=== PATIENT | male | born 1950 ===

== ENCOUNTER 2020-05-24 08:52 | Outpatient (REF) | payer MEDICARE, OTHER, SELFPAY ==
--- NOTE | 2020-05-24 | PFT_ITS ---
FLOWS: FEV1 51% of predicted at 1.44 L. FVC 96% of predicted at 3.55 L. FEV1 to FVC ratio of 0.41. No bronchodilator response. LUNG VOLUMES: Total lung capacity 95% of predicted at 5.92 L. Residual volume 89% of predicted at 2.02 L. Slow vital capacity 98% of predicted at 3.90 L. Expiratory reserve volume at 2.30 L. Diffusion capacity is normal. IMPRESSION: [id number] obstructive ventilatory defect with no bronchodilator response. MD BULMARO Rahman/MODL / [id number] MTDD
== END 2020-05-24 08:53 | disposition home or self-care (01) ==
LOC: HO.RESP 08:52
PROVIDERS: PCP Family Medicine; Visit Provider Surgery
DX: Z01.818 Encounter for other preprocedural examination (principal); R91.1 Solitary pulmonary nodule
CPT/HCPCS: 94060; 94727; 94729

== ENCOUNTER → 2020-06-07 10:24 | Outpatient (BNVA) | payer MEDICARE, OTHER, SELFPAY | PROVIDERS: PCP Family Medicine; Visit Provider Surgery | DX: Z76.89 Persons encountering health services in other specified circumstances (principal) ==

== ENCOUNTER 2020-07-10 11:21 | Outpatient (REF) | payer MEDICARE, MEDICAID, SELFPAY ==
--- NOTE | 2020-07-10 11:24 | CT_ITS ---
EXAMINATION: CT CHEST SCREENING CLINICAL INFORMATION: Lung cancer screening. Follow-up COMPARISON: CT chest 04/30/2020 TECHNIQUE: Multidetector volumetric CT imaging of the chest is performed without contrast using low dose technique. Additional 2D coronal and sagittal reformatted images and axial 3D maximum intensity projection (MIP) images are generated on the CT workstation. This CT examination was performed using dose optimization techniques as appropriate, variously including the following: *Automated exposure control *Adjustment of mA and/or kV according to patient size (this includes techniques or standardized protocols for targeted exams where dose is matched to indication/reason for exam; i.e. extremities or head) *Use of iterative reconstruction technique DLP: 63 mGy-cm FINDINGS: LUNGS: The lungs are emphysematous without any acute process. There is a 5 mm calcified nodule right upper lobe image 78/6, 5 mm linear density right middle lobe, image 120/6, 5 mm pleural-based nodule right upper lobe, axial image 222/6, 2 mm nodule right lower lobe medial segment, axial image 83/9. There is a 9 mm pleural-based nodule left lower lobe, axial image 122/6, stable. There is 4 mm nodule left lower lobe centrally at the base on axial image 325/6. All these nodules are stable. No new nodules seen. MEDIASTINUM: The central trachea and the bronchi widely patent. The heart size and the great vessels are normal caliber. There is atherosclerotic calcification of the abdominal aorta and coronary arteries. No aneurysmal dilatation seen. No pericardial effusion. No abnormal mediastinal adenopathy. PLEURA: There is no pleural effusion. No pleural mass or thickening. AXILLA: There are small shotty lymph nodes seen in bilateral axillae. UPPER ABDOMEN: Visualized liver, spleen, pancreas and bilateral adrenal glands are unremarkable. OSSEOUS STRUCTURES: No lytic or sclerotic process seen. There is mild ventral spondylosis mid and lower dorsal spine. CT/CT lung screen follow up IMPRESSION: Stable bilateral pulmonary nodules, largest pulmonary nodule is 9 mm in the left lower lobe. Previously measured 10 mm ASSESSMENT: Lung-Rads category: 2, benign RECOMMENDATION: Low dose annual CT chest.
== END 2020-07-10 11:22 | disposition home or self-care (01) ==
LOC: HO.CT 11:21
PROVIDERS: PCP Family Medicine; Visit Provider Surgery
DX: Z12.2 Encounter for screening for malignant neoplasm of respiratory organs (principal); R91.1 Solitary pulmonary nodule; Z87.891 Personal history of nicotine dependence
CPT/HCPCS: 71250

== ENCOUNTER → 2020-07-19 09:51 | Outpatient (BNVA) | payer MEDICARE, MEDICAID, OTHER, SELFPAY | PROVIDERS: PCP Family Medicine; Referring Provider Family Medicine; Visit Provider Surgery | DX: R91.1 Solitary pulmonary nodule (principal); Z87.891 Personal history of nicotine dependence | CPT/HCPCS: 99215 ==

== ENCOUNTER → 2020-09-06 10:52 | Outpatient (BNVA) | payer MEDICARE, OTHER, SELFPAY | PROVIDERS: PCP Family Medicine; Visit Provider Surgery | DX: Z13.89 Encounter for screening for other disorder (principal) | CPT/HCPCS: 99212 ==

== ENCOUNTER → 2020-09-09 12:58 | Outpatient (BNV) | payer MEDICARE, MEDICAID, SELFPAY | PROVIDERS: PCP Family Medicine; Referring Provider Surgery; Visit Provider Internal Medicine | DX: C34.32 Malignant neoplasm of lower lobe, left bronchus or lung (principal); C79.51 Secondary malignant neoplasm of bone; E03.9 Hypothyroidism, unspecified; E87.1 Hypo-osmolality and hyponatremia | CPT/HCPCS: 99202; 99204; 99213; 99214; G2211 ==

== ENCOUNTER 2020-09-11 | Outpatient (REF) | payer MEDICARE, MEDICAID, OTHER, SELFPAY | END 2020-09-11 00:01 | disposition home or self-care (01) | LOC: HO.VC | PROVIDERS: Visit Provider Internal Medicine | DX: Z23 Encounter for immunization (principal) | CPT/HCPCS: 0011A ==

== ENCOUNTER 2020-09-13 09:45 | Outpatient (REF) | payer MEDICARE, MEDICAID, SELFPAY ==
--- NOTE | ~2020-09-13 | MR_ITS ---
EXAMINATION: MR BRAIN WITHOUT AND WITH CONTRAST CLINICAL INFORMATION: History of lung cancer COMPARISON: None TECHNIQUE: Multiplanar, multisequence MRI of the brain was obtained before and after the intravenous administration of 7.5 mL Gadavist. FINDINGS: No focal reduced diffusion is seen to suggest acute or subacute cerebral ischemia. No intracranial mass, intracerebral edema, intra-axial blood products, midline shift, or extra-axial collection is visualized. No pathologic enhancement is appreciated on postcontrast sequences. There are a few scattered foci of T2 prolongation subcortical white matter statistically reflective of chronic white matter small vessel ischemic disease. There are a few scattered dilated perivascular spaces throughout the supratentorial white matter. The ventricles and sulcal spaces appear normal. Normal arterial and venous vascular flow voids are present. Mild pansinus mucosal thickening. Orbits and globes unremarkable. MR/MR head/brain wo/w con IMPRESSION: No evidence of intracranial metastatic disease. Minimal chronic white matter small vessel ischemic disease.
== END 2020-09-13 09:46 | disposition home or self-care (01) ==
LOC: HO.MRI 09:45
PROVIDERS: Visit Provider Internal Medicine
DX: C34.32 Malignant neoplasm of lower lobe, left bronchus or lung (principal)
CPT/HCPCS: 70553; A9585

== ENCOUNTER 2020-09-13 10:45 | Day surgery (SDC) | payer MEDICARE, MEDICAID, OTHER, SELFPAY ==
--- NOTE | ~2020-09-13 | IR_ITS ---
PROCEDURE: IR INSERTION OF TUNNEL CATHETER IR ULTRASOUND-GUIDED VENOUS ACCESS CLINICAL INFORMATION: Lung cancer. COMPARISON: None TECHNIQUE: Procedure, risks and benefits including bleeding, infection and pneumothorax were discussed with the patient, and informed consent was obtained. All elements of maximal sterile barrier technique followed including use of cap, mask, sterile gown, sterile gloves, a sterile full body drape, and hand hygiene. Also followed skin preparation with 2% chlorhexidine for cutaneous antisepsis, and sterile ultrasound preparation with sterile gel and probe cover when applicable. The right neck and chest were prepped and draped in the usual sterile fashion. The skin and soft tissues of the right lower neck were anesthetized with 1% lidocaine with epinephrine. A small incision was made. Using ultrasound guidance and a 4-[place] micropuncture system, right internal jugular vein access was obtained. Over an .018 wire, a 4-[place] dilator was positioned in the SVC. The skin and soft tissues of the right upper anterior chest were anesthetized with 1% lidocaine with epinephrine. A small incision was made. A subcutaneous pocket was created. A subcutaneous tunnel from the chest to the neck incision was anesthetized with 1% lidocaine with epinephrine. Using a tunneler, a 6.6-[place] single-lumen catheter was tunneled from the chest to the neck incision. The catheter was attached to the port. The port and catheter were flushed. The port was positioned in the subcutaneous pocket and secured using two 2-0 nonabsorbable sutures. An .035 guidewire was advanced through the 4-[place] dilator into the IVC. 4-[place] dilator was exchanged for a 7-[place] peel-away sheath. Using bent wire technique, the catheter length was estimated and the catheter was cut. The catheter length is 22 cm. The catheter was fed centrally through the peel-away sheath. The neck incision was closed using a 4-0 absorbable subcuticular suture. The chest incision was closed using three 3-0 absorbable interrupted sutures followed by a running absorbable 4-0 subcuticular suture. The port was accessed. The port had good blood return, flushed easily and was instilled with 5 mL heparin 100 unit per mL solution. Real-time ultrasound guidance was used to document vein patency and for needle entry. A formal ultrasound picture was recorded. Fluoroscopy time 0.4 minutes. The patient received Versed 1 mg and fentanyl 50 mcg intravenously during the procedure. Total sedation time 33 minutes. Patient dose 76 cGy-cm2. FINDINGS: There is a right internal jugular port with tip projecting over the cavoatrial junction. IR/IR cvc insert tunnel w prt/cosmetic chemist IMPRESSION: Right internal jugular 6.6-[place] single-lumen Dignity Port-A-Cath placement.
--- NOTE | ~2020-09-13 | IR_ITS ---
PROCEDURE: IR INSERTION OF TUNNEL CATHETER IR ULTRASOUND-GUIDED VENOUS ACCESS CLINICAL INFORMATION: Lung cancer. COMPARISON: None TECHNIQUE: Procedure, risks and benefits including bleeding, infection and pneumothorax were discussed with the patient, and informed consent was obtained. All elements of maximal sterile barrier technique followed including use of cap, mask, sterile gown, sterile gloves, a sterile full body drape, and hand hygiene. Also followed skin preparation with 2% chlorhexidine for cutaneous antisepsis, and sterile ultrasound preparation with sterile gel and probe cover when applicable. The right neck and chest were prepped and draped in the usual sterile fashion. The skin and soft tissues of the right lower neck were anesthetized with 1% lidocaine with epinephrine. A small incision was made. Using ultrasound guidance and a 4-[place]izen [place] micropuncture system, right internal jugular vein access was obtained. Over an .018 wire, a 4-[place] dilator was positioned in the SVC. The skin and soft tissues of the right upper anterior chest were anesthetized with 1% lidocaine with epinephrine. A small incision was made. A subcutaneous pocket was created. A subcutaneous tunnel from the chest to the neck incision was anesthetized with 1% lidocaine with epinephrine. Using a tunneler, a 6.6-[place] single-lumen catheter was tunneled from the chest to the neck incision. The catheter was attached to the port. The port and catheter were flushed. The port was positioned in the subcutaneous pocket and secured using two 2-0 nonabsorbable sutures. An .035 guidewire was advanced through the 4-[place]izen [place] dilator into the IVC. 4-[place] dilator was exchanged for a 7-[place] peel-away sheath. Using bent wire technique, the catheter length was estimated and the catheter was cut. The catheter length is 22 cm. The catheter was fed centrally through the peel-away sheath. The neck incision was closed using a 4-0 absorbable subcuticular suture. The chest incision was closed using three 3-0 absorbable interrupted sutures followed by a running absorbable 4-0 subcuticular suture. The port was accessed. The port had good blood return, flushed easily and was instilled with 5 mL heparin 100 unit per mL solution. Real-time ultrasound guidance was used to document vein patency and for needle entry. A formal ultrasound picture was recorded. Fluoroscopy time 0.4 minutes. The patient received Versed 1 mg and fentanyl 50 mcg intravenously during the procedure. Total sedation time 33 minutes. Patient dose 76 cGy-cm2. FINDINGS: There is a right internal jugular port with tip projecting over the cavoatrial junction. IR/IR us guide venous access IMPRESSION: Right internal jugular 6.6-[place] single-lumen Dignity Port-A-Cath placement.
[2020-09-13 11:05] VITALS: BMI 26.9
[2020-09-13 11:06] LABS: Glucose, Whole Blood 100 mg/dL (60-115)
[2020-09-13] MEDS: Lidocaine HCl 1 % MPF 5 ML VIAL 10 ML SUBCUT (12:35)
--- NOTE | 2020-09-13 12:49 | HO.RADPN ---
RADIOLOGY Narrative Narrative: Right internal jugular 6.6 Fr single lumen Dignity port placed. Tip at cavoatrial junction.
[2020-09-13 12:52] VITALS: BP 117/62; PULSE 70; RESP 17; TEMP 36.7; O2SAT 98
[2020-09-13 13:07] VITALS: BP 108/57; PULSE 60; RESP 18; O2SAT 96
[2020-09-13 13:22] VITALS: BP 113/62; PULSE 62; RESP 18; O2SAT 96
[2020-09-13 13:37] VITALS: BP 121/66; PULSE 62; RESP 18; O2SAT 95
[2020-09-13 13:52] VITALS: BP 121/60; PULSE 63; RESP 20; TEMP 37.2; O2SAT 95
== END 2020-09-13 16:20 | disposition home or self-care (01) ==
PROVIDERS: PCP Family Medicine; Visit Provider Radiology Diagnostic Radiology
DX: C34.32 Malignant neoplasm of lower lobe, left bronchus or lung (principal); Z92.3 Personal history of irradiation; Z87.891 Personal history of nicotine dependence
CPT/HCPCS: 36561; 76937; 82947; 99152; 99153; C1788; J0690; J1642; J2250; J3010

== ENCOUNTER 2020-09-17 11:01 | Outpatient (REF) | payer MEDICARE, OTHER, SELFPAY ==
--- NOTE | ~2020-09-17 | PE_ITS ---
EXAMINATION: Fluorine-18 FDG PET/CT Scan CLINICAL INDICATION: Subsequent treatment management. Left lung cancer status post surgery 08/20/2020. Patient provides history of throat radiation therapy 2.5 years ago. PROCEDURE: 47 minutes following the intravenous administration of 14.4 mCi of fluorine 18 FDG, images from the base of the skull to the mid thighs were obtained using a combined PET/CT scanner with CT scan based attenuation correction. No oral contrast was administered. No intravenous contrast was administered. Transverse, coronal, sagittal, and volume reconstruction projections were obtained. The patient's blood glucose as determined by a finger stick, was 82 mg/dl immediately prior to injection. Total CT exam dose-length product 453.45 mGy-cm * These CT images were obtained using dose optimization techniques as appropriate, variously including the following: Automated exposure control * Adjustment of mA and/or kV according to patient size (this includes techniques or standardized protocols for targeted exams where dose is matched to indication/reason for exam; i.e. extremities or head) * Use of iterative reconstruction technique COMPARISON: No previous PET/CT scan is available for comparison. CT scan of the chest dated 07/10/2020 is available for comparison. FINDINGS: (Slice numbers described in this report are numbered superiorly to inferiorly with slice #1 in the head) NECK AND VISUALIZED HEAD: No foci of abnormal FDG activity are noted. The distribution of FDG activity is physiological. There is no cervical lymphadenopathy. THORAX: Postsurgical changes from a left lower lobectomy are noted, new findings since the most recent CT scan available for comparison dated 07/10/2020. A moderately sized left pleural effusion is present. There is no right-sided pleural fluid, pericardial fluid, or pneumothorax. There is no mediastinal, supraclavicular, or axillary lymphadenopathy. A right-sided chest port with internal jugular catheter terminating in the superior vena cava is noted. There are no foci of abnormal FDG activity present within the lungs are mediastinum. There is mildly increased FDG activity in the lateral aspect of the left 6 rib and adjacent lateral 6 interspace with no definite corresponding CT abnormalities, likely postoperative inflammatory changes. A densely calcified 0.5 cm lateral right upper lobe pulmonary nodule is visualized, too small to be characterized on the FDG PET images. Inferior to this also laterally located in the right lower lobe there is a 0.4 cm nodule, slice 75/267, also too small to characterize on the FDG PET images. No other pulmonary nodules are visualized. ABDOMEN AND PELVIS: No foci of abnormal FDG activity are present in the abdomen or pelvis. The liver, gallbladder, spleen, kidneys, adrenal glands, and pancreas appear unremarkable. There is mild FDG activity throughout the gastrointestinal tract without a suspicious focal component. There is diverticulosis without evidence of diverticulitis. The hollow viscera are otherwise unremarkable. The prostate gland is enlarged measuring 5.1 cm in largest transverse dimension. The pelvic organs are otherwise unremarkable. There is no retroperitoneal, mesenteric, pelvic or inguinal lymphadenopathy. MUSCULOSKELETAL: No foci of abnormal FDG activity are present in the osseous structures. There are degenerative changes in the spine which are most severe in the mid and lower thoracic spine. There are no suspicious sclerotic or lytic lesions visualized. VASCULAR: Diffuse vascular calcifications including coronary. PET/PET CT fusion skull to thigh IMPRESSION: 1. Postsurgical changes from a left lower lobectomy are noted. There is a moderately sized left pleural effusion and mild FDG activity in the left lateral chest wall is noted which is likely due to mild postoperative inflammatory changes. 2. No additional abnormalities suspicious for metastatic or other malignant lesions are noted. 3. Diffuse vascular calcifications including coronary.
== END 2020-09-17 11:02 | disposition home or self-care (01) ==
LOC: HO.PET 11:01
PROVIDERS: Visit Provider Internal Medicine
DX: Z13.89 Encounter for screening for other disorder (principal)

== ENCOUNTER 2020-10-09 | Outpatient (REF) | payer MEDICARE, MEDICAID, OTHER, SELFPAY | END 2020-10-09 00:01 | disposition home or self-care (01) | LOC: HO.VC | PROVIDERS: Visit Provider Internal Medicine | DX: Z23 Encounter for immunization (principal) | CPT/HCPCS: 0012A ==

== ENCOUNTER 2021-02-07 09:13 | Outpatient (REF) | payer MEDICARE, MEDICAID, OTHER, SELFPAY ==
--- NOTE | ~2021-02-07 | CT_ITS ---
EXAMINATION: CT CHEST WITHOUT CONTRAST CLINICAL INFORMATION: Left lower lobe lung cancer COMPARISON: Previous chest CT most recent July 2020 and PET/CT September 2020 TECHNIQUE: Multidetector volumetric CT imaging of the chest was done. Axial MIP volume rendering provided. Sagittal and coronal reformatted images were obtained. This CT examination was performed using dose optimization techniques as appropriate, variously including the following: *Automated exposure control *Adjustment of mA and/or kV according to patient size (this includes techniques or standardized protocols for targeted exams where dose is matched to indication/reason for exam; i.e. extremities or head) *Use of iterative reconstruction technique DLP: 141 mGy-cm FINDINGS: LUNGS: There are postsurgical changes from left lower lobe lobectomy. There is evidence of mild emphysema. There are stable small pulmonary nodules. Largest pulmonary nodules are a 5 mm calcified right upper lobe nodule and 5 mm noncalcified peripheral or subpleural right middle lobe nodule. No new pulmonary nodule is seen. MEDIASTINUM: There are small calcified and noncalcified mediastinal lymph nodes that are stable. No enlarged lymph nodes are seen. There is mild coronary artery and aortic valve calcification. There is no pericardial effusion. The thoracic aorta is normal in caliber. There is a right jugular port with tip projecting over the SVC. PLEURA: There is a trace left pleural effusion. This is decreased from PET/CT scan September 2020. There is no right pleural effusion. The AXILLA: No lymphadenopathy. UPPER ABDOMEN: Unremarkable. OSSEOUS STRUCTURES: There are healing left lateral seventh and eighth rib fractures. These are new PET/CT scan 2020 and therefore considered unlikely to be surgical. Bony structures are otherwise unremarkable. CT/CT chest wo con IMPRESSION: Postsurgical changes following left lower lobe lobectomy. Trace left pleural effusion decreased from PET/CT scan. Mild emphysema. Stable right calcified and noncalcified small pulmonary nodules. Coronary artery and aortic valve calcification. New left lateral healing seventh and eighth rib fractures. These are new from PET/CT scan September 2020 and therefore considered unlikely to be postsurgical.
== END 2021-02-07 09:14 | disposition home or self-care (01) ==
LOC: HO.CT 09:13
PROVIDERS: Visit Provider Surgery
DX: C34.32 Malignant neoplasm of lower lobe, left bronchus or lung (principal)
CPT/HCPCS: 71250

== ENCOUNTER → 2021-02-28 09:47 | Outpatient (BNVA) | payer MEDICARE, OTHER, SELFPAY | PROVIDERS: PCP Family Medicine; Visit Provider Surgery | DX: C34.32 Malignant neoplasm of lower lobe, left bronchus or lung (principal); F17.210 Nicotine dependence, cigarettes, uncomplicated; Z79.899 Other long term (current) drug therapy; Z90.2 Acquired absence of lung [part of] | CPT/HCPCS: 99212 ==

== ENCOUNTER 2021-05-12 11:01 | Outpatient (REF) | payer MEDICARE, OTHER, SELFPAY ==
[2021-05-12 11:58] LABS: Anion Gap 10 (12-20); Blood Urea Nitrogen 14 mg/dL (9-16); Calcium 9.3 mg/dL (8.4-10.2); Carbon Dioxide 31 mmol/L (22-29); Chloride 100 mmol/L (96-108); Estimated Glomerular Filt Rate > 60; Potassium 4.2 mmol/L (3.3-5.1); Sodium 137 mmol/L (135-145)
== END 2021-05-12 11:02 | disposition home or self-care (01) ==
LOC: HO.LAB 11:01
PROVIDERS: PCP Family Medicine; Visit Provider Internal Medicine Hypertension Specialist
DX: N18.2 Chronic kidney disease, stage 2 (mild) (principal)
CPT/HCPCS: 36415; 80051; 82310; 82565; 84520

== ENCOUNTER → 2021-06-23 09:31 | Outpatient (REF) | payer MEDICARE, OTHER, SELFPAY ==
--- NOTE | ~2021-06-23 | NM_ITS ---
EXAMINATION: NM BONE SCAN OF THE WHOLE BODY CLINICAL INFORMATION: New left rib fracture. History of lung cancer. COMPARISON: CT PET 09/17/2020. TECHNIQUE: Multiple gamma scintillation camera images of the whole body were performed 3 hours following the intravenous administration of 26 mCi Tc-99m MDP. FINDINGS: In the head, activity is seen. In the thoracic cage and upper extremities, there is mild activity seen throughout the vessels spine especially. Multiple areas of focal activity along the right costovertebral junctions, likely arthritis. There are 2 focal areas adjacent to each other of abnormal activity in the left mid seventh and eighth lateral ribs, likely related to trauma. In the spine, mild metabolic activity seen along left T7 costovertebral junctions of the thoracic spine. In the pelvis, unremarkable. In the lower extremities, Unremarkable. No other definite bony abnormalities are noted. The urinary bladder and faint visualization of both kidneys are noted. NM/NM bone scan whole body IMPRESSION: Two focal areas of metabolic activity left mid 7 and eighth ribs likely related to trauma Mild activity left T7 costovertebral junction.
== END ==
LOC: HO.NUCMED 09:31
PROVIDERS: Visit Provider Internal Medicine
DX: C34.92 Malignant neoplasm of unspecified part of left bronchus or lung (principal); S22.32XD Fracture of one rib, left side, subsequent encounter for fracture with routine healing
CPT/HCPCS: 78306; A9503

== ENCOUNTER 2021-08-06 09:14 | Outpatient (REF) | payer MEDICARE, OTHER, SELFPAY ==
--- NOTE | ~2021-08-06 | CT_ITS ---
EXAMINATION: CT CHEST WITHOUT CONTRAST CLINICAL INFORMATION: Malignant neoplasm of left lower lobe. Status post left lower lobectomy. COMPARISON: Chest CT scan dated 02/07/2021, PET/CT scan dated 09/17/2020. TECHNIQUE: Multidetector volumetric CT imaging of the chest was done. Axial MIP volume rendering provided. Sagittal and coronal reformatted images were obtained. This CT examination was performed using dose optimization techniques as appropriate, variously including the following: *Automated exposure control *Adjustment of mA and/or kV according to patient size (this includes techniques or standardized protocols for targeted exams where dose is matched to indication/reason for exam; i.e. extremities or head) *Use of iterative reconstruction technique DLP: 169 mGy-cm FINDINGS: LUNGS/PLEURA/AIRWAYS: Postsurgical changes are seen in the left lower lobe with associated volume loss and mild elevation of the left hemidiaphragm. Mild centrilobular and paraseptal emphysema is again seen. A coarsely calcified nodules again seen anterolaterally in the right apex without interval change measuring 0.5 cm (image 114, series 4). Nodular scarring superolaterally in the right middle lobe measures 0.3 cm (image 164, series 4). A subpleural nodule/nodular scarring anterolaterally in the right middle lobe measuring 0.7 cm is unchanged (image 280, series 4). Scattered mild linear atelectasis/scarring bilaterally has not significantly changed. There are no pleural effusions. The airways are patent. MEDIASTINUM: The visualized thyroid gland is unremarkable. Mild to moderate atherosclerosis of the thoracic aorta. The ascending aorta measures up to 4.2 cm in AP dimension (image 25, series 3). Mild to moderate coronary artery calcifications are seen. No pericardial effusion. Interval enlargement of mediastinal and left hilar lymph nodes. [employer] Branch lymph nodes are as follows: Aorticopulmonary, left anterior: 0.9 cm in short axis (previously 0.3 cm), image 22, series 3. Aorticopulmonary, left paratracheal: 1.6 cm in short axis (previously 0.4 cm), image 24, series 3. Left hilar, anterior: 0.7 cm in short axis (previously 0.6 cm), image 29, series 3. UPPER ABDOMEN: Unremarkable. MUSCULOSKELETAL: Mild multilevel degenerative changes without suspicious abnormality or change. SOFT TISSUES: Unremarkable. CT/CT chest wo con IMPRESSION: 1. Left lower lobectomy postsurgical changes without evidence for recurrent pulmonary disease however, there has been interval enlargement of predominantly left mediastinal lymph nodes as detailed above. While these could be reactive, recurrent disease cannot be excluded. A PET CT scan and biopsy should be considered. 2. Other incidental findings without significant change.
== END 2021-08-06 09:15 | disposition home or self-care (01) ==
LOC: HO.CT 09:14
PROVIDERS: PCP Family Medicine; Visit Provider Surgery
DX: C34.32 Malignant neoplasm of lower lobe, left bronchus or lung (principal)
CPT/HCPCS: 71250

== ENCOUNTER → 2021-08-29 09:42 | Outpatient (BNVA) | payer MEDICARE, OTHER, SELFPAY | PROVIDERS: PCP Family Medicine; Visit Provider Surgery | DX: C34.32 Malignant neoplasm of lower lobe, left bronchus or lung (principal); R59.0 Localized enlarged lymph nodes; Z79.899 Other long term (current) drug therapy; Z90.2 Acquired absence of lung [part of]; Z92.21 Personal history of antineoplastic chemotherapy | CPT/HCPCS: 99212 ==

== ENCOUNTER 2021-09-11 11:34 | Outpatient (REF) | payer MEDICARE, OTHER, SELFPAY ==
--- NOTE | ~2021-09-11 | PE_ITS ---
EXAMINATION: Fluorine-18 FDG PET/CT Scan CLINICAL INDICATION: Subsequent treatment management. Left lower lobe lung cancer status post left lower lobectomy. PROCEDURE: 67 minutes following the intravenous administration of 14.4 mCi of fluorine 18 FDG, images from the base of the skull to the mid thighs were obtained using a combined PET/CT scanner with CT scan based attenuation correction. No oral contrast was administered. No intravenous contrast was administered. Transverse, coronal, sagittal, and volume reconstruction projections were obtained. The patient's blood glucose as determined by a finger stick, was 101 mg/dl immediately prior to injection. Total CT exam dose-length product 447.84 mGy-cm * These CT images were obtained using dose optimization techniques as appropriate, variously including the following: Automated exposure control * Adjustment of mA and/or kV according to patient size (this includes techniques or standardized protocols for targeted exams where dose is matched to indication/reason for exam; i.e. extremities or head) * Use of iterative reconstruction technique COMPARISON: The previous PET CT scan dated 09/17/2020 is available for comparison. More recent CT scan of the chest dated 08/06/2021 is also available for comparison. FINDINGS: (Slice numbers described in this report are numbered superiorly to inferiorly with slice #1 in the head) NECK AND VISUALIZED HEAD: No foci of abnormal FDG activity are noted. The distribution of FDG activity is physiological. There is no cervical lymphadenopathy. THORAX: Multiple intense FDG avid soft tissue foci are present in the mediastinum, of varying sizes. The largest and most intense is a left lower paratracheal focus of extension into the left hilar region showing SUVmax 13.0, slice 81/267. This measures approximately 3.3 x 2.0 cm in largest transverse dimensions and was not present on the previous 09/17/[address] scan. There is an additional prominent AP window FDG avid lymph node that shows SUVmax 11.2, slice 81/267 and measures 2.5 x 1.2 cm in largest transverse dimensions. Several additional FDG avid foci are present in the mid left paratracheal and left prevascular regions and in a lower right paratracheal focus just superior to the sd. A less intense FDG avid subcarinal lymph node shows SUVmax 3.0, slice 91/267. No additional foci of abnormal FDG activity are present in the chest. Postsurgical changes from a left lower lobectomy are present. There is trace left pleural fluid present, much smaller than on the 09/17/[address] scan and with no associated abnormal FDG activity. A few scattered subcentimeter pulmonary nodules are present, unchanged from prior studies, new accounts representative are an anterolateral pleural-based 0.7 cm right middle lobe nodule, slice 93/267 and a densely calcified right apical granuloma, slice 76/267. There there is no right-sided pleural fluid, pericardial fluid, or pneumothorax. There is no additional axillary or supraclavicular lymphadenopathy. A right-sided chest port with internal jugular catheter terminating in the superior vena cava is noted. ABDOMEN AND PELVIS: No foci of abnormal FDG activity are present in the abdomen or pelvis. There is mild FDG activity throughout the gastrointestinal tract without a suspicious focal component, likely physiological. There is diverticulosis without evidence of diverticulitis. The hollow viscera are otherwise unremarkable. The liver, gallbladder, spleen, kidneys, adrenal glands, and pancreas appear unremarkable. The prostate is top normal in size measuring 5.0 cm in largest transverse dimensions. There is no abnormal FDG activity in the prostate. The pelvic organs are otherwise unremarkable. There is no retroperitoneal, mesenteric, pelvic or inguinal lymphadenopathy. MUSCULOSKELETAL: There is a small discrete focus of mildly increased FDG activity in the T12 vertebral body with no corresponding abnormality on these nondiagnostic CT images or the recent 08/06/[address] scan. No other foci of abnormal FDG activity are present in the osseous structures. There are degenerative changes in the spine but no suspicious sclerotic or lytic lesions are visualized. VASCULAR: Diffuse vascular calcifications including coronary are present. PET/PET CT fusion skull to thigh IMPRESSION: 1. Multiple intensely FDG avid mediastinal lymph nodes are present, with extension into the left perihilar region, as described above. These are most consistent with recurrent metastatic malignancy. 2. A solitary FDG avid osseous focus in the T12 vertebral body is also likely a metastasis. 3. No additional abnormalities suspicious for other metastatic or malignant lesions are noted. 4. Diffuse vascular calcifications including coronary.
== END 2021-09-11 11:35 | disposition home or self-care (01) ==
LOC: HO.PET 11:34
PROVIDERS: PCP Family Medicine; Visit Provider Surgery
DX: Z13.89 Encounter for screening for other disorder (principal)

== ENCOUNTER 2021-09-19 10:45 | Day surgery (SDC) | payer MEDICARE, OTHER, SELFPAY ==
[2021-09-12 10:49] VITALS: BMI 27.3
--- NOTE | 2021-09-18 12:01 | P.CONAN_ITS ---
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, had recent normal endoscopy with [facility] Active Problems Active Problems: All Active Problems (Updated 09/12/21 @ 10:49 by Amanda Cain, RN) Pulmonary nodule (Acute) Non-small cell cancer of left lung (Acute ~2019) Anemia (Acute) Mediastinal lymphadenopathy (Acute) Personal history of nicotine dependence (Acute) Port-A-Cath in place (Acute ~09/2020) Cancer of lower lobe of left lung (Chronic ~2019) Past Medical History Medical History (Updated 09/12/21 @ 10:49 by Amanda Cain, RN) Cancer of lower lobe of left lung (~2019) History of malignant neoplasm of glottis (~2018) HTN (hypertension) Hyperlipemia On beta [place] at home Personal history of nicotine dependence Port-A-Cath in place (~09/2020) Family History Family History Mother Diabetes Brother Diabetes High blood pressure Daughter Breast cancer Daughter Hx of thyroid disease Surgical History Surgical History Admission for fitting of Port-A-Cath (~09/2020) History of colonoscopy (~12/2014) History of laryngoscopy (~10/2018) History of left knee surgery History of lobectomy of lung (~08/2020) Social History Social History Alcohol intake: current Alcohol intake frequency: holidays/special occasions only Alcohol type: beer Patient Tobacco Use Status: Former Tobacco user Cigarette Packs Per Day: 1 Years Smoked: 34 Have you been hit, kicked, punched, or otherwise hurt by someone within the past year? If so, by whom?: No Are you DNR?: No Advance Directives: No Advance Directives Information Provided: Yes Nutrition Risks: No Nutritional Risk Meds Allergies Allergy/AdvReac Type Severity Reaction Status Date / Time No Known Allergies Allergy Verified 09/12/21 10:49 Home Medications Medication Instructions Recorded Confirmed Last Taken Type amlodipine 10 mg tablet 10 mg PO DAILY 06/07/20 09/12/21 09/19/21 History atorvastatin 10 mg tablet 10 mg PO DAILY 06/07/20 09/12/21 Unknown History fluticasone propionate 50 50 mcg INTRANASAL DAILY 06/07/20 09/12/21 Unknown History mcg/actuation nasal spray,suspension hydralazine 10 mg tablet 10 mg PO DAILY 06/07/20 09/12/21 09/19/21 History hydrochlorothiazide 25 mg tablet 25 mg PO DAILY 06/07/20 09/12/21 09/19/21 History losartan 100 mg tablet 100 mg PO DAILY 06/07/20 09/12/21 09/19/21 History metoprolol succinate 50 mg 50 mg PO DAILY 06/07/20 09/12/21 09/19/21 History tablet,extended release 24 hr ergocalciferol (vitamin D2) 1,250 1,250 mcg PO QMONTH 05/12/21 09/12/21 Unknown History mcg (50,000 unit) capsule (Vitamin D2) Exam Exam Date and Time: September 18, 2021 1201 Height,Weight and Vital Signs: Height 5 ft 6 in Weight 76.997 kg Pertinent Lab Results Pertinent Lab Results: Laboratory Tests 04/28/21 05/12/21 09:34 11:18 WBC 5.7 Hgb 13.1 L D Hct 42.5 D Plt Count 208 Sodium 137 Potassium 4.2 Chloride 100 Carbon Dioxide 31 H BUN 14 Creatinine 0.89 Assessment and Plan Assessment Anesthesia Assessment: Chart Reviewed Documented by User: Stefany Chang MD 09/19/21 15:37 PMFSH Active Problems Active Problems: All Active Problems (Updated 09/12/21 @ 10:49 by Amanda Cain RN) Pulmonary nodule (Acute) Non-small cell cancer of left lung (Acute ~2020) Anemia (Acute) Mediastinal lymphadenopathy (Acute) Personal history of nicotine dependence (Acute) Port-A-Cath in place (Acute ~09/2020) Cancer of lower lobe of left lung (Chronic ~2019) Raspy voice Past Medical History Medical History (Updated 09/12/21 @ 10:49 by Amanda Cain RN) Cancer of lower lobe of left lung (~2019) History of malignant neoplasm of glottis (~2018) HTN (hypertension) Hyperlipemia On beta [place] at home Personal history of nicotine dependence Port-A-Cath in place (~09/2020) Family History Family History Mother Diabetes Brother Diabetes High blood pressure Daughter Breast cancer Daughter Hx of thyroid disease Family history of problems with anesthesia: No Surgical History Surgical History Admission for fitting of Port-A-Cath (~09/2020) History of colonoscopy (~12/2014) History of laryngoscopy (~10/2018) History of left knee surgery History of lobectomy of lung (~08/2020) History of Problems with Anesthesia: No Social History Social History Alcohol intake: current Alcohol intake frequency: holidays/special occasions only Alcohol type: beer Patient Tobacco Use Status: Former Tobacco user Cigarette Packs Per Day: 1 Years Smoked: 34 Have you been hit, kicked, punched, or otherwise hurt by someone within the past year? If so, by whom?: No Are you DNR?: No Advance Directives: No Advance Directives Information Provided: Yes Nutrition Risks: No Nutritional Risk Meds Allergies Allergy/AdvReac Type Severity Reaction Status Date / Time No Known Allergies Allergy Verified 09/12/21 10:49 Home Medications Medication Instructions Recorded Confirmed Last Taken Type amlodipine 10 mg tablet 10 mg PO DAILY 06/07/20 09/12/21 09/19/21 History atorvastatin 10 mg tablet 10 mg PO DAILY 06/07/20 09/12/21 Unknown History fluticasone propionate 50 50 mcg INTRANASAL DAILY 06/07/20 09/12/21 Unknown History mcg/actuation nasal spray,suspension hydralazine 10 mg tablet 10 mg PO DAILY 06/07/20 09/12/21 09/19/21 History hydrochlorothiazide 25 mg tablet 25 mg PO DAILY 06/07/20 09/12/21 09/19/21 History losartan 100 mg tablet 100 mg PO DAILY 06/07/20 09/12/21 09/19/21 History metoprolol succinate 50 mg 50 mg PO DAILY 06/07/20 09/12/21 09/19/21 History tablet,extended release 24 hr ergocalciferol (vitamin D2) 1,250 1,250 mcg PO QMONTH 05/12/21 09/12/21 Unknown History mcg (50,000 unit) capsule (Vitamin D2) Exam Height,Weight and Vital Signs: Height 5 ft 6 in Weight 76.997 kg Vital Signs Temp Pulse Resp BP Pulse Ox 09/19/21 11:40 98.5 F 67 16 136/50 L 98 Airway Mallampati Class: III TM Dist: >3cm Neck ROM: Full Heart: RRR Lungs: CTAB Assessment and Plan Final Anesthetic Review Family History of Problems with Anesthesia: No History of Problems with Anesthesia: No NPO: Yes ASA Class: III Final Preanesthetic Review: No Changes in Pt Med Stat, Meds/Allgs Chart Reviewed, Consent Obtained/Reviewed and Anes Risks/Benef Reviewed Patient Risk: Intermediate Procedure Risk: Intermediate Assessment/Block/Sedation in SS: Assess/Block/Sedation-SS Anesthetic Plan Anesthetic Plan: GA Disposition: Standard PACU
[2021-09-19] VITALS (7 sets, daily range): BP systolic 124–136; BP diastolic 50–61; PULSE 67–76; RESP 16–20; TEMP 36.4–37.1; O2SAT 96–100
[2021-09-19] MEDS: Lactated Ringers 1,000 ML 100 ML IVCONT (11:58)
--- NOTE | 2021-09-19 12:24 | MHC.SHP ---
Pre-Procedural Eval Section A Date of Service: 09/19/21 The patient is an INPATIENT: No The History & Physical has been completed within 30 days and I have reviewed it.: Yes Section B Chief Complaint: lung neoplasm Allergies: Allergies Allergy/AdvReac Type Severity Reaction Status Date / Time No Known Allergies Allergy Verified 09/12/21 10:49 Plan I have reviewed the history and physical and performed a pertinent physical examination on my patient. No changes have occurred unless specified. Plan is for endobronchial ultrasound possible mediastinoscopy.
--- NOTE | 2021-09-19 15:26 | W.PM.OPN ---
Operative Note Operative Note Date of Service: 09/19/21 Narrative: Preoperative diagnosis: Mediastinal lymphadenopathy history of left lower lobectomy for lung cancer Postoperative diagnosis: Same Operation: Endobronchial ultrasound with biopsy of multiple lymph node stations Surgeon: Marco Brunner MD Anesthesia: General Specimens: Mediastinal lymph nodes EBL: Operation in detail: The patient was brought to the operating room, placed supine on the operative table, anesthesia monitor devices were placed, and the patient was intubated with an 8 and half endotracheal tube. A time-out was performed confirming the correct patient, site, and procedure. The Olympus endobronchial ultrasound scope was then inserted through the endotracheal tube and the airways were visualized down to the subsegmental level bilaterally. Findings are no endobronchial lesions and no secretions. The bronchial stump the left lower lobe was intact without any new masses. The ultrasound was then applied to all 3 stations visualizing the lymph nodes with the findingsenlarged left paratracheal and right paratracheal lymph nodes with small to moderate size subcarinal.. First, we visualized with ultrasound the subcarinal lymph nodes in using a 19 gauge Olympus biopsy needle 3 passes were taking and sent for on-site evaluation. This process was then repeated with right paratracheal and left paratracheal lymph nodes. Findings are Adequate sampling at least 1 of the passes in all 3 stations with preliminary positive malignancy in right and left paratracheal lymph nodes. Hemostasis was then assured in the bronchoscope was removed. The patient tolerated the procedure well, was extubated in the operating room, and brought to the PACU in stable condition.
== END 2021-09-19 16:46 | disposition home or self-care (01) ==
PROVIDERS: PCP Family Medicine; Visit Provider Surgery
PROC: (CPT 31653; principal; 2021-09-19 13:00)
DX: C77.1 Secondary and unspecified malignant neoplasm of intrathoracic lymph nodes (principal); C34.32 Malignant neoplasm of lower lobe, left bronchus or lung; Z85.21 Personal history of malignant neoplasm of larynx; Z95.828 Presence of other vascular implants and grafts; Z87.891 Personal history of nicotine dependence; I10 Essential (primary) hypertension; E78.5 Hyperlipidemia, unspecified; Z79.51 Long term (current) use of inhaled steroids; Z79.899 Other long term (current) drug therapy
CPT/HCPCS: 31653; 88172; 88173; 88177; 88305; 88341; 88342; J0171; J0330; J0690; J1100; J2370; J2405; J3010

== ENCOUNTER → 2021-10-10 09:16 | Outpatient (BNVA) | payer MEDICARE, OTHER, SELFPAY | PROVIDERS: PCP Family Medicine; Visit Provider Surgery | DX: C34.92 Malignant neoplasm of unspecified part of left bronchus or lung (principal); R59.0 Localized enlarged lymph nodes; Z90.2 Acquired absence of lung [part of]; Z87.891 Personal history of nicotine dependence; Z79.899 Other long term (current) drug therapy | CPT/HCPCS: 99212 ==

== ENCOUNTER 2021-10-31 13:28 | Outpatient (REF) | payer MEDICARE, OTHER, SELFPAY ==
--- NOTE | ~2021-10-31 | MR_ITS ---
EXAMINATION: MR BRAIN WITHOUT AND WITH CONTRAST CLINICAL INFORMATION: Restaging study. History of lung cancer. COMPARISON: MRI dated 09/13/2020. TECHNIQUE: Multiplanar, multisequence imaging of the brain was performed before and after the intravenous administration of 7.5 mL of Gadavist. FINDINGS: No diffusion abnormalities are identified to suggest an acute infarct. The ventricles are normal in size. No mass effect or midline shift is seen moderate generalized parenchymal volume loss again evident. No new brain parenchymal signal abnormality is noted. No extra-axial fluid collections are seen. The brainstem is normal. 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 There is no abnormal parenchymal or leptomeningeal enhancement. There is a subtle 1 x 0.9 x 0.9 cm soft tissue lesion within the posteroinferior right cavernous sinus along the anterior margin of the right internal carotid artery at its junction of the distal laceral segment and cavernous segment. The lesion is homogeneous and mildly hyperintense on T2-weighted imaging with fairly homogeneous enhancement. The orbits and pituitary axis structures appear normal. The gradient refocused acquisition is normal. The craniovertebral junction and midline structures are normal. Mild nonspecific marrow heterogeneity in the skull base and upper cervical vertebrae is stable. The major intracranial flow voids at the level of the [place] are preserved. The dural venous sinus flow voids are maintained. The mastoid air cells are well aerated. There is mild mucosal thickening in the paranasal sinuses. MR/MR head/brain wo/w con IMPRESSION: No evidence of intracranial metastatic disease. Nonspecific homogeneously enhancing 1 x 0.9 cm soft tissue lesion in the posteroinferior right cavernous sinus region, which is indeterminate and in retrospect faintly seen on prior imaging with a similar overall appearance. Primary differential diagnostic considerations would include a small meningioma or nerve sheath tumor. No FDG avidity described in this location. A shorter interval targeted study may be useful in follow-up for more detailed evaluation. Otherwise, no acute intracranial process.
== END 2021-10-31 13:29 | disposition home or self-care (01) ==
LOC: HO.MRI 13:28
PROVIDERS: Visit Provider Internal Medicine
DX: C34.92 Malignant neoplasm of unspecified part of left bronchus or lung (principal)
CPT/HCPCS: 70553; A9585

== ENCOUNTER 2021-11-10 07:39 | Outpatient (REF) | payer MEDICARE, OTHER, SELFPAY ==
[2021-11-10 08:13] LABS: COVID-19 Test Negative (Negative)
== END 2021-11-10 07:40 | disposition home or self-care (01) ==
LOC: HO.LAB 07:39
PROVIDERS: PCP Family Medicine; Visit Provider Internal Medicine
DX: Z20.822 Contact with and (suspected) exposure to COVID-19 (principal)
CPT/HCPCS: 87635; C9803

== ENCOUNTER 2022-03-03 09:19 | Outpatient (REF) | payer MEDICARE, OTHER, SELFPAY | END 2022-03-03 09:20 | disposition home or self-care (01) | LOC: HO.PET 09:19 | PROVIDERS: Visit Provider Internal Medicine | DX: Z13.89 Encounter for screening for other disorder (principal) ==

== ENCOUNTER 2022-03-10 11:39 | Outpatient (REF) | payer MEDICARE, OTHER, SELFPAY ==
--- NOTE | ~2022-03-10 | PE_ITS ---
EXAMINATION: Fluorine-18 FDG PET/CT Scan CLINICAL INDICATION: Subsequent treatment management. Left lower lobe lung cancer, restaging. PROCEDURE: 65 minutes following the intravenous administration of 18.3 mCi of fluorine 18 FDG, images from the base of the skull to the mid thighs were obtained using a combined PET/CT scanner with CT scan based attenuation correction. No oral contrast was administered. No intravenous contrast was administered. Transverse, coronal, sagittal, and volume reconstruction projections were obtained. The patient's blood glucose as determined by a finger stick, was 94 mg/dl immediately prior to injection. Total CT exam dose-length product 661.84 mGy-cm * These CT images were obtained using dose optimization techniques as appropriate, variously including the following: Automated exposure control * Adjustment of mA and/or kV according to patient size (this includes techniques or standardized protocols for targeted exams where dose is matched to indication/reason for exam; i.e. extremities or head) * Use of iterative reconstruction technique COMPARISON: Prior PET/CT scans dated 09/17/2020 and 09/11/2021 are available for comparison. FINDINGS: (Slice numbers described in this report are numbered superiorly to inferiorly with slice #1 in the head) NECK AND VISUALIZED HEAD: No foci of abnormal FDG activity are noted. The distribution of FDG activity is physiological. There is no cervical lymphadenopathy. THORAX: Postsurgical changes from a left lower lobectomy are noted. No foci of abnormal FDG activity are present in the chest. There has been complete resolution of multiple intense FDG avid mediastinal foci present on the prior 09/11/[address] scan. There is now no mediastinal, supraclavicular, or axillary lymphadenopathy. Small subcentimeter nodules visualized on prior studies are again visualized and appear unchanged. Outsole Paraffiner are a 0.7 cm pleural-based anterolateral right middle lobe nodule, slice 93/267 and a densely calcified granuloma in the right lung apex, slice 69/267. All of these are too small to be characterized on the FDG PET images. There is no pleural or pericardial fluid or pneumothorax. A right-sided chest port with internal jugular catheter terminating in the superior vena is noted. ABDOMEN AND PELVIS: No foci of abnormal FDG activity are present in the abdomen or pelvis. There is mild FDG activity throughout the gastrointestinal tract without a suspicious focal component, likely physiological. There is diverticulosis without evidence of diverticulitis. The hollow viscera are otherwise unremarkable. The liver, gallbladder, spleen, kidneys, adrenal glands, and pancreas appear unremarkable. The prostate is top normal in size measuring 5.0 cm in largest transverse dimensions. There is no abnormal FDG activity in the prostate. The pelvic organs are otherwise unremarkable. There is no retroperitoneal, mesenteric, pelvic or inguinal lymphadenopathy. MUSCULOSKELETAL: There are no foci of abnormal FDG activity in the osseous structures. A small FDG avid focus in the T12 vertebral body visualized on the prior 09/11/2021 study is no longer present. There is a new subcentimeter subtle mixed sclerotic and lytic lesion now present at this site on the CT images. There are diffuse degenerative changes in the spine, most prominently in the mid and lower thoracic spine. There are no additional suspicious sclerotic or lytic lesions visualized. VASCULAR: Diffuse vascular calcifications including coronary are noted. PET/PET CT fusion skull to thigh IMPRESSION: 1. There is complete resolution of previously present FDG avid mediastinal lymphadenopathy and a solitary FDG avid osseous lesion in the T12 vertebral body. 2. There are now no abnormalities suspicious for metastatic or other malignant lesions. 3. Vascular calcifications including coronary.
== END 2022-03-10 11:40 | disposition home or self-care (01) ==
LOC: HO.PET 11:39
PROVIDERS: Visit Provider Internal Medicine
DX: Z13.89 Encounter for screening for other disorder (principal)

== ENCOUNTER 2022-06-24 08:52 | Outpatient (REF) | payer MEDICARE, OTHER, SELFPAY ==
--- NOTE | ~2022-06-24 | CT_ITS ---
EXAMINATION: CT CHEST WITH CONTRAST CLINICAL INFORMATION: On chemotherapy. Assess response to therapy. COMPARISON: PET/CT 03/10/2022. TECHNIQUE: Multidetector volumetric CT imaging of the chest was obtained after the administration of 65 mL of Omnipaque 350 intravenous contrast without immediate adverse reactions. Axial MIP volume rendering provided. Sagittal and coronal reformatted images were obtained. This CT examination was performed using dose optimization techniques as appropriate, variously including the following: *Automated exposure control *Adjustment of mA and/or kV according to patient size (this includes techniques or standardized protocols for targeted exams where dose is matched to indication/reason for exam; i.e. 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 LUNGS: There are postsurgical changes left lower lobe with loss of left lung volume and mild ipsilateral mediastinal shift. There is a 7 mm pleural-based nodule right middle lobe axial image 105/9, 5 mm calcified nodule right upper lobe axial image 48/9, no new nodules are visualized. Mild atelectatic changes or postsurgical changes are seen in the left lung base. MEDIASTINUM: The central trachea and the bronchi are widely patent. The thyroid lobes are small and somewhat symmetrical. There are small shotty lymph nodes in the mediastinum with the most prominent subcarinal lymph node measuring 7 mm. Heart size is normal. There are coronary artery calcifications present. No pericardial effusion seen. PLEURA: There is no pleural effusion. No pleural mass or thickening. AXILLA: No abnormal-size axillary lymph nodes seen. The chest wall appears unremarkable. UPPER ABDOMEN: Visualized liver, spleen and pancreas appear unremarkable. Bilateral adrenal glands are unremarkable. OSSEOUS STRUCTURES: No aggressive lytic or sclerotic process seen. There is moderate ventral spondylosis mid and lower dorsal spine. CT/CT chest w IV con IMPRESSION: Postsurgical changes left lower lobe with loss of left lung volume and ipsilateral mediastinal shift. There are 2 nodules, calcified and noncalcified nodules, which are stable. There are no new nodules seen. There are small shotty lymph nodes in the mediastinum which are stable. Coronary artery calcifications present. Fleischner guidelines were followed.
[2022-06-24] MEDS: iohexoL 350 MG/ML 100 ML INFUS..BTL IV (09:57)
== END 2022-06-24 08:53 | disposition home or self-care (01) ==
LOC: HO.CT 08:52
PROVIDERS: PCP Family Medicine; Visit Provider Internal Medicine
DX: C34.92 Malignant neoplasm of unspecified part of left bronchus or lung (principal)
CPT/HCPCS: 71260; Q9967

== ENCOUNTER 2022-10-13 11:48 | Outpatient (REF) | payer MEDICARE, OTHER, SELFPAY ==
--- NOTE | ~2022-10-13 | PE_ITS ---
EXAMINATION: Fluorine-18 FDG PET/CT Scan CLINICAL INDICATION: Subsequent treatment management. Cancer of lower lobe of the left lung, evaluate response to therapy. PROCEDURE: 64 minutes following the intravenous administration of 16.3 mCi of fluorine 18 FDG, images from the base of the skull to the mid thighs were obtained using a combined PET/CT scanner with CT scan based attenuation correction. No oral contrast was administered. No intravenous contrast was administered. Transverse, coronal, sagittal, and volume reconstruction projections were obtained. The patient's blood glucose as determined by a finger stick, was 100 mg/dl immediately prior to injection. Total CT exam dose-length product 403.55 mGy-cm * These CT images were obtained using dose optimization techniques as appropriate, variously including the following: Automated exposure control * Adjustment of mA and/or kV according to patient size (this includes techniques or standardized protocols for targeted exams where dose is matched to indication/reason for exam; i.e. extremities or head) * Use of iterative reconstruction technique COMPARISON: Several prior PET/CT scans are available for comparison, the most recent dated 03/10/2022 and the least recent dated 09/17/2020. CT scan of the chest dated 06/24/2022 is also available for comparison. FINDINGS: (Slice numbers described in this report are numbered superiorly to inferiorly with slice #1 in the head) NECK AND VISUALIZED HEAD: No foci of abnormal FDG activity are noted. The distribution of FDG activity is physiological. There is no cervical lymphadenopathy. There is some right maxillary mucosal thickening with no associated abnormal FDG activity, and this was not present on 03/10/2022.. THORAX: There is volume loss and postsurgical changes from left lower lobectomy. There are no foci of abnormal FDG activity in the chest. There is a 0.4 cm subpleural calcified granuloma anterolaterally in the right upper lobe, slice 63/267 and a 0.7 cm pleural-based nodule anterolaterally in the right middle are visualized. Lobe, slice 89/267, Both unchanged from the 06/24/2022 CT scan and both too small to be characterized on the FDG PET images. These are also both unchanged from the prior 03/10/[address] scan. No additional pulmonary nodules are visualized. There is no pleural or pericardial fluid, or pneumothorax. There is no mediastinal, supraclavicular, or axillary lymphadenopathy. A right-sided chest port with internal jugular catheter terminating in the superior vena cava is noted. ABDOMEN AND PELVIS: There are no foci of abnormal FDG activity in the abdomen or pelvis. There is mild FDG activity throughout the gastrointestinal tract without a suspicious focal component. There is diverticulosis without evidence of diverticulitis. The hollow viscera are otherwise unremarkable. The liver, gallbladder, spleen, kidneys, adrenal glands and pancreas are unremarkable. There is no retroperitoneal, mesenteric, pelvic or inguinal lymphadenopathy. Pelvic organs are unremarkable. The prostate is top normal in size, measuring 4.8 cm in largest transverse dimension. There is no abnormal FDG activity in the prostate gland. MUSCULOSKELETAL: No foci of abnormal FDG activity are present in the osseous structures. There are degenerative changes in the spine but no suspicious sclerotic or lytic lesions are visualized. VASCULAR: Diffuse vascular calcifications including coronary are noted. PET/PET CT fusion skull to thigh IMPRESSION: 1. There continues to be complete resolution of FDG avid mediastinal lymphadenopathy visualized on the 09/11/[address] scan. There are now no FDG avid abnormalities suspicious for metastatic or other malignant lesions. 2. Subcentimeter pulmonary nodules are unchanged from 09/10/2021 and remain too small to be characterized on the FDG PET images. 3. Diffuse vascular calcifications including coronary.
== END 2022-10-13 11:49 | disposition home or self-care (01) ==
LOC: HO.PET 11:48
PROVIDERS: PCP Family Medicine; Visit Provider Internal Medicine
DX: Z13.89 Encounter for screening for other disorder (principal)

== ENCOUNTER 2023-05-18 12:10 | Outpatient (REF) | payer MEDICARE, OTHER, SELFPAY ==
--- NOTE | ~2023-05-18 | PE_ITS ---
EXAMINATION: Fluorine-18 FDG PET/CT Scan CLINICAL INDICATION: Subsequent treatment management. Cancer of lower lobe of the lung. To evaluate therapeutic response. PROCEDURE: 60 minutes following the intravenous administration of 17.8 mCi of fluorine 18 FDG, images from the base of the skull to the mid thighs were obtained using a combined PET/CT scanner with CT scan based attenuation correction. No intravenous contrast was administered. Transverse, coronal, sagittal, and volume reconstruction projections were obtained. The patient's blood glucose as determined by a finger stick, was 99 mg/dl immediately prior to injection. The radiotracer was injected intravenously through the left antecubital superficial vein, without any complications. Total CT exam dose-length product 637.40 mGy-cm * These CT images were obtained using dose optimization techniques as appropriate, variously including the following: Automated exposure control * Adjustment of mA and/or kV according to patient size (this includes techniques or standardized protocols for targeted exams where dose is matched to indication/reason for exam; i.e. extremities or head) * Use of iterative reconstruction technique COMPARISON: Most recent prior PET CT study done on 10/13/2022. FINDINGS: SUV max REFERENCE: Blood: 2.2; 2.9 on 10/13/2022. Liver: 3.5; 3.5 on 10/13/2022. NECK AND VISUALIZED HEAD: No suspicious focal tracer avid disease. Physiologic radiotracer uptake around the oropharynx and larynx appear unchanged. There is a right-sided Port-A-Cath present with its tip seen at the cavoatrial junction, unchanged. THORAX: Postsurgical changes of left lower lobar lung lobectomy without evidence of any local disease recurrence at the surgical bed. There is a subcentimeter pleural no tracer avid lung nodule present at right upper lobe of the lung anterolaterally (175/267), unchanged. Few subcentimeter subtle lung nodule is too small for accurate characterization and appear unchanged as well. Interval development of a tracer avid left-sided aortopulmonary lymph nodes present, measures approximately 1 cm at its maximum short axis dimension with SUV max of 6.3 (186/267), highly suspicious for local disease recurrence within the mediastinum. There are no other additional tracer avid mediastinal, hilar, axillary or internal mammary lymphadenopathy. Mild persistent pleural parenchymal thickening is noted within the left mid to lower posterior hemithorax, most consistent with stable postsurgical changes. No evidence of any pericardial effusion or new pleural disease since the prior study. ABDOMEN AND PELVIS: No tracer avid focal liver, splenic or adrenal disease. Both kidneys appear unremarkable. The bowel loops are decompressed. There are no tracer avid retroperitoneal, mesenteric, pelvic and/or groin lymphadenopathy present. Nonspecific subtle haziness within the proximal part of the mesentery to the left of the midline at the level of the origin of the superior mesenteric artery, appears similar to prior study, without any radiotracer avidity, of indeterminate etiology (123/267). Note is made of heterogeneous abnormal enlarged prostate, protruding into the base of the bladder, appears similar to prior study. MUSCULOSKELETAL: No suspicious tracer avid disease to suspect metastasis, unchanged. VASCULAR: Calcific atherosclerotic disease of the aorta including calcific carotid and coronary arterial disease. No evidence of aneurysm. THE SITE(S) OF MOST INTENSE FDG AVIDITY AND SUV MAX: Solitary aortopulmonary window lymph node with SUV max of 6.3 PET/PET CT fusion skull to thigh IMPRESSION: 1. Compared to most recent prior PET CT study done on 10/13/2022, interval development of tracer avid solitary 1.0 cm maximum dimension aortopulmonary lymph node is noted with SUV max of 6.3, highly suspicious for local disease recurrence. 2. No other significant interval change.
== END 2023-05-18 12:11 | disposition home or self-care (01) ==
LOC: HO.PET 12:10
PROVIDERS: PCP Family Medicine; Visit Provider Internal Medicine
DX: Z13.89 Encounter for screening for other disorder (principal)

== ENCOUNTER 2023-07-23 08:22 | Outpatient (REF) | payer MEDICARE, OTHER, SELFPAY ==
--- NOTE | ~2023-07-23 | CT_ITS ---
EXAMINATION: CT CHEST WITH CONTRAST CLINICAL INFORMATION: Abnormality on PET/CT. COMPARISON: PET/CT 05/18/2023: Interval development of a tracer avid left-sided aortopulmonary lymph node present, measures approximately 1 cm at its maximum short axis dimension with SUV max of 6.3 (186/267), highly suspicious for local disease recurrence within the mediastinum. CT chest 06/24/2022. TECHNIQUE: Multidetector volumetric CT imaging of the chest was obtained after the administration of 65 mL of Omnipaque 350 intravenous contrast without immediate adverse reactions. Axial MIP volume rendering provided. Sagittal and coronal reformatted images were obtained. This CT examination was performed using dose optimization techniques as appropriate, variously including the following: *Automated exposure control *Adjustment of mA and/or kV according to patient size (this includes techniques or standardized protocols for targeted exams where dose is matched to indication/reason for exam; i.e. extremities or head) *Use of iterative reconstruction technique DLP: 134 mGy-cm FINDINGS: LUNGS: Large calcified granuloma is again seen in the right upper lobe (5:40). There is a 5 mm ill-defined opacity seen in the right upper lobe abutting the major fissure (5:57) without significant change compared to 06/24/2022 (7:66). A pleural-based right upper lobe anterolateral pulmonary nodule is unchanged (5:98, compare prior 7:105). MEDIASTINUM: There is an enlarged lymph node present in the AP window medially measuring 2.7 x 1.4 x 1.6 cm (5:74 and 8:55), previously measuring 2.0 x 1.2 cm in maximal transverse dimension (PET/CT 102:243). At the time of 06/24/[address], this measured about 1.2 x 0.6 cm (7:78). Other smaller precarinal and subcarinal lymph nodes appear unchanged when compared to 06/24/2022. Heart size is normal. Aortic calcification without aneurysm. Moderate coronary calcium is present PLEURA: There is no pleural effusion. No pleural mass or thickening. AXILLA: No lymphadenopathy. UPPER ABDOMEN: Unremarkable OSSEOUS STRUCTURES: Mild degenerative changes are seen in the spine. There is some mild compression involving superior endplates of T6 and T3 unchanged from prior. CT/CT chest w IV con IMPRESSION: 1. An enlarged AP window lymph node has continued to increase in size when compared to the prior PET/CT. 2. Other small mediastinal lymph nodes and pulmonary nodules are stable. 3. Other incidental findings as described above. Fleischner guidelines were followed.
[2023-07-23] MEDS: iohexoL 350 MG/ML 100 ML INFUS..BTL IV (08:53)
== END 2023-07-23 08:23 | disposition home or self-care (01) ==
LOC: HO.CT 08:22
PROVIDERS: PCP Family Medicine; Visit Provider Internal Medicine
DX: C34.32 Malignant neoplasm of lower lobe, left bronchus or lung (principal)
CPT/HCPCS: 71260; Q9967

== ENCOUNTER 2023-08-16 08:37 | Outpatient (REF) | payer MEDICARE, OTHER, SELFPAY | END 2023-08-16 08:38 | disposition home or self-care (01) | LOC: HO.HHCL 08:37 | PROVIDERS: Visit Provider Family Medicine | DX: I12.9 Hypertensive chronic kidney disease with stage 1 through stage 4 chronic kidney disease, or unspecified chronic kidney disease (principal); N18.30 Chronic kidney disease, stage 3 unspecified; R79.9 Abnormal finding of blood chemistry, unspecified | CPT/HCPCS: 36415; 80048; 80061; 80076; 82306; 83036; 84439; 84443; 85025 ==

== ENCOUNTER 2023-08-20 12:38 | Outpatient (REF) | payer MEDICARE, OTHER, SELFPAY ==
--- NOTE | ~2023-08-20 | XR_ITS ---
EXAMINATION: XR CHEST CLINICAL INFORMATION: Worsening chest congestion COMPARISON: 07/23/[address] TECHNIQUE: 2 views of the chest were obtained. FINDINGS: Tunneled right chest port with internal tip in the superior vena cava. Surgical clips in the medial left upper quadrant again seen. Heart and mediastinum within normal limits. Aortic calcifications again seen. Left base platelike atelectasis. No vascular congestion, consolidations or effusions. Nodular density left lateral right base may be related to nipple shadow. Thoracic straightening and degenerative type changes. XR/XR chest 2V IMPRESSION: No acute cardiopulmonary disease. Consider repeat PA view with nipple markers for right base nodular density.
== END 2023-08-20 12:39 | disposition home or self-care (01) ==
LOC: HO.HHCX 12:38
PROVIDERS: Visit Provider Family Medicine
DX: R09.89 Other specified symptoms and signs involving the circulatory and respiratory systems (principal)
CPT/HCPCS: 71046

== ENCOUNTER 2023-09-02 14:52 | Outpatient (AMB) | payer MEDICARE, MEDICAID, SELFPAY ==
[2023-09-02 14:54] VITALS: BP 138/62; PULSE 74; O2SAT 96; BMI 25.0
--- NOTE | 2023-09-02 14:54 | HO.NEPHOV ---
HPI HPI Comments History of Present Illness Details Middle aged man refered for Hyponatremia Left lower lobe lung cancer, adenosquamous carcinoma. Pathological stage pT2a, pN1, Stage II, 2018. Recurrent, metastatic disease diagnosed in September 2021. Molecular studies revealed negativity for BRAF, K-edyta Exon 2, Exon 3, Exon 4 mutations, negative for ROS1, alk rearrangements and EGFR mutation. PDL1 was positive with TPS 50%. 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 He underwent definitive radiation therapy for T2 N0 lesion, he did not have surgery. He finished radiation therapy in January 2019. H/o Drinking beer 6 cans a day Also on HCTZ 50 mg a day h/o Hypothyroidism - on Synthroid c/o Cough/ Sputum No hemoptysis NaHCO3 was prescribed on 09/01/23- But he has not started taking it yet Recent serum bicarb was elevted at 32 PFSH Medical History (Updated 09/02/23 @ 15:23 by Rico Chung MD) On beta [place] at home Personal history of nicotine dependence Port-A-Cath in place (~09/2020) History of malignant neoplasm of glottis (~2018) Hyperlipemia HTN (hypertension) Cancer of lower lobe of left lung (~2019) Surgical History History of laryngoscopy (~10/2018) Admission for fitting of Port-A-Cath (~09/2020) History of lobectomy of lung (~08/2020) History of colonoscopy (~12/2014) History of left knee surgery Family History Mother Diabetes Brother Diabetes High blood pressure Daughter Breast cancer Daughter Hx of thyroid disease Social History Alcohol intake: current Alcohol intake frequency: holidays/special occasions only Alcohol type: beer Patient Tobacco Use Status: Former Tobacco user Cigarette Packs Per Day: 1 Years Smoked: 34 Vital Signs 09/02/23 14:54 Height 5 ft 6 in Weight 155 lb BMI 25.0 BP 138/62 Blood Pressure Location Rt brachial Position Sitting Pulse 74 Pulse Source Pulse Oximeter Pulse Oximetry (%) 96 Oxygen Delivery Method Room Air Physical Exam Vital Signs: Last Vital Signs Pulse 74 09/02/23 14:54 BP 138/62 09/02/23 14:54 Pulse Ox 96 09/02/23 14:54 Oxygen Delivery Method Room Air 09/02/23 14:54 BMI result Body Mass Index 25.0 Const General: comfortable Nutritional Appearance: well nourished Orientation/consciousness: patient oriented x3 HEENT Head: No normal to inspection Mouth: moist mucous membranes Neck Neck: Yes supple and Yes no JVD Resp Auscultation: clear to auscultation bilaterally, no rales and rub present Cardio Jugular venous distension: no JVD Palpation: no palpable S3 and no palpable S4 Heart sounds: no rubs GI Palpation (GI): Soft to palpation and nontender Percussion: No Fluid wave present General: Yes no CVA tenderness Back/Spine/Pelvis Back: no CVA tenderness Skin General skin exam: no rashes or lesions noted Neuro General: patient oriented x3 Extrem General: Yes no pedal edema and No clubbing Assessment & Plan Assessment & Plan (1) Hyponatremia: Code(s): E87.1 - Hypo-osmolality and hyponatremia (2) Non-small cell cancer of left lung: Onset Date: ~2019 Comment: (LLL Adenosquamous Carcinoma. pT2a, pN1 - s/p LLL lobectomy, undergoing adjuvant chemotherapy) Code(s): C34.92 - Malignant neoplasm of unspecified part of left bronchus or lung (3) HTN (hypertension): Code(s): I10 - Essential (primary) hypertension Plan Middle aged man with Chronic Asymptomatic Hyponatremia He has hypotonic hyponatremia This is multifactorial: Consuming Excess beer can lead to hyponatremia ( Beer Potomania) USe of HCTZ can decrease free water clearance and cause hyponatremia Hypothyroidism can also lead to hyponatremia Lastly, Underlying Lung CA could be causing SIADH Suggest STOP BEER STOP HCTZ Optimize thyroid function Discontinue Sodium Bicarbonate tabs since he already has elevated serum bicarb Restrict PO water intake Recheck Serum sodium in few weeks. If Na < 130 , would ADD UREA powder 15 gm PO BID to increase osmotic load Orders: Orders Basic Metabolic Panel 4 Weeks E87.1 - Hypo-osmolality and hyponatremia Medications: Discontinued sodium bicarbonate Discontinued Reason: Doctor's Order 650 mg PO BID 60 tabs 0RF Coding Level of Care Code Est Pt Level 4 (06994) Diagnoses Hyponatremia E87.1 Non-small cell cancer of left lung C34.92 HTN (hypertension) I10 Results Reviewed Nephrology Results: Hgb 13.7 g/dl (14.0-18.0) L 09/01/23 WBC 5.7 X10*3/uL (4.8-10.8) 09/01/23 Plt Count 188 X10*3/uL (160-400) 09/01/23 Sodium 127 mmol/L (135-145) L 09/01/23 Potassium 4.6 mmol/L (3.3-5.1) 09/01/23 Chloride 88 mmol/L (96-108) L 09/01/23 Carbon Dioxide 32 mmol/L (22-29) H 09/01/23 BUN 16 mg/dL (9-16) 09/01/23 Creatinine 0.83 mg/dL (0.5-1.4) 09/01/23 Calcium 9.4 mg/dL (8.4-10.2) 09/01/23
== END 2023-09-02 15:15 | disposition home or self-care (01) ==
PROVIDERS: PCP Internal Medicine; Visit Provider Internal Medicine Hypertension Specialist
DX: E87.1 Hypo-osmolality and hyponatremia (principal); C34.92 Malignant neoplasm of unspecified part of left bronchus or lung; I10 Essential (primary) hypertension
CPT/HCPCS: 99214

== ENCOUNTER → 2023-09-02 14:52 | Outpatient (BNVA) | payer MEDICARE, OTHER, SELFPAY | PROVIDERS: PCP Internal Medicine; Visit Provider Internal Medicine Hypertension Specialist | DX: E87.1 Hypo-osmolality and hyponatremia (principal); C34.92 Malignant neoplasm of unspecified part of left bronchus or lung; I10 Essential (primary) hypertension | CPT/HCPCS: 99212 ==

== ENCOUNTER 2023-09-09 10:48 | Outpatient (REF) | payer MEDICARE, MEDICAID, SELFPAY ==
--- NOTE | ~2023-09-09 | MR_ITS ---
EXAMINATION: MR BRAIN WITHOUT AND WITH CONTRAST CLINICAL INFORMATION: Question brain metastases. COMPARISON: Brain MRI 10/31/2021. TECHNIQUE: Multiplanar, multisequence imaging of the brain was performed before and after the intravenous administration of 7 mL of Gadavist. FINDINGS: There is no acute infarction, mass, hemorrhage, or extra-axial collection. There is stable 1 cm focus of asymmetric enhancement in the right cavernous sinus. The ventricles, sulci, and basilar cisterns are normal in size and configuration. Mild nonspecific T2/FLAIR hyperintensity is seen in the white matter. There is a chronic lacunar infarct within the right and left inferior cerebellum. The flow voids of the major intracranial arteries appear intact. The bones and extracranial soft tissues are within normal limits. There is moderate polypoid paranasal sinus mucosal thickening without fluid levels. MR/MR head/brain wo/w con IMPRESSION: No evidence of intracranial metastasis or interval change compared with prior studies. Unchanged 1 cm enhancing lesion within the right cavernous sinus of uncertain etiology, possibly nerve sheath tumor or meningioma.
[2023-09-09] MEDS: gadobutroL 7.5 ML VIAL IVPUSH (11:36)
== END 2023-09-09 10:49 | disposition home or self-care (01) ==
LOC: HO.MRI 10:48
PROVIDERS: Visit Provider Internal Medicine
DX: C34.92 Malignant neoplasm of unspecified part of left bronchus or lung (principal)
CPT/HCPCS: 70553; A9585

== ENCOUNTER 2023-09-16 10:27 | Outpatient (REF) | payer MEDICARE, MEDICAID, SELFPAY ==
--- NOTE | ~2023-09-16 | CT_ITS ---
EXAMINATION: CT ABDOMEN AND PELVIS WITH CONTRAST CLINICAL INFORMATION: Question disease progression. history of lung cancer. COMPARISON: Previous chest CT June 2022 and PET/CT May 2023 TECHNIQUE: Multidetector volumetric images were obtained from the superior aspect of the liver through the pubic symphysis following administration 85 mL of Omnipaque 350 intravenous contrast. Sagittal and coronal reformatted images were obtained on the technologist's workstation. Oral contrast: Yes This CT examination was performed using dose optimization techniques as appropriate, variously including the following: *Automated exposure control *Adjustment of mA and/or kV according to patient size (this includes techniques or standardized protocols for targeted exams where dose is matched to indication/reason for exam; i.e. extremities or head) *Use of iterative reconstruction technique DLP: 297 mGy-cm FINDINGS: LUNG BASES: Small left pleural effusion or thickening similar to prior exams. Lung bases otherwise clear. LIVER, GALLBLADDER, AND BILIARY TREE: The liver is normal in size, shape, and attenuation. No focal hepatic lesion or biliary ductal dilatation is present. The gallbladder is unremarkable with no evidence of radiopaque gallstones, gallbladder wall thickening, or obvious pericholecystic inflammatory changes. PANCREAS: Unremarkable. SPLEEN: Unremarkable. ADRENAL GLANDS: Unremarkable. KIDNEYS AND URETERS: The kidneys are normal in size, shape, and attenuation. No hydronephrosis, hydroureter, or calculi seen. No perinephric stranding. BLADDER: Unremarkable. GASTROINTESTINAL TRACT: Question mild wall thickening/colitis of the distal colon versus changes due to underdistention. The small and large bowel are otherwise unremarkable. The appendix is unremarkable. Surgical clips adjacent to the anterior distal stomach. Stomach otherwise unremarkable. ABDOMINAL WALL: No significant hernia is appreciated. LYMPH NODES: There is fat stranding and small, small bowel mesentery lymph nodes. Is unchanged from prior exams. No enlarged lymph nodes. No ascites. VASCULAR: Atherosclerotic disease. Question small 6 mm right renal artery aneurysm PELVIC VISCERA: Unremarkable. OSSEOUS STRUCTURES: Degenerative changes of the spine and hip joints, left greater than right.. CT/CT abdomen pelvis w IV con IMPRESSION: Stable mild fat stranding and small bowel mesentery lymphadenopathy. This is a nonspecific finding but may represent changes from old mesenteritis. Question mild colitis of the distal colon versus underdistention. 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 This could be better evaluated with CTA. Fleischner guidelines were followed.
[2023-09-16] MEDS: iohexoL 350 MG/ML 100 ML INFUS..BTL 85 ML IV (10:58)
== END 2023-09-16 10:28 | disposition home or self-care (01) ==
LOC: HO.CT 10:27
PROVIDERS: Visit Provider Internal Medicine
DX: C34.92 Malignant neoplasm of unspecified part of left bronchus or lung (principal)
CPT/HCPCS: 74177; Q9967

== ENCOUNTER 2023-10-12 08:19 | Outpatient (REF) | payer MEDICARE, MEDICAID, SELFPAY ==
[2023-10-12 10:02] LABS: Anion Gap 10 (12-20); Blood Urea Nitrogen 15 mg/dL (9-16); Calcium 9.6 mg/dL (8.4-10.2); Carbon Dioxide 35 mmol/L (22-29); Chloride 97 mmol/L (96-108); Estimated Glomerular Filt Rate > 60; Glucose Random 98 mg/dL (60-115); Potassium 5.4 mmol/L (3.3-5.1); Sodium 137 mmol/L (135-145)
== END 2023-10-12 08:20 | disposition home or self-care (01) ==
LOC: HO.LAB 08:19
PROVIDERS: PCP Family Medicine; Visit Provider Internal Medicine Hypertension Specialist
DX: E87.1 Hypo-osmolality and hyponatremia (principal)
CPT/HCPCS: 36415; 80048

== ENCOUNTER 2023-10-18 10:19 | Outpatient (AMB) | payer MEDICARE, MEDICAID, SELFPAY ==
[2023-10-18 10:35] VITALS: BP 140/56; PULSE 70; O2SAT 96; BMI 24.2
--- NOTE | 2023-10-18 10:35 | HO.NEPHOV ---
HPI HPI Comments History of Present Illness Details Middle aged man refered for Hyponatremia Left lower lobe lung cancer, adenosquamous carcinoma. Pathological stage pT2a, pN1, Stage II, 2018. Recurrent, metastatic disease diagnosed in September 2021. Molecular studies revealed negativity for BRAF, K-edyta Exon 2, Exon 3, Exon 4 mutations, negative for ROS1, alk rearrangements and EGFR mutation. PDL1 was positive with TPS 50%. 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 He underwent definitive radiation therapy for T2 N0 lesion, he did not have surgery. He finished radiation therapy in January 2019. H/o Drinking beer 6 cans a day Also on HCTZ 50 mg a day h/o Hypothyroidism - on Synthroid c/o Cough/ Sputum No hemoptysis NaHCO3 was prescribed on 09/01/23- But he has not started taking it yet Recent serum bicarb was elevted at 32 10/18/23 Doing better Says he stopped beer and HCTZ. No new complaints today [facility] Medical History (Updated 09/20/23 @ 08:59 by Blanche Stratton MD) On beta [place] at home Personal history of nicotine dependence Port-A-Cath in place (~09/2020) History of malignant neoplasm of glottis (~2018) Hyperlipemia HTN (hypertension) Cancer of lower lobe of left lung (~2019) Surgical History History of laryngoscopy (~10/2018) Admission for fitting of Port-A-Cath (~09/2020) History of lobectomy of lung (~08/2020) History of colonoscopy (~12/2014) History of left knee surgery Family History Mother Diabetes Brother Diabetes High blood pressure Daughter Breast cancer Daughter Hx of thyroid disease Social History Alcohol intake: current Alcohol intake frequency: holidays/special occasions only Alcohol type: beer Patient Tobacco Use Status: Former Tobacco user Cigarette Packs Per Day: 1 Years Smoked: 34 Vital Signs 10/18/23 10:35 Height 5 ft 6 in Weight 150 lb BMI 24.2 BP 140/56 H Blood Pressure Location Lt brachial Position Sitting Pulse 70 Pulse Source Pulse Oximeter Pulse Oximetry (%) 96 Oxygen Delivery Method Room Air Physical Exam Vital Signs: Last Vital Signs Pulse 70 10/18/23 10:35 BP 140/56 H 10/18/23 10:35 Pulse Ox 96 10/18/23 10:35 Oxygen Delivery Method Room Air 10/18/23 10:35 BMI result Body Mass Index 24.2 Const General: comfortable; No acute distress Orientation/consciousness: patient oriented x3 Eyes General: appearance normal, both eyes and all related structures Visual Peter: normal visual peter by confrontation Neck Neck: Yes supple and Yes no JVD Resp Effort & Inspection: normal respiratory effort and respiratory effort not decreased Auscultation: rhonchi Cardio Palpation: no palpable S3 and no palpable S4 Heart sounds: no rubs GI Inspection: Yes normal to inspection Palpation (GI): Soft to palpation Percussion: Yes normal to percussion Auscultation: normal bowel sounds General: Yes no CVA tenderness Back/Spine/Pelvis Back: no CVA tenderness Skin General skin exam: no petechiae and no purpura Neuro General: patient oriented x3 and no focal motor deficits Extrem General: No clubbing and No edema Assessment & Plan Assessment & Plan (1) Hyponatremia: Code(s): E87.1 - Hypo-osmolality and hyponatremia (2) Non-small cell cancer of left lung: Onset Date: ~2019 Comment: (LLL Adenosquamous Carcinoma. pT2a, pN1 - s/p LLL lobectomy, undergoing adjuvant chemotherapy) Code(s): C34.92 - Malignant neoplasm of unspecified part of left bronchus or lung (3) HTN (hypertension): Code(s): I10 - Essential (primary) hypertension Plan Middle aged man with Chronic Asymptomatic Hyponatremia He has hypotonic hyponatremia This is multifactorial: Consuming Excess beer lead to hyponatremia ( Beer Potomania) USe of HCTZ decreased free water clearance and caused hyponatremia Hypothyroidism can also lead to hyponatremia Lastly, Underlying Lung CA could be causing SIADH Suggest After discontinuing beer and hydrochlorothiazide sodium has normalized. Continue to Optimize thyroid function Restrict PO water intake No need for urea powder at this time. Renal function is at baseline. Blood pressure is acceptable Mild hyperkalemia Discussed low-potassium diet Monitor potassium periodically Orders: Orders Basic Metabolic Panel 4 Months E87.1 - Hypo-osmolality and hyponatremia, I10 - Essential (primary) hypertension Coding Level of Care Code Est Pt Level 4 (39008) Diagnoses Hyponatremia E87.1 Non-small cell cancer of left lung C34.92 HTN (hypertension) I10 Results Reviewed Nephrology Results: Hgb 13.1 g/dl (14.0-18.0) L 10/05/23 WBC 5.5 X10*3/uL (4.8-10.8) 10/05/23 Plt Count 169 X10*3/uL (160-400) 10/05/23 Sodium 137 mmol/L (135-145) 10/12/23 Potassium 5.4 mmol/L (3.3-5.1) H 10/12/23 Chloride 97 mmol/L (96-108) 10/12/23 Carbon Dioxide 35 mmol/L (22-29) H 10/12/23 BUN 15 mg/dL (9-16) 10/12/23 Creatinine 0.93 mg/dL (0.5-1.4) 10/12/23 Calcium 9.6 mg/dL (8.4-10.2) 10/12/23
== END 2023-10-18 10:54 | disposition home or self-care (01) ==
PROVIDERS: PCP Internal Medicine; Visit Provider Internal Medicine Hypertension Specialist
DX: E87.1 Hypo-osmolality and hyponatremia (principal); C34.92 Malignant neoplasm of unspecified part of left bronchus or lung; I10 Essential (primary) hypertension
CPT/HCPCS: 99214

== ENCOUNTER → 2023-10-18 10:19 | Outpatient (BNVA) | payer MEDICARE, MEDICAID, SELFPAY | PROVIDERS: PCP Internal Medicine; Visit Provider Internal Medicine Hypertension Specialist | DX: E87.1 Hypo-osmolality and hyponatremia (principal); C34.92 Malignant neoplasm of unspecified part of left bronchus or lung; I10 Essential (primary) hypertension | CPT/HCPCS: 99212 ==

== ENCOUNTER 2023-11-09 13:38 | Outpatient (REF) | payer MEDICARE, MEDICAID, SELFPAY | END 2023-11-09 13:39 | disposition home or self-care (01) | LOC: HO.CT 13:38 | PROVIDERS: Visit Provider Internal Medicine | DX: Z13.89 Encounter for screening for other disorder (principal) ==

== ENCOUNTER 2023-11-10 10:08 | Outpatient (REF) | payer MEDICARE, MEDICAID, SELFPAY ==
--- NOTE | ~2023-11-10 | CT_ITS ---
EXAMINATION: CT CHEST WITH CONTRAST CLINICAL INFORMATION: Malignant neoplasm with question of response to therapy. COMPARISON: CT chest 07/23/2023: An enlarged AP window lymph node has continued to increase in size when compared to the prior PET/CT. PET/CT 05/18/2023: tracer avid solitary 1.0 cm maximum dimension aortopulmonary lymph node is noted TECHNIQUE: Multidetector volumetric CT imaging of the chest was obtained after the administration of 50 mL of Omnipaque 350 intravenous contrast without immediate adverse reactions. Axial MIP volume rendering provided. Sagittal and coronal reformatted images were obtained. This CT examination was performed using dose optimization techniques as appropriate, variously including the following: *Automated exposure control *Adjustment of mA and/or kV according to patient size (this includes techniques or standardized protocols for targeted exams where dose is matched to indication/reason for exam; i.e. extremities or head) *Use of iterative reconstruction technique DLP: 129.31 mGy-cm FINDINGS: LUNGS: Calcified granuloma at the right apex is unchanged (5:34 compare prior 5:40). 5 mm opacity in the right upper lobe abutting the major fissure is unchanged (5:49 compare prior 5:57). Pleural-based right upper lobe opacity has increased in size from 6 to 8 mm (5:89 compare prior 5:98). No worrisome lung nodules are seen. MEDIASTINUM: AP window lymph node appears minimally increased in size currently measuring 3.0 x 1.6 cm in maximal transverse dimension, previously measuring 2.7 x 1.4 cm (5:70 compare prior 5:74). A precarinal lymph node has decreased in size minimally from 6.7 mm in short axis dimension to 6.4 mm in short axis dimension (5:68 compare prior 5:74). No new mediastinal lymph nodes are seen. PLEURA: A small left-sided pleural effusion has increased in size slightly when compared to the prior study. No right pleural effusion is seen. AXILLA/CHEST WALL: No lymphadenopathy. Right chest wall jugular port has its tip at the SVC/RA junction. UPPER ABDOMEN: The gallbladder is contracted and not well evaluated. The adrenal glands appear normal. No adenopathy is seen. OSSEOUS STRUCTURES: Mild compression of the superior endplates of T6 and T3 are unchanged. No lesion worrisome for osseous metastatic disease seen. CT/CT chest w IV con IMPRESSION: 1. AP window lymph node has increased in size minimally. 2. A precarinal lymph node has decreased in size minimally. 3. A small left-sided pleural effusion has increased in size slightly. 4. Other incidental findings as described above. Fleischner guidelines were followed.
[2023-11-10] MEDS: iohexoL 350 MG/ML 100 ML INFUS..BTL IV (11:09)
== END 2023-11-10 10:09 | disposition home or self-care (01) ==
LOC: HO.CT 10:08
PROVIDERS: Visit Provider Internal Medicine
DX: C34.92 Malignant neoplasm of unspecified part of left bronchus or lung (principal)
CPT/HCPCS: 71260; Q9967

== ENCOUNTER 2023-11-12 07:53 | Outpatient (REF) | payer MEDICARE, MEDICAID, SELFPAY ==
[2023-11-12 09:25] LABS: Free T4 (Free Thyroxine) 0.97 ng/dL (0.71-1.85); Thyroid Stimulating Hormone 3.88 uIU/mL (0.32-4.0)
== END 2023-11-12 07:54 | disposition home or self-care (01) ==
LOC: HO.LAB 07:53
PROVIDERS: PCP Family Medicine; Visit Provider Internal Medicine Hypertension Specialist
DX: E03.8 Other specified hypothyroidism (principal)
CPT/HCPCS: 36415; 84439; 84443

== ENCOUNTER 2023-12-06 10:08 | Inpatient (IN) | payer MEDICARE, MEDICAID, SELFPAY ==
--- NOTE | ~2023-12-06 | CT_ITS ---
EXAMINATION: CT CHEST WITHOUT CONTRAST CLINICAL INFORMATION: Pneumonia. COMPARISON: Prior CT examinations, most recently 12/06/2023. TECHNIQUE: Multidetector volumetric CT imaging of the chest was done. Axial MIP volume rendering provided. Sagittal and coronal reformatted images were obtained. This CT examination was performed using dose optimization techniques as appropriate, variously including the following: *Automated exposure control *Adjustment of mA and/or kV according to patient size (this includes techniques or standardized protocols for targeted exams where dose is matched to indication/reason for exam; i.e. extremities or head) *Use of iterative reconstruction technique DLP: 158 mGy-cm FINDINGS: PHYSICAL SCIENCE PROFESSOR: There is right base linear scar/subsegmental atelectasis. There is blunting of the right lateral costophrenic angle. LUNGS: A benign, calcified granuloma is seen at the anterior right apex (5:119). Within the right middle lobe anteriorly (5:293), a 6 mm benign, pleural-based lymph node is seen. Centrally within the right middle lobe (5:2 8), a 2 mm noncalcified nodule is seen. These nodules are stable from 08/06/2021, and they are considered benign and require no imaging follow-up. There is bibasilar pleural and parenchymal scarring. There is persistent focal consolidation at the medial and posterior right base, with air bronchograms. There is no generalized small thickening. There is a saber-sheath configuration of the trachea. There is inspissated mucous adherent to the leftward trachea. MEDIASTINUM: The thyroid is unremarkable. There is no thoracic aortic aneurysm. There are moderate atherosclerotic calcifications of the great vessel origins and thoracic aorta. No mediastinal or hilar lymphadenopathy is seen. CORONARY ARTERY CALCIFICATION: Moderate. PLEURA: There is a small left pleural effusion. No right pleural effusion is seen. No pleural mass or thickening. AXILLA: No lymphadenopathy. UPPER ABDOMEN: Unremarkable. OSSEOUS STRUCTURES: There is multi-level marked thoracic spondylosis. No acute or aggressive osseous finding is noted. CT/CT chest wo IV con IMPRESSION: 1. There are stable right base infiltrates, as detailed. No associated focal airway obstruction is noted. 2. There is a small left pleural effusion. 3. There are benign, stable right lung calcified and noncalcified nodules, for which no imaging follow-up is recommended. 4. No thoracic lymphadenopathy is seen. 5. There is multi-level marked thoracic spondylosis. No acute or aggressive osseous finding is noted. Fleischner guidelines were followed.
--- NOTE | ~2023-12-06 | CT_ITS ---
EXAMINATION: CT ANGIOGRAM OF THE CHEST WITH AND WITHOUT CONTRAST (CT PULMONARY ANGIOGRAM FOR PE) CLINICAL INFORMATION: Reason for Exam sob COMPARISON: CT scan of the chest November 10, 2023 TECHNIQUE: Prior to contrast administration, noncontrast localization images were obtained. Subsequently, multidetector volumetric imaging was performed from the thoracic inlet to below the diaphragms following the administration of 80 mL Omnipaque 350 intravenous contrast. No contrast reaction reported Sagittal, coronal, and MIP oblique sagittal reformatted images were obtained on the CT workstation, uploaded to PACS, and reviewed. This CT examination was performed using dose optimization techniques as appropriate, variously including the following: *Automated exposure control *Adjustment of mA and/or kV according to patient size (this includes techniques or standardized protocols for targeted exams where dose is matched to indication/reason for exam; i.e. extremities or head) *Use of iterative reconstruction technique Total exam dose-length product 266 mGy-cm FINDINGS: QUALITY OF STUDY/CONTRAST BOLUS: Satisfactory. PULMONARY ARTERIES: No pulmonary emboli. THORACIC AORTA: No aneurysm. Vascular wall calcifications of aorta. LUNG: Focal consolidation at the medial right lower lobe. There is a small volume of dependent atelectasis at both lung bases. PLEURA: Small dependent left pleural effusion. MEDIASTINUM: Normal heart size. No pericardial effusion. Subcentimeter lymph nodes at the subcarinal and pretracheal retrovascular space. No bulky lymphadenopathy. . No evidence of septal bowing or right heart strain. CORONARY ARTERY CALCIFICATION: Moderate volume of coronary artery calcifications. CHEST WALL/AXILLA: No axillary or internal mammary lymphadenopathy. OSSEOUS STRUCTURES: No acute or suspicious osseous abnormality. Multilevel degenerative spondylosis spine. UPPER ABDOMEN: Unremarkable. No reflux of contrast into the hepatic veins to suggest elevated right heart pressures. CT/CT angio chest PE protocol IMPRESSION: 1. No evidence of pulmonary embolism. 2. Focal consolidation medial right lower lobe. 3. Dependent atelectasis at both lung bases. Small dependent left pleural effusion. VTE: negative.
--- NOTE | ~2023-12-06 | XR_ITS ---
EXAMINATION: XR CHEST CLINICAL INFORMATION: Worsening shortness of breath history of lung cancer COMPARISON: Radiograph from 08/20/2023, CT chest from 11/10/2023 TECHNIQUE: 2 views of the chest were obtained. FINDINGS: Right single lumen chest port terminating in the mid to distal SVC. Stable curvilinear atelectasis versus scarring of the left lung base. Chronic interstitial lung markings. Trace bilateral pleural effusions with subjacent atelectasis. No pneumothorax. Trachea is midline. Cardiac mediastinal silhouette is stable. Osseous structures are intact. Surgical clips left upper abdomen. XR/XR chest 2V IMPRESSION: 1. Stable curvilinear atelectasis versus scarring of the left lung base. 2. Chronic interstitial lung markings. 3. Trace bilateral pleural effusions with subjacent atelectasis.
[2023-12-06 10:11] VITALS: BP 140/47; PULSE 74; RESP 24; TEMP 36; O2SAT 96; BMI 25.0
[2023-12-06 10:46] LABS: MANUAL DIFF FLAG NO
[2023-12-06 10:58] LABS: Basophils Absolute Auto 0.1 X10*3/uL (0.0-0.2); Basophils Percent Auto 0.8 % (0-2); Eosinophils Absolute Auto 0.2 X10*3/uL (0.0-0.4); Eosinophils Percent Auto 3.5 % (0-4); Hematocrit 38.8 % (42.0-52.0); Imm Gran Abs Auto 0.02 X10*3/uL (0.00-0.03); Imm Gran Pct Auto 0.3 % (0.0-0.4); Lymphocytes Absolute Auto 0.6 X10*3/uL (1.2-4.9); Lymphocytes Percent Auto 9.4 % (20-40); Mean Corpuscular HGB Conc 30.9 g/dl (31.0-36.0); Mean Corpuscular Hemoglobin 23.9 pg (27.0-33.0); Mean Corpuscular Volume 77.1 fL (80.0-98.0); Mean Platelet Volume 9.3 fL (9.4-12.4); Monocytes Absolute Auto 0.9 X10*3/uL (0.1-1.2); Monocytes Percent Auto 14.4 % (2-11); Neutrophils Absolute Auto 4.3 x10*3/uL (2.0-8.3); Neutrophils Percent Auto 71.6 % (45-73); Platelet Count 171 X10*3/uL (160-400); Red Blood Count 5.03 X10*6/uL (4.60-5.80); Red Cell Distribution Width 14.8 % (11.0-16.0); White Blood Count 6.1 X10*3/uL (4.8-10.8)
[2023-12-06 11:10] LABS: Alanine Aminotransferase 20 U/L (0-40); Albumin Level 3.5 g/dL (3.5-5.0); Alkaline Phosphatase 60 U/L (39-117); Anion Gap 13 (12-20); Aspartate Amino Transferase 22 U/L (5-37); Bilirubin Total 0.4 mg/dL (0.0-1.0); Blood Urea Nitrogen 16 mg/dL (9-16); Calcium 9.3 mg/dL (8.4-10.2); Carbon Dioxide 28 mmol/L (22-29); Chloride 89 mmol/L (96-108); Estimated Glomerular Filt Rate > 60; Glucose Random 127 mg/dL (60-115); Potassium 4.8 mmol/L (3.3-5.1); Sodium 125 mmol/L (135-145); Total Protein 8.4 g/dL (6.5-8.0)
[2023-12-06 11:25] LABS: Influenza A PCR NEGATIVE (Negative); Influenza B PCR NEGATIVE (Negative); Resp Syncy Virus RNA Qual PCR NEGATIVE (Negative); SARS COV2 PCR INHOUSE NEGATIVE (Negative)
[2023-12-06 14:45] VITALS: BP 137/59; PULSE 66; RESP 22; TEMP 36.1; O2SAT 94
--- NOTE | 2023-12-06 14:49 | ED_ITS ---
HPI - SOB/Dyspnea General Chief Complaint: Dyspnea Stated Complaint: Low o2 Time Seen by Provider: 12/06/23 16:56 Source: patient, family and telephone service representative Mode of arrival: ambulatory History of Present Illness HPI Narrative: 73-year-old male who presents with increased shortness of breath for the past few days but states he has had increasing wheezing, phlegm which is much worse at night for the past 3-4 months, he has continued to follow-up with his oncologist. He reports his history is significant for laryngeal CA for which he underwent radiation therapy but he has also had lung CA and is currently being followed by Dr. Stratton every 6 weeks. Patient denies any fevers or chills but states that when the phlegm occurs he is unable to breathe and becomes acutely short of breath. He was noted to have an oxygenation of 90% in the urgent care clinic. Patient reports that his voice and the sound of his breathing is normal for him at baseline. Related Data Home Medications ?Medication ?Instructions ?Recorded ?Confirmed amlodipine 10 mg tablet 10 mg PO DAILY 06/07/20 10/26/23 atorvastatin 10 mg tablet 10 mg PO DAILY 06/07/20 10/26/23 fluticasone propionate 50 50 mcg intranasal DAILY PRN 06/07/20 10/26/23 mcg/actuation nasal Congestion spray,suspension hydralazine 10 mg tablet 10 mg PO DAILY 06/07/20 10/26/23 losartan 100 mg tablet 100 mg PO DAILY 06/07/20 10/26/23 metoprolol succinate 50 mg 50 mg PO DAILY 06/07/20 10/26/23 tablet,extended release 24 hr levothyroxine 50 mcg tablet 50 mcg PO DAILY 09/02/23 10/26/23 cholecalciferol (vitamin D3) 50 50 mcg PO QAM 12/06/23 mcg (2,000 unit) capsule (Vitamin D3) Allergies Allergy/AdvReac Type Severity Reaction Status Date / Time No Known Allergies Allergy Verified 12/06/23 10:21 Review of Systems 2 Review of Systems: Pertinent positives and negatives as stated in HPI [facility] Past Medical History Source: nursing notes reviewed Medical History On beta [place] at home Personal history of nicotine dependence Port-A-Cath in place (~09/2020) History of malignant neoplasm of glottis (~2018) Hyperlipemia HTN (hypertension) Cancer of lower lobe of left lung (~2019) Surgical History History of laryngoscopy (~10/2018) Admission for fitting of Port-A-Cath (~09/2020) History of lobectomy of lung (~08/2020) History of colonoscopy (~12/2014) History of left knee surgery Family History Family History Mother Diabetes Brother Diabetes High blood pressure Daughter Breast cancer Daughter Hx of thyroid disease Social History Social History Alcohol intake: current Alcohol intake frequency: holidays/special occasions only Alcohol type: beer Patient Tobacco Use Status: Former Tobacco user Cigarette Packs Per Day: 1 Years Smoked: 34 Advance Directives: No Advance Directives Information Provided: Yes Do you have a plan to hurt others: No Plan Physical Exam 2 Vital Signs: Vital Signs: Last Vital Signs Temp 97 F 12/06/23 14:45 Pulse 66 12/06/23 14:45 Resp 22 H 12/06/23 14:45 BP 137/59 L 12/06/23 14:45 Pulse Ox 94 12/06/23 14:45 O2 Del Method Room Air 12/06/23 14:45 BMI result Body Mass Index 25.0 VITAL SIGNS: Reviewed. GENERAL: Well developed, well nourished, in no acute distress. HEAD: Normocephalic/atraumatic EYES: PERRLA, EOMI EARS: Ext canals without abnormality NOSE: Nares patent bilateral OROPHARYNX: no oral lesions noted, posterior pharynx clear NECK: Supple, no adenopathy LUNGS: Normal breath sounds. No adventitious sounds or accessory muscle use. SpO2<94> CARDIOVASCULAR: Regular rate and rhythm without noted murmurs ABDOMEN: Soft, non-tender, non-distended with bowel sounds. MUSCULOSKELETAL: No tenderness, deformities, or effusions noted on gross inspection. EXTREMITIES: No cyanosis, clubbing or edema. SKIN: Inspection of the skin reveals no rashes NEUROLOGIC: Alert and oriented x 4. Strength and sensation to light touch were grossly intact x 4. Course Course Course Narrative: This is an RME: Additional HPI, ROS, PE not included below will be deferred to primary provider. 73 yo m hx of lung cancer sp lobectomy presents w/ sob x 3 months worsening sob and wheezing. Reports his O2 keep droping and it gets worse at night. former smoker 15 years ago. Followed by Onc Dr. Stratton. Medications Administered Discontinued Medications Generic Name Dose Route Start Last Admin Trade Name Freq PRN Reason Stop Dose Admin Albuterol/Ipratropium 3 ml 12/06/23 15:19 12/06/23 15:25 Albuterol/Iprat 2.5/0.5mg 3 Ml Ampul.Neb INHALE 12/06/23 15:20 3 ml ONCE ONE Administration Sodium Chloride 500 mls @ 999 mls/hr 12/06/23 18:00 12/06/23 18:24 Ns IV 12/06/23 18:30 999 mls/hr .Q31M ERMA Administration Iohexol 65 ml 12/06/23 17:19 12/06/23 17:20 Iohexol 350 Mg/Ml 75 Ml Infus..Btl IV 12/06/23 17:20 65 ml ONCE ONE Administration Medical Decision Making Medical Decision Making MDM Narrative: 73-year-old male with history and clinical presentation, DDX: Mucous plugging, tracheomalacia, PE, pneumonia I reviewed all investigations and hematologic indices are negative for leukocytosis or left shift, patient has a stable microcytic anemia and no thrombocytopenia. Coagulation studies are noted to be within normal limits and D-dimer mildly elevated -573. Chemistry indices demonstrate low sodium-125 as well as chloride but otherwise no evidence of OLGA or liver enzyme derangements. Viral testing is negative for influenza/RSV/COVID-19. Chest x-ray demonstrates trace bilateral pleural effusions but otherwise no acute findings such as infiltrate or venous congestion. CT angio to rule out PE is negative for VTE but there is noted focal consolidation in the medial right lower lobe consistent with mucus plugging inpatient has no constitutional symptoms to reflects pneumonia. My interpretation is that patient has a combination of mucus plugging and tracheomalacia that are contributing to his overall breathing status and dyspnea. 1900: I discussed case with inpatient hospitalist who accepts admission. Differential Diagnosis Differential Diagnoses: The differential diagnosis associated with the presentation includes Please see the discussion above Admission/Observation Consideration of admission/observation: Escalation of care including admission/observation considered Please see the discussion above Consult Healthcare Provider Management of the patient was discussed with: Hospitalist Please see the discussion above Lab Data MDM Lab Attestation statement: I reviewed the patient's lab results. Please see the discussion above 12/06/23 10:42 12/06/23 10:42 Labs: Lab Results 12/06/23 12/06/23 Range/Units 10:42 15:08 WBC 6.1 (4.8-10.8) X10*3/uL RBC 5.03 (4.60-5.80) X10*6/uL Hgb 12.0 L (14.0-18.0) g/dl Hct 38.8 L (42.0-52.0) % MCV 77.1 L (80.0-98.0) fL MCH 23.9 L (27.0-33.0) pg MCHC 30.9 L (31.0-36.0) g/dl RDW 14.8 (11.0-16.0) % Plt Count 171 (160-400) X10*3/uL MPV 9.3 L (9.4-12.4) fL Immature Gran % (Auto) 0.3 (0.0-0.4) % Neut % (Auto) 71.6 (45-73) % Lymph % (Auto) 9.4 L (20-40) % [place] % (Auto) 14.4 H (2-11) % Eos % (Auto) 3.5 (0-4) % Baso % (Auto) 0.8 (0-2) % Lymph # (Auto) 0.6 L (1.2-4.9) X10*3/uL [place] # (Auto) 0.9 (0.1-1.2) X10*3/uL Eos # (Auto) 0.2 (0.0-0.4) X10*3/uL Baso # (Auto) 0.1 (0.0-0.2) X10*3/uL Abs Immat Gran (auto) 0.02 (0.00-0.03) X10*3/uL Absolute Neuts (auto) 4.3 (2.0-8.3) x10*3/uL Absolute Nucleated RBC 0.000 (0.0-0.012) X10*3/uL Nucleated RBC % (auto) 0.0 (0.0-0.2) /100WBC PT 13.0 (11.1-13.3) SEC INR 1.1 (0.9-1.1) D-Dimer High Sensitivty 573 NG/ML Sodium 125 L (135-145) mmol/L Potassium 4.8 (3.3-5.1) mmol/L Chloride 89 L (96-108) mmol/L Carbon Dioxide 28 (22-29) mmol/L Anion Gap 13 (12-20) BUN 16 (9-16) mg/dL Creatinine 0.86 (0.5-1.4) mg/dL Estim Creat Clear Calc 68.0 Estimated GFR > 60 Random Glucose 127 H (60-115) mg/dL Calcium 9.3 (8.4-10.2) mg/dL Total Bilirubin 0.4 (0.0-1.0) mg/dL AST 22 (5-37) U/L ALT 20 (0-40) U/L Alkaline Phosphatase 60 (39-117) U/L Total Protein 8.4 H (6.5-8.0) g/dL Albumin 3.5 (3.5-5.0) g/dL Influenza Type A (PCR) NEGATIVE (Negative) Influenza Type B (PCR) NEGATIVE (Negative) RSV RNA Qual (PCR) NEGATIVE (Negative) SARS-CoV-2 RNA (RT-PCR) NEGATIVE (Negative) Radiology Impression Discussion of test interpretation with radiology: I have reviewed the radiologist's reading. Radiologist Impression: Please see the discussion above External Record Review External record reviewed: Outpatient record, Prior outpatient labs and Prior outpatient radiology Chronic Conditions Patient?s care impacted by: Hypertension Critical Care Time Critical Care Time Critical Care Time: Yes Total Critical Care Time: 60 Attestation: I personally attest to this time spent taking care of the patient. Discharge Plan Discharge Clinical Impression: Hyponatremia, Mucus plugging of bronchi, Tracheomalacia Patient Disposition: Admitted As Inpatient Prescriptions: No Action hydrochlorothiazide 25 mg tablet 25 mg PO DAILY cholecalciferol (vitamin D3) [Vitamin D3] 50 mcg (2,000 unit) capsule 50 mcg PO QAM amlodipine 10 mg tablet 10 mg PO DAILY metoprolol succinate 50 mg tablet extended release 24 hr 50 mg PO DAILY atorvastatin 10 mg tablet 10 mg PO DAILY losartan 100 mg tablet 100 mg PO DAILY hydralazine 10 mg tablet 10 mg PO DAILY fluticasone propionate 50 mcg/actuation spray,suspension 50 mcg intranasal DAILY PRN (Reason: Congestion) levothyroxine 50 mcg tablet 50 mcg PO DAILY Print Language: Telugu
[2023-12-06] MEDS: Albuterol/Iprat 2.5/0.5MG 3 ML AMPUL.NEB INHALE (15:25)
[2023-12-06 15:28] LABS: INTERNATIONAL NORM RATIO 1.1 (0.9-1.1)
[2023-12-06] MEDS: iohexoL 350 MG/ML 75 ML INFUS..BTL 65 ML IV (17:20)
[2023-12-06 17:35] LABS: D Dimer High Sensitivity 573 NG/ML
[2023-12-06] MEDS: 0.9 % Sodium Chloride 500 ML 999 ML IV (18:24)
--- NOTE | 2023-12-06 19:50 | PHA.MEDREC ---
Pharmacy Consult ? Medication Reconciliation Pharmacy has completed the medication reconciliation. Patient has medbox, brought list of medications in medbox. HCTZ was crossed out, and patient confirmed not taking. Patient confirmed levothyroxine, even though medication is not in the box. Hannah Turcios, PharMD
--- NOTE | 2023-12-06 20:00 | PM.IMHP ---
History of Present Illness Date of Service: 12/06/23 Attending physician on admission: Melonie Cameron Chief Complaint: sob, cough 73-year-old male with history of hypertension, hyperlipidemia, and tracheomalacia, [id number] carcinoma of the lung s/p left lower lobectomy currently on Keytruda and denosumab for bony metastasis following with Dr. Stratton in oncology presents to the edtoday accompanied by his , [place], for evaluation of worsening dyspnea and productive cough over the last 2 days. He states he has been experienced dyspnea and productive cough for last 2 months. He also reports symptoms are worse at night. He does not wear oxygen at home. He has a daily drinker consuming 3-4 beers between the hours of 4 and 6 every evening but denies any history of alcohol withdrawal symptoms. He states he has stopped drinking in the past due to hyponatremia but upon levels normalizing, resumed drinking alcohol. He denies any fevers, chills, lightheadedness, congestion, sore throat, chest pain. No edema. Since arrival, has been mildly tachypneic to 24. On exam, noted to be hypoxic to 86-88% on room air placed on 2 L supplemental O2 maintaining oximetry 96%. but vitals otherwise stable. There is no leukocytosis. He has a chronic microcytic anemia with H/H 12.0/38.8%. Renal function baseline, sodium 125, chloride 89, electrolyte levels otherwise normal. Negative for influenza, COVID-19, RSV. D-dimer elevated at 573. Follow-up chest CTA negative for PE but shows focal consolidation of the medial right lower lobe and dependent atelectasis at both lung bases with small dependent left pleural effusion. In the ED, has been given DuoNeb, 1 L IV NS. He will be admitted for further management of acute right lower lobe pneumonia in immunocompromised patient with acute hypoxemic respiratory failure with acute hyponatremia. Review of Systems Review of Systems: General: No fevers, malaise, unintentional weight loss HEENT: No blurred vision, diplopia. No sore throat, nasal congestion, rhinorrhea, sinus pain, ear pain Cardiovascular: No chest pain, palpitations, or leg edema Respiratory: +sob, +cough. No shortness of breath, wheezing, cough GI: No abdominal pain, nausea, vomiting, diarrhea, constipation, melena, hematochezia : No dysuria, hematuria, increased urinary frequency, decreased urinary output MSK: No myalgia, back pain Neuro: No headaches, weakness, paresthesias Skin: No rashes or lesions [facility] Medical History On beta [place] at home Personal history of nicotine dependence Port-A-Cath in place (~09/2020) History of malignant neoplasm of glottis (~2018) Hyperlipemia HTN (hypertension) Cancer of lower lobe of left lung (~2019) Family History Mother Diabetes Brother Diabetes High blood pressure Daughter Breast cancer Daughter Hx of thyroid disease Surgical History History of laryngoscopy (~10/2018) Admission for fitting of Port-A-Cath (~09/2020) History of lobectomy of lung (~08/2020) History of colonoscopy (~12/2014) History of left knee surgery Social History Alcohol intake: current Alcohol intake frequency: holidays/special occasions only Alcohol type: beer Patient Tobacco Use Status: Former Tobacco user Cigarette Packs Per Day: 1 Years Smoked: 34 Advance Directives: No Advance Directives Information Provided: Yes Do you have a plan to hurt others: No Plan Meds Allergies Allergy/AdvReac Type Severity Reaction Status Date / Time No Known Allergies Allergy Verified 12/06/23 10:21 Active Medications: Current Medications Acetaminophen (Acetaminophen 325 Mg Tablet) 650 mg PO Q6H PRN PRN Reason: Pain, Mild (Pain Scale 1-3) Enoxaparin Sodium (Enoxaparin Sodium 40 Mg/0.4 Ml Syringe) 40 mg SUBCUT Q24H ERMA Guaifenesin (Guaifenesin 200 Mg/10 Ml 10 Ml Liquid) 10 ml PO Q6H PRN PRN Reason: Cough Sodium Chloride (Ns) 1,000 mls @ 100 mls/hr IVCONT .Q10H ERMA Ceftriaxone Sodium 1 gm/ (Sodium Chloride) 50 mls @ 100 mls/hr IV Q24H ERMA Doxycycline Hyclate 100 mg/ (Sodium Chloride) 250 mls @ 166.67 mls/hr IV Q12H [facility] Ondansetron HCl (Ondansetron Hcl 4 Mg/2 Ml Vial) 4 mg IVPUSH Q8H PRN PRN Reason: Nausea and Vomiting Senna (Sennosides 8.6 Mg Tablet) 17.2 mg PO BEDTIME PRN PRN Reason: Constipation Sodium Chloride (0.9 % Sodium Chloride Flush 3 Ml Syringe) 3 ml IVFLUSH QSHIFT [facility] Home Medications ?Medication ?Instructions ?Recorded ?Confirmed ?Last Taken ?Type amlodipine 10 mg tablet 10 mg PO DAILY 06/07/20 12/06/23 12/06/23 History atorvastatin 10 mg tablet 10 mg PO DAILY 06/07/20 12/06/23 12/06/23 History fluticasone propionate 50 50 mcg intranasal DAILY PRN 06/07/20 12/06/23 Unknown History mcg/actuation nasal Congestion spray,suspension hydralazine 10 mg tablet 10 mg PO BID 06/07/20 12/06/23 12/06/23 History losartan 100 mg tablet 100 mg PO DAILY 06/07/20 12/06/23 12/06/23 History metoprolol succinate 50 mg 50 mg PO DAILY 06/07/20 12/06/23 12/06/23 History tablet,extended release 24 hr levothyroxine 50 mcg tablet 50 mcg PO DAILY@0600 09/02/23 12/06/23 12/06/23 History cholecalciferol (vitamin D3) 50 50 mcg PO QAM 12/06/23 12/06/23 12/06/23 History mcg (2,000 unit) capsule (Vitamin D3) Physical Exam Vital Signs and Narrative: Vital Signs: Last Vital Signs Temp 97 F 12/06/23 14:45 Pulse 66 12/06/23 14:45 Resp 22 H 12/06/23 14:45 BP 137/59 L 12/06/23 14:45 Pulse Ox 94 12/06/23 14:45 O2 Del Method Room Air 12/06/23 14:45 BMI result Body Mass Index 25.0 Constitutional - Awake and Alert, No apparent distress Eyes - PERRLA, EOMI Cardiovascular - S1S2, RRR, No edema Respiratory - Normal lung expansion, Normal respiratory effort, No respiratory distress, diminished lower lobes bilaterally Gastrointestinal - NT / ND; +BS; No rebound or guarding Extremities - no calf tenderness bilaterally, no swelling Skin - Warm/Dry Neurological - Alert & oriented x3 Psychological - Appropriate affect Results Labs 12/06/23 10:42 12/06/23 10:42 Labs: Laboratory Results - last 24 hr 12/06/23 12/06/23 10:42 15:08 MCV 77.1 L MCH 23.9 L MCHC 30.9 L RDW 14.8 Plt Count 171 MPV 9.3 L Immature Gran % (Auto) 0.3 Neut % (Auto) 71.6 Lymph % (Auto) 9.4 L Cass % (Auto) 14.4 H Eos % (Auto) 3.5 Baso % (Auto) 0.8 Lymph # (Auto) 0.6 L Cass # (Auto) 0.9 Eos # (Auto) 0.2 Baso # (Auto) 0.1 Abs Immat Gran (auto) 0.02 Absolute Neuts (auto) 4.3 Absolute Nucleated RBC 0.000 Nucleated RBC % (auto) 0.0 PT 13.0 INR 1.1 D-Dimer High Sensitivty 573 Anion Gap 13 Estim Creat Clear Calc 68.0 Estimated GFR > 60 Random Glucose 127 H Calcium 9.3 Total Bilirubin 0.4 AST 22 ALT 20 Alkaline Phosphatase 60 Total Protein 8.4 H Albumin 3.5 Influenza Type A (PCR) NEGATIVE Influenza Type B (PCR) NEGATIVE RSV RNA Qual (PCR) NEGATIVE SARS-CoV-2 RNA (RT-PCR) NEGATIVE Imaging Radiologist's Impressions: Impressions Chest X-Ray 12/06/23 11:04 IMPRESSION: 1. Stable curvilinear atelectasis versus scarring of the left lung base. 2. Chronic interstitial lung markings. 3. Trace bilateral pleural effusions with subjacent atelectasis. Chest CTA 12/06/23 17:29 IMPRESSION: 1. No evidence of pulmonary embolism. 2. Focal consolidation medial right lower lobe. 3. Dependent atelectasis at both lung bases. Small dependent left pleural effusion. VTE: negative. Assessment and Plan (1) RLL pneumonia: Status: Acute (2) Acute hypoxemic respiratory failure: Status: Acute (3) Hyponatremia: Status: Acute Plan 73-year-old male with history of hypertension, hyperlipidemia, and tracheomalacia, [id number] carcinoma of the lung s/p left lower lobectomy currently on Keytruda and denosumab for bony metastasis following with Dr. Stratton in oncology admitted for further management of right lower lobe pneumonia in immunocompromised patient with acute hypoxemic respiratory failure and hyponatremia. # acute right lower lobe pneumonia with acute hypoxemic respiratory failure in immunocompromised patient -86-88% on room air during my exam. No leukocytosis or sepsis -IV vancomycin and Zosyn (initiated 12/05) -check strep pneumo antigen, Legionella antigen, sputum culture -guaifenesin p.r.n. -continue 2 L supplemental O2 to maintain oximetry greater than 92% -oncology consult -follow CBC, cultures # acute hyponatremia -likely hypotonic hyponatremia in setting of beer potomania -serum osmolality, urine osmolality, urine sodium pending -continue IV NS -fluid restrictions -consider nephrology consult if sodium not improving -follow renal function, electrolytes # alcohol use disorder -drinks 3-4 beers daily between 16:00 and 18:00. No history of withdrawal -no evidence of acute withdrawal at this time. Monitor on CIWA q.4h -treat with phenobarbital if scoring on CIWA -p.o. thiamine and folic acid # [id number] lung cancer with bony metastasis -s/p left lower lobe lobectomy 2020. On Keytruda and denosumab -oncology consult # chronic microcytic anemia -H/H above transfusion threshold -check iron profile, ferritin # hypertension -blood pressure reasonably controlled -continue amlodipine, hydralazine, losartan, metoprolol # hypothyroidism -continue levothyroxine # hyperlipidemia -continue statin DVT prophylaxis-Lovenox Full code Patient requires inpatient stay at least 2 midnights for management of acute right lower lobe pneumonia with acute hypoxemic respiratory failure immunocompromised patient requiring broad-spectrum antibiotics, supplemental O2 and expert consultation. He will also require IV fluid resuscitation and close monitoring of renal function electrolyte levels due to hyponatremia. Quality Stroke Does the patient have a stroke diagnosis?: No VTE Prior VTE?: No VTE Risk Level:: Medical - moderate - high VTE Device Contraindication: Treatment Not Indicated VTE Drug Contraindication: N/A - Med Ordered
[2023-12-06] MEDS: cefTRIAXone sodium 1 GM in 0.9 % Sodium Chloride 50 ML IV (20:21)
[2023-12-06] MEDS: Enoxaparin Sodium 40 MG/0.4 ML SYRINGE SUBCUT (20:21)
[2023-12-06] MEDS: 0.9 % Sodium Chloride 1,000 ML 100 ML IVCONT (20:22)
[2023-12-06 20:30] VITALS: BP 112/72; PULSE 75; RESP 12; TEMP 36.7; O2SAT 93
[2023-12-06 20:34] LABS: Iron 26 mcg/dL (45-160); Percent Iron Saturation 12 % (15-50); Total Iron Binding Capacity 226 mcg/dL (228-428); Unsaturated Iron Binding 200 ug/dL
[2023-12-06 20:42] LABS: Osmolality, Serum 269 mosm/kg (281-305)
[2023-12-06 20:54] LABS: Ferritin 124 ng/mL (20-250)
[2023-12-06] MEDS: vancomycin HCL 1,000 MG, vancomycin HCL 750 MG in 0.9 % Sodium Chloride 500 ML 267.5 MG IV (21:34)
--- NOTE | 2023-12-06 22:09 | PC.NURSE ---
Patient primarily Arabic speaking, resting quietly on stretcher at this time, UA and other urine studies collected by automotive service technician Jonna, patient given sputum cup for collection, awaiting bed assignment, NS running.
[2023-12-06 22:21] LABS: Appearance Urine Clear; Color Urine Yellow; Glucose Urine UA Negative (Negative); Leukocyte Esterase Urine Large (3+) (Negative); Nitrite Urine Negative (Negative); PH 7.5 (5.0-9.0); Specific Gravity - Urine >= 1.030 (1.005-1.025); UMIC TRIGGER UACC YES; Urine Blood Negative (Negative); Urine Ketones Negative (Negative); Urine Protein Trace mg/dL (Neg-Trace)
--- NOTE | 2023-12-06 22:25 | PHA.PROG ---
Admission Date/Time: December 06, 2023 19:54 Indication: Resp Infection Weight in k.2 kg Adjusted body weight in K.36 kg [place] body weight in K.8 kg Obesity Dosing Indication % IBW: 110% Serum Creatinine - Last 168 Hours 12/06/23 10:42 Creatinine 0.86 Estimated CrCl and GFR - Last 168 Hours 12/06/23 10:42 Estim Creat Clear Calc 68.0 Estimated GFR > 60 Vancomycin Loading Dose: 1750 mg Current Vancomycin Dosing Regimen: 750 mg Q12H Date and Time for next Vancomycin Level to be drawn: 12/07 @ 0800 Pharmacist Comments on Vancomycin Plan: patient is received an adeaquate load dose in the ER 12/05 @ 2134 maintenance dose vanco 750 mg Q12H is scheduled to start 12/06 @ 1000. Predicted AUC is 483 with atrough of 15.8 level will be drawn prior to 4th dose pharmacy will monitor renal function daily Hannah Turcios, Carlos Vancomycin dosing will take advantage of [employer] as a clinical decision support tool that uses Bayesian modeling to calculate individual patient's pharmacokinetic parameters and forecast the patient's drug concentration time course with the target goal AUC 24 range of 400 - 600 mg/L/hr.
[2023-12-06] MEDS: hydrALAZINE HCl 10 MG TABLET PO (22:30)
[2023-12-06 22:31] LABS: Osmolality Urine 454 mosm/kg (373-1093)
[2023-12-06 22:33] VITALS: BP 149/56; PULSE 66; RESP 16; O2SAT 96
[2023-12-06 22:42] LABS: Bacteria Urine None Seen (None Seen); Hyaline Casts Urine 0-2 /LPF (0-2); RBC Urine 0-2 /HPF (0-2); Squamous Epithelial Cell Urine 0-2 /HPF (0-2); UACC Culture Trigger YES
[2023-12-06 23:37] VITALS: BP 169/70; PULSE 74; RESP 17; TEMP 36.5; O2SAT 94
[2023-12-07] VITALS (10 sets, daily range): BP systolic 137–159; BP diastolic 63–72; PULSE 62–83; RESP 12–20; TEMP 36.6–36.9; O2SAT 88–97; BMI 25.4
[2023-12-07] MEDS: Piperacillin Sodium/Tazobactam 4.5 GM in 0.9 % Sodium Chloride 100 ML IV ×4 (00:41→17:12)
[2023-12-07] MEDS: Levothyroxine Sodium 50 MCG TABLET PO (06:01)
[2023-12-07 07:01] LABS: MANUAL DIFF FLAG NO
[2023-12-07 07:11] LABS: Basophils Percent Auto 0.5 % (0-2); Eosinophils Absolute Auto 0.2 X10*3/uL (0.0-0.4); Eosinophils Percent Auto 4.2 % (0-4); Hematocrit 30.9 % (42.0-52.0); Hemoglobin 9.9 g/dl (14.0-18.0); Imm Gran Abs Auto 0.01 X10*3/uL (0.00-0.03); Imm Gran Pct Auto 0.2 % (0.0-0.4); Lymphocytes Absolute Auto 0.4 X10*3/uL (1.2-4.9); Lymphocytes Percent Auto 8.2 % (20-40); Mean Corpuscular Hemoglobin 25.1 pg (27.0-33.0); Mean Corpuscular Volume 78.2 fL (80.0-98.0); Mean Platelet Volume 9.9 fL (9.4-12.4); Monocytes Absolute Auto 0.5 X10*3/uL (0.1-1.2); Monocytes Percent Auto 11.2 % (2-11); Neutrophils Absolute Auto 3.2 x10*3/uL (2.0-8.3); Neutrophils Percent Auto 75.7 % (45-73); Platelet Count 144 X10*3/uL (160-400); Red Blood Count 3.95 X10*6/uL (4.60-5.80); Red Cell Distribution Width 14.9 % (11.0-16.0); White Blood Count 4.3 X10*3/uL (4.8-10.8)
[2023-12-07 08:19] LABS: Anion Gap 10 (12-20); Blood Urea Nitrogen 11 mg/dL (9-16); Calcium 6.9 mg/dL (8.4-10.2); Carbon Dioxide 24 mmol/L (22-29); Chloride 105 mmol/L (96-108); Creatinine Clr Calc Pharmacy 102.6; Estimated Glomerular Filt Rate > 60; Glucose Random 81 mg/dL (60-115); Potassium 3.8 mmol/L (3.3-5.1); Sodium 135 mmol/L (135-145)
[2023-12-07 08:28] LABS: Thyroid Stimulating Hormone 2.65 uIU/mL (0.32-4.0)
[2023-12-07] MEDS: Losartan Potassium 50 MG TABLET 100 MG PO (08:28)
[2023-12-07] MEDS: Atorvastatin Calcium 10 MG TABLET PO (08:28)
[2023-12-07] MEDS: amLODIPine Besylate 10 MG TABLET PO (08:28)
[2023-12-07] MEDS: hydrALAZINE HCl 10 MG TABLET PO ×2 (08:28→21:06)
[2023-12-07] MEDS: Metoprolol Succinate ER 50 MG TAB.ER.24H PO (08:28)
[2023-12-07] MEDS: Thiamine HCL 100 MG TABLET PO (08:28)
[2023-12-07] MEDS: Folic Acid 1 MG TABLET PO (08:28)
--- NOTE | 2023-12-07 09:19 | MHC.CM.PN ---
IMM DELIVERED. PATIENT IS GAMBIAN SPEAKING. ROOFING LAYER COMPLETED W/ /HCP EMANI, PATIENT WAS FATIGUED. PATIENT LIVES AT HOME W/ . FUNCTIONALLY INDEPENDENT. PCP TONNY KEYS DO FOLLOWED BY DR HEALY HCP ON FILE AND VERIFIED DP: GOAL IS HOME SELF CARE, FAMILY TO TRANSPORT. CM WILL CONTINUE TO FOLLOW FOR DC NEEDS.
--- NOTE | 2023-12-07 09:32 | P.CNHO_ITS ---
Subjective - Subjective Chief complaint: Shortness of breath Patient: known to practice within the last 3 years Consult date: 12/07/23 Primary Care Provider: Halley Powers, DO HPI - Consult Narrative Reason for consult: Lung cancer on treatment Narrative: Nasir Bo is a 73 year old male with metastatic lung cancer originating in the left lower lobe who has been admitted for pneumonia. He has been receiving immunotherapy and doing fairly well. He presented to emergency department with complaints of worsening dyspnea and cough for 2 days prior to admission. He however reports that he has been having cough for at least 2 months, his symptoms have been worse at night. He denied fever, chills sore throat, chest pain or lightheadedness. On evaluation in the ED he was noted to be hypoxic with a pulse ox of 86-88% on room air. He had CTA which was negative for PE but showed focal consolidation of medial right lower lobe and a small left pleural effusion. He tested negative for COVID-19, influenza and RSV. He was found to have recurrent hyponatremia with a sodium of 125. He says he has quit drinking alcohol now for a few months. He last received Keytruda on 11/17/2023. Review of Systems - Constitutional Reports as per HPI, Reports fatigue, Denies weight loss PMFSH Medical History: Medical History (Last Reviewed 12/06/23 @ 20:10 by PATRICK Field) Cancer of lower lobe of left lung Onset Date: ~2019 History of malignant neoplasm of glottis Onset Date: ~2018 HTN (hypertension) Hyperlipemia On beta [place] at home Personal history of nicotine dependence Port-A-Cath in place Onset Date: ~09/2020 Family History: Family History (Last Reviewed 12/06/23 @ 20:10 by PATRICK Field) Mother Diabetes Brother Diabetes High blood pressure Daughter Breast cancer Daughter Hx of thyroid disease Surgical History: Surgical History (Last Reviewed 12/06/23 @ 20:10 by PATRICK Field) Admission for fitting of Port-A-Cath Onset Date: ~09/2020 History of colonoscopy Onset Date: ~12/2014 History of laryngoscopy Onset Date: ~10/2018 History of left knee surgery History of lobectomy of lung Onset Date: ~08/2020 Social History: Social History (Last Reviewed 12/06/23 @ 20:10 by PATRICK Field) Living Situation History: Household Members: Friend(s) Housing: Apartment Do you presently have visiting nurse or other home services: No Tobacco History: Patient Tobacco Use Status: Former Tobacco user Cigarette Packs Per Day: 1 Years Smoked: 34 Occupation Assessmet: service: No Home Medications and Allergies Current Medications: Current Medications Acetaminophen (Acetaminophen 325 Mg Tablet) 650 mg PO Q6H PRN PRN Reason: Pain, Mild (Pain Scale 1-3) Albuterol/Ipratropium (Albuterol/Iprat 2.5/0.5mg 3 Ml Ampul.Neb) 3 ml INHALE RQ4H WHILE AWAKE [facility] Amlodipine Besylate (Amlodipine Besylate 10 Mg Tablet) 10 mg PO DAILY [facility]; Protocol Last Admin: 12/07/23 08:28 Dose: 10 mg Atorvastatin Calcium (Atorvastatin Calcium 10 Mg Tablet) 10 mg PO DAILY [facility] Last Admin: 12/07/23 08:28 Dose: 10 mg Enoxaparin Sodium (Enoxaparin Sodium 40 Mg/0.4 Ml Syringe) 40 mg SUBCUT Q24H ERMA Last Admin: 12/06/23 20:21 Dose: 40 mg Fluticasone Propionate (Fluticasone Propionate Nasal 16 Gm [place]) 1 spray NOSTRIL-B DAILY PRN PRN Reason: Congestion Folic Acid (Folic Acid 1 Mg Tablet) 1 mg PO DAILY [facility] Last Admin: 12/07/23 08:28 Dose: 1 mg Guaifenesin (Guaifenesin 200 Mg/10 Ml 10 Ml Liquid) 10 ml PO Q6H PRN PRN Reason: Cough Hydralazine HCl (Hydralazine Hcl 10 Mg Tablet) 10 mg PO BID [facility]; Protocol Last Admin: 12/07/23 08:28 Dose: 10 mg Vancomycin HCl 750 mg/ Sodium (Chloride) 265 mls @ 265 mls/hr IV Q12H [facility] Piperacillin Sod/Tazobactam (Sod 4.5 gm/ Sodium Chloride) 100 mls @ 200 mls/hr IV Q6H [facility] Last Infusion: 12/07/23 06:46 Dose: Infused Levothyroxine Sodium (Levothyroxine Sodium 50 Mcg Tablet) 50 mcg PO DAILY@0600 ERMA Last Admin: 12/07/23 06:01 Dose: 50 mcg Losartan Potassium (Losartan Potassium 50 Mg Tablet) 100 mg PO DAILY [facility]; Protocol Last Admin: 12/07/23 08:28 Dose: 100 mg Metoprolol Succinate (Metoprolol Succinate Er 50 Mg Tab.Er.24h) 50 mg PO DAILY [facility]; Protocol Last Admin: 12/07/23 08:28 Dose: 50 mg Ondansetron HCl (Ondansetron Hcl 4 Mg/2 Ml Vial) 4 mg IVPUSH Q8H PRN PRN Reason: Nausea and Vomiting Pharmacy Consult (Consult Rx Vancomycin Dosing) 1 each MISCELLANE DAILY PRN PRN Reason: Consult order Senna (Sennosides 8.6 Mg Tablet) 17.2 mg PO BEDTIME PRN PRN Reason: Constipation Sodium Chloride (0.9 % Sodium Chloride Flush 3 Ml Syringe) 3 ml IVFLUSH QSHIFT [facility] Last Admin: 12/07/23 07:42 Dose: Not Given Thiamine HCl (Thiamine Hcl 100 Mg Tablet) 100 mg PO DAILY [facility] Last Admin: 12/07/23 08:28 Dose: 100 mg Home Medications ?Medication ?Instructions ?Recorded ?Confirmed ?Type amlodipine 10 mg tablet 10 mg PO DAILY 06/07/20 12/06/23 History atorvastatin 10 mg tablet 10 mg PO DAILY 06/07/20 12/06/23 History fluticasone propionate 50 50 mcg intranasal DAILY PRN 06/07/20 12/06/23 History mcg/actuation nasal Congestion spray,suspension hydralazine 10 mg tablet 10 mg PO BID 06/07/20 12/06/23 History losartan 100 mg tablet 100 mg PO DAILY 06/07/20 12/06/23 History metoprolol succinate 50 mg 50 mg PO DAILY 06/07/20 12/06/23 History tablet,extended release 24 hr levothyroxine 50 mcg tablet 50 mcg PO DAILY@0600 09/02/23 12/06/23 History cholecalciferol (vitamin D3) 50 50 mcg PO QAM 12/06/23 12/06/23 History mcg (2,000 unit) capsule (Vitamin D3) Allergies Allergy/AdvReac Type Severity Reaction Status Date / Time No Known Allergies Allergy Verified 12/06/23 10:21 Physical Exam Vital signs: Vital Signs Temp 98 F 12/07/23 08:00 Pulse 65 12/07/23 08:00 Resp 12 12/07/23 08:00 BP 159/72 H 12/07/23 08:00 Pulse Ox 92 12/07/23 08:00 O2 Del Method Room Air 12/07/23 08:00 O2 Flow Rate 2 12/07/23 03:36 Intake & Output 12/06/23 12/07/23 12/07/23 18:59 06:59 18:59 Intake Total 2371.667 / 2371.667 153.333 / 153.333 Output Total 850 / 850 Balance 1521.667 / 1521.667 153.333 / 153.333 Urine Output (Average ml/kg/hr) 0.99 0.99 Intake: Intake, Oral Amount 240 / 240 Intake, IV Amount 2131.667 / 2131.667 153.333 / 153.333 0.9 % Sodium Chloride 500 ml @ 500 / 500 999 mls/hr IV .Q31M [facility] Rx#: [id number] Piperacillin Sodium/Tazobactam 200 / 200 4.5 gm In 0.9 % Sodium Chloride 100 ml @ 200 mls/hr IV Q6H [facility] Rx#:[id number] cefTRIAXone sodium 1 gm In 0.9 50 / 50 % Sodium Chloride 50 ml @ 100 mls/hr IV Q24H [facility] Rx#: [id number] vancomycin HCL 1,000 mg 535 / 535 vancomycin HCL 750 mg In 0.9 % Sodium Chloride 500 ml @ 267.5 mls/hr IV ONCE ONE Rx#: [id number] 0.9 % Sodium Chloride 1,000 ml 846.667 / 846.667 153.333 / 153.333 @ 100 mls/hr IVCONT .Q10H [facility] Rx#:[id number] Output: Output, Urine Amount 850 / 850 Other: Urine Urinal Urine Color Yellow Weight 70.2 kg 71.5 kg [place] Weight in Grams 17672 Weight 71.5 kg - Constitutional Present: no acute distress, average body habitus - Routine HEENT Exam Head: Present: normal inspection Eye: Present: EOMI - Routine Neck Exam Present: supple - Routine Respiratory Exam Present: decreased breath sounds. Absent: accessory muscle use, stridor, wheezes - Routine Cardiovascular Exam Cardiovascular: Present: S1, S2 - Routine Abdominal Exam Present: soft Hem/Onc Consult Result - Labs CBC & Chem 7: 12/07/23 06:08 12/07/23 06:08 Labs: Short CBC 12/06/23 12/07/23 Range/Units 10:42 06:08 WBC 6.1 4.3 L (4.8-10.8) X10*3/uL Hgb 12.0 L 9.9 L (14.0-18.0) g/dl Hct 38.8 L 30.9 L D (42.0-52.0) % Plt Count 171 144 L (160-400) X10*3/uL BMP 12/06/23 12/07/23 10:42 06:08 Sodium 125 L 135 Potassium 4.8 3.8 D Chloride 89 L 105 Carbon Dioxide 28 24 BUN 16 11 Creatinine 0.86 0.57 Calcium 9.3 6.9 L D Liver Function 12/06/23 Range/Units 10:42 Total Bilirubin 0.4 (0.0-1.0) mg/dL AST 22 (5-37) U/L ALT 20 (0-40) U/L Alkaline Phosphatase 60 (39-117) U/L Albumin 3.5 (3.5-5.0) g/dL Urine 12/06/23 Range/Units 22:07 Urine Color Yellow Urine Appearance Clear Urine pH 7.5 (5.0-9.0) Ur Specific [place] >= 1.030 H (1.005-1.025) Urine Protein Trace (Neg-Trace) mg/dL Urine Glucose (UA) Negative (Negative) mg/dL Assessment and Plan Patient Active problem list reviewed?: Yes (1) Non-small cell cancer of left lung Problem details: (LLL Adenosquamous Carcinoma. pT2a, pN1 - s/p LLL lobectomy, undergoing adjuvant chemotherapy) Status: Chronic Assessment and plan: 1. This is a 73-year-old male with left lower lobe adenosquamous carcinoma, Pathological stage pT2a, pN1, Stage IIb in 2020. Recurrent, stage IV lung cancer diagnosed in September 2021. He is currently admitted for hypoxemic respiratory failure and being treated for presumed pneumonia, right lower lobe consolidation seen on CT angiogram. Patient started palliative immunotherapy with Keytruda from 10/2021. He had a surveillance CT chest on 11/10/2023 which showed slight increase in AP window lymph node currently measuring 3 x 1.6 cm. A precarinal lymph node had decreased in size and no other suspicious findings. CTA performed 12/06/2023 showed no evidence of PE, focal consolidation in medial right lower lobe. He has had symptoms of cough and shortness of breath he says for about 2 months. He is now hypoxemic. I am not clear if this is from pneumonia, exacerbation of COPD or he has developed pneumonitis which can be seen with immunotherapy. He is currently on IV antibiotics but not receiving any steroids. I would recommend pulmonary evaluation. He may need steroids if he has pneumonitis and discontinuation of immunotherapy. Thank you, will follow. - Time Spent With Patient Time Spent with Patient (in minutes): 20
[2023-12-07] MEDS: vancomycin HCL 750 MG in 0.9 % Sodium Chloride 250 ML 265 MG IV ×2 (10:42→21:11)
[2023-12-07] MEDS: Albuterol/Iprat 2.5/0.5MG 3 ML AMPUL.NEB INHALE ×3 (11:48→20:16)
--- NOTE | 2023-12-07 14:57 | PM.CNNEP ---
History of Present Illness Reason for Consult Consult date: 12/08/23 Chief Complaint Chief complaint: RLL pneumonia, hypoxia, hyponatremia History of Present Illness Narrative: 73-year-old male with history of hypertension, hyperlipidemia, and tracheomalacia, [id number] carcinoma of the lung s/p left lower lobectomy currently on Keytruda and denosumab for bony metastasis following with Dr. Stratton in oncology presents to the edtoday accompanied by his , [place], for evaluation of worsening dyspnea and productive cough over the last 2 days. Consult requested for hyponatremia of 126. Today sodium is up to 135. Review of Systems Review of Systems Yes all other systems are reviewed and are negative PMFSH Past Medical History Medical History On beta [place] at home Personal history of nicotine dependence Port-A-Cath in place (~09/2020) History of malignant neoplasm of glottis (~2018) Hyperlipemia HTN (hypertension) Cancer of lower lobe of left lung (~2019) Family History Family History Mother Diabetes Brother Diabetes High blood pressure Daughter Breast cancer Daughter Hx of thyroid disease Surgical History Surgical History History of laryngoscopy (~10/2018) Admission for fitting of Port-A-Cath (~09/2020) History of lobectomy of lung (~08/2020) History of colonoscopy (~12/2014) History of left knee surgery Social History Social History Household Members: Friend(s) Housing: Apartment Do you presently have visiting nurse or other home services: No Alcohol intake: current Alcohol intake frequency: holidays/special occasions only Alcohol type: beer Patient Tobacco Use Status: Former Tobacco user Cigarette Packs Per Day: 1 Years Smoked: 34 service: No Meds Allergies Allergy/AdvReac Type Severity Reaction Status Date / Time No Known Allergies Allergy Verified 12/06/23 10:21 Active Medications: Current Medications Acetaminophen (Acetaminophen 325 Mg Tablet) 650 mg PO Q6H PRN PRN Reason: Pain, Mild (Pain Scale 1-3) Albuterol/Ipratropium (Albuterol/Iprat 2.5/0.5mg 3 Ml Ampul.Neb) 3 ml INHALE RQ4H WHILE AWAKE [facility] Last Admin: 12/07/23 11:48 Dose: 3 ml Amlodipine Besylate (Amlodipine Besylate 10 Mg Tablet) 10 mg PO DAILY [facility]; Protocol Last Admin: 12/07/23 08:28 Dose: 10 mg Atorvastatin Calcium (Atorvastatin Calcium 10 Mg Tablet) 10 mg PO DAILY [facility] Last Admin: 12/07/23 08:28 Dose: 10 mg Enoxaparin Sodium (Enoxaparin Sodium 40 Mg/0.4 Ml Syringe) 40 mg SUBCUT Q24H [facility] Last Admin: 12/06/23 20:21 Dose: 40 mg Fluticasone Propionate (Fluticasone Propionate Nasal 16 Gm [place]) 1 spray NOSTRIL-B DAILY PRN PRN Reason: Congestion Folic Acid (Folic Acid 1 Mg Tablet) 1 mg PO DAILY [facility] Last Admin: 12/07/23 08:28 Dose: 1 mg Guaifenesin (Guaifenesin 200 Mg/10 Ml 10 Ml Liquid) 10 ml PO Q6H PRN PRN Reason: Cough Hydralazine HCl (Hydralazine Hcl 10 Mg Tablet) 10 mg PO BID [facility]; Protocol Last Admin: 12/07/23 08:28 Dose: 10 mg Vancomycin HCl 750 mg/ Sodium (Chloride) 265 mls @ 265 mls/hr IV Q12H [facility] Last Infusion: 12/07/23 11:42 Dose: Infused Piperacillin Sod/Tazobactam (Sod 4.5 gm/ Sodium Chloride) 100 mls @ 200 mls/hr IV Q6H [facility] Last Infusion: 12/07/23 12:17 Dose: Infused Levothyroxine Sodium (Levothyroxine Sodium 50 Mcg Tablet) 50 mcg PO DAILY@0600 [facility] Last Admin: 12/07/23 06:01 Dose: 50 mcg Losartan Potassium (Losartan Potassium 50 Mg Tablet) 100 mg PO DAILY [facility]; Protocol Last Admin: 12/07/23 08:28 Dose: 100 mg Metoprolol Succinate (Metoprolol Succinate Er 50 Mg Tab.Er.24h) 50 mg PO DAILY [facility]; Protocol Last Admin: 12/07/23 08:28 Dose: 50 mg Ondansetron HCl (Ondansetron Hcl 4 Mg/2 Ml Vial) 4 mg IVPUSH Q8H PRN PRN Reason: Nausea and Vomiting Pharmacy Consult (Consult Rx Vancomycin Dosing) 1 each MISCELLANE DAILY PRN PRN Reason: Consult order Senna (Sennosides 8.6 Mg Tablet) 17.2 mg PO BEDTIME PRN PRN Reason: Constipation Sodium Chloride (0.9 % Sodium Chloride Flush 3 Ml Syringe) 3 ml IVFLUSH QSHIFT [facility] Last Admin: 12/07/23 07:42 Dose: Not Given Thiamine HCl (Thiamine Hcl 100 Mg Tablet) 100 mg PO DAILY [facility] Last Admin: 12/07/23 08:28 Dose: 100 mg Home Medications ?Medication ?Instructions ?Recorded ?Confirmed ?Last Taken ?Type amlodipine 10 mg tablet 10 mg PO DAILY 06/07/20 12/06/23 12/06/23 History atorvastatin 10 mg tablet 10 mg PO DAILY 06/07/20 12/06/23 12/06/23 History fluticasone propionate 50 50 mcg intranasal DAILY PRN 06/07/20 12/06/23 Unknown History mcg/actuation nasal Congestion spray,suspension hydralazine 10 mg tablet 10 mg PO BID 06/07/20 12/06/23 12/06/23 History losartan 100 mg tablet 100 mg PO DAILY 06/07/20 12/06/23 12/06/23 History metoprolol succinate 50 mg 50 mg PO DAILY 06/07/20 12/06/23 12/06/23 History tablet,extended release 24 hr levothyroxine 50 mcg tablet 50 mcg PO DAILY@0600 09/02/23 12/06/23 12/06/23 History cholecalciferol (vitamin D3) 50 50 mcg PO QAM 12/06/23 12/06/23 12/06/23 History mcg (2,000 unit) capsule (Vitamin D3) Physical Exam Vital Signs: Last Vital Signs Temp 98 F 12/07/23 08:00 Pulse 66 12/07/23 11:48 Resp 12 12/07/23 11:48 BP 145/68 H 12/07/23 10:17 Pulse Ox 92 12/07/23 14:12 O2 Del Method Nasal Cannula 12/07/23 14:12 O2 Flow Rate 1.5 12/07/23 14:12 BMI result Body Mass Index 25.4 Const General: ill appearing Neck Neck: Yes supple Resp Auscultation: clear to auscultation bilaterally Cardio Palpation: no palpable S3 Heart sounds: no rubs GI Palpation (GI): Soft to palpation Auscultation: normal bowel sounds Neuro Motor exam (neuro): no asterixis Results Lab Results 12/07/23 06:08 12/08/23 06:14 Lab results: Chemistry 12/06/23 12/07/23 10:42 06:08 Sodium 125 L 135 Potassium 4.8 3.8 D Carbon Dioxide 28 24 BUN 16 11 Creatinine 0.86 0.57 Calcium 9.3 6.9 L D Hematology 12/06/23 12/07/23 10:42 06:08 WBC 6.1 4.3 L Hgb 12.0 L 9.9 L Plt Count 171 144 L Urinalysis 12/06/23 22:07 Urine Color Yellow Urine Appearance Clear Urine pH 7.5 Ur Specific [place] >= 1.030 H Urine Protein Trace Urine Glucose (UA) Negative Urine Ketones Negative Urine Blood Negative Urine Nitrite Negative Ur Leukocyte Esterase Large (3+) H Urine RBC 0-2 Urine WBC 6-10 Ur Squamous Epith Cells 0-2 Hyaline Casts 0-2 Urine Studies 12/06/23 22:07 Urine Osmolality 454 Assessment and Plan (1) Hyponatremia: Status: Acute Plan Hyponatremia in the setting of adenocarcinoma of the lung. Serum sodium is improved. Rapid correction needs to be avoided. Procedures Date of Service Date of Service: 12/08/23
[2023-12-07 17:00] LABS: Sodium 129 mmol/L (135-145)
[2023-12-07] MEDS: 0.9 % Sodium Chloride Flush 3 ML SYRINGE IVFLUSH ×2 (17:16→21:10)
[2023-12-07] MEDS: guaiFENesin 200 MG/10 ML 10 ML LIQUID PO (17:18)
--- NOTE | 2023-12-07 17:24 | P.PNIM_ITS ---
Subjective Subjective Date of Service: 12/07/23 Interval History: Hypoxia, COPD exacerbation, pneumonia Review of Systems Patient shortness of breath is minimal improving No fever or chills Physical Exam 2 Vital Signs: Vital Signs: Last Vital Signs Temp 98.5 F 12/07/23 15:31 Pulse 76 12/07/23 15:31 Resp 20 12/07/23 15:31 BP 137/70 12/07/23 15:31 Pulse Ox 97 12/07/23 15:31 O2 Del Method Nasal Cannula 12/07/23 15:31 O2 Flow Rate 97 12/07/23 15:31 BMI result Body Mass Index 25.4 Appearance: Alert.? Oriented X3. cvs: rrr, [id number] . res:air entry diminshed ,few rhinchii abd: no rebound or guarding ,nt, bs present. ext pulses present , no cyanosis . neuro: axo3 , nonfocal. Objective Data Active Medications Acetaminophen (Acetaminophen 325 Mg Tablet) 650 mg PO Q6H PRN PRN Reason: Pain, Mild (Pain Scale 1-3) Albuterol/Ipratropium (Albuterol/Iprat 2.5/0.5mg 3 Ml Ampul.Neb) 3 ml INHALE RQ4H WHILE AWAKE [facility] Last Admin: 12/07/23 15:09 Dose: 3 ml Documented By: NANNETTE Amlodipine Besylate (Amlodipine Besylate 10 Mg Tablet) 10 mg PO DAILY [facility]; Protocol Last Admin: 12/07/23 08:28 Dose: 10 mg Documented By: HENRY Atorvastatin Calcium (Atorvastatin Calcium 10 Mg Tablet) 10 mg PO DAILY [facility] Last Admin: 12/07/23 08:28 Dose: 10 mg Documented By: HENRY Enoxaparin Sodium (Enoxaparin Sodium 40 Mg/0.4 Ml Syringe) 40 mg SUBCUT Q24H [facility] Last Admin: 12/06/23 20:21 Dose: 40 mg Documented By: SANDRINE Fluticasone Propionate (Fluticasone Propionate Nasal 16 Gm [place]) 1 spray NOSTRIL-B DAILY PRN PRN Reason: Congestion Folic Acid (Folic Acid 1 Mg Tablet) 1 mg PO DAILY [facility] Last Admin: 12/07/23 08:28 Dose: 1 mg Documented By: HENRY Guaifenesin (Guaifenesin 200 Mg/10 Ml 10 Ml Liquid) 10 ml PO Q6H PRN PRN Reason: Cough Last Admin: 12/07/23 17:18 Dose: 10 ml Documented By: TIFFANY Hydralazine HCl (Hydralazine Hcl 10 Mg Tablet) 10 mg PO BID [facility]; Protocol Last Admin: 12/07/23 08:28 Dose: 10 mg Documented By: HENRY Vancomycin HCl 750 mg/ Sodium (Chloride) 265 mls @ 265 mls/hr IV Q12H [facility] Last Infusion: 12/07/23 11:42 Dose: Infused Documented By: HENRY Piperacillin Sod/Tazobactam (Sod 4.5 gm/ Sodium Chloride) 100 mls @ 200 mls/hr IV Q6H [facility] Last Admin: 12/07/23 17:12 Dose: 200 mls/hr Documented By: TIFFANY Levothyroxine Sodium (Levothyroxine Sodium 50 Mcg Tablet) 50 mcg PO DAILY@0600 [facility] Last Admin: 12/07/23 06:01 Dose: 50 mcg Documented By: LUIS Losartan Potassium (Losartan Potassium 50 Mg Tablet) 100 mg PO DAILY [facility]; Protocol Last Admin: 12/07/23 08:28 Dose: 100 mg Documented By: HENRY Metoprolol Succinate (Metoprolol Succinate Er 50 Mg Tab.Er.24h) 50 mg PO DAILY [facility]; Protocol Last Admin: 12/07/23 08:28 Dose: 50 mg Documented By: HENRY Ondansetron HCl (Ondansetron Hcl 4 Mg/2 Ml Vial) 4 mg IVPUSH Q8H PRN PRN Reason: Nausea and Vomiting Pharmacy Consult (Consult Rx Vancomycin Dosing) 1 each MISCELLANE DAILY PRN PRN Reason: Consult order Senna (Sennosides 8.6 Mg Tablet) 17.2 mg PO BEDTIME PRN PRN Reason: Constipation Sodium Chloride (0.9 % Sodium Chloride Flush 3 Ml Syringe) 3 ml IVFLUSH QSHIFT [facility] Last Admin: 12/07/23 17:16 Dose: 3 ml Documented By: TIFFANY Thiamine HCl (Thiamine Hcl 100 Mg Tablet) 100 mg PO DAILY [facility] Last Admin: 12/07/23 08:28 Dose: 100 mg Documented By: HENRY Labs 12/07/23 06:08 12/07/23 16:22 Labs: Laboratory Results - last 24 hr 12/06/23 12/06/23 12/06/23 10:42 15:08 20:20 MCV MCH MCHC RDW Plt Count MPV Immature Gran % (Auto) Neut % (Auto) Lymph % (Auto) Leon % (Auto) Eos % (Auto) Baso % (Auto) Lymph # (Auto) Leon # (Auto) Eos # (Auto) Baso # (Auto) Abs Immat Gran (auto) Absolute Neuts (auto) Absolute Nucleated RBC Nucleated RBC % (auto) D-Dimer High Sensitivty 573 Anion Gap Estim Creat Clear Calc Estimated GFR Random Glucose Osmolality 269 L Calcium Iron 26 L TIBC 226 L % Saturation 12 L Unsat Iron Binding 200 Ferritin 124 TSH Urine Color Urine Appearance Urine pH Ur Specific [place] Urine Protein Urine Glucose (UA) Urine Ketones Urine Blood Urine Nitrite Ur Leukocyte Esterase Urine RBC Urine WBC Ur Squamous Epith Cells Urine Bacteria Hyaline Casts Urine Osmolality Ur Random Sodium 12/06/23 12/07/23 22:07 06:08 MCV 78.2 L MCH 25.1 L MCHC 32.0 RDW 14.9 Plt Count 144 L MPV 9.9 Immature Gran % (Auto) 0.2 Neut % (Auto) 75.7 H Lymph % (Auto) 8.2 L Leon % (Auto) 11.2 H Eos % (Auto) 4.2 H Baso % (Auto) 0.5 Lymph # (Auto) 0.4 L Leon # (Auto) 0.5 Eos # (Auto) 0.2 Baso # (Auto) 0.0 Abs Immat Gran (auto) 0.01 Absolute Neuts (auto) 3.2 Absolute Nucleated RBC 0.000 Nucleated RBC % (auto) 0.0 D-Dimer High Sensitivty Anion Gap 10 L Estim Creat Clear Calc 102.6 Estimated GFR > 60 Random Glucose 81 Osmolality Calcium 6.9 L D Iron TIBC % Saturation Unsat Iron Binding Ferritin TSH 2.65 Urine Color Yellow Urine Appearance Clear Urine pH 7.5 Ur Specific [place] >= 1.030 H Urine Protein Trace Urine Glucose (UA) Negative Urine Ketones Negative Urine Blood Negative Urine Nitrite Negative Ur Leukocyte Esterase Large (3+) H Urine RBC 0-2 Urine WBC 6-10 Ur Squamous Epith Cells 0-2 Urine Bacteria None Seen Hyaline Casts 0-2 Urine Osmolality 454 Ur Random Sodium 71.0 Microbiology Microbiology Results: Microbiology 12/07/23 02:09 Gram Stain - Final Sputum - Expectorated Sputum Culture - Final 12/06/23 Unknown Urine Culture - Preliminary Urine clean catch - Urine serna top No growth to date. Assessment and Plan (1) Acute hypoxemic respiratory failure: Status: Acute (2) RLL pneumonia: Status: Acute Plan 73-year-old male with history of hypertension, hyperlipidemia, and tracheomalacia, [id number] carcinoma of the lung s/p left lower lobectomy currently on Keytruda and denosumab for bony metastasis following with Dr. Stratton in oncology admitted for further management of right lower lobe pneumonia in immunocompromised patient with acute hypoxemic respiratory failure and hyponatremia. acute right lower lobe pneumonia with acute hypoxemic respiratory failure in immunocompromised patient -86-88% on room air during my exam. No leukocytosis or sepsis sputum studies continue IV vancomycin and Zosyn (initiated 12/05),oxygen , cough syrup oncology eval noted-continue above ,add pulm eval. acute hyponatremia-likely hypotonic hyponatremia in setting of beer potomania serum osmolality low , urine osmolality high , urine sodium pending sdoum flactuating 125-135-129 fluid restrictions nephrology eval noted-Hyponatremia in the setting of adenocarcinoma of the lung. moniter bmp closely alcohol use disorder -drinks 3-4 beers daily . No history of withdrawal treat with phenobarbital if scoring on CIWA continue p.o. thiamine and folic acid [id number] lung cancer with bony metastasis -s/p left lower lobe lobectomy 2020. On Keytruda and denosumab -oncology consult chronic microcytic anemia -H/H above transfusion threshold -check iron profile, ferritin hypertension -blood pressure reasonably controlled -continue amlodipine, hydralazine, losartan, metoprolol hypothyroidism-continue levothyroxine hyperlipidemia-continue statin DVT prophylaxis-Lovenox Full code Patient requires inpatient stay for management of acute right lower lobe pneumonia with acute hypoxemic respiratory failure immunocompromised patient requiring broad-spectrum antibiotics, supplemental O2 and expert consultation. Quality Stroke Does the patient have a stroke diagnosis?: No VTE Prior VTE?: No VTE Risk Level:: Medical - moderate - high VTE Device Contraindication: Treatment Not Indicated VTE Drug Contraindication: N/A - Med Ordered
[2023-12-07 19:55] LABS: Anion Gap 9 (12-20); Blood Urea Nitrogen 14 mg/dL (9-16); Calcium 8.3 mg/dL (8.4-10.2); Carbon Dioxide 31 mmol/L (22-29); Chloride 94 mmol/L (96-108); Creatinine Clr Calc Pharmacy 61.5; Estimated Glomerular Filt Rate > 60; Glucose Random 124 mg/dL (60-115); Potassium 4.3 mmol/L (3.3-5.1); Sodium 130 mmol/L (135-145)
[2023-12-07] MEDS: Enoxaparin Sodium 40 MG/0.4 ML SYRINGE SUBCUT (21:06)
[2023-12-08] VITALS (11 sets, daily range): BP systolic 134–154; BP diastolic 64–70; PULSE 69–92; RESP 18–22; TEMP 35.5–36.9; O2SAT 93–96
[2023-12-08] MEDS: Piperacillin Sodium/Tazobactam 4.5 GM in 0.9 % Sodium Chloride 100 ML IV ×5 (00:37→23:40)
[2023-12-08] MEDS: guaiFENesin 200 MG/10 ML 10 ML LIQUID PO (03:58)
[2023-12-08] MEDS: Levothyroxine Sodium 50 MCG TABLET PO (05:55)
[2023-12-08 07:13] LABS: Anion Gap 22 (12-20); Blood Urea Nitrogen 11 mg/dL (9-16); Calcium 6.8 mg/dL (8.4-10.2); Carbon Dioxide 26 mmol/L (22-29); Chloride 99 mmol/L (96-108); Creatinine Clr Calc Pharmacy 72.2; Estimated Glomerular Filt Rate > 60; Glucose Random 74 mg/dL (60-115); Potassium 3.7 mmol/L (3.3-5.1); Sodium 143 mmol/L (135-145)
[2023-12-08 07:16] LABS: Creatinine Clr Calc Pharmacy 82.3; Estimated Glomerular Filt Rate > 60
[2023-12-08] MEDS: Atorvastatin Calcium 10 MG TABLET PO (07:56)
[2023-12-08] MEDS: Metoprolol Succinate ER 50 MG TAB.ER.24H PO (07:56)
[2023-12-08] MEDS: Folic Acid 1 MG TABLET PO (07:57)
[2023-12-08] MEDS: Thiamine HCL 100 MG TABLET PO (07:57)
[2023-12-08] MEDS: amLODIPine Besylate 10 MG TABLET PO (07:57)
[2023-12-08] MEDS: Losartan Potassium 50 MG TABLET 100 MG PO (07:57)
[2023-12-08] MEDS: hydrALAZINE HCl 10 MG TABLET PO ×2 (07:57→20:25)
[2023-12-08] MEDS: 0.9 % Sodium Chloride Flush 3 ML SYRINGE IVFLUSH ×3 (07:59→22:16)
--- NOTE | 2023-12-08 08:17 | PM.HEMONCPN ---
Medical Summary - Medical Summary Date of Service: 12/08/23 Chief complaint: Shortness of breath Primary Care Provider: Halley Powers DO Interval History Interval history: Nasir Bo is a 73 year old male with metastatic lung cancer originating in the left lower lobe who has been admitted for pneumonia. He has been receiving immunotherapy and doing fairly well. He presented to emergency department with complaints of worsening dyspnea and cough for 2 days prior to admission. He however reports that he has been having cough for at least 2 months, his symptoms have been worse at night. He denied fever, chills sore throat, chest pain or lightheadedness. On evaluation in the ED he was noted to be hypoxic with a pulse ox of 86-88% on room air. He had CTA which was negative for PE but showed focal consolidation of medial right lower lobe and a small left pleural effusion. He tested negative for COVID-19, influenza and RSV. He was found to have recurrent hyponatremia with a sodium of 125. He says he has quit drinking alcohol now for a few months. He last received Keytruda on 11/17/2023. He feels better today. Both shortness of breath and cough have improved. Review of Systems - Constitutional Reports as per [facility] Medical History: Medical History (Last Reviewed 12/08/23 @ 10:20 by Marilu Hernadez, ELSIE) Cancer of lower lobe of left lung Onset Date: ~2019 History of malignant neoplasm of glottis Onset Date: ~2018 HTN (hypertension) Hyperlipemia On beta [place] at home Personal history of nicotine dependence Port-A-Cath in place Onset Date: ~09/2020 Family History: Family History (Last Reviewed 12/06/23 @ 20:10 by PATRICK Field) Mother Diabetes Brother Diabetes High blood pressure Daughter Breast cancer Daughter Hx of thyroid disease Surgical History: Surgical History (Last Reviewed 12/08/23 @ 10:20 by Marilu Hernadez PT) Admission for fitting of Port-A-Cath Onset Date: ~09/2020 History of colonoscopy Onset Date: ~12/2014 History of laryngoscopy Onset Date: ~10/2018 History of left knee surgery History of lobectomy of lung Onset Date: ~08/2020 Social History: Social History (Last Reviewed 12/06/23 @ 20:10 by PATRICK Field) Living Situation History: Household Members: Friend(s) Housing: Apartment Do you presently have visiting nurse or other home services: No Tobacco History: Patient Tobacco Use Status: Former Tobacco user Cigarette Packs Per Day: 1 Years Smoked: 34 Occupation Assessmet: service: No Home Medications and Allergies Current Medications: Current Medications Acetaminophen (Acetaminophen 325 Mg Tablet) 650 mg PO Q6H PRN PRN Reason: Pain, Mild (Pain Scale 1-3) Albuterol/Ipratropium (Albuterol/Iprat 2.5/0.5mg 3 Ml Ampul.Neb) 3 ml INHALE RQ4H WHILE AWAKE [facility] Last Admin: 12/07/23 20:16 Dose: 3 ml Amlodipine Besylate (Amlodipine Besylate 10 Mg Tablet) 10 mg PO DAILY [facility]; Protocol Last Admin: 12/08/23 07:57 Dose: 10 mg Atorvastatin Calcium (Atorvastatin Calcium 10 Mg Tablet) 10 mg PO DAILY [facility] Last Admin: 12/08/23 07:56 Dose: 10 mg Enoxaparin Sodium (Enoxaparin Sodium 40 Mg/0.4 Ml Syringe) 40 mg SUBCUT Q24H [facility] Last Admin: 12/07/23 21:06 Dose: 40 mg Fluticasone Propionate (Fluticasone Propionate Nasal 16 Gm [place]) 1 spray NOSTRIL-B DAILY PRN PRN Reason: Congestion Folic Acid (Folic Acid 1 Mg Tablet) 1 mg PO DAILY [facility] Last Admin: 12/08/23 07:57 Dose: 1 mg Guaifenesin (Guaifenesin 200 Mg/10 Ml 10 Ml Liquid) 10 ml PO Q6H PRN PRN Reason: Cough Last Admin: 12/08/23 03:58 Dose: 10 ml Hydralazine HCl (Hydralazine Hcl 10 Mg Tablet) 10 mg PO BID [facility]; Protocol Last Admin: 12/08/23 07:57 Dose: 10 mg Vancomycin HCl 750 mg/ Sodium (Chloride) 265 mls @ 265 mls/hr IV Q12H [facility] Last Infusion: 12/07/23 22:47 Dose: Infused Piperacillin Sod/Tazobactam (Sod 4.5 gm/ Sodium Chloride) 100 mls @ 200 mls/hr IV Q6H [facility] Last Infusion: 12/08/23 06:39 Dose: Infused Levothyroxine Sodium (Levothyroxine Sodium 50 Mcg Tablet) 50 mcg PO DAILY@0600 [facility] Last Admin: 12/08/23 05:55 Dose: 50 mcg Losartan Potassium (Losartan Potassium 50 Mg Tablet) 100 mg PO DAILY [facility]; Protocol Last Admin: 12/08/23 07:57 Dose: 100 mg Metoprolol Succinate (Metoprolol Succinate Er 50 Mg Tab.Er.24h) 50 mg PO DAILY [facility]; Protocol Last Admin: 12/08/23 07:56 Dose: 50 mg Ondansetron HCl (Ondansetron Hcl 4 Mg/2 Ml Vial) 4 mg IVPUSH Q8H PRN PRN Reason: Nausea and Vomiting Pharmacy Consult (Consult Rx Vancomycin Dosing) 1 each MISCELLANE DAILY PRN PRN Reason: Consult order Senna (Sennosides 8.6 Mg Tablet) 17.2 mg PO BEDTIME PRN PRN Reason: Constipation Sodium Chloride (0.9 % Sodium Chloride Flush 3 Ml Syringe) 3 ml IVFLUSH QSHIFT [facility] Last Admin: 12/08/23 07:59 Dose: 3 ml Thiamine HCl (Thiamine Hcl 100 Mg Tablet) 100 mg PO DAILY [facility] Last Admin: 12/08/23 07:57 Dose: 100 mg Home Medications ?Medication ?Instructions ?Recorded ?Confirmed ?Type amlodipine 10 mg tablet 10 mg PO DAILY 06/07/20 12/06/23 History atorvastatin 10 mg tablet 10 mg PO DAILY 06/07/20 12/06/23 History fluticasone propionate 50 50 mcg intranasal DAILY PRN 06/07/20 12/06/23 History mcg/actuation nasal Congestion spray,suspension hydralazine 10 mg tablet 10 mg PO BID 06/07/20 12/06/23 History losartan 100 mg tablet 100 mg PO DAILY 06/07/20 12/06/23 History metoprolol succinate 50 mg 50 mg PO DAILY 06/07/20 12/06/23 History tablet,extended release 24 hr levothyroxine 50 mcg tablet 50 mcg PO DAILY@0600 09/02/23 12/06/23 History cholecalciferol (vitamin D3) 50 50 mcg PO QAM 12/06/23 12/06/23 History mcg (2,000 unit) capsule (Vitamin D3) Allergies Allergy/AdvReac Type Severity Reaction Status Date / Time No Known Allergies Allergy Verified 12/06/23 10:21 Exam Vital signs: Vital Signs Temp 96 F L 12/08/23 07:11 Pulse 78 12/08/23 07:56 Resp 21 H 12/08/23 07:11 BP 150/67 H 12/08/23 07:57 Pulse Ox 94 12/08/23 07:11 O2 Del Method Nasal Cannula 12/08/23 07:11 O2 Flow Rate 1.5 12/08/23 03:17 Intake & Output 12/07/23 12/08/23 12/08/23 18:59 06:59 18:59 Intake Total 918.333 / 6880.468 1799 / 1982.333 Balance 918.333 / 2614.826 6384 / 1982.333 Intake: Intake, Oral Amount 300 / 900 600 / 900 Intake, IV Amount 618.333 / 1083.333 465 / 1083.333 Piperacillin Sodium/Tazobactam 200 / 400 200 / 400 4.5 gm In 0.9 % Sodium Chloride 100 ml @ 200 mls/hr IV Q6H [facility] Rx#:[id number] vancomycin HCL 750 mg In 0.9 % 265 / 530 265 / 530 Sodium Chloride 250 ml @ 265 mls/hr IV Q12H [facility] Rx#: [id number] 0.9 % Sodium Chloride 1,000 ml 153.333 / 153.333 @ 100 mls/hr IVCONT .Q10H [facility] Rx#:[id number] Other: Breakfast % Eaten 75% Lunch % Eaten 50% Number of Unmeasured Voids 2 2 Urine Bathroom Bathroom Last Bowel Movement 12/07/23 12/07/23 Weight 71.5 kg BMI result Body Mass Index 25.4 - Constitutional Present: no acute distress, average body habitus - Routine HEENT Exam Head: Present: normal inspection - Routine Respiratory Exam Present: decreased breath sounds. Absent: accessory muscle use, stridor, wheezes - Routine Cardiovascular Exam Cardiovascular: Present: S1, S2 - Routine Abdominal Exam Present: soft Data - Labs CBC & Chem 7: 12/07/23 06:08 12/08/23 06:14 Labs: Laboratory Last Values WBC 4.3 X10*3/uL (4.8-10.8) L 12/07/23 06:08 RBC 3.95 X10*6/uL (4.60-5.80) L D 12/07/23 06:08 Hgb 9.9 g/dl (14.0-18.0) L 12/07/23 06:08 Hct 30.9 % (42.0-52.0) L D 12/07/23 06:08 MCV 78.2 fL (80.0-98.0) L 12/07/23 06:08 MCH 25.1 pg (27.0-33.0) L 12/07/23 06:08 MCHC 32.0 g/dl (31.0-36.0) 12/07/23 06:08 RDW 14.9 % (11.0-16.0) 12/07/23 06:08 Plt Count 144 X10*3/uL (160-400) L 12/07/23 06:08 MPV 9.9 fL (9.4-12.4) 12/07/23 06:08 Immature Gran % (Auto) 0.2 % (0.0-0.4) 12/07/23 06:08 Neut % (Auto) 75.7 % (45-73) H 12/07/23 06:08 Lymph % (Auto) 8.2 % (20-40) L 12/07/23 06:08 [place] % (Auto) 11.2 % (2-11) H 12/07/23 06:08 Eos % (Auto) 4.2 % (0-4) H 12/07/23 06:08 Baso % (Auto) 0.5 % (0-2) 12/07/23 06:08 Lymph # (Auto) 0.4 X10*3/uL (1.2-4.9) L 12/07/23 06:08 [place] # (Auto) 0.5 X10*3/uL (0.1-1.2) 12/07/23 06:08 Eos # (Auto) 0.2 X10*3/uL (0.0-0.4) 12/07/23 06:08 Baso # (Auto) 0.0 X10*3/uL (0.0-0.2) 12/07/23 06:08 Abs Immat Gran (auto) 0.01 X10*3/uL (0.00-0.03) 12/07/23 06:08 Absolute Neuts (auto) 3.2 x10*3/uL (2.0-8.3) 12/07/23 06:08 Absolute Nucleated RBC 0.000 X10*3/uL (0.0-0.012) 12/07/23 06:08 Nucleated RBC % (auto) 0.0 /100WBC (0.0-0.2) 12/07/23 06:08 Hold Purple Top SEE NOTE 12/08/23 06:14 PT 13.0 SEC (11.1-13.3) 12/06/23 15:08 INR 1.1 (0.9-1.1) 12/06/23 15:08 D-Dimer High Sensitivty 573 NG/ML 12/06/23 15:08 Sodium 143 mmol/L (135-145) 12/08/23 06:14 Potassium 3.7 mmol/L (3.3-5.1) 12/08/23 06:14 Chloride 99 mmol/L (96-108) 12/08/23 06:14 Carbon Dioxide 26 mmol/L (22-29) 12/08/23 06:14 Anion Gap 22 (12-20) H 12/08/23 06:14 BUN 11 mg/dL (9-16) 12/08/23 06:14 Creatinine 0.71 mg/dL (0.5-1.4) 12/08/23 06:14 Creatinine 0.81 mg/dL (0.5-1.4) 12/08/23 06:14 Estim Creat Clear Calc 72.2 12/08/23 06:14 Estim Creat Clear Calc 82.3 12/08/23 06:14 Estimated GFR > 60 12/08/23 06:14 Estimated GFR > 60 12/08/23 06:14 Random Glucose 74 mg/dL (60-115) 12/08/23 06:14 Osmolality 269 mosm/kg (281-305) L 12/06/23 20:20 Calcium 6.8 mg/dL (8.4-10.2) L D 12/08/23 06:14 Iron 26 mcg/dL (45-160) L 12/06/23 10:42 TIBC 226 mcg/dL (228-428) L 12/06/23 10:42 % Saturation 12 % (15-50) L 12/06/23 10:42 Unsat Iron Binding 200 ug/dL 12/06/23 10:42 Ferritin 124 ng/mL (20-250) 12/06/23 10:42 Total Bilirubin 0.4 mg/dL (0.0-1.0) 12/06/23 10:42 AST 22 U/L (5-37) 12/06/23 10:42 ALT 20 U/L (0-40) 12/06/23 10:42 Alkaline Phosphatase 60 U/L (39-117) 12/06/23 10:42 Total Protein 8.4 g/dL (6.5-8.0) H 12/06/23 10:42 Albumin 3.5 g/dL (3.5-5.0) 12/06/23 10:42 TSH 2.65 uIU/mL (0.32-4.0) 12/07/23 06:08 Urine Color Yellow 12/06/23 22:07 Urine Appearance Clear 12/06/23 22:07 Urine pH 7.5 (5.0-9.0) 12/06/23 22:07 Ur Specific [place] >= 1.030 (1.005-1.025) H 12/06/23 22:07 Urine Protein Trace mg/dL (Neg-Trace) 12/06/23 22:07 Urine Glucose (UA) Negative mg/dL (Negative) 12/06/23 22:07 Urine Ketones Negative mg/dL (Negative) 12/06/23 22:07 Urine Blood Negative (Negative) 12/06/23 22:07 Urine Nitrite Negative (Negative) 12/06/23 22:07 Ur Leukocyte Esterase Large (3+) (Negative) H 12/06/23 22:07 Urine RBC 0-2 /HPF (0-2) 12/06/23 22:07 Urine WBC 6-10 /HPF (0-5) 12/06/23 22:07 Ur Squamous Epith Cells 0-2 /HPF (0-2) 12/06/23 22:07 Urine Bacteria None Seen (None Seen) 12/06/23 22:07 Hyaline Casts 0-2 /LPF (0-2) 12/06/23 22:07 Urine Osmolality 454 mosm/kg (373-1093) 12/06/23 22:07 Ur Random Sodium 71.0 mmol/L 12/06/23 22:07 Influenza Type A (PCR) NEGATIVE (Negative) 12/06/23 10:42 Influenza Type B (PCR) NEGATIVE (Negative) 12/06/23 10:42 RSV RNA Qual (PCR) NEGATIVE (Negative) 12/06/23 10:42 SARS-CoV-2 RNA (RT-PCR) NEGATIVE (Negative) 12/06/23 10:42 - Imaging Radiologist's impression: ITS Impressions Chest X-Ray 12/06/23 11:04 IMPRESSION: 1. Stable curvilinear atelectasis versus scarring of the left lung base. 2. Chronic interstitial lung markings. 3. Trace bilateral pleural effusions with subjacent atelectasis. Chest CTA 12/06/23 17:29 IMPRESSION: 1. No evidence of pulmonary embolism. 2. Focal consolidation medial right lower lobe. 3. Dependent atelectasis at both lung bases. Small dependent left pleural effusion. VTE: negative. Assessment and Plan Patient Active problem list reviewed?: Yes (1) Non-small cell cancer of left lung Problem details: (LLL Adenosquamous Carcinoma. pT2a, pN1 - s/p LLL lobectomy, undergoing adjuvant chemotherapy) Status: Chronic Assessment and plan: 1. This is a 73-year-old male with left lower lobe adenosquamous carcinoma, Pathological stage pT2a, pN1, Stage IIb in 2020. Recurrent, stage IV lung cancer diagnosed in September 2021. He is currently admitted for hypoxemic respiratory failure and being treated for presumed pneumonia, right lower lobe consolidation seen on CT angiogram. Patient started palliative immunotherapy with Keytruda from 10/2021. He had a surveillance CT chest on 11/10/2023 which showed slight increase in AP window lymph node currently measuring 3 x 1.6 cm. A precarinal lymph node had decreased in size and no other suspicious findings. CTA performed 12/06/2023 showed no evidence of PE, focal consolidation in medial right lower lobe. He has had symptoms of cough and shortness of breath he says for about 2 months. He is now hypoxemic. I am not clear if this is from pneumonia, exacerbation of COPD or he has developed pneumonitis which can be seen with immunotherapy. He is currently on IV antibiotics, he was started on steroids yesterday. He reports improvement in symptoms. Awaiting pulmonary evaluation. - Time Spent With Patient Time Spent with Patient (in minutes): 10
[2023-12-08] MEDS: Albuterol/Iprat 2.5/0.5MG 3 ML AMPUL.NEB INHALE ×4 (08:32→20:02)
[2023-12-08 09:05] LABS: Vancomycin Trough 11.5 mcg/mL (10.0-20.0)
--- NOTE | 2023-12-08 09:52 | HE.PHANOTE ---
RE: VANCO DOSING Trough came back as 11.5. Dose is increased to 1000 mg q12h with predicted LBD=537 and trough=16.2, next random is on 12/09/23 @1999.
[2023-12-08] MEDS: vancomycin HCL 1,000 MG in 0.9 % Sodium Chloride 250 ML 270 MG IV ×2 (10:30→22:17)
[2023-12-08] MEDS: methylPREDNISolone Sod Succ 40 MG/ML VIAL 20 MG IVPUSH ×2 (11:35→22:16)
[2023-12-08] MEDS: Magnesium Sulfate/D5W 1 GM/100 ML PIGGYBACK IV (11:35)
--- NOTE | 2023-12-08 13:00 | MHC.CM.PN ---
Per MD rounds patient is not medically cleared for dc, awaiting pulm consult. CM will continue to follow.
--- NOTE | 2023-12-08 14:40 | PM.CNPUL ---
History of Present Illness History of Present Illness Consult date: 12/08/23 Chief complaint: RLL pneumonia, hypoxia, hyponatremia Narrative: 73-year-old gentleman, former 60 pack-year smoker with underlying history of stage lung cancer currently on Keytruda, with prior left lower lobectomy in 2020, now admitted with dyspnea and suspicion for right lower lobe pneumonia versus Keytruda induced pneumonitis. Patient empirically covered with antibiotics and systemic glucocorticoids, also requiring supplemental oxygen at 1-2 L to maintain normal oximetry. He does not have significant leukocytosis or bandemia. His CT chest shows right basilar/peripheral opacities. Review of Systems Constitutional: Constitutional: Denies daytime sleepiness, Denies excessive sweating, Denies fatigue, Denies fever(s), Denies lethargy, Denies malaise, Denies night sweats, Denies snoring and Denies weight loss Eyes: Eyes: Denies blurry vision and Denies itchy eyes ENT: Denies nasal congestion, Denies post nasal drip, Denies sinus pain, Denies sinus pressure and Denies other ( Thrush) Cardiovascular: Cardiovascular: Denies chest pain, Denies pedal edema, Reports dyspnea, Denies orthopnea and Denies paroxysmal nocturnal dyspnea Respiratory: Respiratory: Denies cough, Denies hemoptysis, Denies excessive phlegm production, Reports dyspnea, Denies snoring and Denies wheezing Gastrointestinal: Gastrointestinal: Denies abdominal pain and Denies heartburn Musculoskeletal: Musculoskeletal: Denies myalgias, Denies arthralgias and Denies joint swelling Integumentary/Breasts: Skin/Breast: Denies rash Neurologic: Denies memory loss and Denies seizure-like activity Psychiatric: Psychiatric: Denies abnormal sleep pattern, Denies anxiety and Denies memory loss Endocrine: Endocrine: Denies excessive sweating, Denies fatigue and Denies heat intolerance Hematologic/Lymphatic: Hematologic/Lymphatic: Denies easy bruising Allergic/Immunologic: Allergic/Immunologic: Denies itchy eyes, Denies seasonal rhinorrhea and Denies wheezing PMFSH Past Medical History Medical History On beta [place] at home Personal history of nicotine dependence Port-A-Cath in place (~09/2020) History of malignant neoplasm of glottis (~2018) Hyperlipemia HTN (hypertension) Cancer of lower lobe of left lung (~2019) Family History Family History Mother Diabetes Brother Diabetes High blood pressure Daughter Breast cancer Daughter Hx of thyroid disease Surgical History Surgical History History of laryngoscopy (~10/2018) Admission for fitting of Port-A-Cath (~09/2020) History of lobectomy of lung (~08/2020) History of colonoscopy (~12/2014) History of left knee surgery Social History Social History Household Members: Friend(s) Housing: Apartment Do you presently have visiting nurse or other home services: No Alcohol intake: current Alcohol intake frequency: holidays/special occasions only Alcohol type: beer Patient Tobacco Use Status: Former Tobacco user Cigarette Packs Per Day: 1 Years Smoked: 34 service: No Meds Allergies Allergy/AdvReac Type Severity Reaction Status Date / Time No Known Allergies Allergy Verified 12/06/23 10:21 Active Medications: Current Medications Acetaminophen (Acetaminophen 325 Mg Tablet) 650 mg PO Q6H PRN PRN Reason: Pain, Mild (Pain Scale 1-3) Albuterol/Ipratropium (Albuterol/Iprat 2.5/0.5mg 3 Ml Ampul.Neb) 3 ml INHALE RQ4H WHILE AWAKE [facility] Last Admin: 12/08/23 11:39 Dose: Not Given Amlodipine Besylate (Amlodipine Besylate 10 Mg Tablet) 10 mg PO DAILY [facility]; Protocol Last Admin: 12/08/23 07:57 Dose: 10 mg Atorvastatin Calcium (Atorvastatin Calcium 10 Mg Tablet) 10 mg PO DAILY [facility] Last Admin: 12/08/23 07:56 Dose: 10 mg Enoxaparin Sodium (Enoxaparin Sodium 40 Mg/0.4 Ml Syringe) 40 mg SUBCUT Q24H [facility] Last Admin: 12/07/23 21:06 Dose: 40 mg Fluticasone Propionate (Fluticasone Propionate Nasal 16 Gm [place]) 1 spray NOSTRIL-B DAILY PRN PRN Reason: Congestion Folic Acid (Folic Acid 1 Mg Tablet) 1 mg PO DAILY [facility] Last Admin: 12/08/23 07:57 Dose: 1 mg Guaifenesin (Guaifenesin 200 Mg/10 Ml 10 Ml Liquid) 10 ml PO Q6H PRN PRN Reason: Cough Last Admin: 12/08/23 03:58 Dose: 10 ml Hydralazine HCl (Hydralazine Hcl 10 Mg Tablet) 10 mg PO BID [facility]; Protocol Last Admin: 12/08/23 07:57 Dose: 10 mg Piperacillin Sod/Tazobactam (Sod 4.5 gm/ Sodium Chloride) 100 mls @ 200 mls/hr IV Q6H [facility] Last Infusion: 12/08/23 13:58 Dose: Infused Vancomycin HCl 1,000 mg/ (Sodium Chloride) 270 mls @ 270 mls/hr IV Q12H [facility] Last Infusion: 12/08/23 11:40 Dose: Infused Levothyroxine Sodium (Levothyroxine Sodium 50 Mcg Tablet) 50 mcg PO DAILY@0600 [facility] Last Admin: 12/08/23 05:55 Dose: 50 mcg Losartan Potassium (Losartan Potassium 50 Mg Tablet) 100 mg PO DAILY [facility]; Protocol Last Admin: 12/08/23 07:57 Dose: 100 mg Methylprednisolone Sodium Succinate (Methylprednisolone Sod Succ 40 Mg/Ml Vial) 20 mg IVPUSH Q12H [facility] Last Admin: 12/08/23 11:35 Dose: 20 mg Metoprolol Succinate (Metoprolol Succinate Er 50 Mg Tab.Er.24h) 50 mg PO DAILY [facility]; Protocol Last Admin: 12/08/23 07:56 Dose: 50 mg Ondansetron HCl (Ondansetron Hcl 4 Mg/2 Ml Vial) 4 mg IVPUSH Q8H PRN PRN Reason: Nausea and Vomiting Pharmacy Consult (Consult Rx Vancomycin Dosing) 1 each MISCELLANE DAILY PRN PRN Reason: Consult order Senna (Sennosides 8.6 Mg Tablet) 17.2 mg PO BEDTIME PRN PRN Reason: Constipation Sodium Chloride (0.9 % Sodium Chloride Flush 3 Ml Syringe) 3 ml IVFLUSH QSHIFT [facility] Last Admin: 12/08/23 07:59 Dose: 3 ml Thiamine HCl (Thiamine Hcl 100 Mg Tablet) 100 mg PO DAILY [facility] Last Admin: 12/08/23 07:57 Dose: 100 mg Home Medications ?Medication ?Instructions ?Recorded ?Confirmed ?Last Taken ?Type amlodipine 10 mg tablet 10 mg PO DAILY 06/07/20 12/06/23 12/06/23 History atorvastatin 10 mg tablet 10 mg PO DAILY 06/07/20 12/06/23 12/06/23 History fluticasone propionate 50 50 mcg intranasal DAILY PRN 06/07/20 12/06/23 Unknown History mcg/actuation nasal Congestion spray,suspension hydralazine 10 mg tablet 10 mg PO BID 06/07/20 12/06/23 12/06/23 History losartan 100 mg tablet 100 mg PO DAILY 06/07/20 12/06/23 12/06/23 History metoprolol succinate 50 mg 50 mg PO DAILY 06/07/20 12/06/23 12/06/23 History tablet,extended release 24 hr levothyroxine 50 mcg tablet 50 mcg PO DAILY@0600 09/02/23 12/06/23 12/06/23 History cholecalciferol (vitamin D3) 50 50 mcg PO QAM 12/06/23 12/06/23 12/06/23 History mcg (2,000 unit) capsule (Vitamin D3) Physical Exam Vital Signs: Vital Signs: Last Vital Signs Temp 96 F L 12/08/23 07:11 Pulse 86 12/08/23 10:49 Resp 22 H 12/08/23 10:49 BP 150/67 H 12/08/23 07:57 Pulse Ox 94 12/08/23 07:11 O2 Del Method Nasal Cannula 12/08/23 07:11 O2 Flow Rate 1.5 12/08/23 03:17 BMI result Body Mass Index 25.4 Const: General: no acute distress and alert Nutritional Appearance: not obese Orientation/consciousness: Other orientation findings ( oriented) HEENT: Head: Yes atraumatic Eyes: General: appearance normal, both eyes and all related structures Sclerae: sclerae normal EOM: EOMs intact bilaterally Neck: Neck: Yes supple Lymphatic: no lymphadenopathy noted Resp: Effort & Inspection: normal respiratory effort and no use of accessory muscles Auscultation: clear to auscultation bilaterally Cardio: Rate: regular rate Rhythm: regular rhythm Heart sounds: no gallops, no murmurs and no rubs Skin: General skin exam: other ( warm) Extrem: General: No clubbing, No cyanosis and No edema Results Laboratory Findings 12/07/23 06:08 12/08/23 06:14 ABG, PT/INR, D-dimer: PT/INR, D-dimer PT 13.0 SEC (11.1-13.3) 12/06/23 15:08 INR 1.1 (0.9-1.1) 12/06/23 15:08 Abnormal lab findings: Abnormal Labs 12/06/23 12/06/23 12/06/23 10:42 20:20 22:07 WBC RBC Hgb 12.0 L Hct 38.8 L MCV 77.1 L MCH 23.9 L MCHC 30.9 L Plt Count MPV 9.3 L Neut % (Auto) Lymph % (Auto) 9.4 L [place] % (Auto) 14.4 H Eos % (Auto) Lymph # (Auto) 0.6 L Sodium 125 L Chloride 89 L Carbon Dioxide Anion Gap Random Glucose 127 H Osmolality 269 L Calcium Iron 26 L TIBC 226 L % Saturation 12 L Total Protein 8.4 H Ur Specific [place] >= 1.030 H Ur Leukocyte Esterase Large (3+) H 12/07/23 12/07/23 12/07/23 06:08 16:22 19:33 WBC 4.3 L RBC 3.95 L D Hgb 9.9 L Hct 30.9 L D MCV 78.2 L MCH 25.1 L MCHC Plt Count 144 L MPV Neut % (Auto) 75.7 H Lymph % (Auto) 8.2 L [place] % (Auto) 11.2 H Eos % (Auto) 4.2 H Lymph # (Auto) 0.4 L Sodium 129 L 130 L Chloride 94 L Carbon Dioxide 31 H Anion Gap 10 L 9 L Random Glucose 124 H Osmolality Calcium 6.9 L D 8.3 L D Iron TIBC % Saturation Total Protein Ur Specific [place] Ur Leukocyte Esterase 12/08/23 06:14 WBC RBC Hgb Hct MCV MCH MCHC Plt Count MPV Neut % (Auto) Lymph % (Auto) [place] % (Auto) Eos % (Auto) Lymph # (Auto) Sodium Chloride Carbon Dioxide Anion Gap 22 H Random Glucose Osmolality Calcium 6.8 L D Iron TIBC % Saturation Total Protein Ur Specific [place] Ur Leukocyte Esterase Microbiology: Microbiology 12/08/23 11:43 Sputum - Expectorated Gram Stain - Final 12/06/23 Unknown Urine clean catch - Urine serna top Urine Culture - Final 12/07/23 02:09 Sputum - Expectorated Gram Stain - Final 12/07/23 02:09 Sputum - Expectorated Sputum Culture - Final Assessment and Plan (1) Acute hypoxemic respiratory failure: Status: Acute (2) Lung cancer: Status: Acute Plan Impression: 73-year-old gentleman with underlying stage IV lung cancer on Keytruda admitted with acute hypoxic respiratory failure and empirically treated for pneumonia versus Keytruda pneumonitis. Slowly improving. CT chest reviewed and is equivocal for either infectious or inflammatory etiology. Recommendations: Agree with current medication regimen of empiric antibiotics systemic glucocorticoids. Consider repeating CT chest in 72-96 hours, as fast resolution of infiltrate would be more consistent with pneumonitis versus pneumonia. Procedures Date of Service Date of Service: 12/08/23
--- NOTE | 2023-12-08 14:40 | HO.PM.IMPN ---
Subjective Subjective Date of Service: 12/08/23 Interval History: pneumonia ,sob Review of Systems sob with minimum excersion talking slowly no fever Physical Exam Vital Signs: Vital Signs: Last Vital Signs Temp 96 F L 12/08/23 07:11 Pulse 86 12/08/23 10:49 Resp 22 H 12/08/23 10:49 BP 150/67 H 12/08/23 07:57 Pulse Ox 94 12/08/23 07:11 O2 Del Method Nasal Cannula 12/08/23 07:11 O2 Flow Rate 1.5 12/08/23 03:17 BMI result Body Mass Index 25.4 Appearance: Alert.? Oriented X3. cvs: rrr, [id number] . res:air entry diminshed ,few rhonchii abd: no rebound or guarding ,nt, bs present. ext pulses present , no cyanosis . neuro: axo3 , nonfocal. Objective Data Active Medications Acetaminophen (Acetaminophen 325 Mg Tablet) 650 mg PO Q6H PRN PRN Reason: Pain, Mild (Pain Scale 1-3) Albuterol/Ipratropium (Albuterol/Iprat 2.5/0.5mg 3 Ml Ampul.Neb) 3 ml INHALE RQ4H WHILE AWAKE [facility] Last Admin: 12/08/23 11:39 Dose: Not Given Documented By: RANDY Non-Admin Reason: Duplicate Order Amlodipine Besylate (Amlodipine Besylate 10 Mg Tablet) 10 mg PO DAILY [facility]; Protocol Last Admin: 12/08/23 07:57 Dose: 10 mg Documented By: ELIZABETH Atorvastatin Calcium (Atorvastatin Calcium 10 Mg Tablet) 10 mg PO DAILY [facility] Last Admin: 12/08/23 07:56 Dose: 10 mg Documented By: ELIZABETH Enoxaparin Sodium (Enoxaparin Sodium 40 Mg/0.4 Ml Syringe) 40 mg SUBCUT Q24H [facility] Last Admin: 12/07/23 21:06 Dose: 40 mg Documented By: LUIS Fluticasone Propionate (Fluticasone Propionate Nasal 16 Gm [place]) 1 spray NOSTRIL-B DAILY PRN PRN Reason: Congestion Folic Acid (Folic Acid 1 Mg Tablet) 1 mg PO DAILY [facility] Last Admin: 12/08/23 07:57 Dose: 1 mg Documented By: ELIZABETH Guaifenesin (Guaifenesin 200 Mg/10 Ml 10 Ml Liquid) 10 ml PO Q6H PRN PRN Reason: Cough Last Admin: 12/08/23 03:58 Dose: 10 ml Documented By: LUIS Hydralazine HCl (Hydralazine Hcl 10 Mg Tablet) 10 mg PO BID [facility]; Protocol Last Admin: 12/08/23 07:57 Dose: 10 mg Documented By: ELIZABETH Piperacillin Sod/Tazobactam (Sod 4.5 gm/ Sodium Chloride) 100 mls @ 200 mls/hr IV Q6H [facility] Last Infusion: 12/08/23 13:58 Dose: Infused Documented By: ELIZABETH Vancomycin HCl 1,000 mg/ (Sodium Chloride) 270 mls @ 270 mls/hr IV Q12H [facility] Last Infusion: 12/08/23 11:40 Dose: Infused Documented By: ELIZABETH Levothyroxine Sodium (Levothyroxine Sodium 50 Mcg Tablet) 50 mcg PO DAILY@0600 [facility] Last Admin: 12/08/23 05:55 Dose: 50 mcg Documented By: LUIS Losartan Potassium (Losartan Potassium 50 Mg Tablet) 100 mg PO DAILY [facility]; Protocol Last Admin: 12/08/23 07:57 Dose: 100 mg Documented By: ELIZABETH Methylprednisolone Sodium Succinate (Methylprednisolone Sod Succ 40 Mg/Ml Vial) 20 mg IVPUSH Q12H [facility] Last Admin: 12/08/23 11:35 Dose: 20 mg Documented By: ELIZABETH Metoprolol Succinate (Metoprolol Succinate Er 50 Mg Tab.Er.24h) 50 mg PO DAILY [facility]; Protocol Last Admin: 12/08/23 07:56 Dose: 50 mg Documented By: ELIZABETH Ondansetron HCl (Ondansetron Hcl 4 Mg/2 Ml Vial) 4 mg IVPUSH Q8H PRN PRN Reason: Nausea and Vomiting Pharmacy Consult (Consult Rx Vancomycin Dosing) 1 each MISCELLANE DAILY PRN PRN Reason: Consult order Senna (Sennosides 8.6 Mg Tablet) 17.2 mg PO BEDTIME PRN PRN Reason: Constipation Sodium Chloride (0.9 % Sodium Chloride Flush 3 Ml Syringe) 3 ml IVFLUSH QSHIFT [facility] Last Admin: 12/08/23 07:59 Dose: 3 ml Documented By: ELIZABETH Thiamine HCl (Thiamine Hcl 100 Mg Tablet) 100 mg PO DAILY [facility] Last Admin: 12/08/23 07:57 Dose: 100 mg Documented By: ELIZABETH Labs 12/07/23 06:08 12/08/23 06:14 Labs: Laboratory Results - last 24 hr 12/07/23 12/08/23 12/08/23 19:33 06:14 06:14 Hold Purple Top SEE NOTE Anion Gap 9 L 22 H Estim Creat Clear Calc 61.5 82.3 72.2 Estimated GFR > 60 > 60 Random Glucose 124 H Calcium 8.3 L D Vancomycin Trough 12/08/23 12/08/23 06:14 08:34 Hold Purple Top Anion Gap Estim Creat Clear Calc Estimated GFR > 60 Random Glucose 74 Calcium 6.8 L D Vancomycin Trough 11.5 Microbiology Microbiology Results: Microbiology 12/08/23 11:43 Gram Stain - Final Sputum - Expectorated 12/06/23 Unknown Urine Culture - Final Urine clean catch - Urine serna top 12/07/23 02:09 Gram Stain - Final Sputum - Expectorated Sputum Culture - Final Assessment and Plan (1) Acute hypoxemic respiratory failure: Status: Acute (2) RLL pneumonia: Status: Acute Plan 73-year-old male with history of hypertension, hyperlipidemia, and tracheomalacia, [id number] carcinoma of the lung s/p left lower lobectomy currently on Keytruda and denosumab for bony metastasis following with Dr. Stratton in oncology admitted for further management of right lower lobe pneumonia in immunocompromised patient with acute hypoxemic respiratory failure and hyponatremia. acute right lower lobe pneumonia with acute hypoxemic respiratory failure in immunocompromised patient -86-88% on room air during my exam. No leukocytosis or sepsis sputum studies continue IV vancomycin and Zosyn (initiated 12/05),oxygen , cough syrup oncology eval noted-continue above ,add pulm eval. acute hyponatremia-likely hypotonic hyponatremia in setting of beer potomania serum osmolality low , urine osmolality high , urine sodium pending sdoum flactuating 125-135-129 -130-143 fluid restrictions labrilised since sodium trendup to normal nephrology eval noted-Hyponatremia in the setting of adenocarcinoma of the lung. moniter bmp c alcohol use disorder -drinks 3-4 beers daily . No history of withdrawal treat with phenobarbital if scoring on CIWA continue p.o. thiamine and folic acid [id number] lung cancer with bony metastasis -s/p left lower lobe lobectomy 2020. On Keytruda and denosumab -oncology consult chronic microcytic anemia -H/H above transfusion threshold -check iron profile, ferritin hypertension -blood pressure reasonably controlled -continue amlodipine, hydralazine, losartan, metoprolol hypothyroidism-continue levothyroxine hyperlipidemia-continue statin DVT prophylaxis-Lovenox Full code Patient requires inpatient stay for management of acute right lower lobe pneumonia with acute hypoxemic respiratory failure immunocompromised patient requiring broad-spectrum antibiotics, supplemental O2 and expert consultation. Quality Stroke Does the patient have a stroke diagnosis?: No VTE Prior VTE?: No VTE Risk Level:: Medical - moderate - high VTE Device Contraindication: Treatment Not Indicated VTE Drug Contraindication: N/A - Med Ordered
[2023-12-08 16:15] LABS: Anion Gap 11 (12-20); Blood Urea Nitrogen 15 mg/dL (9-16); Calcium 8.5 mg/dL (8.4-10.2); Carbon Dioxide 29 mmol/L (22-29); Chloride 94 mmol/L (96-108); Estimated Glomerular Filt Rate > 60; Glucose Random 155 mg/dL (60-115); Potassium 4.5 mmol/L (3.3-5.1); Sodium 129 mmol/L (135-145)
[2023-12-08] MEDS: Calcium Gluconate/NaCl,Iso-Osm 1 GM/50 ML PLAST..BAG IV (16:26)
[2023-12-08] MEDS: Enoxaparin Sodium 40 MG/0.4 ML SYRINGE SUBCUT (20:26)
[2023-12-09] VITALS (11 sets, daily range): BP systolic 144–165; BP diastolic 62–71; PULSE 66–107; RESP 16–20; TEMP 36.2–36.9; O2SAT 96–99
[2023-12-09] MEDS: Piperacillin Sodium/Tazobactam 4.5 GM in 0.9 % Sodium Chloride 100 ML IV ×2 (05:55→11:37)
[2023-12-09] MEDS: Levothyroxine Sodium 50 MCG TABLET PO (05:55)
[2023-12-09 07:11] LABS: Creatinine Clr Calc Pharmacy 69.6; Estimated Glomerular Filt Rate > 60
[2023-12-09] MEDS: Folic Acid 1 MG TABLET PO (07:59)
[2023-12-09] MEDS: Losartan Potassium 50 MG TABLET 100 MG PO (07:59)
[2023-12-09] MEDS: hydrALAZINE HCl 10 MG TABLET PO ×2 (07:59→21:57)
[2023-12-09] MEDS: Metoprolol Succinate ER 50 MG TAB.ER.24H PO (07:59)
[2023-12-09] MEDS: Atorvastatin Calcium 10 MG TABLET PO (07:59)
[2023-12-09] MEDS: Thiamine HCL 100 MG TABLET PO (07:59)
[2023-12-09] MEDS: amLODIPine Besylate 10 MG TABLET PO (07:59)
[2023-12-09] MEDS: 0.9 % Sodium Chloride Flush 3 ML SYRINGE IVFLUSH ×2 (08:00→22:03)
[2023-12-09] MEDS: Albuterol/Iprat 2.5/0.5MG 3 ML AMPUL.NEB INHALE ×4 (08:13→21:02)
[2023-12-09] MEDS: methylPREDNISolone Sod Succ 40 MG/ML VIAL 20 MG IVPUSH ×2 (09:45→22:00)
[2023-12-09] MEDS: vancomycin HCL 1,000 MG in 0.9 % Sodium Chloride 250 ML 270 MG IV (09:53)
--- NOTE | 2023-12-09 11:37 | P.PNNP_ITS ---
Subjective Subjective Date of Service: 12/15/23 Interval history: Events noted Weight fluctuations in serum sodium Physical Exam 2 Vital Signs: Vital Signs: Last Vital Signs Temp 97.7 F 12/09/23 07:37 Pulse 107 H 12/09/23 11:22 Resp 20 12/09/23 11:22 BP 144/62 H 12/09/23 07:37 Pulse Ox 96 12/09/23 07:37 O2 Del Method Nasal Cannula 12/09/23 07:37 O2 Flow Rate 1 12/09/23 07:37 BMI result Body Mass Index 25.4 Neck: Neck: Yes supple Resp: Auscultation: clear to auscultation bilaterally Cardio: Palpation: no palpable S3 Heart sounds: no rubs GI: Palpation (GI): Soft to palpation Auscultation: normal bowel sounds Neuro: Motor exam (neuro): no asterixis Objective Data Labs 12/09/23 15:26 12/10/23 08:10 Labs: Laboratory Results - last 24 hr 12/08/23 12/09/23 15:37 06:22 Hold Purple Top SEE NOTE Sodium 129 L Potassium 4.5 D Chloride 94 L Carbon Dioxide 29 Anion Gap 11 L BUN 15 Creatinine 0.99 0.84 Estim Creat Clear Calc 59.0 69.6 Estimated GFR > 60 > 60 Random Glucose 155 H Calcium 8.5 D Microbiology Microbiology Results: Microbiology 12/08/23 11:43 Sputum - Expectorated Gram Stain - Final 12/08/23 11:43 Sputum - Expectorated Sputum Culture - Preliminary Culture in progress. 12/06/23 Unknown Urine clean catch - Urine serna top Urine Culture - Final 12/07/23 02:09 Sputum - Expectorated Gram Stain - Final 12/07/23 02:09 Sputum - Expectorated Sputum Culture - Final Procedures Date of Service Date of Service: 12/15/23 Assessment & Plan Assessment and plan (1) Hyponatremia: Status: Acute Plan Hyponatremia in the setting of adenocarcinoma of the lung. Serum sodium is improved initially and has dropped again. No levels today. I would keep him on oral free water restriction. He needs to cut back on his beer intake upon discharge. Repeat serum sodium today Rapid correction needs to be avoided. Time Spent With Patient Time: Total time managing care of this patient today ____ minutes. Progress Note: Quality Stroke Does the patient have a stroke diagnosis?: No
--- NOTE | 2023-12-09 13:21 | P.PNPL_ITS ---
Subjective Subjective Date of Service: 12/09/23 Interval history: Respiratory status and oxygen requirements are improving. Objective Data Labs 12/07/23 06:08 12/09/23 06:22 Labs: Laboratory Results - last 24 hr 12/08/23 12/09/23 15:37 06:22 Hold Purple Top SEE NOTE Sodium 129 L Potassium 4.5 D Chloride 94 L Carbon Dioxide 29 Anion Gap 11 L BUN 15 Creatinine 0.99 0.84 Estim Creat Clear Calc 59.0 69.6 Estimated GFR > 60 > 60 Random Glucose 155 H Calcium 8.5 D Microbiology Microbiology Results: Microbiology 12/08/23 11:43 Sputum - Expectorated Gram Stain - Final 12/08/23 11:43 Sputum - Expectorated Sputum Culture - Preliminary Culture in progress. 12/06/23 Unknown Urine clean catch - Urine serna top Urine Culture - Final 12/07/23 02:09 Sputum - Expectorated Gram Stain - Final 12/07/23 02:09 Sputum - Expectorated Sputum Culture - Final Physical Exam 2 Vital Signs: Vital Signs: Last Vital Signs Temp 97.7 F 12/09/23 07:37 Pulse 107 H 12/09/23 11:22 Resp 20 12/09/23 11:22 BP 144/62 H 12/09/23 07:37 Pulse Ox 96 12/09/23 07:37 O2 Del Method Nasal Cannula 12/09/23 07:37 O2 Flow Rate 1 12/09/23 07:37 BMI result Body Mass Index 25.4 Const: General: no acute distress, alert and awake Eyes: Sclerae: sclerae normal EOM: EOMs intact bilaterally Neck: Neck: Yes no lymphadenopathy, Yes trachea midline and Yes supple Resp: Effort & Inspection: normal respiratory effort and no respiratory distress Auscultation: clear to auscultation bilaterally Cardio: Rate: tachycardic Rhythm: regular rhythm Heart sounds: no gallops, no murmurs and no rubs GI: Palpation (GI): Soft to palpation and Other GI palpation findings present ( Nontender) Auscultation: normal bowel sounds Extrem: General: Yes no pedal edema, No clubbing and No cyanosis Procedures Date of Service Date of Service: 12/09/23 Assessment and Plan Assessment and plan (1) Acute hypoxemic respiratory failure: Status: Acute (2) Lung cancer: Status: Acute Plan Impression: 73-year-old gentleman with underlying stage IV lung cancer on Keytruda admitted with acute hypoxic respiratory failure and empirically treated for pneumonia versus Keytruda pneumonitis. Continues to improve. CT chest reviewed and is equivocal for either infectious or inflammatory etiology. Recommendations: Suggest supplemental oxygen evaluation with exertion. Agree with continuation of current regimen of empiric antibiotics, though consider switching to Levaquin, and systemic glucocorticoids. Suggests a plain CT chest in a.m. to evaluate for changes in the right basilar infiltrates. Time Spent With Patient Time: Total time managing care of this patient today ____ minutes. Progress Note: Quality Stroke Does the patient have a stroke diagnosis?: No
--- NOTE | 2023-12-09 14:20 | HO.PM.IMPN ---
Subjective Subjective Date of Service: 12/09/23 Interval History: pneumonia ,cough Review of Systems sob still with minimal excersion with little improvement has cough, no fever Physical Exam Vital Signs: Vital Signs: Last Vital Signs Temp 97.7 F 12/09/23 07:37 Pulse 82 12/09/23 13:54 Resp 20 12/09/23 11:22 BP 144/62 H 12/09/23 07:37 Pulse Ox 96 12/09/23 07:37 O2 Del Method Nasal Cannula 12/09/23 07:37 O2 Flow Rate 1 12/09/23 07:37 BMI result Body Mass Index 25.4 Appearance: Alert.? Oriented X3. cvs: rrr, [id number] . res:air entry diminshed ,few rhonchii abd: no rebound or guarding ,nt, bs present. ext pulses present , no cyanosis . neuro: axo3 , nonfocal. Objective Data Active Medications Acetaminophen (Acetaminophen 325 Mg Tablet) 650 mg PO Q6H PRN PRN Reason: Pain, Mild (Pain Scale 1-3) Albuterol/Ipratropium (Albuterol/Iprat 2.5/0.5mg 3 Ml Ampul.Neb) 3 ml INHALE RQ4H WHILE AWAKE [facility] Last Admin: 12/09/23 11:19 Dose: 3 ml Documented By: KELLI Amlodipine Besylate (Amlodipine Besylate 10 Mg Tablet) 10 mg PO DAILY [facility]; Protocol Last Admin: 12/09/23 07:59 Dose: 10 mg Documented By: MARY Atorvastatin Calcium (Atorvastatin Calcium 10 Mg Tablet) 10 mg PO DAILY [facility] Last Admin: 12/09/23 07:59 Dose: 10 mg Documented By: MARY Calcium Carbonate (Calcium Carbonate 500 Mg Tablet) 500 mg PO BID [facility] Last Admin: 12/09/23 07:59 Dose: 500 mg Documented By: MARY Enoxaparin Sodium (Enoxaparin Sodium 40 Mg/0.4 Ml Syringe) 40 mg SUBCUT Q24H [facility] Last Admin: 12/08/23 20:26 Dose: 40 mg Documented By: MATHEW Fluticasone Propionate (Fluticasone Propionate Nasal 16 Gm Gobles) 1 spray NOSTRIL-B DAILY PRN PRN Reason: Congestion Folic Acid (Folic Acid 1 Mg Tablet) 1 mg PO DAILY [facility] Last Admin: 12/09/23 07:59 Dose: 1 mg Documented By: MARY Guaifenesin (Guaifenesin 200 Mg/10 Ml 10 Ml Liquid) 10 ml PO Q6H PRN PRN Reason: Cough Last Admin: 12/08/23 03:58 Dose: 10 ml Documented By: LUIS Hydralazine HCl (Hydralazine Hcl 10 Mg Tablet) 10 mg PO BID [facility]; Protocol Last Admin: 12/09/23 07:59 Dose: 10 mg Documented By: MARY Piperacillin Sod/Tazobactam (Sod 4.5 gm/ Sodium Chloride) 100 mls @ 200 mls/hr IV Q6H [facility] Last Infusion: 12/09/23 12:37 Dose: Infused Documented By: MARY Vancomycin HCl 1,000 mg/ (Sodium Chloride) 270 mls @ 270 mls/hr IV Q12H [facility] Last Infusion: 12/09/23 11:37 Dose: Infused Documented By: MARY Levothyroxine Sodium (Levothyroxine Sodium 50 Mcg Tablet) 50 mcg PO DAILY@0600 [facility] Last Admin: 12/09/23 05:55 Dose: 50 mcg Documented By: BETHQC Losartan Potassium (Losartan Potassium 50 Mg Tablet) 100 mg PO DAILY [facility]; Protocol Last Admin: 12/09/23 07:59 Dose: 100 mg Documented By: MARY Methylprednisolone Sodium Succinate (Methylprednisolone Sod Succ 40 Mg/Ml Vial) 20 mg IVPUSH Q12H [facility] Last Admin: 12/09/23 09:45 Dose: 20 mg Documented By: MARY Metoprolol Succinate (Metoprolol Succinate Er 50 Mg Tab.Er.24h) 50 mg PO DAILY [facility]; Protocol Last Admin: 12/09/23 07:59 Dose: 50 mg Documented By: MARY Ondansetron HCl (Ondansetron Hcl 4 Mg/2 Ml Vial) 4 mg IVPUSH Q8H PRN PRN Reason: Nausea and Vomiting Pharmacy Consult (Consult Rx Vancomycin Dosing) 1 each MISCELLANE DAILY PRN PRN Reason: Consult order Senna (Sennosides 8.6 Mg Tablet) 17.2 mg PO BEDTIME PRN PRN Reason: Constipation Sodium Chloride (0.9 % Sodium Chloride Flush 3 Ml Syringe) 3 ml IVFLUSH QSHIFT [facility] Last Admin: 12/09/23 08:00 Dose: 3 ml Documented By: MARY Thiamine HCl (Thiamine Hcl 100 Mg Tablet) 100 mg PO DAILY [facility] Last Admin: 12/09/23 07:59 Dose: 100 mg Documented By: MARY Labs 12/07/23 06:08 12/09/23 06:22 Labs: Laboratory Results - last 24 hr 12/08/23 12/09/23 15:37 06:22 Hold Purple Top SEE NOTE Anion Gap 11 L Estim Creat Clear Calc 59.0 69.6 Estimated GFR > 60 > 60 Random Glucose 155 H Calcium 8.5 D Microbiology Microbiology Results: Microbiology 12/08/23 11:43 Gram Stain - Final Sputum - Expectorated Sputum Culture - Preliminary Culture in progress. 12/06/23 Unknown Urine Culture - Final Urine clean catch - Urine serna top Assessment and Plan (1) Acute hypoxemic respiratory failure: Status: Acute (2) RLL pneumonia: Status: Acute Assessment and Plan: 73-year-old male with history of hypertension, hyperlipidemia, and tracheomalacia, [id number] carcinoma of the lung s/p left lower lobectomy currently on Keytruda and denosumab for bony metastasis following with Dr. Stratton in oncology admitted for further management of right lower lobe pneumonia in immunocompromised patient with acute hypoxemic respiratory failure and hyponatremia. acute right lower lobe pneumonia with acute hypoxemic respiratory failure in immunocompromised patient No leukocytosis or sepsis sputum -Gram-positive cocci(prelimnary) oncology eval noted-continue above ,pulm eval noted- antibiotics switched to levaquin(intaited 12/09/23),stop IV vancomycin and Zosyn (initiated 12/05) ,continue steriods,taper oxygen, cough syrup,loratidine . acute hyponatremia-likely hypotonic hyponatremia in setting of beer potomania serum osmolality low , urine osmolality high , urine sodium pending sdoum flactuatin from 129-140 range ,tiday sodium levels pending,continue fluid restrictions 1.8l/day. nephrology eval noted-Hyponatremia in the setting of adenocarcinoma of the lung. moniter bmp alcohol use disorder -drinks 3-4 beers daily . No history of withdrawal treat with phenobarbital if scoring on CIWA continue p.o. thiamine and folic acid [id number] lung cancer with bony metastasis -s/p left lower lobe lobectomy 2020. On Keytruda and denosumab -oncology consult chronic microcytic anemia -H/H above transfusion threshold repeat h/h -check iron profile, ferritin hypertension -blood pressure reasonably controlled -continue amlodipine, hydralazine, losartan, metoprolol hypothyroidism-continue levothyroxine hyperlipidemia-continue statin DVT prophylaxis-Lovenox Full code Patient requires inpatient stay for management of acute right lower lobe pneumonia with acute hypoxemic respiratory failure immunocompromised patient requiring broad-spectrum antibiotics, supplemental O2 and expert consultation. Quality Stroke Does the patient have a stroke diagnosis?: No VTE Prior VTE?: No VTE Risk Level:: Medical - moderate - high VTE Device Contraindication: Treatment Not Indicated VTE Drug Contraindication: N/A - Med Ordered
[2023-12-09 14:32] LABS: Sodium 129 mmol/L (135-145)
[2023-12-09] MEDS: levoFLOXacin/D5W 750 MG/150 ML PIGGYBACK 100 MG IV (14:48)
[2023-12-09 15:49] LABS: Hematocrit 34.7 % (42.0-52.0); Hemoglobin 10.9 g/dl (14.0-18.0)
[2023-12-09 16:21] LABS: Sodium 129 mmol/L (135-145)
[2023-12-09 21:55] LABS: Anion Gap 11 (12-20); Blood Urea Nitrogen 17 mg/dL (9-16); Calcium 9.1 mg/dL (8.4-10.2); Carbon Dioxide 28 mmol/L (22-29); Chloride 97 mmol/L (96-108); Creatinine Clr Calc Pharmacy 64.9; Estimated Glomerular Filt Rate > 60; Glucose Random 99 mg/dL (60-115); Potassium 4.3 mmol/L (3.3-5.1); Sodium 132 mmol/L (135-145)
[2023-12-09] MEDS: Enoxaparin Sodium 40 MG/0.4 ML SYRINGE SUBCUT (22:01)
[2023-12-10 03:17] VITALS: BP 152/75; PULSE 69; RESP 16; TEMP 36.1; O2SAT 96
[2023-12-10] MEDS: Omeprazole 20 MG CAPSULE.DR PO (05:46)
[2023-12-10] MEDS: Levothyroxine Sodium 50 MCG TABLET PO (05:46)
[2023-12-10 07:00] VITALS: BP 152/70; PULSE 69; RESP 20; TEMP 35.5; O2SAT 96
[2023-12-10] MEDS: 0.9 % Sodium Chloride Flush 3 ML SYRINGE IVFLUSH ×2 (07:07→14:00)
[2023-12-10] MEDS: Thiamine HCL 100 MG TABLET PO (07:17)
[2023-12-10] MEDS: amLODIPine Besylate 10 MG TABLET PO (07:17)
[2023-12-10] MEDS: Losartan Potassium 50 MG TABLET 100 MG PO (07:17)
[2023-12-10] MEDS: hydrALAZINE HCl 10 MG TABLET PO (07:17)
[2023-12-10] MEDS: Folic Acid 1 MG TABLET PO (07:17)
[2023-12-10] MEDS: Atorvastatin Calcium 10 MG TABLET PO (07:17)
[2023-12-10] MEDS: Metoprolol Succinate ER 50 MG TAB.ER.24H PO (07:17)
[2023-12-10 08:41] LABS: Sodium 132 mmol/L (135-145)
[2023-12-10] MEDS: methylPREDNISolone Sod Succ 40 MG/ML VIAL 20 MG IVPUSH (09:40)
[2023-12-10] MEDS: Albuterol/Iprat 2.5/0.5MG 3 ML AMPUL.NEB INHALE (11:23)
[2023-12-10 11:24] VITALS: PULSE 72; RESP 18; O2SAT 96
[2023-12-10] MEDS: levoFLOXacin/D5W 750 MG/150 ML PIGGYBACK 100 MG IV (14:00)
--- NOTE | 2023-12-10 14:09 | MHC.CM.PN ---
Addendum entered by Reanna Pérez 12/10/23 14:39: IMM DELIVERED Original Note: DP:PT HAS BEEN MEDICALLY CLEARED FOR DC HOME, NO SERVICES. [facility] WILL TRANSPORT
--- NOTE | 2023-12-10 14:23 | P.PNPL_ITS ---
Subjective Subjective Date of Service: 12/10/23 Interval history: Respiratory status improved to baseline. Objective Data Labs 12/09/23 15:26 12/10/23 08:10 Labs: Laboratory Results - last 24 hr 12/09/23 12/09/23 12/09/23 06:22 15:26 15:50 Hgb 10.9 L Hct 34.7 L Hold Purple Top Sodium 129 L 129 L Potassium Chloride Carbon Dioxide Anion Gap BUN Creatinine Estim Creat Clear Calc Estimated GFR Random Glucose Calcium 12/09/23 12/10/23 21:29 08:10 Hgb Hct Hold Purple Top SEE NOTE Sodium 132 L 132 L Potassium 4.3 Chloride 97 Carbon Dioxide 28 Anion Gap 11 L BUN 17 H Creatinine 0.90 Estim Creat Clear Calc 64.9 Estimated GFR > 60 Random Glucose 99 Calcium 9.1 D Microbiology Microbiology Results: Microbiology 12/08/23 11:43 Sputum - Expectorated Gram Stain - Final 12/08/23 11:43 Sputum - Expectorated Sputum Culture - Final 12/06/23 Unknown Urine clean catch - Urine serna top Urine Culture - Final 12/07/23 02:09 Sputum - Expectorated Gram Stain - Final 12/07/23 02:09 Sputum - Expectorated Sputum Culture - Final Physical Exam 2 Vital Signs: Vital Signs: Last Vital Signs Temp 96 F L 12/10/23 07:00 Pulse 72 12/10/23 11:24 Resp 18 12/10/23 11:24 BP 152/70 H 12/10/23 07:00 Pulse Ox 96 12/10/23 07:00 O2 Del Method Room Air 12/10/23 07:00 O2 Flow Rate 1 12/09/23 07:37 BMI result Body Mass Index 25.4 Const: General: no acute distress, alert and awake Eyes: Sclerae: sclerae normal EOM: EOMs intact bilaterally Neck: Neck: Yes no lymphadenopathy, Yes trachea midline and Yes supple Resp: Effort & Inspection: normal respiratory effort and no respiratory distress Auscultation: clear to auscultation bilaterally Cardio: Rate: regular rate Rhythm: regular rhythm Heart sounds: no gallops, no murmurs and no rubs GI: Palpation (GI): Soft to palpation and Other GI palpation findings present ( Nontender) Auscultation: normal bowel sounds Extrem: General: Yes no pedal edema, No clubbing and No cyanosis Procedures Date of Service Date of Service: 12/10/23 Assessment and Plan Assessment and plan (1) Lung cancer: Status: Acute (2) Acute hypoxemic respiratory failure: Status: Acute (3) RLL pneumonia: Status: Acute (4) Pneumonitis: Status: Acute Plan Impression: 73-year-old gentleman with underlying stage IV lung cancer on Keytruda admitted with acute hypoxic respiratory failure and empirically treated for pneumonia versus Keytruda pneumonitis. Improved to baseline. Follow-up CT chest reviewed and shows significant improvement and almost complete resolution of right basilar infiltrates that is more consistent with pneumonitis than an infectious etiology. Recommendations: Consider completion of 7 day regimen for underlying possible infectious in etiology with Levaquin. As radiologic findings and 1st resolution almost suggestive of pneumonitis then infectious etiology the question remains of risk versus benefit of continuation of Keytruda that should be assessed by patient's treating oncologist. Will continue with outpatient pulmonary follow- up. Time Spent With Patient Time: Total time managing care of this patient today ____ minutes. Progress Note: Quality Stroke Does the patient have a stroke diagnosis?: No
--- NOTE | 2023-12-10 14:25 | P.DS_ITS ---
DS: Providers Provider Date of Service: 12/10/23 Date of admission: 12/06/23 19:54 Date of discharge: 12/10/23 Primary care physician: Halley Powers DO Consults: 12/06/23 20:02 Consult to Hematology / Oncology Routine Consulting Provider: Blanche Stratton Reason for consultation: lung cancer, pneumonia 12/07/23 07:29 Consult to Nephrology Routine Consulting Provider: [facility] Reason for consultation: hyponatremia 12/07/23 17:22 Consult to Pulmonology Routine Consulting Provider: [facility] Reason for consultation: acute hypoxemic respiratory failure sec to copd excerebation/pneumonitis Has provider been notified: No Attending physician on discharge: Shaq Roblero Discharging clinician: Shaq Roblero DS: Diagnosis Discharge Diagnosis (1) Acute hypoxemic respiratory failure: Status: Acute (2) RLL pneumonia: Status: Acute DS: Summary Hospital Course Hospital Course: 73-year-old male with history of hypertension, hyperlipidemia, and tracheomalacia, [id number] carcinoma of the lung s/p left lower lobectomy currently on Keytruda and denosumab for bony metastasis following with Dr. Stratton in oncology presents to the edtoday accompanied by his , [place], for evaluation of worsening dyspnea and productive cough over the last 2 days. He states he has been experienced dyspnea and productive cough for last 2 months. He also reports symptoms are worse at night. He does not wear oxygen at home. He has a daily drinker consuming 3-4 beers between the hours of 4 and 6 every evening but denies any history of alcohol withdrawal symptoms. He states he has stopped drinking in the past due to hyponatremia but upon levels normalizing, resumed drinking alcohol. He denies any fevers, chills, lightheadedness, congestion, sore throat, chest pain. No edema. Since arrival, has been mildly tachypneic to 24. On exam, noted to be hypoxic to 86-88% on room air placed on 2 L supplemental O2 maintaining oximetry 96%. but vitals otherwise stable. There is no leukocytosis. He has a chronic microcytic anemia with H/H 12.0/3 8.8%. Renal function baseline, sodium 125, chloride 89, electrolyte levels otherwise normal. Negative for influenza, COVID-19, RSV. D-dimer elevated at 573. Follow-up chest CTA negative for PE but shows focal consolidation of the medial right lower lobe and dependent atelectasis at both lung bases with small dependent left pleural effusion. In the ED, has been given DuoNeb, 1 L IV NS. He will be admitted for further management of acute right lower lobe pneumonia in immunocompromised patient with acute hypoxemic respiratory failure with acute hyponatremia. Hospital course: Patient with lung cancer on Keytruda admitted with acute hypoxic respiratory failure and empirically treated for pneumonia versus pneumonitis. Continues to improve. CT chest reviewed and is equivocal for either infectious or inflammatory etiology: started on iv levaquin ,sputum cultures sent : patient seems to be improvement ,not hypoxic now. sputum cultures grew -mixed malka (contaminant). seen by pulmonary-seems like repeat ct scan(reviewed by pulm) -seems improving ,official report pending: patient's symptoms likely due to penumonia : Patient complete antibiotic levofloxacin 750 mg daily for 5 more days, prednisone taper as prescribed, also added DuoNebs. hyponatremia : serum osmolality low , urine osmolality high . oscar in setting of lung cancer hx,pneumonia imporved with fluid restrictions -receomended to fluid intake around 1.8 to 2 liter/day and repeat bmp in 1 week, follow up with nephrology outpatient. Patient is to follow-up with PCP and Pulmonary to decide further management and imaging if needed.Patient also need to follow up with oncology dr stratton outpatient. plan: follow up bmp imporved with fluid restrictions -receomended to fluid intake around 1.8 to 2 liter/day and repeat bmp in 1 week, follow up with nephrology outpatient. complete antibiotic levofloxacin 750 mg daily for 5 more days, prednisone taper as prescribed, also added DuoNebs. Pulmonary to decide further management and imaging if needed. Above management discussed with the patient in detail length she understand and in agreement with the above plan, time spent 40 minutes and 50% time spent on counseling. Time Attestation Total time managing care of this patient today: 40 mintues. Discharge Coordination Time (in mins): 40 min Quality: Safe Use of Opioids Does Pt have an Active Cancer Diagnosis on the Problem List?: No Quality: Stroke Does the patient have a stroke diagnosis?: No Physical Exam Vital Signs: Vital Signs: Last Vital Signs Temp 96 F L 12/10/23 07:00 Pulse 72 12/10/23 11:24 Resp 18 12/10/23 11:24 BP 152/70 H 12/10/23 07:00 Pulse Ox 96 12/10/23 07:00 O2 Del Method Room Air 12/10/23 07:00 O2 Flow Rate 1 12/09/23 07:37 BMI result Body Mass Index 25.4 Appearance: Alert.? Oriented X3. cvs: rrr, [id number] . res:air entry fair ,no rales or wheezing abd: no rebound or guarding ,nt, bs present. ext pulses present , no cyanosis . neuro: axo3 , nonfocal. DS: Data Data Completed and Pending Labs on day of discharge: Laboratory Results - last 24 hr 12/09/23 12/09/23 12/09/23 06:22 15:26 15:50 Hgb 10.9 L Hct 34.7 L Hold Purple Top Sodium 129 L 129 L Potassium Chloride Carbon Dioxide Anion Gap BUN Creatinine Estim Creat Clear Calc Estimated GFR Random Glucose Calcium 12/09/23 12/10/23 21:29 08:10 Hgb Hct Hold Purple Top SEE NOTE Sodium 132 L 132 L Potassium 4.3 Chloride 97 Carbon Dioxide 28 Anion Gap 11 L BUN 17 H Creatinine 0.90 Estim Creat Clear Calc 64.9 Estimated GFR > 60 Random Glucose 99 Calcium 9.1 D Imaging Chest x-ray: Radiologist's impression: ITS Impressions Chest X-Ray 12/06/23 11:04 IMPRESSION: 1. Stable curvilinear atelectasis versus scarring of the left lung base. 2. Chronic interstitial lung markings. 3. Trace bilateral pleural effusions with subjacent atelectasis. Chest CTA 12/06/23 17:29 IMPRESSION: 1. No evidence of pulmonary embolism. 2. Focal consolidation medial right lower lobe. 3. Dependent atelectasis at both lung bases. Small dependent left pleural effusion. VTE: negative. Discharge Plan Discharge Anticipated Discharge Date/Time: 12/10/23 14:03 Patient Disposition: Home, Self-Care Discharge Diagnosis: hyponatremia ,pneumonia Referrals: Pedro Frankel MD [Physician] - 1 Week Blanche Stratton MD [Physician] - 1 Week Halley Powers DO [Primary Care Provider] - 1 Week Hernan Corbin MD [Physician] - 1 Week Discharge Medications: New levofloxacin 750 mg tablet 750 mg PO DAILY Qty: 5 0RF ipratropium-albuterol 0.5 mg-3 mg(2.5 mg base)/3 mL Solution For Nebulization 3 ml inhalation RQ4H WHILE AWAKE Qty: 90 0RF prednisone 10 mg tablet See Taper PO DIRECTED Qty: 30 0RF Taper: Prednisone 40 mg daily for 3 Days and 0 Hour 30 mg daily for 3 Days and 0 Hour 20 mg daily for 3 Days and 0 Hour 10 mg daily for 3 Days and 0 Hour Rx Instructions: see taper instructions Continued cholecalciferol (vitamin D3) [Vitamin D3] 50 mcg (2,000 unit) capsule 50 mcg PO QAM amlodipine 10 mg tablet 10 mg PO DAILY metoprolol succinate 50 mg tablet extended release 24 hr 50 mg PO DAILY atorvastatin 10 mg tablet 10 mg PO DAILY losartan 100 mg tablet 100 mg PO DAILY hydralazine 10 mg tablet 10 mg PO BID fluticasone propionate 50 mcg/actuation spray,suspension 50 mcg intranasal DAILY PRN (Reason: Congestion) levothyroxine 50 mcg tablet 50 mcg PO DAILY@0600 Discharge Orders: Discharge Order (Routine); Ordered 12/10/23 Ordered By: Shaq Roblero Diet: Advance to usual diet Activity on Discharge: As tolerated Stand Alone Forms: Patient Portal Discharge page Print Language: Scottish Care Plan Goals: Patient with lung cancer on Keytruda admitted with acute hypoxic respiratory failure and empirically treated for pneumonia versus pneumonitis. Continues to improve. CT chest reviewed and is equivocal for either infectious or inflammatory etiology: started on iv levaquin ,sputum cultures sent : patient seems to be improvement ,not hypoxic now. sputum cultures grew -mixed malka (contaminant). seen by pulmonary-seems like repeat ct scan(reviewed by pulm) -seems improving : patient's symptoms likely due to penumonia : Patient complete antibiotic levofloxacin 750 mg daily for 5 more days, prednisone taper as prescribed, also added DuoNebs. hyponatremia : serum osmolality low , urine osmolality high . oscar in setting of lung cancer hx,pneumonia imporved with fluid restrictions -receomended to fluid intake around 1.8 to 2 liter/day and repeat bmp in 1 week, follow up with nephrology outpatient. Patient is to follow-up with PCP and Pulmonary to decide further management and imaging if needed.Patient also need to follow up with oncology dr stratton outpatient. Health Concerns: as above. Plan of Treatment: follow up bmp imporved with fluid restrictions -receomended to fluid intake around 1.8 to 2 liter/day and repeat bmp in 1 week, follow up with nephrology outpatient. complete antibiotic levofloxacin 750 mg daily for 5 more days, prednisone taper as prescribed, also added DuoNebs. Pulmonary to decide further management and imaging if needed. Assessment: as above.
[2023-12-10 15:11] VITALS: BP 142/67; PULSE 78; RESP 20; TEMP 37.1; O2SAT 96
--- NOTE | 2023-12-10 15:20 | PC.NURSE ---
Pt receiving full IV dose of ABT. Start PO tomorrow.
[2023-12-10 19:29] LABS: Strep Pneumo Ag urine Not Detected (Not Detected)
[2023-12-13 09:38] LABS: Legionella Ag Urine Not Detected (Not Detected)
== END 2023-12-10 15:50 | disposition home or self-care (01) | DRG 205 ==
LOC: HO.ED 19:58 → HO.EDOVER 20:04 → HO.S3 22:54
PROVIDERS: Internal Medicine Hypertension Specialist; Physician Assistant; Admitting Provider Physician Assistant; Emergency Provider Student in an Organized Health Care Education/Training Program; PCP Family Medicine; Visit Provider Internal Medicine
DX: J70.4 Drug-induced interstitial lung disorders, unspecified (principal); J96.01 Acute respiratory failure with hypoxia; C34.32 Malignant neoplasm of lower lobe, left bronchus or lung; J44.0 Chronic obstructive pulmonary disease with (acute) lower respiratory infection; J44.1 Chronic obstructive pulmonary disease with (acute) exacerbation; E87.1 Hypo-osmolality and hyponatremia; C79.51 Secondary malignant neoplasm of bone; D84.821 Immunodeficiency due to drugs; J18.9 Pneumonia, unspecified organism; E03.9 Hypothyroidism, unspecified; T45.1X5A Adverse effect of antineoplastic and immunosuppressive drugs, initial encounter; F10.90 Alcohol use, unspecified, uncomplicated; J39.8 Other specified diseases of upper respiratory tract; E78.5 Hyperlipidemia, unspecified; D50.9 Iron deficiency anemia, unspecified; Z90.2 Acquired absence of lung [part of]; Z85.21 Personal history of malignant neoplasm of larynx; Z20.822 Contact with and (suspected) exposure to COVID-19; Z87.891 Personal history of nicotine dependence; Z79.69 Long term (current) use of other immunomodulators and immunosuppressants; Z79.890 Hormone replacement therapy; Z79.899 Other long term (current) drug therapy
CPT/HCPCS: 0241U; 36415; 71046; 71250; 71275; 80048; 80053; 80202; 81001; 82565; 82728; 83540; 83930; 83935; 84295; 84300; 84443; 85014; 85018; 85025; 85379; 85610; 87070; 87086; 87205; 87449; 87899; 97162; 99285; J0613; J0696; J1650; J1956; J2543; J2919; J3370; J3475; Q9967

== ENCOUNTER → 2023-12-06 19:54 | Outpatient (BNV) | payer MEDICARE, MEDICAID, SELFPAY | PROVIDERS: Admitting Provider Physician Assistant; Emergency Provider Student in an Organized Health Care Education/Training Program; PCP Family Medicine; Visit Provider Physician Assistant | DX: J96.01 Acute respiratory failure with hypoxia (principal); J18.9 Pneumonia, unspecified organism | CPT/HCPCS: 99223; 99232; 99239 ==

== ENCOUNTER → 2023-12-06 19:54 | Outpatient (BNV) | payer MEDICARE, MEDICAID, SELFPAY | PROVIDERS: Admitting Provider Physician Assistant; Emergency Provider Student in an Organized Health Care Education/Training Program; PCP Family Medicine; Visit Provider Internal Medicine Pulmonary Disease | DX: C34.90 Malignant neoplasm of unspecified part of unspecified bronchus or lung (principal); J96.01 Acute respiratory failure with hypoxia; J18.9 Pneumonia, unspecified organism; J98.4 Other disorders of lung | CPT/HCPCS: 99222; 99232 ==

== ENCOUNTER → 2023-12-06 19:54 | Outpatient (BNV) | payer MEDICARE, MEDICAID, SELFPAY | PROVIDERS: Admitting Provider Physician Assistant; Emergency Provider Student in an Organized Health Care Education/Training Program; PCP Family Medicine; Visit Provider Internal Medicine | DX: C34.32 Malignant neoplasm of lower lobe, left bronchus or lung (principal) | CPT/HCPCS: 99222; 99231 ==

== ENCOUNTER → 2023-12-06 19:54 | Outpatient (BNV) | payer MEDICARE, MEDICAID, SELFPAY | PROVIDERS: Admitting Provider Physician Assistant; Emergency Provider Student in an Organized Health Care Education/Training Program; PCP Family Medicine; Visit Provider Internal Medicine Hypertension Specialist | DX: E87.1 Hypo-osmolality and hyponatremia (principal) | CPT/HCPCS: 99223; 99232 ==

== ENCOUNTER 2023-12-14 09:24 | Outpatient (AMB) | payer MEDICARE, MEDICAID, SELFPAY ==
--- NOTE | 2023-12-14 09:21 | HO.NEPHOV_ITS ---
Vital Signs 12/14/23 09:22 Weight 148 lb BP 112/52 L Blood Pressure Location Lt brachial Position Sitting Pulse 80 Pulse Source Pulse Oximeter Pulse Oximetry (%) 95 Oxygen Delivery Method Room Air Intake Visit Reasons[place] [facility] [place] Confirmed Chairman & Ceo Required: Yes Chairman & Ceo Name: [id number] Accompanied by: Self / Same As Patient Allergies No Known Allergies Allergy (Verified 12/14/23 09:25) HPI Comments Details: Middle aged man refered for Hyponatremia Left lower lobe lung cancer, adenosquamous carcinoma. Pathological stage pT2a, pN1, Stage II, 2018. Recurrent, metastatic disease diagnosed in September 2021. Molecular studies revealed negativity for BRAF, K-edyta Exon 2, Exon 3, Exon 4 mutations, negative for ROS1, alk rearrangements and EGFR mutation. PDL1 was positive with TPS 50%. 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 He underwent definitive radiation therapy for T2 N0 lesion, he did not have surgery. He finished radiation therapy in January 2019. H/o Drinking beer 6 cans a day Also on HCTZ 50 mg a day h/o Hypothyroidism - on Synthroid c/o Cough/ Sputum No hemoptysis NaHCO3 was prescribed on 09/01/23- But he has not started taking it yet Recent serum bicarb was elevted at 32 10/18/23 Doing better Says he stopped beer and HCTZ. No new complaints today 12/14/23 REcently discharged Not drinking beer now Na up to 132 PFSH Medical History On beta [place] at home Personal history of nicotine dependence Port-A-Cath in place (~09/2020) History of malignant neoplasm of glottis (~2018) Hyperlipemia HTN (hypertension) Cancer of lower lobe of left lung (~2019) Surgical History History of laryngoscopy (~10/2018) Admission for fitting of Port-A-Cath (~09/2020) History of lobectomy of lung (~08/2020) History of colonoscopy (~12/2014) History of left knee surgery Family History Mother Diabetes Brother Diabetes High blood pressure Daughter Breast cancer Daughter Hx of thyroid disease Social History Household Members: Friend(s) Housing: Apartment Do you presently have visiting nurse or other home services: No Alcohol intake: current Alcohol intake frequency: holidays/special occasions only Alcohol type: beer Patient Tobacco Use Status: Former Tobacco user Cigarette Packs Per Day: 1 Years Smoked: 34 service: No Physical Exam Vital Signs: Last Vital Signs Pulse 80 12/14/23 09:22 BP 112/52 L 12/14/23 09:22 Pulse Ox 95 12/14/23 09:22 Oxygen Delivery Method Room Air 12/14/23 09:22 Const General: comfortable; No acute distress Orientation/consciousness: patient oriented x3 Eyes General: appearance normal, both eyes and all related structures Visual Peter: normal visual peter by confrontation Neck Neck: Yes supple and Yes no JVD Resp Effort & Inspection: normal respiratory effort and respiratory effort not decreased Auscultation: rhonchi Cardio Palpation: no palpable S3 and no palpable S4 Heart sounds: no rubs GI Inspection: Yes normal to inspection Palpation (GI): Soft to palpation Percussion: Yes normal to percussion Auscultation: normal bowel sounds General: Yes no CVA tenderness Back/Spine/Pelvis Back: no CVA tenderness Skin General skin exam: no petechiae and no purpura Neuro General: patient oriented x3 and no focal motor deficits Extrem General: No clubbing and No edema Results Reviewed Nephrology Results: Hgb 10.9 g/dl (14.0-18.0) L 12/09/23 WBC 4.3 X10*3/uL (4.8-10.8) L 12/07/23 Plt Count 144 X10*3/uL (160-400) L 12/07/23 Sodium 132 mmol/L (135-145) L 12/10/23 Potassium 4.3 mmol/L (3.3-5.1) 12/09/23 Chloride 97 mmol/L (96-108) 12/09/23 Carbon Dioxide 28 mmol/L (22-29) 12/09/23 BUN 17 mg/dL (9-16) H 12/09/23 Creatinine 0.90 mg/dL (0.5-1.4) 12/09/23 Calcium 9.1 mg/dL (8.4-10.2) 12/09/23 Urine Protein Trace mg/dL (Neg-Trace) 12/06/23 Assessment & Plan Assessment & Plan (1) Hyponatremia: Code(s): E87.1 - Hypo-osmolality and hyponatremia Category: Medical (2) Non-small cell cancer of left lung: Onset Date: ~2019 Comment: (LLL Adenosquamous Carcinoma. pT2a, pN1 - s/p LLL lobectomy, undergoing adjuvant chemotherapy) Code(s): C34.92 - Malignant neoplasm of unspecified part of left bronchus or lung Category: Medical (3) HTN (hypertension): Code(s): I10 - Essential (primary) hypertension Category: Medical (4) Lung cancer: Code(s): C34.90 - Malignant neoplasm of unspecified part of unspecified bronchus or lung Category: Medical Plan Middle aged man with Chronic Asymptomatic Hyponatremia He has hypotonic hyponatremia This is multifactorial: Consuming Excess beer lead to hyponatremia ( Beer Potomania) USe of HCTZ decreased free water clearance and caused hyponatremia Hypothyroidism can also lead to hyponatremia Lastly, Underlying Lung CA could be causing SIADH Suggest After discontinuing beer and hydrochlorothiazide sodium has normalized. Continue to Optimize thyroid function Restrict PO water intake No need for urea powder at this time. Renal function is at baseline. Blood pressure is acceptable Mild hyperkalemia Discussed low-potassium diet Monitor potassium periodically Orders: Orders Basic Metabolic Panel 4 Months C34.90 - Malignant neoplasm of unspecified part of unspecified bronchus or lung, E87.1 - Hypo-osmolality and hyponatremia Coding Level of Care Code Est Pt Level 4 (39938) Diagnoses Hyponatremia E87.1 Non-small cell cancer of left lung C34.92 HTN (hypertension) I10 Lung cancer C34.90
[2023-12-14 09:22] VITALS: BP 112/52; PULSE 80; O2SAT 95
== END 2023-12-14 09:49 | disposition home or self-care (01) ==
PROVIDERS: PCP Family Medicine; Visit Provider Internal Medicine Hypertension Specialist
DX: E87.1 Hypo-osmolality and hyponatremia (principal); C34.92 Malignant neoplasm of unspecified part of left bronchus or lung; I10 Essential (primary) hypertension; C34.90 Malignant neoplasm of unspecified part of unspecified bronchus or lung
CPT/HCPCS: 99214

== ENCOUNTER → 2023-12-14 09:24 | Outpatient (BNVA) | payer MEDICARE, MEDICAID, SELFPAY | PROVIDERS: PCP Family Medicine; Visit Provider Internal Medicine Hypertension Specialist | DX: E87.1 Hypo-osmolality and hyponatremia (principal); I10 Essential (primary) hypertension; C34.92 Malignant neoplasm of unspecified part of left bronchus or lung; Z90.2 Acquired absence of lung [part of] | CPT/HCPCS: 99212 ==

== ENCOUNTER 2023-12-21 10:46 | Outpatient (REF) | payer MEDICARE, MEDICAID, SELFPAY ==
[2023-12-21 14:03] LABS: Anion Gap 13 (12-20); Blood Urea Nitrogen 18 mg/dL (9-16); Calcium 9.4 mg/dL (8.4-10.2); Carbon Dioxide 28 mmol/L (22-29); Chloride 94 mmol/L (96-108); Estimated Glomerular Filt Rate > 60; Glucose Random 102 mg/dL (60-115); Potassium 4.2 mmol/L (3.3-5.1); Sodium 131 mmol/L (135-145)
[2023-12-21 14:24] LABS: Free T4 (Free Thyroxine) 0.99 ng/dL (0.71-1.85); Thyroid Stimulating Hormone 3.01 uIU/mL (0.32-4.0)
== END 2023-12-21 10:47 | disposition home or self-care (01) ==
LOC: HO.HHCL 10:46
PROVIDERS: Visit Provider Family Medicine
DX: E87.1 Hypo-osmolality and hyponatremia (principal)
CPT/HCPCS: 36415; 80048; 84439; 84443

== ENCOUNTER 2023-12-24 10:03 | Outpatient (AMB) | payer MEDICARE, MEDICAID, SELFPAY ==
--- NOTE | 2023-12-24 10:04 | A.OFFVIS_ITS ---
Vital Signs 12/24/23 10:05 Height 5 ft 6 in Weight 147 lb 11.355 oz BMI 23.8 BP 122/62 Blood Pressure Location Rt brachial Position Sitting Pulse 83 Pulse Source Doppler Pulse Oximetry (%) 94 Oxygen Delivery Method Room Air Intake Visit Reasons: HDF ~ Post hospital discharge FU Waiter/Waitress Required: Yes Waiter/Waitress Name: Halley Orlando Gomez Allergies No Known Allergies Allergy (Verified 12/24/23 10:09) HPI HPI HDF ~ Post hospital discharge FU: Details: 73-year-old gentleman with underlying adenosquamous carcinoma status post left lower lobectomy in 2020, currently on Keytruda under oncology care, with recent hospitalization for hypoxic respiratory failure and concern for possible Keytruda related pneumonitis presents to follow-up. Patient states that his breathing status though improved is not at baseline yet. He denies productive cough, but does have poor bilateral air movement. [facility] Medical History (Updated 12/24/23 @ 10:31 by Hernan Corbin MD) Tracheomalacia Mucus plugging of bronchi On beta [place] at home Personal history of nicotine dependence Port-A-Cath in place (~09/2020) 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) Hyperlipemia HTN (hypertension) Cancer of lower lobe of left lung (~2019) Surgical History History of laryngoscopy (~10/2018) Admission for fitting of Port-A-Cath (~09/2020) History of lobectomy of lung (~08/2020) History of colonoscopy (~12/2014) History of left knee surgery Family History Mother Diabetes Brother Diabetes High blood pressure Daughter Breast cancer Daughter Hx of thyroid disease Social History Household Members: Friend(s) Housing: Apartment Do you presently have visiting nurse or other home services: No Alcohol intake: current Alcohol intake frequency: holidays/special occasions only Alcohol type: beer Patient Tobacco Use Status: Former Tobacco user Cigarette Packs Per Day: 1 Years Smoked: 34 service: No Review of Systems Const Denies daytime sleepiness, Denies excessive sweating, Denies fatigue, Denies fever(s), Denies lethargy, Denies malaise, Denies night sweats, Denies snoring and Denies weight loss Eyes Denies blurry vision and Denies itchy eyes ENT Denies nasal congestion, Denies post nasal drip, Denies sinus pain, Denies sinus pressure and Denies other ( Thrush) Card Denies chest pain, Denies pedal edema, Denies dyspnea, Denies orthopnea and Denies paroxysmal nocturnal dyspnea Resp Denies cough, Denies hemoptysis, Denies excessive phlegm production, Denies dyspnea, Denies snoring and Denies wheezing GI Denies abdominal pain and Denies heartburn Musc Denies myalgias, Denies arthralgias and Denies joint swelling Skin/Breast Denies rash Neuro Denies memory loss and Denies seizure-like activity Psych Denies abnormal sleep pattern, Denies anxiety and Denies memory loss Endo Denies excessive sweating, Denies fatigue and Denies heat intolerance Bubba/Lymph Denies easy bruising Aller/Immun Denies itchy eyes, Denies seasonal rhinorrhea and Denies wheezing Physical Exam Vital Signs: Last Vital Signs Pulse 83 12/24/23 10:05 BP 122/62 12/24/23 10:05 Pulse Ox 94 12/24/23 10:05 Oxygen Delivery Method Room Air 12/24/23 10:05 BMI result Body Mass Index 23.8 Const General: no acute distress and alert Nutritional Appearance: not obese Orientation/consciousness: Other orientation findings ( oriented) HEENT Head: Yes atraumatic Eyes General: appearance normal, both eyes and all related structures Sclerae: sclerae normal EOM: EOMs intact bilaterally Neck Neck: Yes supple Lymphatic: no lymphadenopathy noted Resp Effort & Inspection: normal respiratory effort and no use of accessory muscles Auscultation: other (Poor bilateral air movement) Cardio Rate: regular rate Rhythm: regular rhythm Heart sounds: no gallops, no murmurs and no rubs Skin General skin exam: other ( warm) Extrem General: No clubbing, No cyanosis and No edema Assessment & Plan Assessment & Plan (1) Pneumonitis: Code(s): J98.4 - Other disorders of lung Category: Medical Plan: May have underlying pneumonitis secondary to Keytruda or prior recent CT findings can also be infectious in nature. Will repeat CT chest for further evaluation. (2) COPD (chronic obstructive pulmonary disease): Code(s): J44.9 - Chronic obstructive pulmonary disease, unspecified Category: Medical Plan: Underlying COPD of unclear severity suboptimally controlled. Start on empiric Trelegy. Will obtain full PFT. Orders: Orders CT chest wo IV con Today J98.4 - Other disorders of lung Medications: New aqblieznznv-twebehjof-olzuyzrw 200-62.5-25 mcg (Trelegy Ellipta) 1 inh inhalation DAILY 1 ea 6RF 30 days Coding Level of Care Code Est Pt Level 4 (64775) Diagnoses Pneumonitis J98.4 COPD (chronic obstructive pulmonary disease) J44.9
[2023-12-24 10:05] VITALS: BP 122/62; PULSE 83; O2SAT 94; BMI 23.8
== END 2023-12-24 10:30 | disposition home or self-care (01) ==
PROVIDERS: PCP Family Medicine; Visit Provider Internal Medicine Pulmonary Disease
DX: J98.4 Other disorders of lung (principal); J44.9 Chronic obstructive pulmonary disease, unspecified
CPT/HCPCS: 99214

== ENCOUNTER → 2023-12-24 10:03 | Outpatient (BNVA) | payer MEDICARE, MEDICAID, SELFPAY | PROVIDERS: PCP Family Medicine; Visit Provider Internal Medicine Pulmonary Disease | DX: J98.4 Other disorders of lung (principal); J44.9 Chronic obstructive pulmonary disease, unspecified | CPT/HCPCS: 99212 ==

== ENCOUNTER 2023-12-27 07:47 | Outpatient (REF) | payer MEDICARE, MEDICAID, SELFPAY ==
--- NOTE | ~2023-12-27 | CT_ITS ---
EXAMINATION: CT CHEST WITHOUT CONTRAST CLINICAL INFORMATION: CT chest 12/10/2023 and 12/06/2023 COMPARISON: Pneumonitis TECHNIQUE: Multidetector volumetric CT imaging of the chest was done. Axial MIP volume rendering provided. Sagittal and coronal reformatted images were obtained. This CT examination was performed using dose optimization techniques as appropriate, variously including the following: *Automated exposure control *Adjustment of mA and/or kV according to patient size (this includes techniques or standardized protocols for targeted exams where dose is matched to indication/reason for exam; i.e. extremities or head) *Use of iterative reconstruction technique DLP: 129 mGy-cm FINDINGS: LUNGS AND PLEURA: There is new/worsening right lower lobe consolidation with some mild traction bronchiectasis is seen. There is a trace right pleural effusion and a trace to small left pleural effusion. There are subpleural cystic changes in the right middle lobe similar to prior but with some increased wall thickening. MEDIASTINUM: Some small mediastinal lymph nodes are present but there is no adenopathy. At size is normal CORONARY ARTERY CALCIFICATION: Mild AXILLA: No lymphadenopathy. UPPER ABDOMEN: Unremarkable. OSSEOUS STRUCTURES: Some mild degenerative changes are present. There is mild compression of the superior endplate of T6 along with a mild compression fracture with anterior wedging of T3. No acute osseous finding is present. CT/CT chest wo IV con IMPRESSION: 1. Right lower lobe consolidation with some mild traction bronchiectasis. 2. Trace right pleural effusion and trace to small left pleural effusion. 3. Subpleural cystic changes in the right middle lobe with some increased wall thickening. 4. Other incidental findings as described above. Fleischner guidelines were followed.
== END 2023-12-27 07:48 | disposition home or self-care (01) ==
LOC: HO.CT 07:47
PROVIDERS: PCP Family Medicine; Visit Provider Hospitalist
DX: J98.4 Other disorders of lung (principal)
CPT/HCPCS: 71250

== ENCOUNTER 2024-02-04 08:33 | Outpatient (REF) | payer MEDICARE, MEDICAID, SELFPAY ==
--- NOTE | ~2024-02-04 | MR_ITS ---
EXAMINATION: MR BRAIN WITHOUT AND WITH CONTRAST CLINICAL INFORMATION: History of lung CA; evaluate for possible metastatic disease. COMPARISON: 09/09/2023 MRI brain. TECHNIQUE: Multiplanar, multisequence MRI of the brain was obtained before and after the intravenous administration of 6 mL Gadavist. FINDINGS: Brain Volume: Ybuw-ij-lommyish generalized diffuse parenchymal volume loss within the limitations of qualitative assessment, similar to the previous exam. 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 Brain and Meninges: DWI sequence demonstrates no restricted diffusion to suggest acute or subacute cerebral ischemia. Gradient refocused imaging demonstrates no abnormal susceptibility-weighted signal loss to suggest hemorrhage, hemosiderin staining or abnormal mineralization. Scattered small foci of FLAIR/T2 signal hyperintensity in the white matter of both cerebral hemispheres are stable in appearance. On the current exam, there is a 1 cm ovoid faintly visualized focus of FLAIR/T2 signal hyperintensity in the inferior left cerebellar hemisphere without restricted diffusion, which demonstrates enhancement following contrast, suggesting a new metastatic lesion at this location. Redemonstrated is an enhancing expansile lesion in the right cavernous sinus region which is moderately T2 hyperintense and is stable in appearance when compared to the previous study, likely reflecting either a nerve sheath tumor or meningioma as noted on the previous study. There are mildly prominent perivascular spaces in the subinsular regions and left lee radiata stable in appearance. No other new lesions are seen throughout the remainder of the intracranial compartment. No extra-axial fluid collections, significant space-occupying process or mass effect are identified. No herniation pattern seen. Ventricles and Subarachnoid Spaces: The ventricular system and subarachnoid spaces are approximately proportional to the degree of parenchymal volume loss, without hydrocephalus. Orbital Structures: The visualized orbital structures are grossly unremarkable within the limitations of the study. Vascular: Signal voids are noted in the visualized major intracranial vessels. There is opacification of the major dural venous sinuses and jugular bulbs. Osseous Structures, Sinuses/Mastoids, Extracranial Soft Tissues: Bone marrow signal intensity appears grossly within normal limits, stable in appearance. Pansinus mucosal inflammatory changes are stable from previous exam with nasal septal deviation to the right. MR/MR head/brain wo/w con IMPRESSION: 1. New 1 cm enhancing lesion in the inferior left cerebellar hemisphere suggesting with a metastatic lesion. Recommend correlation with PET/CT. 2. Stable enhancing expansile lesion in the right cavernous sinus region which may reflect a nerve sheath tumor or meningioma. 3. Stable nonspecific white matter T2 hyperintensities in the cerebral hemispheres. 4. Gxmy-wf-xnyhzojs generalized diffuse parenchymal volume loss, similar to previous exam. 5. Pansinus mucosal inflammatory changes stable in appearance from previous exam. The [facility] staff will call to confirm receipt of this report with acknowledgement of the findings and any recommendations.
[2024-02-04] MEDS: gadobutroL 7.5 ML VIAL IVPUSH (09:34)
== END 2024-02-04 08:34 | disposition home or self-care (01) ==
LOC: HO.MRI 08:33
PROVIDERS: PCP Family Medicine; Visit Provider Internal Medicine
DX: C79.51 Secondary malignant neoplasm of bone (principal)
CPT/HCPCS: 70553; A9585

== ENCOUNTER 2024-02-09 08:33 | Outpatient (REF) | payer MEDICARE, MEDICAID, SELFPAY ==
[2024-02-09 09:38] LABS: Anion Gap 10 (12-20); Blood Urea Nitrogen 10 mg/dL (9-16); Calcium 9.2 mg/dL (8.4-10.2); Carbon Dioxide 30 mmol/L (22-29); Chloride 97 mmol/L (96-108); Estimated Glomerular Filt Rate > 60; Glucose Random 135 mg/dL (60-115); Potassium 4.3 mmol/L (3.3-5.1); Sodium 133 mmol/L (135-145)
== END 2024-02-09 08:34 | disposition home or self-care (01) ==
LOC: HO.LAB 08:33
PROVIDERS: PCP Family Medicine; Visit Provider Internal Medicine Hypertension Specialist
DX: I10 Essential (primary) hypertension (principal); E87.1 Hypo-osmolality and hyponatremia
CPT/HCPCS: 36415; 80048

== ENCOUNTER 2024-02-15 09:55 | Outpatient (AMB) | payer MEDICARE, MEDICAID, SELFPAY ==
[2024-02-15 09:57] VITALS: BP 102/50; PULSE 61; O2SAT 95; BMI 21.9
--- NOTE | 2024-02-15 09:57 | HO.NEPHOV ---
Vital Signs 02/15/24 09:57 Height 5 ft 6 in Weight 136 lb BMI 21.9 BP 102/50 L Blood Pressure Location Rt brachial Position Sitting Pulse 61 Pulse Source Pulse Oximeter Pulse Oximetry (%) 95 Oxygen Delivery Method Room Air Intake Visit Reasons: 4 Months/ Conf Electroplater Automatic Required: No Accompanied by: Girlfriend Allergies No Known Allergies Allergy (Verified 02/15/24 10:00) Medication List - Last Reconciled 02/15/24 by Rico Chung MD albuterol sulfate 90 mcg/actuation 2 puffs inhalation 6XD PRN amlodipine 10 mg PO DAILY atorvastatin 10 mg PO DAILY cholecalciferol (vitamin D3) (Vitamin D3) 50 mcg PO QAM ferrous sulfate 325 mg PO BID fluticasone propionate 50 mcg/actuation 50 mcg intranasal DAILY PRN uwgssbukmrp-xefvyrpia-xfvlonjf 200-62.5-25 mcg (Trelegy Ellipta) 1 inh inhalation DAILY 30 days hydralazine 10 mg PO BID inhalational spacing device (Aerochamber MV spacer) As directed ipratropium-albuterol 0.5 mg-3 mg(2.5 mg base)/3 mL 3 mL inhalation RQ4H WHILE AWAKE losartan 100 mg PO DAILY metoprolol succinate ER 50 mg PO DAILY HPI Comments Details: Middle aged man refered for Hyponatremia Left lower lobe lung cancer, adenosquamous carcinoma. Pathological stage pT2a, pN1, Stage II, 2019. Recurrent, metastatic disease diagnosed in September 2021. Molecular studies revealed negativity for BRAF, K-edyta Exon 2, Exon 3, Exon 4 mutations, negative for ROS1, alk rearrangements and EGFR mutation. PDL1 was positive with TPS 50%. 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 He underwent definitive radiation therapy for T2 N0 lesion, he did not have surgery. He finished radiation therapy in January 2019. H/o Drinking beer 6 cans a day Also on HCTZ 50 mg a day h/o Hypothyroidism - on Synthroid c/o Cough/ Sputum No hemoptysis NaHCO3 was prescribed on 09/01/23- But he has not started taking it yet Recent serum bicarb was elevted at 32 10/18/23 Doing better Says he stopped beer and HCTZ. No new complaints today 12/14/23 REcently discharged Not drinking beer now Na up to 132 02/15/24 Doing better Accompanied by Says he has not had beer in 6 months Drinks pedialyte [facility] Medical History Tracheomalacia Mucus plugging of bronchi On beta [place] at home Personal history of nicotine dependence Port-A-Cath in place (~09/2020) 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) Hyperlipemia HTN (hypertension) Cancer of lower lobe of left lung (~2019) Surgical History History of laryngoscopy (~10/2018) Admission for fitting of Port-A-Cath (~09/2020) History of lobectomy of lung (~08/2020) History of colonoscopy (~12/2014) History of left knee surgery Family History Mother Diabetes Brother Diabetes High blood pressure Daughter Breast cancer Daughter Hx of thyroid disease Social History Household Members: Friend(s) Housing: Apartment Do you presently have visiting nurse or other home services: No Alcohol intake: current Alcohol intake frequency: holidays/special occasions only Alcohol type: beer Patient Tobacco Use Status: Former Tobacco user Cigarette Packs Per Day: 1 Years Smoked: 34 service: No Physical Exam Vital Signs: Last Vital Signs Pulse 61 02/15/24 09:57 BP 102/50 L 02/15/24 09:57 Pulse Ox 95 02/15/24 09:57 Oxygen Delivery Method Room Air 02/15/24 09:57 BMI result Body Mass Index 21.9 Const General: comfortable; No acute distress Orientation/consciousness: patient oriented x3 Eyes General: appearance normal, both eyes and all related structures Visual Peter: normal visual peter by confrontation Neck Neck: Yes supple and Yes no JVD Resp Effort & Inspection: normal respiratory effort and respiratory effort not decreased Auscultation: rhonchi Cardio Palpation: no palpable S3 and no palpable S4 Heart sounds: no rubs GI Inspection: Yes normal to inspection Palpation (GI): Soft to palpation Percussion: Yes normal to percussion Auscultation: normal bowel sounds General: Yes no CVA tenderness Back/Spine/Pelvis Back: no CVA tenderness Skin General skin exam: no petechiae and no purpura Neuro General: patient oriented x3 and no focal motor deficits Extrem General: No clubbing and No edema Results Reviewed Nephrology Results: Hgb 11.0 g/dl (14.0-18.0) L 02/09/24 WBC 6.6 X10*3/uL (4.8-10.8) 02/09/24 Plt Count 211 X10*3/uL (160-400) 02/09/24 Sodium 133 mmol/L (135-145) L 02/09/24 Potassium 4.0 mmol/L (3.3-5.1) 02/09/24 Chloride 98 mmol/L (96-108) 02/09/24 Carbon Dioxide 31 mmol/L (22-29) H 02/09/24 BUN 10 mg/dL (9-16) 02/09/24 Creatinine 0.87 mg/dL (0.5-1.4) 02/09/24 Calcium 9.2 mg/dL (8.4-10.2) 02/09/24 Assessment & Plan Assessment & Plan (1) Hyponatremia: Code(s): E87.1 - Hypo-osmolality and hyponatremia Category: Medical (2) Non-small cell cancer of left lung: Onset Date: ~2019 Comment: (LLL Adenosquamous Carcinoma. pT2a, pN1 - s/p LLL lobectomy, undergoing adjuvant chemotherapy) Code(s): C34.92 - Malignant neoplasm of unspecified part of left bronchus or lung Category: Medical (3) HTN (hypertension): Code(s): I10 - Essential (primary) hypertension Category: Medical (4) Lung cancer: Code(s): C34.90 - Malignant neoplasm of unspecified part of unspecified bronchus or lung Category: Medical (5) Hyponatremia: Code(s): E87.1 - Hypo-osmolality and hyponatremia Category: Medical Plan Middle aged man with Chronic Asymptomatic Hyponatremia He has hypotonic hyponatremia This is multifactorial: Consuming Excess beer lead to hyponatremia ( Beer Potomania) USe of HCTZ decreased free water clearance and caused hyponatremia Hypothyroidism can also lead to hyponatremia Lastly, Underlying Lung CA could be causing SIADH Suggest After discontinuing beer and hydrochlorothiazide sodium has improved Continue to Optimize thyroid function Restrict PO water intake No need for urea powder at this time. Renal function is at baseline. Blood pressure is LOW Discontinue Hydralazine s/p Mild hyperkalemia Discussed low-potassium diet Monitor potassium periodically Orders: Orders Basic Metabolic Panel 4 Months E87.1 - Hypo-osmolality and hyponatremia Coding Level of Care Code Est Pt Level 4 (82158) Diagnoses Hyponatremia E87.1 Non-small cell cancer of left lung C34.92 HTN (hypertension) I10 Lung cancer C34.90
== END 2024-02-15 10:19 | disposition home or self-care (01) ==
PROVIDERS: PCP Internal Medicine; Visit Provider Internal Medicine Hypertension Specialist
DX: E87.1 Hypo-osmolality and hyponatremia (principal); C34.92 Malignant neoplasm of unspecified part of left bronchus or lung; I10 Essential (primary) hypertension; C34.90 Malignant neoplasm of unspecified part of unspecified bronchus or lung
CPT/HCPCS: 99214

== ENCOUNTER → 2024-02-15 09:55 | Outpatient (BNVA) | payer MEDICARE, MEDICAID, SELFPAY | PROVIDERS: PCP Internal Medicine; Visit Provider Internal Medicine Hypertension Specialist | DX: E87.1 Hypo-osmolality and hyponatremia (principal); I10 Essential (primary) hypertension; C34.92 Malignant neoplasm of unspecified part of left bronchus or lung; Z90.2 Acquired absence of lung [part of] | CPT/HCPCS: 99212 ==

== ENCOUNTER 2024-06-22 07:43 | Outpatient (REF) | payer MEDICARE, MEDICAID, SELFPAY ==
[2024-06-22 07:56] LABS: MANUAL DIFF FLAG NO
[2024-06-22 07:58] LABS: Basophils Absolute Auto 0.1 X10*3/uL (0.0-0.2); Basophils Percent Auto 1.1 % (0-2); Eosinophils Percent Auto 0.2 % (0-4); Hematocrit 37.5 % (42.0-52.0); Hemoglobin 11.1 g/dl (14.0-18.0); Imm Gran Abs Auto 0.01 X10*3/uL (0.00-0.03); Imm Gran Pct Auto 0.2 % (0.0-0.4); Lymphocytes Absolute Auto 1.2 X10*3/uL (1.2-4.9); Lymphocytes Percent Auto 21.6 % (20-40); Mean Corpuscular HGB Conc 29.6 g/dl (31.0-36.0); Mean Corpuscular Hemoglobin 25.1 pg (27.0-33.0); Mean Corpuscular Volume 84.7 fL (80.0-98.0); Mean Platelet Volume 9.7 fL (9.4-12.4); Monocytes Absolute Auto 0.7 X10*3/uL (0.1-1.2); Monocytes Percent Auto 12.7 % (2-11); Neutrophils Absolute Auto 3.6 x10*3/uL (2.0-8.3); Neutrophils Percent Auto 64.2 % (45-73); Platelet Count 176 X10*3/uL (160-400); Red Blood Count 4.43 X10*6/uL (4.60-5.80); Red Cell Distribution Width 18.1 % (11.0-16.0); White Blood Count 5.6 X10*3/uL (4.8-10.8)
[2024-06-22 08:14] LABS: Alanine Aminotransferase 46 U/L (0-40); Albumin Level 3.7 g/dL (3.5-5.0); Alkaline Phosphatase 83 U/L (39-117); Anion Gap 10 (12-20); Aspartate Amino Transferase 33 U/L (5-37); Bilirubin Total 0.3 mg/dL (0.0-1.0); Blood Urea Nitrogen 14 mg/dL (9-16); Calcium 8.8 mg/dL (8.4-10.2); Carbon Dioxide 31 mmol/L (22-29); Chloride 103 mmol/L (96-108); Estimated Glomerular Filt Rate > 60; Glucose Random 156 mg/dL (60-115); Potassium 4.3 mmol/L (3.3-5.1); Sodium 140 mmol/L (135-145); Total Protein 6.5 g/dL (6.5-8.0)
== END 2024-06-22 07:44 | disposition home or self-care (01) ==
LOC: HO.LAB 07:43
PROVIDERS: Absent Provider Internal Medicine; PCP Family Medicine; Visit Provider Internal Medicine Hypertension Specialist
DX: C34.92 Malignant neoplasm of unspecified part of left bronchus or lung (principal)
CPT/HCPCS: 36415; 80053; 85025

== ENCOUNTER 2024-06-26 09:00 | Outpatient (AMB) | payer MEDICARE, SELFPAY ==
--- NOTE | 2024-06-26 09:20 | HO.NEPHOV_ITS ---
Vital Signs 06/26/24 09:21 Height 5 ft 6 in Weight 148 lb BMI 23.9 BP 128/44 L Blood Pressure Location Lt brachial Position Sitting Pulse 86 Pulse Source Pulse Oximeter Pulse Oximetry (%) 98 Oxygen Delivery Method Room Air Intake Visit Reasons: Hypertension/ Conf Vascular Neurologist Required: Yes Vascular Neurologist Services: Vascular Neurologist Offered & Declined (His will translate ) Accompanied by: Spouse Allergies No Known Allergies Allergy (Verified 06/26/24 09:25) Medication List - Last Reconciled 06/26/24 by Rico Chung MD albuterol sulfate 90 mcg/actuation 2 puffs inhalation 6XD PRN amlodipine 10 mg PO DAILY atorvastatin 10 mg PO DAILY cholecalciferol (vitamin D3) (Vitamin D3) 50 mcg PO QAM dexamethasone 4 mg PO BID ferrous sulfate 325 mg PO BID fluticasone propionate 50 mcg/actuation 50 mcg intranasal DAILY PRN hbdienimnop-tntgqxrfv-xvisrfie 200-62.5-25 mcg (Trelegy Ellipta) 1 inh inhalation DAILY 30 days inhalational spacing device (Aerochamber MV spacer) As directed ipratropium-albuterol 0.5 mg-3 mg(2.5 mg base)/3 mL 3 mL inhalation RQ4H WHILE AWAKE levothyroxine 50 mcg PO DAILY losartan 100 mg PO DAILY metoprolol succinate ER 50 mg PO DAILY ondansetron 8 mg PO Q8H PRN HPI Comments Details: Middle aged man refered for Hyponatremia Left lower lobe lung cancer, adenosquamous carcinoma. Pathological stage pT2a, pN1, Stage II, 2019. Recurrent, metastatic disease diagnosed in September 2021. Molecular studies revealed negativity for BRAF, K-edyta Exon 2, Exon 3, Exon 4 mutations, negative for ROS1, alk rearrangements and EGFR mutation. PDL1 was positive with TPS 50%. 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 He underwent definitive radiation therapy for T2 N0 lesion, he did not have surgery. He finished radiation therapy in January 2019. H/o Drinking beer 6 cans a day Also on HCTZ 50 mg a day h/o Hypothyroidism - on Synthroid c/o Cough/ Sputum No hemoptysis NaHCO3 was prescribed on 09/01/23- But he has not started taking it yet Recent serum bicarb was elevted at 32 10/18/23 Doing better Says he stopped beer and HCTZ. No new complaints today 12/14/23 REcently discharged Not drinking beer now Na up to 132 06/26/24 Doing better; Accompanied by ; Says he has not had beer in almost 12 months; [facility] Medical History (Updated 05/05/24 @ 14:[address]) Tracheomalacia Mucus plugging of bronchi On beta [place] at home Personal history of nicotine dependence Port-A-Cath in place (~09/2020) 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) Hyperlipemia HTN (hypertension) Cancer of lower lobe of left lung (~2019) Surgical History History of laryngoscopy (~10/2018) Admission for fitting of Port-A-Cath (~09/2020) History of lobectomy of lung (~08/2020) History of colonoscopy (~12/2014) History of left knee surgery Family History Mother Diabetes Brother Diabetes High blood pressure Daughter Breast cancer Daughter Hx of thyroid disease Social History Household Members: Friend(s) Housing: Apartment Do you presently have visiting nurse or other home services: No Alcohol intake: current Alcohol intake frequency: holidays/special occasions only Alcohol type: beer Patient Tobacco Use Status: Former Tobacco user Cigarette Packs Per Day: 1 Years Smoked: 34 service: No Physical Exam Vital Signs: Last Vital Signs Pulse 86 06/26/24 09:21 BP 128/44 L 06/26/24 09:21 Pulse Ox 98 06/26/24 09:21 Oxygen Delivery Method Room Air 06/26/24 09:21 BMI result Body Mass Index 23.9 Results Reviewed Nephrology Results: Hgb 11.1 g/dl (14.0-18.0) L 06/22/24 WBC 5.6 X10*3/uL (4.8-10.8) 06/22/24 Plt Count 176 X10*3/uL (160-400) 06/22/24 Sodium 140 mmol/L (135-145) 06/22/24 Potassium 4.3 mmol/L (3.3-5.1) 06/22/24 Chloride 103 mmol/L (96-108) 06/22/24 Carbon Dioxide 31 mmol/L (22-29) H 06/22/24 BUN 14 mg/dL (9-16) 06/22/24 Creatinine 0.69 mg/dL (0.5-1.4) 06/22/24 Calcium 8.8 mg/dL (8.4-10.2) 06/22/24 Assessment & Plan Assessment & Plan (1) Hyponatremia: Code(s): E87.1 - Hypo-osmolality and hyponatremia Category: Medical (2) Non-small cell cancer of left lung: Onset Date: ~2019 Comment: (LLL Adenosquamous Carcinoma. pT2a, pN1 - s/p LLL lobectomy, undergoing adjuvant chemotherapy) Code(s): C34.92 - Malignant neoplasm of unspecified part of left bronchus or lung Category: Medical (3) HTN (hypertension): Code(s): I10 - Essential (primary) hypertension Category: Medical (4) Lung cancer: Code(s): C34.90 - Malignant neoplasm of unspecified part of unspecified bronchus or lung Category: Medical (5) Hyponatremia: Code(s): E87.1 - Hypo-osmolality and hyponatremia Category: Medical Plan Middle aged man with Chronic Asymptomatic Hyponatremia He had hypotonic hyponatremia This is multifactorial: Consuming Excess beer lead to hyponatremia ( Beer Potomania) USe of HCTZ decreased free water clearance and caused hyponatremia Hypothyroidism can also lead to hyponatremia Lastly, Underlying Lung CA could be causing SIADH Suggest After discontinuing beer and hydrochlorothiazide sodium has improved Continue to Optimize thyroid function Restrict PO water intake No need for urea powder at this time. Renal function is at baseline. Blood pressure is acceptable - No changes made s/p Mild hyperkalemia Discussed low-potassium diet Monitor potassium periodically Orders: Orders Basic Metabolic Panel 6 Months E87.1 - Hypo-osmolality and hyponatremia Coding Level of Care Code Est Pt Level 4 (94180) Diagnoses Hyponatremia E87.1 Non-small cell cancer of left lung C34.92 HTN (hypertension) I10 Lung cancer C34.90
[2024-06-26 09:21] VITALS: BP 128/44; PULSE 86; O2SAT 98; BMI 23.9
== END 2024-06-26 09:45 | disposition home or self-care (01) ==
PROVIDERS: PCP Internal Medicine; Visit Provider Internal Medicine Hypertension Specialist
DX: E87.1 Hypo-osmolality and hyponatremia (principal); C34.92 Malignant neoplasm of unspecified part of left bronchus or lung; I10 Essential (primary) hypertension
CPT/HCPCS: 99214

== ENCOUNTER → 2024-06-26 09:00 | Outpatient (BNVA) | payer MEDICARE, OTHER, SELFPAY | PROVIDERS: PCP Internal Medicine; Visit Provider Internal Medicine Hypertension Specialist | DX: I10 Essential (primary) hypertension (principal); E87.1 Hypo-osmolality and hyponatremia; C34.92 Malignant neoplasm of unspecified part of left bronchus or lung | CPT/HCPCS: 99212 ==

== ENCOUNTER 2024-09-06 07:58 | Outpatient (REF) | payer MEDICARE, SELFPAY ==
--- NOTE | ~2024-09-06 | CT_ITS ---
EXAMINATION: CT CHEST WITH CONTRAST CLINICAL INFORMATION: Assess response to radiotherapy. Lung cancer. Status post left lower lobectomy. COMPARISON: CT dated December 27, 2023. TECHNIQUE: Multidetector volumetric CT imaging of the chest was obtained after the administration of 85 mL of Omnipaque 350 intravenous contrast without immediate adverse reactions. Axial MIP volume rendering provided. Sagittal and coronal reformatted images were obtained. No reported immediate complications. This CT examination was performed using dose optimization techniques as appropriate, variously including the following: *Automated exposure control *Adjustment of mA and/or kV according to patient size (this includes techniques or standardized protocols for targeted exams where dose is matched to indication/reason for exam; i.e. extremities or head) *Use of iterative reconstruction technique. DLP: 431 mGy centimeter. FINDINGS: Multiple, less than 1.1 cm mediastinal lymph nodes involving mostly the pretracheal and subcarinal region. Small trace left-sided pleural effusion. Linear and patchy attenuations in the periphery of the lower lung lobes. There is a 4 mm subpleural noncalcified nodule, anterior right upper lobe. No gross bronchiectasis or honeycombing. Respiratory airways is patent. Calcified plaques throughout the thoracic aorta is main branches and the coronary arteries. No aneurysm or dissection, thoracic aorta. No gross intraluminal filling defects within the main pulmonary artery or its main branches. No gross pericardial effusion. Multiple collateral flow involving the right hemithorax. The superior vena cava is patent. There is a Port-A-Cath reservoir in the anterior right upper chest wall tip ends in the SVC. Inadequate evaluation of the intra-abdominal organs with heterogeneous enhancement of the liver and spleen, nonspecific. Multilevel thoracic spondylosis without acute fracture or listhesis. No gross lytic or blastic lesions. CT/CT chest w IV con IMPRESSION: Overall improved with decreased mediastinal lymphadenopathy and resolved airspace disease, right lung and small residual left-sided pleural effusion. Fleischner guidelines were followed. Electronically signed by: Cong Suarez MD 09/06/2024 10:12 AM [place]
--- NOTE | ~2024-09-06 | CT_ITS ---
EXAMINATION: CT ABDOMEN AND PELVIS WITH CONTRAST CLINICAL INFORMATION: Assess response to radiotherapy. Lung cancer.. COMPARISON: CT dated September 16, 2023. TECHNIQUE: Multidetector volumetric images were obtained from the superior aspect of the liver through the pubic symphysis following administration 85 mL of Omnipaque 350 intravenous contrast. Sagittal and coronal reformatted images were obtained on the technologist's workstation. Oral contrast: No This CT examination was performed using dose optimization techniques as appropriate, variously including the following: *Automated exposure control *Adjustment of mA and/or kV according to patient size (this includes techniques or standardized protocols for targeted exams where dose is matched to indication/reason for exam; i.e. extremities or head) *Use of iterative reconstruction technique DLP: 431 mGy centimeter. FINDINGS: LUNG BASES: Left-sided pleural effusion, small volume. Peripheral patchy pulmonary groundglass, nonspecific. LIVER, GALLBLADDER, AND BILIARY TREE: Liver measures 16 cm. No focal mass. Portal veins, hepatic veins and intrahepatic portion of the IVC are patent. Gallbladder is nondistended. No pericholecystic fluid collection or gallbladder wall thickening. No intrahepatic or extrahepatic biliary ductal dilatation. PANCREAS: No focal mass. No peripancreatic fluid collection. No main pancreatic ductal dilatation. Volume loss of the pancreatic parenchyma. SPLEEN: 11 cm. No focal mass. ADRENAL GLANDS: No nodular lesions. KIDNEYS AND URETERS: No gross renal mass. No hydronephrosis. No gross nephrolithiasis. BLADDER: Fluid-filled. GASTROINTESTINAL TRACT: No intestinal obstruction pattern. Nonspecific gas and fluid-filled prominent small bowel loops. No ascites. No pneumatosis intestinalis. Appendix is normal. No pneumoperitoneum. No peripheral enhancing fluid collection in the peritoneal cavity. Mesenteric edema pattern. ABDOMINAL WALL: No gross hernias. LYMPH NODES: Nonspecific prominent mesenteric lymph nodes. VASCULAR: Calcified plaques throughout the abdominal aorta wall and iliac arteries the origin of the mesenteric arteries and main renal arteries. No aneurysm or dissection, abdominal aorta. Calcified plaques in the descending thoracic aorta wall Focal calcification in the right main renal artery.. PELVIC VISCERA: Nonenlarged prostate gland. OSSEOUS STRUCTURES: Multilevel thoracolumbar spondylosis. Sclerosis and the sacroiliac joints. No acute fracture. No gross lytic or blastic lesions. CT/CT abdomen pelvis w IV con IMPRESSION: Nonspecific mesenteric edema pattern and prominent mesenteric lymph nodes. Left-sided pleural effusion, small volume. No gross metastatic disease to the intra-abdominal retroperitoneal organs. Questionable partially thrombosed aneurysm in the mid right main renal artery.. Fleischner guidelines were followed. Electronically signed by: Cong Suarez MD 09/06/2024 12:22 PM [place]ANNING
[2024-09-06] MEDS: iohexoL 350 MG/ML 75 ML INFUS..BTL 85 ML IV (09:39)
== END 2024-09-06 07:59 | disposition home or self-care (01) ==
LOC: HO.CT 07:58
PROVIDERS: Visit Provider Internal Medicine
DX: C34.92 Malignant neoplasm of unspecified part of left bronchus or lung (principal)
CPT/HCPCS: 71260; 74177; Q9967

== ENCOUNTER → 2024-09-06 08:01 | Outpatient (BNV) | payer MEDICARE, MEDICAID, SELFPAY | PROVIDERS: Visit Provider Radiology Diagnostic Radiology | DX: C34.92 Malignant neoplasm of unspecified part of left bronchus or lung (principal) | CPT/HCPCS: 71260; 74177 ==

== ENCOUNTER 2024-10-18 11:50 | Outpatient (REF) | payer MEDICARE, MEDICAID, SELFPAY ==
--- NOTE | ~2024-10-18 | US_ITS ---
EXAMINATION: US UPPER EXTREMITY VEINS LIMITED FOLLOW UP RIGHT HISTORY: Rapidly growing swelling/neck COMPARISON: Correlation is made with a chest CT with contrast dated 09/06/2024. FINDINGS: A catheter is seen in the right neck which is noted to be in the distal internal jugular vein on CT. No surrounding flow is identified. The vein is not enlarged. The subclavian vein is not well visualized. The axillary, basilic, brachial and cephalic veins are patent. US/US venous duplex UE RT IMPRESSION: Catheter in the right internal jugular vein without surrounding flow. The subclavian vein is not well visualized. 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 Electronically signed by: Kvng Fry MD 10/18/2024 01:54 PM EDT
--- OUTSIDE RECORDS SUMMARY | 2024-10-18 13:55 | XMS_ITS | Encounter Summary ---
Author Organization [employer] Address [address] [place] [address] Care Team Providers Care Salt Operator Name Role Phone Halley Powers DO Primary Care Provider Encounter Details Date Type Department Care Team (Late st Contact Info) Description 10/19/2022 Orders Only [facility] [address] [place] [address] Halley Soto LPN Social History Tobacco Use Types Packs/Day Years Used Date Smoking Tobacco: Never Assessed Sex and Gender Information Value Date Recorded Sex Assigned at Male 06/08/2022 10:26 AM EDT Legal Sex Male 10:26 AM EDT Gender Identity Male 06/08/2022 10:26 AM EDT Sexual Orientation Straight 06/08/2022 10 :26 AM EDT documented as of this encounter Plan of Treatment Upcoming Encounters Date Type Department Care Team (Late st Contact Info) Description 02/14/2025 9:00 AM EDT Office Visit [facility] OPT[facility]RY [address] [place] [address] Shayan, Sharon, OD [address] [place] [address] documented as of this encounter Visit Diagnoses Not on filedocumented in this encounter Care Teams Salt Operator Relationship Specialty Start Date End Date Halley Powers DO [address] [place] [address] PCP - General Family Medicine 01/10/15 documented as of this encounter
--- OUTSIDE RECORDS SUMMARY | 2024-10-18 13:55 | XMS_ITS | Clinical Summary ---
Author Organization [employer] Address [address] [facility] [address] [place] [address] Care Team Providers Care Airplane Tester Name Role Phone PriyaHalley Primary Care Provider [phone] Allergies No known active allergies Medications metroNIDAZOLE (Metrogel) 1 % gel APPLY TOPICALLY TO FACE EVERY DAY AT BEDTIME Active D3 Super Strength 50 MCG (1999 UT) capsuleIndication s:Vitamin D deficiency TAKE 1 CAPSULE BY MOUTH EVERY MORNING 90 capsule 3 Active Pembrolizumab (KEYTRUDA IV) For lung cancer Active cetirizine (ZyrTEC) 10 MG tablet Take 1 tablet (10 mg) by mouth Once per day. 30 tablet 11 024 2024 Active FeroSul 325 (65 Fe) MG tablet TAKE 1 TABLET BY MOUTH TWICE DAILY IN THE MORNING AND IN THE EVENING Active Trelegy Ellipta 200-62.5-25 MCG/ACT aerosol powder INHALE 1 PUFF BY MOUTH EVERY DAY AT THE SAME TIME Active metoprolol succinate XL (Toprol-XL) 50 MG 24 hr tablet TAKE 1 TABLET BY MOUTH EVERY MORNING 90 tablet 3 024 Active losartan (Cozaar) 100 MG tablet TAKE 1 TABLET BY MOUTH EVERY MORNING 90 tablet 3 024 Active atorvastatin (Lipitor) 10 MG tabletIndications :Hyperlipidemia, unspecified hyperlipidemia type TAKE 1 TABLET BY MOUTH EVERY MORNING 90 tablet 3 024 Active levothyroxine (Synthroid, Levoxyl) 50 MCG tablet TAKE 1 TABLET BY MOUTH EVERY DAY BEFORE BREAKFAST 30 tablet 11 025 Active albuterol (2.5 MG/3ML) 0.083% nebulizer solutionIndicatio ns:Chronic obstructive pulmonary disease, unspecified COPD type (CMS/HCC) Take 3 mL (2.5 mg) by nebulization every 4 (four) hours if needed for wheezing or shortness of breath. 75 mL 3 025 Active fluticasone (Flonase) 50 MCG/ACT nasal spray INSTILL 2 SPRAYS IN EACH NOSTRIL ONCE DAILY 16 g 2 025 Active olopatadine (Pataday) 0.2 % ophthalmic solution INSTILL 1 DROP AFFECTED EYE(S) EVERY DAY 2.5 mL 2 025 Active amLODIPine (Norvasc) 10 MG tabletIndications :Essential hypertension TAKE 1 TABLET BY MOUTH EVERY MORNING 90 tablet 3 025 Active amLODIPine (Norvasc) 10 MG tabletIndications :Essential hypertension TAKE 1 TABLET BY MOUTH EVERY MORNING 90 tablet 3 024 2024 Discontinued olopatadine (Pataday) 0.2 % ophthalmic solution Administer 1 drop into affected eye(s) Once per day. 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 10/27/2022 Encounters Date Type Department Care Team Description 10/18/2024 Refill [facility] [address] [place] [address] Halley Powers DO Vitamin D deficiency 09/17/2024 Refill [facility] [address] [place] [address] Halley Powers, Essential hypertension 09/16/2024 Refill [facility] [address] [place] [address] Sophia Badillo FNP 09/13/2024 Refill [facility] [address] [place] [address] Halley Powers, 09/04/2024 Refill [facility] [address] [place] [address] Halley Powers, Chest congestion; Chronic obstructive pulmonary disease, unspecified COPD type ([facility]) 08/19/2024 Refill [facility] [address] [place] [address] Halley Powers, 08/18/2024 Refill [facility] [address] [place] [address] Halley Powers DO Chest congestion from Last 3 Months Immunizations Name Administration Dates Next Due Influenza High-dose Quadriva lent Preservative Free 04/22/2023,06/09/2022,05/30/2020 Influenza injectable quadriv alent IIV4 with preservative 07/07/2018,05/06/2017,04/30/2016 Influenza injectable quadriv alent preservative free 06/23/2021,05/02/2019,07/23/2015 Influenza, High Dose Seasona l, Preservative Free 06/26/2024,06/29/2014 Influenza, Unspecified 06/09/2022,05/30/2020 Pfizer Covid-19 Vaccine 12+ 06/26/2024,0 12/21/2023,05/06/2023,06/09 Pfizer Covid-19 Vaccine 12+ Bivalent 06/09/2022 Pneumococcal Conjugate PCV 13 12/02/2015 Pneumococcal Conjugate PCV 20 08/20/2023 Pneumococcal Polysaccharide PPSV23 09/20/2014 RSV Bivalent 12/30/2023 Tdap 07/08/2014 Zoster, Recombinant 09/05/2020,07/03/2020 Zoster, live 09/05/2020,07/03/2020,01/23/2015 Family History Medical History Relation Name Comments Diabetes Brother Hypertension Brother Alzheimer's disease Father Hypertension Father Diabetes Mother Hypertension Mother Kidney disease Mother Diabetes Sister Relation Name Status Comments Brother Father Mother Sister Social History Tobacco Use Types Packs/Day Years Used Date Smoking Tobacco: Former Cigarettes Passive Smoke Exposure: Past Smokeless Tobacco: Never Tobacco Cessation:Counseling Given: Not Answered Alcohol Use Standard Drinks/Week Comments Yes 0 (1 standard drink = 0.6 oz pur e alcohol) social Depression Answer Date Recorded Patient Health Questionnaire-9 Score 1 12/21/2023 Patient Health Questionnaire-9 Score 1 12/21/2023 Last PHQ-9: Questionnaire Data Not on file 0 12/21/2023 Housing Stability Answer Date Recorded What is your housing situation today? I have [place] 12/21/[address] you li ve. Do you have problems with any of the following? None of the above 12/21/2023 Food Insecurity Answer Date Recorded Within the past 12 months, y ou worried that your food would run out before you got money to buy more: Never True 12/21/2023 Within the past 12 months,th e food you bought just didn't last and you didn't have enough money to get more: Never True Transportation Answer Date Recorded In the past 12 months, has l ack of transportation kept you from medical appts, meetings, work or from getting things needed for daily living? No 12/21/2023 Utilities Answer Date Recorded In the past 12 months, has t he electric, gas, oil or water company threatened to shut off services in your home? No 12/21/2023 Depression Answer Date Recorded Patient Health Questionnaire-2 Score 0 12/21/2023 Internet Access Answer Date Recorded Internet Access Q1 No 06/16/2024 Internet Access Q2 I do not want or need it 03/2024 Sex and Gender Information Value Date Recorded Sex Assigned at Male 06/08/2022 10:26 AM EDT Legal Sex Male 10:26 AM EDT Gender Identity Male 06/08/2022 10:26 AM EDT Sexual Orientation Straight 06/08/2022 10 :26 AM EDT Last Filed Vital Signs Vital Sign Reading Time Taken Comments Blood Pressure 143/64 06/26/2024 10:14 AM EST Pulse 82 06/26/2024 10:14 AM EST Temperature 36.8 ??C (98.2 ??F) 06/26/2024 10:[address] Respiratory Rate 18 06/26/2024 10:14 AM EST Oxygen Saturation 98% 06/26/2024 10:14 AM EST Inhaled Oxygen Concentration - - Weight 67.8 kg (149 lb 6.4 oz) 06/26/2024 10:14 AM EST Height 162.6 cm (5' 4 ) 06/26/2024 10:14 AM EST Body Mass Index 25.64 06/26/2024 10:14 AM EST Plan of Treatment Upcoming Encounters Date Type Department Care Team (Late st Contact Info) Description 02/14/2025 9:00 AM EDT Office Visit [facility] [address] [place] [address] Shayan, Sharon, OD [address] [place] [address] Health Maintenance Due Date Last Done Comments CT Colonography 1949 Dental Oral Exam 1949 Dental Prophylaxis 1949 Dental X-Ray: Bitewings 1949 Dental X-Ray: Full Mouth 1949 FIT DNA/Cologuard 1949 FIT 1949 FOBT 1950 Sigmoidoscopy 1949 Alcohol/Substance Use Screening 1961 Hepatitis C Screening 1967 DTaP/Tdap/Td Vaccines (2 - Td or Tdap) 07/08/2024 07/08/2014 Depression Screening 12/20/2024 12/21/2023, 12/21/19 24 SDOH Screening 12/20/2024 12/21/2023 Colonoscopy 12/21/2024 12/21/2014 Colorectal Cancer Screening 12/21/2024 Tobacco Screening 06/26/2025 06/26/2024 Lipid Panel 08/16/2028 08/16/2023, 05/10, 04/04/2021, Additional history exists Zoster Vaccines Completed 09/05/2020, 08/10, 07/03/2020, Additional history exists Pneumococcal Vaccine: 50+ Years Completed 08/20/2023, 12/02/2015, 09/20/2014 RSV Patients and Patients Aged 60 years or older Completed 12/30/2023 COVID-19 Vaccine Completed 06/26/2024, , 05/06/2023, Additional history exists Influenza Vaccine Completed 06/26/2024, , 06/09/2022, Additional history exists HIB Vaccines Aged Out No longer eligi ble based on patient's age to complete this topic HPV Vaccines Aged Out No longer eligi ble based on patient's age to complete this topic Hepatitis A Vaccines Aged Out No long er eligible based on patient's age to complete this topic Hepatitis B Vaccines Aged Out No long er eligible based on patient's age to complete this topic IPV Vaccines Aged Out No longer eligi ble based on patient's age to complete this topic Meningococcal Vaccine Aged Out No inna amy eligible based on patient's age to complete this topic RSV under 20 months Aged Out No longe r eligible based on patient's age to complete this topic Rotavirus Vaccines Aged Out No longer eligible based on patient's age to complete this topic Procedures Procedure Name Priority Date/Time Associated Diagnosis Comments LIPID PANEL, STANDARD Routine 08/16/2023 8:40 AM EST Essential hypertension HM COLONOSCOPY Routine 12/21/2014 8:16 AM EDT from Last 3 Months or Most Recently Relevant to Health Maintenance Results * (ABNORMAL) Lipid Panel, Standard (08/16/2023 8:40 AM EST) Triglycerides 67 <150 mg/dL [facility] Comment:Desirable Triglyceri de: less than 150 mg/dLBorderline High Triglyceride 150-199 mg/dLHigh Triglyceride: 200-499 mg/dLVery High Triglyceride: greater than or equal to 5OO mg/dL Cholesterol 106 <200 mg/dL [facility] Comment:Desirable Cholestero l: less than 200 mg/dLBorderline High Cholesterol: 200-239 mg/dLHigh Cholesterol: greater than 239 mg/dL LDL Cholesterol Calculated 53 <100 mg/dL [facility] Comment:Desirable LDL: less than 100 mg/dLNear Optimal/Above Optimal LDL: 110- 129 mg/dLBorderline High LDL: 130-159 mg/dLHigh LDL: 160-189 mg/dLVery High LDL: greater than or equal to 190 mg/dL HDL Cholesterol 40(L) >40 mg/dL [facility] Comment:Desirable HDL: great er than 40 mg/dL Note: This HDL assay may give artificially low results in patients with liver disease. Blood Venous blood specimen / Unknown 08/16/2023 8:40 AM EST 08/16/2023 11:17 AM EST us Halley Powers DO LAB BLOOD ORDERABLES Final R esult [facility] [address] [place] [address] [phone] * Hm Colonoscopy (12/21/2014 8:16 AM EDT) us Historical Provider MD HEALTH MAINTENANCE Final Result from Last 3 Months or Most Recently Relevant to Health Maintenance Insurance MEDICARE [facility] STAND AD[place] Care Teams Airplane Tester Relationship Specialty Start Date End Date Halley Powers DO [address] [place] [phone] PCP - General Family Medicine 01/10/15
--- OUTSIDE RECORDS SUMMARY | 2024-10-18 13:55 | XMS_ITS | Clinical Summary ---
Author Organization [facility] it Address [address] [place] [address] Care Team Providers Care Guard Sergeant Name Role Phone Maria E Powersfer Ziyad YOON Primary Care Provider [phone] Surgical History Surgery Date Site/Laterality Comments COLONOSCOPY 12/2014 PROCEDURE: HISTORICAL COLONOSCOPY OTHER SURGICAL HISTORY 10/2018 PROCEDURE: OR LARYNGOSCOPY INDIRECT DIAGNOSTIC SPX KNEE SURGERY PROCEDURE: HISTORICAL KNEE SURGERY; COMMENT: LEFT KNEE OTHER SURGICAL HISTORY 08/2020 Left PROCEDURE: OR RESCJ&BRONCHOPLASTY PFRMD TM LOBEC/SGMECTOMY Medical History Medical History Date Comments Cancer of lower lobe of left lung (CMS/HCC) DX:Cancer of lower lobe of l eft lung (HCC) 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 HTN (hypertension) DX:HTN (hyper tension) Hyperlipidemia DX:Hyperlipidemi a Personal history of nicotine dependence DX:Personal history of nicotine dependence Port-A-Cath in place DX:Port-A-C ath in place Family History Medical History Relation Name Comments Diabetes Brother Breast cancer Daughter 1 Thyroid disease Daughter 2 Diabetes Mother Relation Name Status Comments Brother Daughter 1 Alive Daughter 2 Alive Mother Social History Tobacco Use Types Packs/Day Years Used Date Smoking Tobacco: Every Day Cigarettes Alcohol Use Standard Drinks/Week Comments Yes 1 (1 standard drink = 0.6 oz pur e alcohol) Sex and Gender Information Value Date Recorded Sex Assigned at Not on file Legal Sex Male 4:50 AM EST Gender Identity Not on file Sexual Orientation Not on file Obstetrics History Plan of Treatment Health Maintenance Due Date Last Done Comments DTaP,Tdap,and Td Vaccines (1 - Tdap) 02/13/1968 Pneumococcal Vaccine: 50+ Ye ars (1 of 2 - PCV) 02/13/1968 Zoster Vaccines (1 of 2) 1999 Abdominal Aortic Aneurysm (A AA) Screen 07/12/2022 Cholesterol Screening (Lipid Panel) 07/12/2022 Colorectal Cancer Screening: Colonoscopy 07/12/2022 Depression Screening 07/12/2022 Falls Risk Assessment 07/12/2022 Hepatitis C Screening 07/12/2022 Social Influencers of Health Screening 07/12/2022 RSV Immunization Patients 60 + Years Old (1 - 1-dose 75+ series) 02/13/2024 COVID-19 Vaccine ( - 2023-2 5 season) 2024 Influenza Vaccine (#1) 2024 HIB Vaccines Aged Out No longer eligi [...] on patient's age to complete this topic MMR Vaccines Aged Out No longer eligi ble based on patient's age to complete this topic Meningococcal ACWY Vaccine Aged Out N o longer eligible based on patient's age to complete this topic Meningococcal B Vacine Aged Out No lo nger eligible based on patient's age to complete this topic RSV Immunization Patients Un danica 20 months Aged Out No longer eligible b ased on patient's age to complete this topic Varicella Vaccines Aged Out No longer eligible based on patient's age to complete this topic Advance Directives Documents on File Type Date Recorded Patient Hot Billet Shear Operator Expl anation Health Care Decision (hx) 08/20/2020 AD ROBLEDO DIRECTIVE Health Care Decision (hx) 08/20/2020 AD ROBLEDO DIRECTIVE Health Care Decision (hx) 08/20/2020 AD ROBLEDO DIRECTIVE Health Care Decision (hx) 08/20/2020 AD ROBLEDO DIRECTIVE Health Care Decision (hx) 08/20/2020 AD ROBLEDO DIRECTIVE Health Care Decision (hx) 08/20/2020 AD ROBLEDO DIRECTIVE Care Teams Guard Sergeant Relationship Specialty Start Date End Date Halley Powers DO [address] [place] [address] PCP - General Internal Medicine 11/11/20
--- OUTSIDE RECORDS SUMMARY | 2024-10-18 13:56 | XMS_ITS | Encounter Summary ---
Author Organization [employer] Address [address] [facility] 7[address] [place] [address] Care Team Providers Care Crossing Tender Name Role Phone Halley Powers DO Primary Care Provider + [phone] Reason for Visit * Reason Comments Med Refill Encounter Details Date Type Department Care Team ([facility] st Contact Info) Description 09/17/2024 Refill [facility] [address] [place] [address] Halley Powers DO [address] [place] [address] Essential hypertension Social History Tobacco Use Types Packs/Day Years Used Date Smoking Tobacco: Former Cigarettes Passive Smoke Exposure: Past Smokeless Tobacco: Never Alcohol Use Standard Drinks/Week Comments Yes 0 (1 standard drink = 0.6 oz pur e alcohol) social Depression Answer Date Recorded Patient Health Questionnaire-9 Score 1 12/21/2023 Patient Health Questionnaire-9 Score 1 12/21/2023 Last PHQ-9: Questionnaire Data Not on file 0 12/21/2023 Housing Stability Answer Date Recorded What is your housing situation today? I have [employer] 12/21/[address] you [...] Description 02/14/2025 9:00 AM EDT Office Visit [facility] [address] [place], [place] [id number] Shayan, Sharon, OD [address] [place] [address] documented as of this encounter Visit Diagnoses Diagnosis Essential hypertension Unspecified essential hypertension documented in this encounter Additional Health Concerns Assessment Noted Time PHQ-9 Depression Total Score: 1 12/21/19 24 9:21 AM EDT documented as of this encounter Care Teams Crossing Tender Relationship Specialty Start Date End Date Halley Powers DO [address] [place] [address] PCP - General Family Medicine 01/10/15 documented as of this encounter
--- OUTSIDE RECORDS SUMMARY | 2024-10-18 13:56 | XMS_ITS | Encounter Summary ---
Author Organization [employer] Address [address] [facility] 7[address] [place] [address] Care Team Providers Care Production Line Mechanic Name Role Phone Maria E Powersfer Primary Care Provider + [phone] Encounter Details Date Type Department Care Team (Late st Contact Info) Description 11/16/2023 Orders Only [facility] [address] [place] [address] ProviderEveline MD Social History Tobacco Use Types Packs/Day Years Used Date Smoking Tobacco: Former Cigarettes Passive Smoke Exposure: Past Smokeless Tobacco: Never Alcohol Use Standard Drinks/Week Comments Yes 0 (1 standard drink = 0.6 oz pur e alcohol) social Depression Answer Date Recorded Patient Health Questionnaire-9 Score 0 10/27/2022 Housing Stability Answer Date Recorded What is your housing situation today? I have [employer] 05/24/[address] you li ve. Do you have problems with any of the following? None of the above 05/24/2023 Food Insecurity Answer Date Recorded Within the past 12 months, y ou worried that your food would run out before you got money to buy more: Never True 05/24/2023 Within the past 12 months,th e food you bought just didn't last and you didn't have enough money to get more: Never True Transportation Answer Date Recorded In the past 12 months, has l ack of transportation kept you from medical appts, meetings, work or from getting things needed for daily living? No 05/24/2023 Utilities Answer Date Recorded In the past 12 months, has t he electric, gas, oil or water company threatened to shut off services in your home? No 05/24/2023 Depression Answer Date Recorded Patient Health Questionnaire-2 Score 0 10/27/2022 Sex and Gender Information Value Date Recorded Sex Assigned at Male 06/08/2022 10:26 AM EDT Legal Sex Male 10:26 AM EDT Gender Identity Male 06/08/2022 10:26 AM EDT Sexual Orientation Straight 06/08/2022 10 :26 AM EDT documented as of this encounter Plan of Treatment Upcoming Encounters Date Type Department Care Team (Late st Contact Info) Description 02/14/2025 9:00 AM EDT Office Visit [facility] [address] [place] [address] Shayan, Sharon, OD [address] [place] [address] documented as of this encounter Procedures Procedure Name Priority Date/Time Associated Diagnosis Comments HM COLONOSCOPY Routine 12/21/2014 8:16 AM EDT documented in this encounter Results * Hm Colonoscopy (12/21/2014 8:16 AM EDT) Historical Provider HEALTH MAINTENANCE Final Result documented in this encounter Visit Diagnoses Not on filedocumented in this encounter Additional Health Concerns Assessment Noted Time PHQ-9 Depression Total Score: 0 10/28/19 23 8:58 AM EDT documented as of this encounter Care Teams Production Line Mechanic Relationship Specialty Start Date End Date Halley Powers DO [address] [place] [address] PCP - General Family Medicine 01/10/15 documented as of this encounter
--- OUTSIDE RECORDS SUMMARY | 2024-10-18 13:56 | XMS_ITS | Encounter Summary ---
Author Organization [employer] Address [address] [facility] 7t [place] [address] Care Team Providers Care Feeder Driver Name Role Phone Halley Powers DO Primary Care Provider + [phone] Reason for Visit * Reason Comments Med Refill Encounter Details Date Type Department Care Team ([facility] st Contact Info) Description 09/16/2024 Refill [facility] [address] [place] [address] Sophia Badillo FNP [address] [place] [address] Social History Tobacco Use Types Packs/Day Years [...] Description 02/14/2025 9:00 AM EDT Office Visit [facility] OPT[facility] [address] [place], [place] [id number] Shayan, Sharon, OD [address] [place] [address] documented as of this encounter Visit Diagnoses Not on filedocumented in this encounter Additional Health Concerns Assessment Noted Time PHQ-9 Depression Total Score: 1 12/21/19 24 9:21 AM EDT documented as of this encounter Care Teams Feeder Driver Relationship Specialty Start Date End Date Halley Powers DO [address] [place] [address] PCP - General Family Medicine 01/10/15 documented as of this encounter
--- OUTSIDE RECORDS SUMMARY | 2024-10-18 13:56 | XMS_ITS | Encounter Summary ---
Author Organization [employer] Address [address] [facility] [address] [place] [address] Care Team Providers Care Mold Closer Name Role Phone Halley Powers DO Primary Care Provider + [phone] Reason for Visit * Reason Comments Med Refill Encounter Details Date Type Department Care Team ([facility] st Contact Info) Description 03/07/2024 Refill [facility] [address] [place] [address] Sophia Badillo FNP [address] [place] [address] Social History Tobacco Use Types Packs/Day Years [...] Recorded Patient Health Questionnaire-2 Score 0 12/21/2023 Sex and Gender Information Value Date Recorded [...] AM EDT Office Visit [facility] [address] [place] [address] ShayanSharon cantu, OD [address] [place] [address] documented as of this encounter Visit Diagnoses Not on filedocumented in this encounter Additional Health Concerns Assessment Noted Time PHQ-9 Depression Total Score: 1 12/21/19 24 9:21 AM EDT documented as of this encounter Care Teams Mold Closer Relationship Specialty Start Date End Date Halley Powers DO [address] [place] [address] PCP - General Family Medicine 01/10/15 documented as of this encounter
--- OUTSIDE RECORDS SUMMARY | 2024-10-18 13:56 | XMS_ITS | Clinical Summary ---
Author Organization [facility] Address [address] [place] [address] Phone Care Team Providers Care Spinning Machine Tender Name Role Phone Halley Powres DO Primary Care Provider Unava ilable Allergies No known active allergies Medications hydrALAZINE (APRESOLINE) 10 MG tablet Take 1 tablet by mouth 2 (two) times a day Active hydroCHLOROthia zide (HYDRODIURIL) 25 MG tablet Take 25 mg by mouth daily Active loratadine (CLARITIN) 10 MG tablet Take 1 tablet by mouth 1 (one) time each day Active losartan (COZAAR) 100 MG tablet Take 100 mg by mouth 09/27/2020 Active fluticasone (FLONASE) 50 MCG/ACT nasal spray INSTILL 2 SPRAYS IN EACH NOSTRIL ONCE DAILY 09/05/2020 Active metoprolol succinate XL (TOPROL-XL) 50 MG 24 hr tablet TAKE 1 TABLET BY MOUTH EVERY MORNING 09/27/2020 Active amLODIPine (NORVASC) 10 MG tablet Take 10 mg by mouth 03/13/2021 Active atorvastatin (LIPITOR) 10 MG tablet Take 10 mg by mouth 03/13/2021 Active cetirizine (ZyrTEC) 10 MG tablet Take 10 mg by mouth 1 (one) time each day 04/21/2021 Active ergocalciferol 1.25 MG (32461 UT) capsule TAKE 1 CAPSULE BY MOUTH ONCE WEEKLY ON Wednesday05/15/2021 Active Active Problems Problem Noted Date Diagnosed Date Personal history of tobacco use 10/27/2022 03/11/2023 Non-small cell lung cancer 10/27/202203/11 Hyperlipidemia 10/27/2022 03/11/2023 Allergic rhinitis 10/27/2022 03/11/2023 Chronic kidney disease 11/08/2020 Malignant neoplasm of lower lobe bronchus 2020 Laryngeal cancer 10/27/2018 Hypertension 10/25/2018 Stenosis of right renal artery 11/20/2015 0 03/11/2023 Elevated fasting glucose 07/23/2015 023 Immunizations Name Administration Dates Next Due Influenza, Quadrivalent, Preservative Free 06/23,05/02/2019,07/23/2015 Influenza, Quadrivalent, With Preservative 07/07,05/06/2017,04/30/2016 Influenza, Unspecified 06/09/2022,05/30/2020 Pfizer SARS-COV-2 06/09/2022 Pneumococcal Conjugate 13-Valent 12/02/2015 Pneumococcal Polysaccharide 09/20/2014 Shingrix 09/05/2020,07/03/2020 Tdap 07/08/2014 Zoster 01/23/2015 Family History Medical History Relation Comments Diabetes Mother Hypertension Mother Relation Status Comments Father Unknown Mother Social History Tobacco Use Types Packs/Day Years Used Date Smoking Tobacco: Former Cigarettes Q uit: 08/09/2008 Smokeless Tobacco: Never Tobacco Cessation:Counseling Given: Not Answered Comments:Smoking History Info:Every day Alcohol Use Standard Drinks/Week Comments No 0 (1 standard drink = 0.6 oz pur e alcohol) Sex and Gender Information Value Date Recorded Sex Assigned at Not on file Legal Sex Male 4:43 PM EST Gender Identity Not on file Sexual Orientation Not on file Last Filed Vital Signs Vital Sign Reading Time Taken Comments Blood Pressure 125/61 03/11/2023 3:53 PM EDT Pulse 84 03/11/2023 3:53 PM EDT Temperature - - Respiratory Rate - - Oxygen Saturation 98% 03/11/2023 3:53 PM EDT Inhaled Oxygen Concentration - - Weight 69.2 kg (152 lb 9.6 oz) 03/11/2023 3:53 P M EDT Height 167.6 cm (5' 6 ) 05/29/2021 2:28 PM EDT Body Mass Index 24.63 05/29/2021 2:28 PM EDT Plan of Treatment Health Maintenance Due Date Last Done Comments Colorectal Cancer Screening: Annual FOBT 1998 Colorectal Cancer Screening: Colonoscopy 1998 Colorectal Cancer Screening: Sigmoidoscopy 1998 Influenza Vaccine (#1) 2024 2, 06/23/2021, 05/30/2020, Additional history exists Pneumococcal Vaccine: 65+ Years Completed 12/02/2015, 09/20/2014 Hepatitis B Vaccine Aged Out No longe r eligible based on patient's age to complete this topic Insurance MEDICARE [place]ID [place]ARE [place] Care Teams Spinning Machine Tender Relationship Specialty Start Date End Date Halley Powers DO PCP - General 08/19/20
--- OUTSIDE RECORDS SUMMARY | 2024-10-18 13:56 | XMS_ITS | Encounter Summary ---
Author Organization [employer] Address [address] [facility] [address] [place] [address] Care Team Providers Care Coater Operator Name Role Phone Halley Powers DO Primary Care Provider + [phone] Reason for Visit * Reason Comments Med Refill Encounter Details Date Type Department Care Team ([facility] st Contact Info) Description 10/18/2024 Refill [facility] [address] [place] [address] Halley Powers DO [address] [place] [address] Vitamin D deficiency Social History Tobacco Use Types Packs/Day Years [...] Description 02/14/2025 9:00 AM EDT Office Visit [facility] [address] [place] [address] Shayan, Sharon, OD [address] [place] [address] documented as of this encounter Visit Diagnoses Diagnosis Vitamin D deficiency documented in this encounter Additional Health Concerns Assessment Noted Time PHQ-9 Depression Total Score: 1 12/21/19 24 9:21 AM EDT documented as of this encounter Care Teams Coater Operator Relationship Specialty Start Date End Date Halley Powers DO [address] [place] [address] PCP - General Family Medicine 01/10/15 documented as of this encounter
== END 2024-10-18 11:51 | disposition home or self-care (01) ==
LOC: HO.US 11:50
PROVIDERS: PCP Family Medicine; Visit Provider Internal Medicine
DX: Z13.89 Encounter for screening for other disorder (principal)
CPT/HCPCS: 93971

== ENCOUNTER → 2024-10-18 11:59 | Outpatient (BNV) | payer MEDICARE, MEDICAID, SELFPAY | PROVIDERS: PCP Family Medicine; Visit Provider Radiology Diagnostic Radiology | DX: I82.C11 Acute embolism and thrombosis of right internal jugular vein (principal); I82.290 Acute embolism and thrombosis of other thoracic veins; J43.2 Centrilobular emphysema; R91.8 Other nonspecific abnormal finding of lung field; I67.2 Cerebral atherosclerosis; T82.868A Thrombosis due to vascular prosthetic devices, implants and grafts, initial encounter | CPT/HCPCS: 70498; 71275; 93971 ==

== ENCOUNTER 2024-10-18 14:10 | Inpatient (IN) | payer MEDICARE, MEDICAID, SELFPAY ==
[2024-10-18] VITALS (9 sets, daily range): BP systolic 90–131; BP diastolic 44–63; PULSE 59–76; RESP 14–20; TEMP 36.7–37.2; O2SAT 95–98; BMI 24.2
--- NOTE | ~2024-10-18 | CT_ITS ---
EXAMINATION: CT ANGIOGRAM CHEST CLINICAL INFORMATION: Evaluate for catheter related a right IJ venous thrombosis. Swelling around right Port-A-Cath. COMPARISON: None available. TECHNIQUE: Multiple axial images were obtained through the chest after the administration of 50 mL of Omnipaque 350 intravenous contrast. Extensive vascular post-processing including two-dimensional and three-dimensional reformatted images were created and reviewed on an independent workstation. This CT examination was performed using dose optimization techniques as appropriate, variously including the following: *Automated exposure control *Adjustment of mA and/or kV according to patient size (this includes techniques or standardized protocols for targeted exams where dose is matched to indication/reason for exam; i.e. extremities or head) *Use of iterative reconstruction technique FINDINGS: A right-sided chest port is in place, tip extending into the right cavoatrial junction. VASCULAR: -There is apparent thrombosis of the right brachiocephalic vein and right internal jugular vein. -There is no evidence of pulmonary embolus. Normal caliber pulmonary arteries. -Aorta is normal in caliber and course with moderate atheromatous calcification. No aneurysm. -Borderline cardiac enlargement. No pericardial effusion. Minimal contrast reflux into the hepatic IVC. No right heart strain evident. LUNGS: -Moderate centrilobular emphysema with upper lobe predominance. -There is a left lower lobe resection with compensatory hyperaeration of the left upper lobe. -Mild parenchymal scarring present in the expanded inferior left lung. -Tiny chronic appearing inferior left effusion. No pleural enhancement or thickening. -6 x 4 mm pleural-based nodular focus in the lateral right middle lobe (series 9, image 147). This is unchanged from priors and most likely nodular scarring. -Mild subpleural reticular and consolidative opacity present in the most inferior right middle lobe, and posterior lateral right costophrenic sulcus. This may represent residual of prior pneumonia or scarring. -Minimal bronchiectasis in both lungs without bronchial wall thickening. -No suspicious pulmonary nodule evident. MEDIASTINUM: -No pathologic lymphadenopathy or mass. Multiple, less than 1.0 cm mediastinal lymph nodes involving mostly the pretracheal and subcarinal region, similar to priors. - Normal thyroid. -Mildly patulous esophagus. Probable tiny type I hiatal hernia. -Saber-sheath trachea. AXILLA/CHEST WALL: No lymphadenopathy. UPPER ABDOMEN: Unremarkable OSSEOUS STRUCTURES: No suspicious lytic or blastic bone lesion. Mild spinal degenerative changes. Mild chronic wedging of T3. CT/CT angio chest PE protocol IMPRESSION: 1. 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 This appears chronic and there is extensive collateralization of venous structures in the right thorax. The SVC is patent. 2. There is no evidence of pulmonary embolus. No evidence of acute aortic syndrome. 3. Moderate centrilobular emphysema. Status post left lower lobe resection. Compensatory hyperaeration of the left upper lobe. 4. Chronic left lung parenchymal findings consistent with scarring. Tiny left effusion, chronic. 5. Mild subpleural reticular and consolidative opacity present in the most inferior right middle lobe, and posterior lateral right costophrenic sulcus. This may represent residua of prior pneumonia (? Radiation related) or chronic parenchymal scarring. 6. Subcentimeter lymph nodes in the subcarinal and pretracheal region, similar to 09/06/2024. 7. No suspicious pulmonary nodules. See the body of the report for further detail. Electronically signed by: Evert Sharma MD 10/18/2024 03:47 PM EDT
--- NOTE | ~2024-10-18 | CT_ITS ---
EXAMINATION: CT ANGIOGRAM NECK CLINICAL INFORMATION: Evaluate for catheter related a right IJ venous thrombosis. Swelling around right Port-A-Cath. COMPARISON: None available. TECHNIQUE: CT angiogram neck performed after the intravenous bolus administration 70 mL of Omnipaque 350. Helical imaging was performed in the axial plane from the aortic arch to the skull base. The data was processed at the certified hyperbaric technologist's workstation for generation of MIP sequences. Angled MIPs and volume rendered reformatted images were also generated at an offline 3D workstation. Stenoses are assessed in accordance with NASCET criteria unless otherwise indicated. This CT examination was performed using dose optimization techniques as appropriate, variously including the following: *Automated exposure control *Adjustment of mA and/or kV according to patient size (this includes techniques or standardized protocols for targeted exams where dose is matched to indication/reason for exam; i.e. extremities or head) *Use of iterative reconstruction technique FINDINGS: NECK CTA: -AORTIC ARCH: Normal in caliber. Mild atheromatous calcification. Three-vessel branching pattern. -GREAT VESSEL ORIGINS: Widely patent. No stenosis. -RIGHT COMMON CAROTID ARTERY: Normal in course and caliber to the level of the bifurcation. -CERVICAL RIGHT INTERNAL CAROTID ARTERY: Mild calcific atherosclerotic disease of the carotid bulb and proximal internal carotid artery without flow-limiting stenosis. -LEFT COMMON CAROTID ARTERY: Normal in course and caliber to the level of the bifurcation. -CERVICAL LEFT INTERNAL CAROTID ARTERY: Mild calcific atherosclerotic disease of the carotid bulb and proximal internal carotid artery without flow-limiting stenosis. -CERVICAL RIGHT VERTEBRAL ARTERY: Codominant. Normal in course and caliber into the skull base. -CERVICAL LEFT VERTEBRAL ARTERY: Codominant. Normal in course and caliber into the skull base. OTHER, SOFT TISSUES: -Right chest port in place, tip in the cavoatrial junction. Thrombosis of the right internal jugular vein and right brachiocephalic vein, with chronic appearing collateralization of venous structures of the superior right hemithorax. -No neck lymphadenopathy or mass. No abnormal fluid collection or soft tissue swelling. -Normal thyroid. -Refer to the dedicated chest CTA for thoracic findings. CTA OF THE IMAGED BRAIN: -INTRACRANIAL INTERNAL CAROTID ARTERIES: Calcific atherosclerotic disease of the intracranial internal carotid arteries without occlusion or flow-limiting stenosis. -RIGHT MIDDLE CEREBRAL ARTERY: Normal M1 segment of the MCA without focal stenosis or occlusion. -LEFT MIDDLE CEREBRAL ARTERY: Normal M1 segment of the MCA without focal stenosis or occlusion. -RIGHT VERTEBRAL ARTERY V4: Normal in course and caliber. -LEFT VERTEBRAL ARTERY V4: Normal in course and caliber. -BASILAR ARTERY: Normal without focal stenosis or occlusion. Normal appearance of the proximal superior cerebellar arteries. Normal basilar tip. -RIGHT POSTERIOR CEREBRAL ARTERY: Normal P1 segment. Distal branches not imaged. -LEFT POSTERIOR CEREBRAL ARTERY: Normal P1 segment. Distal branches not imaged. -POSTERIOR COMMUNICATING ARTERIES: Not well seen. Normal opacification of the imaged venous sinuses. No venous sinus thrombosis. No space-occupying hemorrhage or definite evolving infarct. CT/CT angio neck IMPRESSION: 1. 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 There is collateralization of venous structures in the right superior hemithorax. Of note, this had a similar appearance 09/06/2024 CT chest. 2. No evidence of intracranial venous sinus thrombosis. 3. No significant arterial stenosis or occlusion. No dissection. 4. Refer to the dedicated CT angiogram chest for chest findings. Electronically signed by: Evert Sharma MD 10/18/2024 03:58 PM EDT
[2024-10-18 14:54] LABS: MANUAL DIFF FLAG NO
[2024-10-18 14:56] LABS: Basophils Percent Auto 0.2 % (0-2); Eosinophils Percent Auto 0.1 % (0-4); Hematocrit 36.6 % (42.0-52.0); Hemoglobin 10.7 g/dl (14.0-18.0); Imm Gran Abs Auto 0.22 X10*3/uL (0.00-0.03); Imm Gran Pct Auto 1.5 % (0.0-0.4); Lymphocytes Absolute Auto 1.1 X10*3/uL (1.2-4.9); Lymphocytes Percent Auto 7.6 % (20-40); Mean Corpuscular HGB Conc 29.2 g/dl (31.0-36.0); Mean Corpuscular Hemoglobin 24.3 pg (27.0-33.0); Mean Platelet Volume 10.6 fL (9.4-12.4); Monocytes Absolute Auto 1.1 X10*3/uL (0.1-1.2); Monocytes Percent Auto 7.1 % (2-11); Neutrophils Absolute Auto 12.4 x10*3/uL (2.0-8.3); Neutrophils Percent Auto 83.5 % (45-73); Platelet Count 189 X10*3/uL (160-400); Red Blood Count 4.41 X10*6/uL (4.60-5.80); White Blood Count 14.9 X10*3/uL (4.8-10.8)
[2024-10-18] MEDS: iohexoL 350 MG/ML 100 ML INFUS..BTL IV (15:03)
--- NOTE | 2024-10-18 15:16 | ED_ITS ---
HPI - General Adult General Chief complaint: General Medical Stated complaint: eval Time Seen by Provider: 10/18/24 14:51 Source: patient and clinical staff rn (all interactions with this patient were facilitated with an [facility] freight elevator erector) Mode of arrival: wheelchair Limitations: language barrier (all interactions with this patient were facilitated with an [facility] freight elevator erector) History of Present Illness ED Provider: Gloria Cannon PA-C HPI narrative: Patient is a 74 year old assigned male at with a history of COPD, HTN, and lung cancer currently receiving treatment under Dr. Stratton at [facility], presenting to the emergency department today with concerns of a port infection. Patient states that over the last 3 days his port has begun to swell, become warm, and is concerning for infection. Patient states that the port was last accessed on 10/06/2024 for chemo. Patient denies any dizziness, lightheadedness, abdominal pain, nausea, vomiting, fever, chills, blurry vision, double vision, loss of vision, chest pain, difficulty breathing, shortness of breath, back pain, night sweats, pain with urination, increased urinary frequency, increased urinary urgency, blood in his urine or stool, syncope or a near syncopal episode, recent trauma or falls, bowel incontinence, bladder incontinence, or any other complaints at this time. Patient states that he has had the port for 5 years. Onset (ago): day(s) (3) Location: right (chest) Relieving factors: none Exacerbating factors: none Associated symptoms: denies other symptoms Related Data Home Medications ?Medication ?Instructions ?Recorded ?Confirmed amlodipine 10 mg tablet 10 mg PO DAILY 06/07/20 10/18/24 atorvastatin 10 mg tablet 10 mg PO DAILY 06/07/20 10/18/24 fluticasone propionate 50 50 mcg intranasal DAILY PRN 06/07/20 10/18/24 mcg/actuation nasal Congestion spray,suspension losartan 100 mg tablet 100 mg PO DAILY 06/07/20 10/18/24 metoprolol succinate 50 mg 50 mg PO DAILY 06/07/20 10/18/24 tablet,extended release 24 hr cholecalciferol (vitamin D3) 50 50 mcg PO QAM 12/06/23 10/18/24 mcg (2,000 unit) capsule (Vitamin D3) Previous Rx's ?Medication ?Instructions ?Recorded ipratropium 0.5 mg-albuterol 3 mg 3 ml inhalation RQ4H WHILE AWAKE 12/10/23 (2.5 mg base)/3 mL nebulization #90 mL soln albuterol sulfate 90 mcg/actuation 2 puff inhalation 6XD PRN 12/30/23 aerosol inhaler shortness of breath or wheezing #1 ea inhalational spacing device #1 ea 12/30/23 (Aerochamber MV spacer) ondansetron 8 mg disintegrating 8 mg PO Q8H PRN Nausea And 03/08/24 tablet Vomiting #60 tabs levothyroxine 75 mcg tablet 75 mcg PO DAILY #30 tabs 08/04/24 fluticasone fur. 200 mcg-umeclid 1 inh inhalation DAILY 30 days #1 08/21/24 62.5 mcg-vilant 25 mcg ea inhalat.powder (Trelegy Ellipta) dexamethasone 4 mg tablet 4 mg PO BID #30 tabs 09/01/24 ferrous sulfate 325 mg (65 mg 325 mg PO BID #60 tabs 10/11/24 iron) tablet apixaban 5 mg tablet (Eliquis) 5 mg PO BID #74 tabs 10/18/24 Allergies Allergy/AdvReac Type Severity Reaction Status Date / Time No Known Allergies Allergy Verified 10/18/24 14:30 Review of Systems 2 Constitutional: Constitutional: Reports no additional constitutional complaints, Denies chills, Denies fever(s) and Denies night sweats Eyes: Eyes: Reports no additional eye complaints, Denies blurry vision, Denies change in vision, Denies diplopia, Denies eye discharge, Denies loss of vision and Denies eye pain ENT: Denies dizziness Comments: right sided neck and chest pain / swelling / warmth around port Cardiovascular: Cardiovascular: Reports no additional cardiovascular complaints, Denies lightheadedness, Denies Loss of Consciousness and Denies dyspnea Respiratory: Respiratory: Reports no additional respiratory complaints and Denies dyspnea Gastrointestinal: Gastrointestinal: Reports no additional gastrointestinal complaints, Denies abdominal pain, Denies melena, Denies hematochezia, Denies change in bowel habits and Denies change in stool character Genitourinary: Genitourinary: Reports no additional male genitourinary complaints, Denies hematuria, Denies oliguria, Denies difficulty urinating, Denies dysuria, Denies urinary frequency, Denies urinary hesitancy, Denies urinary incontinence and Denies urinary urgency Musculoskeletal: Musculoskeletal: Reports no additional musculoskeletal complaints, Denies numbness and Denies tingling Neurologic: Denies dizziness, Denies loss of vision, Denies numbness and Denies tingling Psychiatric: Psychiatric: Reports no additional psychiatric complaints Endocrine: Endocrine: Reports no additional endocrine complaints Hematologic/Lymphatic: Hematologic/Lymphatic: Reports no additional hematologic/lymphatic complaints Allergic/Immunologic: Allergic/Immunologic: Reports no additional allergic/immunologic complaints COUNT INCLUDES THE [facility] Past Medical History Medical History (Updated 10/18/24 @ 17:33 by PATRICK El) Tracheomalacia Mucus plugging of bronchi On beta [place] at home Personal history of nicotine dependence Port-A-Cath in place (~09/2020) 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) Hyperlipemia HTN (hypertension) Cancer of lower lobe of left lung (~2019) Surgical History History of laryngoscopy (~10/2018) Admission for fitting of Port-A-Cath (~09/2020) History of lobectomy of lung (~08/2020) History of colonoscopy (~12/2014) History of left knee surgery Family History Family History Mother Diabetes Brother Diabetes High blood pressure Daughter Breast cancer Daughter Hx of thyroid disease Social History Social History Household Members: Friend(s) Housing: Apartment Do you presently have visiting nurse or other home services: No Alcohol intake: current Alcohol intake frequency: holidays/special occasions only Alcohol type: beer Patient Tobacco Use Status: Former Tobacco user Cigarette Packs Per Day: 1 Years Smoked: 34 Smoked in Last 30 Days: No Use of substances other than those prescribed or required for medical reasons: No Advance Directives: No Advance Directives Information Provided: Yes Do you have a plan to hurt others: No Plan service: No Physical Exam ED Vital Signs: Vital Signs - 24 hr 10/18/24 14:29 10/18/24 16:33 10/18/24 17:05 Temperature 98.1 F 98.8 F Pulse Rate 76 75 74 Respiratory Rate 16 17 18 Blood Pressure 90/48 L 127/57 L 124/47 L Pulse Oximetry 97 96 97 Oxygen Delivery Method Room Air Room Air Room Air BMI result Body Mass Index 24.2 Medications Administered Discontinued Medications Generic Name Dose Route Start Last Admin Trade Name Freq PRN Reason Stop Dose Admin Apixaban 10 mg 10/18/24 16:29 10/18/24 16:37 Apixaban 5 Mg Tablet PO 10/18/24 16:30 10 mg ONCE ONE Administration Piperacillin Sod/Tazobactam 50 mls @ 100 mls/hr 10/18/24 15:17 10/18/24 17:06 Sod 3.375 gm/ Sodium Chloride IV 10/18/24 15:46 Infused ONCE ONE Infusion Vancomycin HCl 1,000 mg/ 270 mls @ 270 mls/hr 10/18/24 15:17 10/18/24 16:33 Sodium Chloride IV 10/18/24 16:16 270 mls/hr ONCE ONE Administration Sodium Chloride 1,000 mls @ 999 mls/hr 10/18/24 15:30 10/18/24 16:20 Ns IV 10/18/24 16:30 999 mls/hr .Q1H1M ERMA Administration Iohexol 100 ml 10/18/24 15:03 10/18/24 15:03 Iohexol 350 Mg/Ml 100 Ml Infus..Btl IV 10/18/24 15:04 85 ml ONCE ONE Administration Medical Decision Making Medical Decision Making MDM Narrative: Patient is a 74 year old assigned male at with a history of COPD, HTN, and lung cancer currently receiving treatment under Dr. Stratton [place] [facility], presenting to the emergency department today with concerns of a port infection. Patient's physical exam was as noted in the physical exam portion of this note. Patient's blood work showed an elevated WBC count of 14.9 with an initial lactic of 2.3. 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 I spoke to Dr. Stratton who recommended PO Eliquis, IV antibiotics, and medical admission. She states she would prefer not to have the port removed until / unless the port culture comes back positive. I gave the patient 1 liter of NS, Zosyn, and Vancomysin. Patient had a brief episode of hypotesnion but improved with IV fluids. I spoke to the hospitalist team who agreed to admission. I explained my physical exam findings as well as all test results to the patient. I answered all questions asked by the patient. Patient verbalized agreement and understanding with this treatment plan and admission. Differential Diagnosis Differential Diagnoses: The differential diagnosis associated with the presentation includes Cellulitis Infected port Thrombus Admission/Observation Consideration of admission/observation: Escalation of care including admission/observation considered Admitted as noted in the MDM Rationale portion of this note. Consult Healthcare Provider Management of the patient was discussed with: Hospitalist (agreed to admission as noted in the MDM Rationale portion of this note. ) and Health And Safety Representative (spoke with Dr. Stratton as noted in the MDM Rationale portion of this note. ) Lab Data [facility] Lab Attestation statement: I reviewed the patient's lab results. My interpretation of these results are in the MDM Rationale portion of this note. 10/18/24 14:47 10/18/24 14:47 Labs: Lab Results 10/18/24 10/18/24 10/18/24 Range/Units 14:47 16:49 17:03 WBC 14.9 H (4.8-10.8) X10*3/uL RBC 4.41 L (4.60-5.80) X10*6/uL Hgb 10.7 L (14.0-18.0) g/dl Hct 36.6 L (42.0-52.0) % MCV 83.0 (80.0-98.0) fL MCH 24.3 L (27.0-33.0) pg MCHC 29.2 L (31.0-36.0) g/dl RDW 17.0 H (11.0-16.0) % Plt Count 189 (160-400) X10*3/uL MPV 10.6 (9.4-12.4) fL Immature Gran % (Auto) 1.5 H (0.0-0.4) % Neut % (Auto) 83.5 H (45-73) % Lymph % (Auto) 7.6 L (20-40) % [place] % (Auto) 7.1 (2-11) % Eos % (Auto) 0.1 (0-4) % Baso % (Auto) 0.2 (0-2) % Lymph # (Auto) 1.1 L (1.2-4.9) X10*3/uL [place] # (Auto) 1.1 (0.1-1.2) X10*3/uL Eos # (Auto) 0.0 (0.0-0.4) X10*3/uL Baso # (Auto) 0.0 (0.0-0.2) X10*3/uL Abs Immat Gran (auto) 0.22 H (0.00-0.03) X10*3/uL Absolute Neuts (auto) 12.4 H (2.0-8.3) x10*3/uL Absolute Nucleated RBC 0.000 (0.0-0.012) X10*3/uL Nucleated RBC % (auto) 0.0 (0.0-0.2) /100WBC PT 12.5 H (10.9-12.4) SEC INR 1.1 (0.9-1.1) APTT 27.9 (26.0-36.8) SEC Sodium 140 (135-145) mmol/L Potassium 4.8 (3.3-5.1) mmol/L Chloride 103 (96-108) mmol/L Carbon Dioxide 31 H (22-29) mmol/L Anion Gap 11 L (12-20) BUN 18 H (9-16) mg/dL Creatinine 0.77 (0.5-1.4) mg/dL Estim Creat Clear Calc 74.8 Estimated GFR > 60 Random Glucose 125 H (60-115) mg/dL Lactic Acid 2.3 H* (0.5-2.0) mmol/L Lactic Acid F/U @ 2Hr 1.2 (0.5-2.0) mmol/L Calcium 8.8 (8.4-10.2) mg/dL Magnesium 2.1 (1.6-2.6) mg/dL Total Bilirubin 0.2 (0.0-1.0) mg/dL Direct Bilirubin < 0.2 (0.0-0.5) mg/dL AST 20 (5-37) U/L ALT 19 (0-40) U/L Alkaline Phosphatase 93 (39-117) U/L Total Protein 6.5 (6.5-8.0) g/dL Albumin 3.5 (3.5-5.0) g/dL Independent Interpretation I performed an independent interpretation of an: CT Scan Interpretation: My interpretation is in agreement with the radiologist's impression of these imaging studies. L Report Number: [id number]: Total DLP = 0.00 mGy-cm EXAMINATION: CT ANGIOGRAM CHEST CLINICAL INFORMATION: Evaluate for catheter related a right IJ venous thrombosis. Swelling around right Port-A-Cath. COMPARISON: None available. TECHNIQUE: Multiple axial images were obtained through the chest after the administration of 50 mL of Omnipaque 350 intravenous contrast. Extensive vascular post-processing including two-dimensional and three- dimensional reformatted images were created and reviewed on an independent workstation. This CT examination was performed using dose optimization techniques as appropriate, variously including the following: *Automated exposure control *Adjustment of mA and/or kV according to patient size (this includes techniques or standardized protocols for targeted exams where dose is matched to indication/reason for exam; i.e. extremities or head) *Use of iterative reconstruction technique FINDINGS: A right-sided chest port is in place, tip extending into the right cavoatrial junction. VASCULAR: -There is apparent thrombosis of the right brachiocephalic vein and right internal jugular vein. -There is no evidence of pulmonary embolus. Normal caliber pulmonary arteries. -Aorta is normal in caliber and course with moderate atheromatous calcification. No aneurysm. -Borderline cardiac enlargement. No pericardial effusion. Minimal contrast reflux into the hepatic IVC. No right heart strain evident. LUNGS: -Moderate centrilobular emphysema with upper lobe predominance. -There is a left lower lobe resection with compensatory hyperaeration of the left upper lobe. -Mild parenchymal scarring present in the expanded inferior left lung. -Tiny chronic appearing inferior left effusion. No pleural enhancement or thickening. -6 x 4 mm pleural-based nodular focus in the lateral right middle lobe (series 9, image 147). This is unchanged from priors and most likely nodular scarring. -Mild subpleural reticular and consolidative opacity present in the most inferior right middle lobe, and posterior lateral right costophrenic sulcus. This may represent residual of prior pneumonia or scarring. -Minimal bronchiectasis in both lungs without bronchial wall thickening. -No suspicious pulmonary nodule evident. MEDIASTINUM: -No pathologic lymphadenopathy or mass. Multiple, less than 1.0 cm mediastinal lymph nodes involving mostly the pretracheal and subcarinal region, similar to priors. -Normal thyroid. -Mildly patulous esophagus. Probable tiny type I hiatal hernia. -Saber-sheath trachea. AXILLA/CHEST WALL: No lymphadenopathy. UPPER ABDOMEN: Unremarkable OSSEOUS STRUCTURES: No suspicious lytic or blastic bone lesion. Mild spinal degenerative changes. Mild chronic wedging of T3. CT/CT angio chest PE protocol IMPRESSION: 1. 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 This appears chronic and there is extensive collateralization of venous structures in the right thorax. The SVC is patent. 2. There is no evidence of pulmonary embolus. No evidence of acute aortic syndrome. 3. Moderate centrilobular emphysema. Status post left lower lobe resection. Compensatory hyperaeration of the left upper lobe. 4. Chronic left lung parenchymal findings consistent with scarring. Tiny left effusion, chronic. 5. Mild subpleural reticular and consolidative opacity present in the most inferior right middle lobe, and posterior lateral right costophrenic sulcus. This may represent residua of prior pneumonia (? Radiation related) or chronic parenchymal scarring. 6. Subcentimeter lymph nodes in the subcarinal and pretracheal region, similar to 09/06/2024. 7. No suspicious pulmonary nodules. See the body of the report for further detail. Electronically signed by: Evert Sharma MD 10/18/2024 03:47 PM EDT Dictated By: Evert Sharma MD Signed By: Electronically signed by Evert Sharma MD 10/18/24 1547 Report Number: [id number]: Total DLP = 395.00 mGy-cm EXAMINATION: CT ANGIOGRAM NECK CLINICAL INFORMATION: Evaluate for catheter related a right IJ venous thrombosis. Swelling around right Port-A-Cath. COMPARISON: None available. TECHNIQUE: CT angiogram neck performed after the intravenous bolus administration 70 mL of Omnipaque 350. Helical imaging was performed in the axial plane from the aortic arch to the skull base. The data was processed at the technologist development's workstation for generation of MIP sequences. Angled MIPs and volume rendered reformatted images were also generated at an offline 3D workstation. Stenoses are assessed in accordance with NASCET criteria unless otherwise indicated. This CT examination was performed using dose optimization techniques as appropriate, variously including the following: *Automated exposure control *Adjustment of mA and/or kV according to patient size (this includes techniques or standardized protocols for targeted exams where dose is matched to indication/reason for exam; i.e. extremities or head) *Use of iterative reconstruction technique FINDINGS: NECK CTA: -AORTIC ARCH: Normal in caliber. Mild atheromatous calcification. Three-vessel branching pattern. -GREAT VESSEL ORIGINS: Widely patent. No stenosis. -RIGHT COMMON CAROTID ARTERY: Normal in course and caliber to the level of the bifurcation. -CERVICAL RIGHT INTERNAL CAROTID ARTERY: Mild calcific atherosclerotic disease of the carotid bulb and proximal internal carotid artery without flow-limiting stenosis. -LEFT COMMON CAROTID ARTERY: Normal in course and caliber to the level of the bifurcation. -CERVICAL LEFT INTERNAL CAROTID ARTERY: Mild calcific atherosclerotic disease of the carotid bulb and proximal internal carotid artery without flow-limiting stenosis. -CERVICAL RIGHT VERTEBRAL ARTERY: Codominant. Normal in course and caliber into the skull base. -CERVICAL LEFT VERTEBRAL ARTERY: Codominant. Normal in course and caliber into the skull base. OTHER, SOFT TISSUES: -Right chest port in place, tip in the cavoatrial junction. Thrombosis of the right internal jugular vein and right brachiocephalic vein, with chronic appearing collateralization of venous structures of the superior right hemithorax. -No neck lymphadenopathy or mass. No abnormal fluid collection or soft tissue swelling. -Normal thyroid. -Refer to the dedicated chest CTA for thoracic findings. CTA OF THE IMAGED BRAIN: -INTRACRANIAL INTERNAL CAROTID ARTERIES: Calcific atherosclerotic disease of the intracranial internal carotid arteries without occlusion or flow-limiting stenosis. -RIGHT MIDDLE CEREBRAL ARTERY: Normal M1 segment of the MCA without focal stenosis or occlusion. -LEFT MIDDLE CEREBRAL ARTERY: Normal M1 segment of the MCA without focal stenosis or occlusion. -RIGHT VERTEBRAL ARTERY V4: Normal in course and caliber. -LEFT VERTEBRAL ARTERY V4: Normal in course and caliber. -BASILAR ARTERY: Normal without focal stenosis or occlusion. Normal appearance of the proximal superior cerebellar arteries. Normal basilar tip. -RIGHT POSTERIOR CEREBRAL ARTERY: Normal P1 segment. Distal branches not imaged. -LEFT POSTERIOR CEREBRAL ARTERY: Normal P1 segment. Distal branches not imaged. -POSTERIOR COMMUNICATING ARTERIES: Not well seen. Normal opacification of the imaged venous sinuses. No venous sinus thrombosis. No space-occupying hemorrhage or definite evolving infarct. CT/CT angio neck IMPRESSION: 1. 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 There is collateralization of venous structures in the right superior hemithorax. Of note, this had a similar appearance 09/06/2024 CT chest. 2. No evidence of intracranial venous sinus thrombosis. 3. No significant arterial stenosis or occlusion. No dissection. 4. Refer to the dedicated CT angiogram chest for chest findings. Electronically signed by: Evert Sharma MD 10/18/2024 03:58 PM EDT RP Dictated By: Evert Sharma MD Signed By: Electronically signed by Evert Sharma MD 10/18/24 1558 Radiology Impression Discussion of test interpretation with radiology: I have reviewed the radiologist's reading. Critical Care Time Critical Care Time Critical Care Time: Yes Total Critical Care Time: 44 Attestation: I spent 44 minutes of Critical Care Time with this patient. This does not include time spent on separately reported billable procedures. Discharge Plan Discharge Clinical Impression: Cellulitis, Thrombosis Patient Disposition: Admitted As Inpatient Prescriptions: No Action albuterol sulfate 90 mcg/actuation HFA aerosol inhaler 2 puff inhalation 6XD PRN (Reason: shortness of breath or wheezing) Qty: 1 6RF (DME) Aerochamber MV Spacer See Rx Instructions .Route Qty: 1 0RF Rx Instructions: As directed Trelegy Ellipta 200-62.5-25 mcg blister with device 1 inh inhalation DAILY 30 Days Qty: 1 6RF ondansetron 8 mg Tablet,Disintegrating 8 mg PO Q8H PRN (Reason: Nausea And Vomiting) Qty: 60 3RF levothyroxine 75 mcg Tablet 75 mcg PO DAILY Qty: 30 3RF dexamethasone 4 mg Tablet 4 mg PO BID Qty: 30 2RF Rx Instructions: Take 1 tablet night before chemotherapy, take 1 tablet twice a day for 2 days after chemotherapy ferrous sulfate 325 mg (65 mg iron) Tablet 325 mg PO BID Qty: 60 3RF cholecalciferol (vitamin D3) [Vitamin D3] 50 mcg (2,000 unit) capsule 50 mcg PO QAM ipratropium-albuterol 0.5 mg-3 mg(2.5 mg base)/3 mL Solution For Nebulization 3 ml inhalation RQ4H WHILE AWAKE Qty: 90 0RF Eliquis 5 mg Tablet 5 mg PO BID Qty: 74 6RF Rx Instructions: Take 2 tablets twice a day for 1 week followed by 1 tablet b.i.d. amlodipine 10 mg tablet 10 mg PO DAILY metoprolol succinate 50 mg tablet extended release 24 hr 50 mg PO DAILY atorvastatin 10 mg tablet 10 mg PO DAILY losartan 100 mg tablet 100 mg PO DAILY fluticasone propionate 50 mcg/actuation spray,suspension 50 mcg intranasal DAILY PRN (Reason: Congestion) Print Language: Andorran
[2024-10-18 15:22] LABS: Alanine Aminotransferase 19 U/L (0-40); Albumin Level 3.5 g/dL (3.5-5.0); Anion Gap 11 (12-20); Aspartate Amino Transferase 20 U/L (5-37); Bilirubin Direct < 0.2 mg/dL (0.0-0.5); Bilirubin Total 0.2 mg/dL (0.0-1.0); Blood Urea Nitrogen 18 mg/dL (9-16); Calcium 8.8 mg/dL (8.4-10.2); Carbon Dioxide 31 mmol/L (22-29); Chloride 103 mmol/L (96-108); Creatinine Clr Calc Pharmacy 74.8; Estimated Glomerular Filt Rate > 60; Glucose Random 125 mg/dL (60-115); Magnesium 2.1 mg/dL (1.6-2.6); Potassium 4.8 mmol/L (3.3-5.1); Sodium 140 mmol/L (135-145); Total Protein 6.5 g/dL (6.5-8.0)
[2024-10-18 15:24] LABS: Lactic Acid 2.3 mmol/L (0.5-2.0)
[2024-10-18] MEDS: 0.9 % Sodium Chloride 1,000 ML 999 ML IV (16:20)
[2024-10-18] MEDS: vancomycin HCL 1,000 MG in 0.9 % Sodium Chloride 250 ML 270 MG IV (16:33)
[2024-10-18] MEDS: Piperacillin Sodium/Tazobactam 3.375 GM in 0.9 % Sodium Chloride 50 ML IV (16:36)
[2024-10-18] MEDS: Apixaban 5 MG TABLET 10 MG PO (16:37)
--- NOTE | 2024-10-18 16:44 | PC.NURSE ---
delay in abx d/t this RN obtaining 3rd set of culture off of port. port accessed via sterile technique, good blood return, cultures collected. de-accessed w/o flushing per PATRICK Cannon request d/t concern for infection in line. skin around port red/inflamed. firm 4cm x 6cm swelling above port extending up above right clavicle to right side of neck. pt medicated per OCT.
[2024-10-18 16:53] LABS: Reflex Lactate? Lactic Acid Added
[2024-10-18 17:01] LABS: INTERNATIONAL NORM RATIO 1.1 (0.9-1.1); Prothrombin Time 12.5 SEC (10.9-12.4)
[2024-10-18 17:01] LABS: Alkaline Phosphatase 93 U/L (39-117)
[2024-10-18 17:04] LABS: Partial Thromboplastin Time 27.9 SEC (26.0-36.8)
--- OUTSIDE RECORDS SUMMARY | 2024-10-18 17:19 | XMS_ITS | Encounter Summary ---
Author Organization [employer] Address [address] [place] [address] Care Team Providers Care Fashion Artist Name Role Phone Halley Powers DO Primary Care Provider Encounter Details Date Type Department Care Team (Late st Contact Info) Description 10/19/2022 Orders Only [facility] [address] [place] [address] Halley Soto LPN Social History Tobacco Use [...] Description 02/14/2025 9:00 AM EDT Office Visit [facility] [address] [place] [address] Shayan, Sharon, OD [address] [place] [address] documented as of this encounter Visit Diagnoses Not on filedocumented in this encounter Care Teams Fashion Artist Relationship Specialty Start Date End Date Halley Powers DO [address] [place] [address] PCP - General Family Medicine 01/10/15 documented as of this encounter
--- OUTSIDE RECORDS SUMMARY | 2024-10-18 17:19 | XMS_ITS | Clinical Summary ---
Author Organization [facility] it Address [address] [place] [address] Care Team Providers Care Ballet Master/Mistress Name Role Phone Maria E Powersfer Ziyad YOON Primary Care Provider [phone] Surgical History Surgery Date Site/Laterality Comments COLONOSCOPY 12/2014 PROCEDURE: HISTORICAL COLONOSCOPY OTHER SURGICAL HISTORY 10/2018 PROCEDURE: [place] LARYNGOSCOPY INDIRECT DIAGNOSTIC SPX KNEE SURGERY PROCEDURE: HISTORICAL KNEE SURGERY; COMMENT: LEFT KNEE OTHER SURGICAL HISTORY 08/2020 Left PROCEDURE: [place] RESCJ&BRONCHOPLASTY PFRMD TM LOBEC/SGMECTOMY Medical History Medical [...] Documents on File Type Date Recorded Patient [employer] Dean Expl anation Health Care Decision (hx) 08/20/2020 AD [place] DIRECTIVE Health Care Decision (hx) 08/20/2020 AD [place] DIRECTIVE Health Care Decision (hx) 08/20/2020 AD [place] DIRECTIVE Health Care Decision (hx) 08/20/2020 AD [place] DIRECTIVE Health Care Decision (hx) 08/20/2020 AD [place] DIRECTIVE Health Care Decision (hx) 08/20/2020 AD [place]BL[place] DIRECTIVE Care Teams Ballet Master/Mistress Relationship Specialty Start Date End Date Halley Powers DO [address] [place] [address] PCP - General Internal Medicine 11/11/20
--- OUTSIDE RECORDS SUMMARY | 2024-10-18 17:19 | XMS_ITS | Encounter Summary ---
Author Organization [employer] Address [address] [facility] [address] [place] [address] Care Team Providers Care Body Repairer Name Role Phone PriyaHalley Primary Care Provider + [phone] Encounter Details Date Type Department Care Team (Late st Contact Info) Description 10/18/2024 Orders Only [facility] External Provider, [facility] Social History Tobacco Use Types Packs/Day Years [...] AM EDT Office Visit [facility] [address] [place], [place] [phone] Shayan, Sharon, OD [address] [place], [place] [phone] documented as of this encounter Procedures Procedure Name Priority Date/Time Associated Diagnosis Comments APTT Routine 10/18/2024 4:49 PM EDT PROTHROMBIN TIME-INR Routine 10/18/2024 4:49 PM EDT CTA NECK W AND WO CONTRAST Routine 10/18/2024 2:57 PM EDT CBC WITH AUTO DIFFERENTIAL Routine 10/18/2024 2:47 PM EDT LACTIC ACID Routine 10/18/2024 2:47 PM EDT CTA CHEST PE PROTOCAL Routine 10/18/2024 2:16 PM EDT VASC US UPPER EXTREMITY VENOUS DUPLEX RIGHT Routine 10/18/2024 12:05 PM EDT documented in this encounter Results * Partial Thromboplastin Time, Activated (APTT) (10/18/2024 4:49 PM EDT) [facility] Partial Thromboplastin Time 27.9 26.0 - 36.8 SEC [facility] Comment:For information rega rding the monitoring of direct thrombininhibitors, please refer to Pharmacy. 10/18/2024 4:49 PM EDT 10/18/2024 4:51 PM EDT Generic External Data Provider LAB BLOOD ORDERAB LES Final Result Performing Organization Address [facility] de Phone Number [facility] [address] [place] [phone] * (ABNORMAL) Prothrombin Time-INR (10/18/2024 4:49 PM EDT) Prothrombin Time 12.5(H) 10.9 - 12.4 SEC [facility] INTERNATIONAL NORM RATIO 1.1 0.9 - 1.1 [facility] Comment:INTERNATIONAL NORMAL IZED RATIO (INR) REFERENCE RANGES Reference RangeFor patients not on anticoagulant therapy: 0.9 - 1.1INR ranges for oral anticoagulanttherapy:For prevention and treatment of venous thrombosis and pulmonary embolism: 2.0 - 3.0For acute myocardial infarction with aspirin therapy: 2.0 - 3.0For acute myocardial infarction without aspirin therapy: 3.0 - 4.0For patients with mechanical prosthetic heart valves: 2.5 - 3.5 10/18/2024 4:49 PM EDT 10/18/2024 4:51 PM EDT Generic External Data Provider LAB BLOOD ORDERAB LES Final Result Performing Organization Address [facility] Co de Phone Number [facility] [address] [place] [phone] * CTA Neck w/ and w/o Contrast (10/18/2024 2:57 PM EDT) Anatomical Region Laterality Modality Head, Neck Computed Tomogra phy 10/18/2024 2:57 PM EDT Narrative 10/18/2024 4:01 PM EDT ? [facility] ?[address] ?[place] [address] ? CT Scan Report ? Signed ? Patient: Mikel Bo,Brent ?M ?? R#: [id number] ? : 1950 ?Acct:[id number] ? Age/Sex: 74 / M ?ADM Date: 10/18/24 ? Loc: HO.ED ? Attending Dr: ? Ordering Physician: Mae Chong MD ?? Date of Service: 10/18/24 ?? Procedure(s): CT angio neck ?? Accession Number(s): [id number] ? cc: Mae Chong MD; Halley Powers DO ? Report Number: ?? [id number]: Total DLP = ??395.00 mGy-cm ?? EXAMINATION: ?? CT ANGIOGRAM NECK ? CLINICAL INFORMATION: ?? Evaluate for catheter related a right IJ venous thrombosis. Swelling ?? around right Port-A-Cath. ? COMPARISON: ?? None available. ? TECHNIQUE: ?? CT angiogram neck performed after the intravenous bolus administration ?? 70 mL of Omnipaque 350. Helical imaging was performed in the axial ?? plane from the aortic arch to the skull base. The data was processed at ?? the textile technologist's workstation for generation of MIP sequences. ?? Angled MIPs and volume rendered reformatted images were also generated ?? at an offline 3D workstation. Stenoses are assessed in accordance with ?? NASCET criteria unless otherwise indicated. ? This CT examination was performed using dose optimization techniques as ?? appropriate, variously including the following: ?? *Automated exposure control ?? *Adjustment of mA and/or kV according to patient size (this includes ?? techniques or standardized protocols for targeted exams where dose is ?? matched to indication/reason for exam; i.e. extremities or head) ?? *Use of iterative reconstruction technique ? FINDINGS: ? NECK CTA: ?? -AORTIC ARCH: Normal in caliber. Mild atheromatous calcification. ?? Three-vessel branching pattern. ?? -GREAT VESSEL ORIGINS: Widely patent. No stenosis. ? -RIGHT COMMON CAROTID ARTERY: Normal in course and caliber to the level ?? of the bifurcation. ?? -CERVICAL RIGHT INTERNAL CAROTID ARTERY: Mild calcific atherosclerotic ?? disease of the carotid bulb and proximal internal carotid artery ?? without flow-limiting stenosis. ? -LEFT COMMON CAROTID ARTERY: Normal in course and caliber to the level ?? of the bifurcation. ?? -CERVICAL LEFT INTERNAL CAROTID ARTERY: Mild calcific atherosclerotic ?? disease of the carotid bulb and proximal internal carotid artery ?? without flow-limiting stenosis. ? -CERVICAL RIGHT VERTEBRAL ARTERY: Codominant. Normal in course and ?? caliber into the skull base. ?? -CERVICAL LEFT VERTEBRAL ARTERY: Codominant. Normal in course and ?? caliber into the skull base. ? OTHER, SOFT TISSUES: ?? -Right chest port in place, tip in the cavoatrial junction. Thrombosis ?? of the right internal jugular vein and right brachiocephalic vein, with ?? chronic appearing collateralization of venous structures of the ?? superior right hemithorax. ?? -No neck lymphadenopathy or mass. No abnormal fluid collection or soft ?? tissue swelling. ?? -Normal thyroid. ?? -Refer to the dedicated chest CTA for thoracic findings. ? CTA OF THE IMAGED BRAIN: ? -INTRACRANIAL INTERNAL CAROTID ARTERIES: Calcific atherosclerotic ?? disease of the intracranial internal carotid arteries without occlusion ?? or flow-limiting stenosis. ? -RIGHT MIDDLE CEREBRAL ARTERY: Normal M1 segment of the MCA without ?? focal stenosis or occlusion. ?? -LEFT MIDDLE CEREBRAL ARTERY: Normal M1 segment of the MCA without ?? focal stenosis or occlusion. ? -RIGHT VERTEBRAL ARTERY V4: Normal in course and caliber. ?? -LEFT VERTEBRAL ARTERY V4: Normal in course and caliber. ?? -BASILAR ARTERY: Normal without focal stenosis or occlusion. Normal ?? appearance of the proximal superior cerebellar arteries. Normal basilar ?? tip. ? -RIGHT POSTERIOR CEREBRAL ARTERY: Normal P1 segment. Distal branches ?? not imaged. ?? -LEFT POSTERIOR CEREBRAL ARTERY: Normal P1 segment. Distal branches not ?? imaged. ?? -POSTERIOR COMMUNICATING ARTERIES: Not well seen. ? Normal opacification of the imaged venous sinuses. No venous sinus ?? thrombosis. ? No space-occupying hemorrhage or definite evolving infarct. ? CT/CT angio neck ?? IMPRESSION: ?? 1. 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 There is ?? collateralization of venous structures in the right superior ?? hemithorax. Of note, this had a similar appearance 09/06/2024 CT chest. ?? 2. No evidence of intracranial venous sinus thrombosis. ?? 3. No significant arterial stenosis or occlusion. No dissection. ?? 4. Refer to the dedicated CT angiogram chest for chest findings. ? Electronically signed by: ??Evert Sharma MD ??10/18/2024 03:58 PM EDT RP ? Dictated By: ?Evert Sharma MD ? Signed By: ?<Electronically signed by Evert Sharma MD in OV> ?10/18/24 1558 ? DD/ 1457 ? TD/TT: 10/18/24 1517 ? Manager Performance Improvement: ? Procedure Note [place], Image - 10/18/[address] [place] [address] [address] Scan Report Signed Patient: Nasir Ahn MM R#: [id number] : 9Acct:[id number] Age/Sex: 74 / MADM Date: 10/18/24 Loc: HO.ED Attending Dr: Ordering Physician: Mae Chong MD Date of Service: 10/18/24 Procedure(s): CT angio neck Accession Number(s): [id number] cc: Mae Chong MD; Halley Powers DO Report Number: [id number]: Total DLP = 395.00 mGy-cm EXAMINATION: CT ANGIOGRAM NECK CLINICAL INFORMATION: Evaluate for catheter related a right IJ venous thrombosis. Swelling around right Port-A-Cath. COMPARISON: None available. TECHNIQUE: CT angiogram neck performed after the intravenous bolus administration 70 mL of Omnipaque 350. Helical imaging was performed in the axial plane from the aortic arch to the skull base. The data was processed at the textile technologist's workstation for generation of MIP sequences. Angled MIPs and volume rendered reformatted images were also generated at an offline 3D workstation. Stenoses are assessed in accordance with NASCET criteria unless otherwise indicated. This CT examination was performed using dose optimization techniques as appropriate, variously including the following: *Automated exposure control *Adjustment of mA and/or kV according to patient size (this includes techniques or standardized protocols for targeted exams where dose is matched to indication/reason for exam; i.e. extremities or head) *Use of iterative reconstruction technique FINDINGS: NECK CTA: -AORTIC ARCH: Normal in caliber. Mild atheromatous calcification. Three-vessel branching pattern. -GREAT VESSEL ORIGINS: Widely patent. No stenosis. -RIGHT COMMON CAROTID ARTERY: Normal in course and caliber to the level of the bifurcation. -CERVICAL RIGHT INTERNAL CAROTID ARTERY: Mild calcific atherosclerotic disease of the carotid bulb and proximal internal carotid artery without flow-limiting stenosis. -LEFT COMMON CAROTID ARTERY: Normal in course and caliber to the level of the bifurcation. -CERVICAL LEFT INTERNAL CAROTID ARTERY: Mild calcific atherosclerotic disease of the carotid bulb and proximal internal carotid artery without flow-limiting stenosis. -CERVICAL RIGHT VERTEBRAL ARTERY: Codominant. Normal in course and caliber into the skull base. -CERVICAL LEFT VERTEBRAL ARTERY: Codominant. Normal in course and caliber into the skull base. OTHER, SOFT TISSUES: -Right chest port in place, tip in the cavoatrial junction. Thrombosis of the right internal jugular vein and right brachiocephalic vein, with chronic appearing collateralization of venous structures of the superior right hemithorax. -No neck lymphadenopathy or mass. No abnormal fluid collection or soft tissue swelling. -Normal thyroid. -Refer to the dedicated chest CTA for thoracic findings. CTA OF THE IMAGED BRAIN: -INTRACRANIAL INTERNAL CAROTID ARTERIES: Calcific atherosclerotic disease of the intracranial internal carotid arteries without occlusion or flow-limiting stenosis. -RIGHT MIDDLE CEREBRAL ARTERY: Normal M1 segment of the MCA without focal stenosis or occlusion. -LEFT MIDDLE CEREBRAL ARTERY: Normal M1 segment of the MCA without focal stenosis or occlusion. -RIGHT VERTEBRAL ARTERY V4: Normal in course and caliber. -LEFT VERTEBRAL ARTERY V4: Normal in course and caliber. -BASILAR ARTERY: Normal without focal stenosis or occlusion. Normal appearance of the proximal superior cerebellar arteries. Normal basilar tip. -RIGHT POSTERIOR CEREBRAL ARTERY: Normal P1 segment. Distal branches not imaged. -LEFT POSTERIOR CEREBRAL ARTERY: Normal P1 segment. Distal branches not imaged. -POSTERIOR COMMUNICATING ARTERIES: Not well seen. Normal opacification of the imaged venous sinuses. No venous sinus thrombosis. No space-occupying hemorrhage or definite evolving infarct. CT/CT angio neck IMPRESSION: 1. 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 There is collateralization of venous structures in the right superior hemithorax. Of note, this had a similar appearance 09/06/2024 CT chest. 2. No evidence of intracranial venous sinus thrombosis. 3. No significant arterial stenosis or occlusion. No dissection. 4. Refer to the dedicated CT angiogram chest for chest findings. Electronically signed by: Evert Sharma MD 10/18/2024 03:58 PM EDT RP Dictated By: Evert Sharma MD Signed By: <Electronically signed by Evert Sharma MD in OV> 10/18/24 1558 DD/ 1457 TD/TT: 10/18/24 1517 Manager Performance Improvement: [facility] External Provider IMG CT PROCEDURES Final Result * (ABNORMAL) Lactic Acid (10/18/2024 2:47 PM EDT) [facility] Lactic Acid 2.3(HH) 0.5 - 2.0 mmol/L [facility] Comment:Critical value for t est(s): LACTA Results called to karen back by: REMIGIO Person calling: CORTEZ Date:10/18/24 Time: 1524 10/18/2024 2:47 PM EDT 10/18/2024 2:53 PM EDT Generic External Data Provider LAB BLOOD ORDERAB LES Final Result [facility] [address] [place] [phone] * (ABNORMAL) CBC auto differential (10/18/2024 2:47 PM EDT) Pathologist [facility] White Blood Count 14.9(H) 4.8 - 10.8 X10*3/uL [facility] Red Blood Count 4.41(L) 4.60 - 5.80 X10*6/uL [facility] Hemoglobin 10.7(L) 14.0 - 18.0 g/dl [facility] Hematocrit 36.6(L) 42.0 - 52.0 % [facility] Mean Corpuscular Volume 83.0 80.0 - 98.0 fL [facility] Mean Corpuscular Hemoglobin 24.3(L) 27.0 - 33.0 pg [facility] Mean Corpuscular HGB Conc 29.2(L) 31.0 - 36.0 g/dl [facility] Red Cell Distribution Width 17.0(H) 11.0 - 16.0 % [facility] Platelet Count 189 160 - 400 X10*3/uL [facility] Mean Platelet Volume 10.6 9.4 - 12.4 fL [facility] Neutrophils Percent Auto 83.5(H) 45 - 73 % [facility] Imm Gran Pct Auto 1.5(H) 0.0 - 0.4 % [facility] Lymphocytes Percent Auto 7.6(L) 20 - 40 % [facility] Monocytes Percent Auto 7.1 2 - 11 % [facility] Eosinophils Percent Auto 0.1 0 - 4 % [facility] Basophils Percent Auto 0.2 0 - 2 % [facility] NRBC Pct Auto 0.0 0.0 - 0.2 /100WBC [facility] Neutrophils Absolute Auto 12.4(H) 2.0 - 8.3 x10*3/uL [facility] Imm Gran Abs Auto 0.22(H) 0.00 - 0.03 X10*3/uL [facility] Lymphocytes Absolute Auto 1.1(L) 1.2 - 4.9 X10*3/uL [facility] Monocytes Absolute Auto 1.1 0.1 - 1.2 X10*3/uL [facility] Eosinophils Absolute Auto 0.0 0.0 - 0.4 X10*3/uL [facility] Basophils Absolute Auto 0.0 0.0 - 0.2 X10*3/uL [facility] NRBC Abs Auto 0.000 0.0 - 0.012 X10*3/uL [facility] 10/18/2024 2:47 PM EDT 10/18/2024 2:53 PM EDT us Generic External Data Provider LAB BLOOD ORDERAB LES Final Result [facility] [address] [place] [phone] * CTA Chest PE Protocal (10/18/2024 2:16 PM EDT) Anatomical Region Laterality Modality Body, Chest Computed Tomogra phy 10/18/2024 2:16 PM EDT Narrative 10/18/2024 3:50 PM EDT ? [facility] ?[address] ?[place] [address] ? CT Scan Report ? Signed ? Patient: Mikel BoNasir albright ?M ?? R#: [id number] ? : 1950 ?Acct:[id number] ? Age/Sex: 74 / M ?ADM Date: 10/18/24 ? Loc: HO.ED ? Attending Dr: ? Ordering Physician: Mae Chong MD ?? Date of Service: 10/18/24 ?? Procedure(s): CT angio chest PE protocol ?? Accession Number(s): [id number] ? cc: Mae Chong MD; Halley oPwers DO ? Report Number: ?? [id number]: Total DLP = ?0.00 mGy-cm ?? EXAMINATION: ?? CT ANGIOGRAM CHEST ? CLINICAL INFORMATION: ?? Evaluate for catheter related a right IJ venous thrombosis. Swelling ?? around right Port-A-Cath. ? COMPARISON: ?? None available. ? TECHNIQUE: ?? Multiple axial images were obtained through the chest after the ?? administration of 50 mL of Omnipaque 350 intravenous contrast. ?? Extensive vascular post-processing including two-dimensional and ?? three-dimensional reformatted images were created and reviewed on an ?? independent workstation. ? This CT examination was performed using dose optimization techniques as ?? appropriate, variously including the following: ?? *Automated exposure control ?? *Adjustment of mA and/or kV according to patient size (this includes ?? techniques or standardized protocols for targeted exams where dose is ?? matched to indication/reason for exam; i.e. extremities or head) ?? *Use of iterative reconstruction technique ? FINDINGS: ?? A right-sided chest port is in place, tip extending into the right ?? cavoatrial junction. ? VASCULAR: ?? -There is apparent thrombosis of the right brachiocephalic vein and ?? right internal jugular vein. ?? -There is no evidence of pulmonary embolus. Normal caliber pulmonary ?? arteries. ?? -Aorta is normal in caliber and course with moderate atheromatous ?? calcification. No aneurysm. ?? -Borderline cardiac enlargement. No pericardial effusion. Minimal ?? contrast reflux into the hepatic IVC. No right heart strain evident. ? LUNGS: ?? -Moderate centrilobular emphysema with upper lobe predominance. ?? -There is a left lower lobe resection with compensatory hyperaeration ?? of the left upper lobe. ? -Mild parenchymal scarring present in the expanded inferior left lung. ?? -Tiny chronic appearing inferior left effusion. No pleural enhancement ?? or thickening. ?? -6 x 4 mm pleural-based nodular focus in the lateral right middle lobe ?? (series 9, image 147). This is unchanged from priors and most likely ?? nodular scarring. ?? -Mild subpleural reticular and consolidative opacity present in the ?? most inferior right middle lobe, and posterior lateral right ?? costophrenic sulcus. This may represent residual of prior pneumonia or ?? scarring. ?? -Minimal bronchiectasis in both lungs without bronchial wall thickening. ?? -No suspicious pulmonary nodule evident. ? MEDIASTINUM: ?? -No pathologic lymphadenopathy or mass. Multiple, less than 1.0 cm ?? mediastinal lymph nodes involving mostly the pretracheal and subcarinal ?? region, similar to priors. ?? - Normal thyroid. ?? -Mildly patulous esophagus. Probable tiny type I hiatal hernia. ?? -Saber-sheath trachea. ? AXILLA/CHEST WALL: No lymphadenopathy. ? UPPER ABDOMEN: Unremarkable ? OSSEOUS STRUCTURES: ?? No suspicious lytic or blastic bone lesion. Mild spinal degenerative ?? changes. ?? Mild chronic wedging of T3. ? CT/CT angio chest PE protocol ?? IMPRESSION: ?? 1. 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 This appears chronic and ?? there is extensive collateralization of venous structures in the right ?? thorax. The SVC is patent. ?? 2. There is no evidence of pulmonary embolus. No evidence of acute ?? aortic syndrome. ?? 3. Moderate centrilobular emphysema. Status post left lower lobe ?? resection. Compensatory hyperaeration of the left upper lobe. ?? 4. Chronic left lung parenchymal findings consistent with scarring. ?? Tiny left effusion, chronic. ?? 5. Mild subpleural reticular and consolidative opacity present in the ?? most inferior right middle lobe, and posterior lateral right ?? costophrenic sulcus. This may represent residua of prior pneumonia (? ?? Radiation related) or chronic parenchymal scarring. ?? 6. Subcentimeter lymph nodes in the subcarinal and pretracheal region, ?? similar to 09/06/2024. ?? 7. No suspicious pulmonary nodules. See the body of the report for ?? further detail. ? Electronically signed by: ??Evert Sharma MD ??10/18/2024 03:47 PM EDT RP ? Dictated By: ?Evert Sharma MD ? Signed By: ?<Electronically signed by Evert Sharma MD in OV> ?10/18/24 1547 ? DD/ 1416 ? TD/TT: 10/18/24 1517 ? Manager Performance Improvement: ? Procedure Note [place], Image - 10/18/[address] [address] [address] Scan Report Signed Patient: Nasir Ahn MM R#: [id number] : 9Acct:[id number] Age/Sex: 74 / MADM Date: 10/18/24 Loc: HO.ED Attending Dr: Ordering Physician: Mae Chong MD Date of Service: 10/18/24 Procedure(s): CT angio chest PE protocol Accession Number(s): [id number] cc: Mae Chong MD; Halley Powers DO Report Number: [id number]: Total DLP = 0.00 mGy-cm EXAMINATION: CT ANGIOGRAM CHEST CLINICAL INFORMATION: Evaluate for catheter related a right IJ venous thrombosis. Swelling around right Port-A-Cath. COMPARISON: None available. TECHNIQUE: Multiple axial images were obtained through the chest after the administration of 50 mL of Omnipaque 350 intravenous contrast. Extensive vascular post-processing including two-dimensional and three-dimensional reformatted images were created and reviewed on an independent workstation. This CT examination was performed using dose optimization techniques as appropriate, variously including the following: *Automated exposure control *Adjustment of mA and/or kV according to patient size (this includes techniques or standardized protocols for targeted exams where dose is matched to indication/reason for exam; i.e. extremities or head) *Use of iterative reconstruction technique FINDINGS: A right-sided chest port is in place, tip extending into the right cavoatrial junction. VASCULAR: -There is apparent thrombosis of the right brachiocephalic vein and right internal jugular vein. -There is no evidence of pulmonary embolus. Normal caliber pulmonary arteries. -Aorta is normal in caliber and course with moderate atheromatous calcification. No aneurysm. -Borderline cardiac enlargement. No pericardial effusion. Minimal contrast reflux into the hepatic IVC. No right heart strain evident. LUNGS: -Moderate centrilobular emphysema with upper lobe predominance. -There is a left lower lobe resection with compensatory hyperaeration of the left upper lobe. -Mild parenchymal scarring present in the expanded inferior left lung. -Tiny chronic appearing inferior left effusion. No pleural enhancement or thickening. -6 x 4 mm pleural-based nodular focus in the lateral right middle lobe (series 9, image 147). This is unchanged from priors and most likely nodular scarring. -Mild subpleural reticular and consolidative opacity present in the most inferior right middle lobe, and posterior lateral right costophrenic sulcus. This may represent residual of prior pneumonia or scarring. -Minimal bronchiectasis in both lungs without bronchial wall thickening. -No suspicious pulmonary nodule evident. MEDIASTINUM: -No pathologic lymphadenopathy or mass. Multiple, less than 1.0 cm mediastinal lymph nodes involving mostly the pretracheal and subcarinal region, similar to priors. - Normal thyroid. -Mildly patulous esophagus. Probable tiny type I hiatal hernia. -Saber-sheath trachea. AXILLA/CHEST WALL: No lymphadenopathy. UPPER ABDOMEN: Unremarkable OSSEOUS STRUCTURES: No suspicious lytic or blastic bone lesion. Mild spinal degenerative changes. Mild chronic wedging of T3. CT/CT angio chest PE protocol IMPRESSION: 1. 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 This appears chronic and there is extensive collateralization of venous structures in the right thorax. The SVC is patent. 2. There is no evidence of pulmonary embolus. No evidence of acute aortic syndrome. 3. Moderate centrilobular emphysema. Status post left lower lobe resection. Compensatory hyperaeration of the left upper lobe. 4. Chronic left lung parenchymal findings consistent with scarring. Tiny left effusion, chronic. 5. Mild subpleural reticular and consolidative opacity present in the most inferior right middle lobe, and posterior lateral right costophrenic sulcus. This may represent residua of prior pneumonia (? Radiation related) or chronic parenchymal scarring. 6. Subcentimeter lymph nodes in the subcarinal and pretracheal region, similar to 09/06/2024. 7. No suspicious pulmonary nodules. See the body of the report for further detail. Electronically signed by: Evert Sharma MD 10/18/2024 03:47 PM EDT Dictated By: Evert Sharma MD Signed By: <Electronically signed by Evert Sharma MD in OV> 10/18/24 1547 DD/ 1416 TD/TT: 10/18/24 1517 Manager Performance Improvement: us [facility] External Provider IMG CT PROCEDURES Final Result * Vascular US upper extremity venous duplex right (10/18/2024 12:05 PM EDT) 10/18/2024 12:0 5 PM EDT Narrative [facility] - 10/18/2024 1:57 PM EDT ? [facility] ?[address] ?[place] [address] ? Ultrasound Report ? Signed ? Patient: Mikel Bo,Brent ?M ?? R#: [id number] ? : 1950 ?Acct:[id number] ? Age/Sex: 74 / M ?ADM Date: 03/12/25 ? Loc: HO.US ? Attending Dr: Blanche Stratton MD ? Ordering Physician: Blanche Stratton MD ?? Date of Service: 10/18/24 ?? Procedure(s): US venous duplex UE RT ?? Accession Number(s): [id number] ? cc: Blanche Stratton MD; Halley Powers DO ? EXAMINATION: ??US UPPER EXTREMITY VEINS LIMITED FOLLOW UP RIGHT ? HISTORY: Rapidly growing swelling/neck ? COMPARISON: Correlation is made with a chest CT with contrast dated ?? 09/06/2024. ? FINDINGS: ? A catheter is seen in the right neck which is noted to be in the distal ?? internal jugular vein on CT. No surrounding flow is identified. The ?? vein is not enlarged. The subclavian vein is not well visualized. The ?? axillary, basilic, brachial and cephalic veins are patent. ? US/US venous duplex UE RT ?? IMPRESSION: ?? Catheter in the right internal jugular vein without surrounding flow. ?? The subclavian vein is not well visualized. 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 ? Electronically signed by: ??Kvng Fry MD ??10/18/2024 01:54 PM EDT ?? RP ? Dictated By: ?Kvng Fry MD ? Signed By: ?<Electronically signed by Kvng Fry MD in OV> ?10/18/24 1354 ? DD/ 1205 ? TD/TT: 10/18/24 1230 ? Manager Performance Improvement: ? Procedure Note Aurelia, Image - 10/18/[address] [address] Ultrasound Report Signed Patient: Nasir Ahn QASIM R#: [id number] : 9Acct:[id number] Age/Sex: 74 / MADM Date: 10/18/24 Loc: HO. Attending Dr: Blanche Stratton MD Ordering Physician: Blanche Stratton MD Date of Service: 10/18/24 Procedure(s): US venous duplex UE RT Accession Number(s): [id number] cc: Blanche Stratton MD; Halley Powers DO EXAMINATION: US UPPER EXTREMITY VEINS LIMITED FOLLOW UP RIGHT HISTORY: Rapidly growing swelling/neck COMPARISON: Correlation is made with a chest CT with contrast dated 09/06/2024. FINDINGS: A catheter is seen in the right neck which is noted to be in the distal internal jugular vein on CT. No surrounding flow is identified. The vein is not enlarged. The subclavian vein is not well visualized. The axillary, basilic, brachial and cephalic veins are patent. US/US venous duplex UE RT IMPRESSION: Catheter in the right internal jugular vein without surrounding flow. The subclavian vein is not well visualized. 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 Electronically signed by: Kvng Fry MD 10/18/2024 01:54 PM EDT RP Dictated By: Kvng Fry MD Signed By: <Electronically signed by Kvng Fry MD in OV> 10/18/24 1354 DD/ 1205 TD/TT: 10/18/24 1230 Manager Performance Improvement: [facility] External Provider CV VASC ULAR PROCEDURES Final Result [facility] [address] [place] [phone] documented in this encounter Visit Diagnoses Not on filedocumented in this encounter Additional Health Concerns Assessment Noted Time PHQ-9 Depression Total Score: 1 12/21/19 24 9:21 AM EDT documented as of this encounter Care Teams Body Repairer Relationship Specialty Start Date End Date Halley Powers DO [address] [place] [phone] PCP - General Family Medicine 01/10/15 documented as of this encounter
--- OUTSIDE RECORDS SUMMARY | 2024-10-18 17:19 | XMS_ITS | Clinical Summary ---
Author Organization [employer] Address [address] [facility] 7t [place] [address] Care Team Providers Care Bead Cutter Name Role Phone PriyaHalley Primary Care Provider [phone] Allergies No known active allergies Medications metroNIDAZOLE (Metrogel) 1 % gel APPLY TOPICALLY TO FACE EVERY DAY AT BEDTIME Active Pembrolizumab (KEYTRUDA IV) For lung cancer [...] EVERY MORNING 90 tablet 3 025 Active D3 Super Strength 50 MCG (2000 UT) capsuleIndication s:Vitamin D deficiency TAKE 1 CAPSULE BY MOUTH EVERY MORNING 90 capsule 3 025 Active amLODIPine (Norvasc) 10 MG tabletIndications :Essential hypertension TAKE 1 TABLET BY MOUTH EVERY MORNING 90 tablet 3 024 2024 Discontinued D3 Super Strength 50 MCG (2000 UT) capsuleIndication s:Vitamin D deficiency TAKE 1 CAPSULE BY MOUTH EVERY MORNING 90 capsule 3 024 2024 Discontinued olopatadine (Pataday) 0.2 [...] 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 [address] Halley Powers, Vitamin D deficiency 09/17/2024 Refill [facility] MED[facility] [address] [place] [address] Halley Powers, Essential hypertension 09/16/2024 Refill [facility] [address] [place] [address] Sophia Badillo FNP 09/13/2024 Refill [facility] [address] [place] [address] Halley Powers, 09/04/2024 Refill [facility] MED[facility] [address] [place] [address] Halley Powers, Chest congestion; Chronic obstructive pulmonary disease, unspecified COPD type ([facility]) 08/19/2024 Refill [facility] MEDICINE [address] [place] [address] Halley Powers, 08/18/2024 Refill [facility] MED[facility] [address] [place] [address] Halley Powers, Chest congestion from Last 3 Months Immunizations [...] Description 02/14/2025 9:00 AM EDT Office Visit [facility] OPTOMETRY [address] [place] [address] Shayan, Sharon, OD [address] [place] [address] Health Maintenance Due Date Last Done Comments [...] WO CONTRAST Routine 10/18/2024 2:57 PM EDT LACTIC ACID Routine 10/18/2024 2:47 PM EDT CBC WITH AUTO DIFFERENTIAL Routine 10/18/2024 2:47 PM EDT CTA CHEST PE PROTOCAL Routine 10/18/2024 2:16 PM EDT VASC US UPPER EXTREMITY VENOUS DUPLEX RIGHT Routine 10/18/2024 12:05 PM EDT LIPID PANEL, STANDARD Routine 08/16/2023 8:40 AM EST Essential hypertension HM COLONOSCOPY Routine 12/21/2014 8:16 AM EDT from Last 3 Months or Most Recently Relevant to Health Maintenance Results * Partial Thromboplastin Time, Activated (APTT) (10/18/2024 4:49 PM EDT) Partial Thromboplastin Time 27.9 26.0 - 36.8 SEC [facility] Comment:For information rega rding the monitoring of direct thrombininhibitors, please refer to Pharmacy. 10/18/2024 4:49 PM EDT 10/18/2024 4:51 PM EDT us Generic External Data Provider LAB BLOOD ORDERAB LES Final Result Performing Organization Address [facility] Co de Phone Number [facility] [address] [place] [phone] * (ABNORMAL) Prothrombin Time-INR (10/18/2024 4:49 PM EDT) Prothrombin Time 12.5(H) 10.9 - 12.4 SEC [facility] INTERNATIONAL NORM RATIO 1.1 0.9 - 1.1 [facility] Comment:INTERNATIONAL NORMAL IZED RATIO (INR) REFERENCE [...] 4:49 PM EDT 10/18/2024 4:51 PM EDT us Generic External Data Provider LAB BLOOD ORDERAB LES Final Result Performing Organization Address [facility] Co de Phone Number [facility] [address] [place] [address] [phone] * CTA Neck w/ and w/o Contrast (10/18/2024 2:57 PM EDT) Anatomical Region Laterality Modality Head, Neck Computed Tomogra phy 10/18/2024 2:57 PM EDT Narrative 10/18/2024 4:01 PM EDT ? [facility] ?[address] ?[place] [address] ? CT Scan Report ? Signed ? Patient: Nasir Ahn ?M ?? R#: [id number] ? : 1950 ?Acct:[id number] ? Age/Sex: 74 / M ?ADM Date: 10/18/24 ? Loc: HO.ED ? Attending Dr: ? Ordering Physician: Mae Chong MD ?? Date of Service: 10/18/24 ?? Procedure(s): CT angio neck ?? Accession Number(s): [id number] ? cc: Mae Chong MD; Halley Powers DO ? Report Number: ?? [id number]: Total DLP = ??395.00 mGy-cm ?? EXAMINATION: [...] The data was processed at ?? the molecular technologist's workstation for generation of MIP sequences. [...] DD/ 1457 ? TD/TT: 10/18/24 1517 ? Wedger: ? Procedure Note Aurelia, Aviva - 10/18/[address] [place] [address] [address] Scan Report Signed Patient: Mikel GracianaNasir MM R#: [id number] : 9Acct:[id number] Age/Sex: 74 / MADM Date: 10/18/24 Loc: HO.ED Attending Dr: Ordering Physician: Mae Chong MD Date of Service: 10/18/24 Procedure(s): CT angio neck Accession Number(s): [id number] cc: Mae Chong MD; Halley Powers DO Report Number: [id number]: Total DLP = 395.00 mGy-cm EXAMINATION: CT [...] base. The data was processed at the molecular technologist's workstation for generation of MIP sequences. [...] Evert Sharma MD 10/18/2024 03:58 PM EDT Dictated By: Evert Sharma MD Signed By: <Electronically signed by Evert Sharma MD in OV> 10/18/24 1558 DD/ 1457 TD/TT: 10/18/24 1517 Wedger: [facility] External Provider IMG CT PROCEDURES Final Result * (ABNORMAL) CBC auto differential (10/18/2024 2:47 PM EDT) White Blood Count 14.9(H) 4.8 - 10.8 X10*3/uL [facility] Red Blood Count 4.41(L) 4.60 - 5.80 X10*6/uL [facility] Hemoglobin 10.7(L) 14.0 - 18.0 g/dl [facility] Hematocrit 36.6(L) 42.0 - 52.0 % [facility] Mean Corpuscular Volume 83.0 80.0 - 98.0 fL [facility] Mean Corpuscular Hemoglobin 24.3(L) 27.0 - 33.0 pg [facility] Mean Corpuscular HGB Conc 29.2(L) 31.0 - 36.0 g/dl [facility] Red Cell Distribution Width 17.0(H) 11.0 - 16.0 % [facility] Platelet Count 189 160 - 400 X10*3/uL [facility] Mean Platelet Volume 10.6 9.4 - 12.4 fL [facility] Neutrophils Percent Auto 83.5(H) 45 - 73 % [facility] Imm Gran Pct Auto 1.5(H) 0.0 - 0.4 % [facility] Lymphocytes Percent Auto 7.6(L) 20 - 40 % [facility] Monocytes Percent Auto 7.1 2 - 11 % [facility] Eosinophils Percent Auto 0.1 0 - 4 % [facility] Basophils Percent Auto 0.2 0 - 2 % [facility] NRBC Pct Auto 0.0 0.0 - 0.2 /100WBC [facility] Neutrophils Absolute Auto 12.4(H) 2.0 - 8.3 x10*3/uL [facility] Imm Gran Abs Auto 0.22(H) 0.00 - 0.03 X10*3/uL [facility] Lymphocytes Absolute Auto 1.1(L) 1.2 - 4.9 X10*3/uL [facility] Monocytes Absolute Auto 1.1 0.1 - 1.2 X10*3/uL [facility] Eosinophils Absolute Auto 0.0 0.0 - 0.4 X10*3/uL [facility] Basophils Absolute Auto 0.0 0.0 - 0.2 X10*3/uL [facility] NRBC Abs Auto 0.000 0.0 - 0.012 X10*3/uL [facility] 10/18/2024 2:47 PM EDT 10/18/2024 2:53 PM EDT us Generic External Data Provider LAB BLOOD ORDERAB LES Final Result [facility] [address] [place] [address] [phone] * (ABNORMAL) Lactic Acid (10/18/2024 2:47 PM EDT) Lactic Acid 2.3(HH) 0.5 - 2.0 mmol/L [facility] Comment:Critical value for t est(s): LACTA Results called to karen back by: REMIGIO Person calling: CORTEZ Date:10/18/24 Time: 1524 10/18/2024 2:47 PM EDT 10/18/2024 2:53 PM EDT us Generic External Data Provider LAB BLOOD ORDERAB LES Final Result [facility] [address] [place] [phone] * CTA Chest PE Protocal (10/18/2024 2:16 PM EDT) Anatomical Region Laterality Modality Body, Chest Computed Tomogra phy 10/18/2024 2:16 PM EDT Narrative 10/18/2024 3:50 PM EDT ? [facility] ?[address] ?[place] [address] ? CT Scan Report ? Signed ? Patient: Nasir Ahn ?M ?? R#: [id number] ? : 1950 ?Acct:[id number] ? Age/Sex: 74 / M ?ADM Date: 10/18/24 ? Loc: HO.ED ? Attending Dr: ? Ordering Physician: Mae Chong MD ?? Date of Service: 10/18/24 ?? Procedure(s): CT angio chest PE protocol ?? Accession Number(s): [id number] ? cc: Mae Chong MD; Halley Powers DO ? Report Number: ?? [id number]: Total DLP = ?0.00 mGy-cm ?? EXAMINATION: [...] DD/ 1416 ? TD/TT: 10/18/24 1517 ? Wedger: ? Procedure Note Aurelia, Aviva - 10/18/[address] [place] [address] CT Scan Report Signed Patient: Nasir Ahn MM R#: [id number] : 9Acct:[id number] Age/Sex: 74 / MADM Date: 10/18/24 Loc: HO.ED Attending Dr: Ordering Physician: Mae Chong MD Date of Service: 10/18/24 Procedure(s): CT angio chest PE protocol Accession Number(s): [id number] cc: Mae Chong MD; Halley Powers DO Report Number: [id number]: Total DLP = 0.00 mGy-cm EXAMINATION: CT [...] 10/18/24 1547 DD/ 1416 TD/TT: 10/18/24 1517 Wedger: [facility] External Provider IMG CT PROCEDURES Final Result * Vascular US upper extremity venous duplex right (10/18/2024 12:05 PM EDT) 10/18/2024 12:0 5 PM EDT Narrative [facility] - 10/18/2024 1:57 PM EDT ? [facility] ?[address] ?[place], [place] [address] ? Ultrasound Report ? Signed ? Patient: Mikel Bo,Brent ?M ?? R#: [id number] ? : 1950 ?Acct:[id number] ? Age/Sex: 74 / M ?ADM Date: 10/18/24 ? Loc: HO.US ? Attending Dr: Blanche Stratton MD ? Ordering Physician: Blanche Stratton MD ?? Date of Service: 10/18/24 ?? Procedure(s): US venous duplex UE RT ?? Accession Number(s): [id number] ? cc: Blanche Stratton MD; Halley Powers [...] DD/ 1205 ? TD/TT: 10/18/24 1230 ? Wedger: ? Procedure Note Donotuseinterpreter, Image - 10/18/[address] [address] Ultrasound Report Signed Patient: Nasir Ahn MM R#: [id number] : 9Acct:[id number] Age/Sex: 74 / MADM Date: 10/18/24 Loc: HO.US Attending Dr: Blanche Stratton MD Ordering Physician: Blanche Stratton MD Date of Service: 10/18/24 Procedure(s): US venous duplex UE RT Accession Number(s): [id number] cc: Blanche Stratton MD; Halley Powers DO [...] Kvng Fry MD 10/18/2024 01:54 PM EDT Dictated By: Kvng Fry MD Signed By: <Electronically signed by Kvng Fry MD in OV> 10/18/24 1354 DD/ 1205 TD/TT: 10/18/24 1230 Wedger: us [facility] External Provider CV VASC ULAR PROCEDURES Final Result [facility] [address] [place] [phone] * (ABNORMAL) Lipid Panel, Standard (08/16/2023 8:40 AM EST) Triglycerides 67 <150 mg/dL [facility] Comment:Desirable Triglyceri de: less than 150 mg/dLBorderline High Triglyceride 150-199 mg/dLHigh Triglyceride: 200-499 mg/dLVery High Triglyceride: greater than or equal to 5OO mg/dL Cholesterol 106 <200 mg/dL [facility] Comment:Desirable Cholestero l: less than 200 mg/dLBorderline High Cholesterol: 200-239 mg/dLHigh Cholesterol: greater than 239 mg/dL LDL Cholesterol Calculated 53 <100 mg/dL [facility] Comment:Desirable LDL: less than 100 mg/dLNear Optimal/Above Optimal LDL: 110- 129 mg/dLBorderline High LDL: 130-159 mg/dLHigh LDL: 160-189 mg/dLVery High LDL: greater than or equal to 190 mg/dL HDL Cholesterol 40(L) >40 mg/dL [facility] Comment:Desirable HDL: great er than 40 mg/dL Note: This HDL assay may give artificially low results in patients with liver disease. Blood Venous blood specimen / Unknown 08/16/2023 8:40 AM EST 08/16/2023 11:17 AM EST us Halley Powers DO LAB BLOOD ORDERABLES Final R esult [facility] [address] [place] [address] [phone] * Hm Colonoscopy (12/21/2014 8:16 AM EDT) us Historical Provider HEALTH MAINTENANCE Final Result from Last 3 Months or Most Recently Relevant to Health Maintenance Insurance MEDICARE [facility] ST[facility]ARD [facility] MEDICAID STAND ADULT Care Teams Bead Cutter Relationship Specialty Start Date End Date Halley Powers DO [address] [place] [address] PCP - General Family Medicine 01/10/15
--- OUTSIDE RECORDS SUMMARY | 2024-10-18 17:20 | XMS_ITS | Encounter Summary ---
Author Organization [employer] Address [address] [facility] 7t [place] [address] Care Team Providers Care Fitter Machinist Name Role Phone Maria E Powersfer Primary Care Provider + [phone] Encounter Details Date Type Department Care Team (Late st Contact Info) Description 11/16/2023 Orders Only [facility] MEDICINE [address] [place] [address] ProviderEveline MD Social History Tobacco Use Types [...] Description 02/14/2025 9:00 AM EDT Office Visit [facility] OPTOMETRY [address] [place] [address] Shayan, Sharon, OD [address] [place] [address] documented as of this encounter Procedures Procedure [...] documented as of this encounter Care Teams Fitter Machinist Relationship Specialty Start Date End Date Halley Powers DO [address] [place] [address] PCP - General Family Medicine 01/10/15 documented as of this encounter
--- OUTSIDE RECORDS SUMMARY | 2024-10-18 17:20 | XMS_ITS | Encounter Summary ---
Author Organization [employer] Address [address] [facility] 7t [place] [address] Care Team Providers Care Haz Tech Name Role Phone Halley Powers DO Primary Care Provider + [phone] Reason for Visit * Reason Comments Med Refill Encounter Details Date Type Department Care Team ([facility] st Contact Info) Description 10/18/2024 Refill [facility] MEDICINE [address] [place] [address] Halley Powers DO [address] [place] [address] Vitamin D deficiency Social History Tobacco Use [...] Description 02/14/2025 9:00 AM EDT Office Visit [facility] OPTOMETRY [address] [place] [address] Shayan, Sharon, OD [address] [place] [address] documented as of this encounter Visit Diagnoses Diagnosis Vitamin D deficiency documented in this encounter Additional Health Concerns Assessment Noted Time PHQ-9 Depression Total Score: 1 12/21/19 24 9:21 AM EDT documented as of this encounter Care Teams Haz Tech Relationship Specialty Start Date End Date Halley Powers DO [address] [place] [address] PCP - General Family Medicine 01/10/15 documented as of this encounter
--- OUTSIDE RECORDS SUMMARY | 2024-10-18 17:20 | XMS_ITS | Encounter Summary ---
Author Organization [employer] Address [address] [facility] 7t [place] [address] Care Team Providers Care Shank Threader Name Role Phone Halley Powers DO Primary Care Provider + [phone] Reason for Visit * Reason Comments Med Refill Encounter Details Date Type Department Care Team ([facility] st Contact Info) Description 09/17/2024 Refill [facility] MEDICINE [address] [place] [address] Halley Powers DO [address] [place] [address] Essential hypertension Social History Tobacco Use Types [...] Description 02/14/2025 9:00 AM EDT Office Visit [facility] OPTOMETRY [address] [place], [place] [phone] Shayan, Sharon, OD [address] [place] [address] documented as of this encounter Visit Diagnoses Diagnosis Essential hypertension Unspecified essential hypertension documented in this encounter Additional Health Concerns Assessment Noted Time PHQ-9 Depression Total Score: 1 12/21/19 24 9:21 AM EDT documented as of this encounter Care Teams Shank Threader Relationship Specialty Start Date End Date Halley Powers DO [address] [place] [address] PCP - General Family Medicine 01/10/15 documented as of this encounter
--- OUTSIDE RECORDS SUMMARY | 2024-10-18 17:20 | XMS_ITS | Clinical Summary ---
Author Organization [facility] Address [address] [place] [phone] Phone Care Team Providers Care Virtual Classroom Manager Name Role Phone Halley Powers DO Primary Care Provider Unava ilable Allergies [...] each day 04/21/2021 Active ergocalciferol 1.25 MG (03304 UT) capsule TAKE 1 CAPSULE BY MOUTH [...] [place] Care Teams Virtual Classroom Manager Relationship Specialty Start Date End Date Halley Powers DO PCP - General 08/19/20
--- OUTSIDE RECORDS SUMMARY | 2024-10-18 17:20 | XMS_ITS | Encounter Summary ---
Author Organization [employer] Address [address] [facility] 7t [place] [address] Care Team Providers Care Package Drier Name Role Phone Halley Powers DO Primary Care Provider + [phone] Reason for Visit * Reason Comments Med Refill Encounter Details Date Type Department Care Team ([facility] st Contact Info) Description 03/07/2024 Refill [facility] [address] [place] [address] Sophia Badillo FNP [address] [place] [address] Social History Tobacco Use Types Packs/Day Years [...] Description 02/14/2025 9:00 AM EDT Office Visit [facility] OPTOMETRY [address] [place] [address] ShayanSharon cantu, OD [address] [place] [address] documented as of this encounter Visit Diagnoses Not on filedocumented in this encounter Additional Health Concerns Assessment Noted Time PHQ-9 Depression Total Score: 1 12/21/19 24 9:21 AM EDT documented as of this encounter Care Teams Package Drier Relationship Specialty Start Date End Date Halley Powers DO [address] [place] [address] PCP - General Family Medicine 01/10/15 documented as of this encounter
--- OUTSIDE RECORDS SUMMARY | 2024-10-18 17:20 | XMS_ITS | Encounter Summary ---
Author Organization [employer] Address [address] [facility] 7[address] [place] [address] Care Team Providers Care Back Winder Name Role Phone Halley Powers DO Primary Care Provider + [phone] Reason for Visit * Reason Comments Med Refill Encounter Details Date Type Department Care Team ([facility] st Contact Info) Description 09/16/2024 Refill [facility] [address] [place] [address] Sophia Badillo FNP [address] [place] [address] Social History Tobacco Use Types Packs/Day Years [...] Description 02/14/2025 9:00 AM EDT Office Visit [facility] OPTOMETRY [address] [place], [place] [phone] Shayan, Sharon, OD [address] [place] [address] documented as of this encounter Visit Diagnoses Not on filedocumented in this encounter Additional Health Concerns Assessment Noted Time PHQ-9 Depression Total Score: 1 12/21/19 24 9:21 AM EDT documented as of this encounter Care Teams Back Winder Relationship Specialty Start Date End Date Halley Powers DO [address] [place] [address] PCP - General Family Medicine 01/10/15 documented as of this encounter
[2024-10-18 17:21] LABS: ~Lactic Acid-LAB USE ONLY 1.2 mmol/L (0.5-2.0)
--- NOTE | 2024-10-18 18:26 | PHA.MEDREC ---
Addendum entered by Joshua De Guzman [facility] 10/18/24 18:44: med rec reviewed Original Note: Pharmacy Consult ? Medication Reconciliation Pharmacy has completed the medication reconciliation. Spoke with patient and patients family at bedside. Patient and family confirmed they do not know the patients medications and it come in a med box from [facility]. I called [facility] and they were able to send over a list. I spoke with the Provider in the ED for him and they stated they started the Eliquis 5mg regimen and stated the nurses here gave the patient 2 tabs, I called and spoke with [facility] pharmacy and the Eliquis 5mg regimen is ready for pick up man, written as: take 2 tabs twice a day for the first 7 days then 1 tab twice a day after that. I utilized list from [facility] to confirm the rest of the med rec. The patient confirmed he took his medications this morning.
--- NOTE | 2024-10-18 18:41 | PM.IMHP ---
History of Present Illness Date of Service: 10/18/24 Attending physician on admission: Thien Gonzalez Chief Complaint: line infection 74-year-old male with history of COPD not on home oxygen, hypertension, and lung cancer with Port-A-Cath in place currently undergoing chemotherapy and under the care of Dr. Stratton presented to the emergency department earlier today from Oncology office due to concerns of line infection. Per the patient, he began noticing swelling with warmth overlying the port and catheter with tenderness especially when lying on the right side which he noticed 2 days ago. He denies any skin breaks or drainage. He denies any fevers or chills. His last chemotherapy session with port access was on 10/06. Since arrival to the ER, he has been afebrile and vital signs within normal limits except for an isolated instance blood pressure of 90/48 which is possibly an error. He has leukocytosis of 14.9 and a stable normocytic anemia. His renal function is baseline and electrolyte levels are within normal limits except for CO2 of 31 which is consistent with baseline as well. Initial lactic acid 2.3, repeat 1.2. CTA of the chest showed a thrombus of the right internal jugular vein and right brachiocephalic vein likely part related which does appear chronic and there is extensive collateralization of venous structures in the right thorax though SVC is patent. No evidence of PE or acute aortic syndrome. Chronic lung disease also noted as well as a subpleural reticular and consolidative opacity in the right middle lobe and posterior lateral right costophrenic sulcus possibly representing residua of prior pneumonia or chronic scarring. CTA of the neck with similar findings. Per Dr. Stratton patient should be started on Eliquis 10 mg twice daily which was prescribed earlier in her office. Blood cultures have been taken and he will be admitted to the hospital for IV antibiotics for possible line infection. 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) Hyperlipemia HTN (hypertension) Cancer of lower lobe of left lung (~2019) Family History Mother Diabetes Brother Diabetes High blood pressure Daughter Breast cancer Daughter Hx of thyroid disease Surgical History History of laryngoscopy (~10/2018) Admission for fitting of Port-A-Cath (~09/2020) History of lobectomy of lung (~08/2020) History of colonoscopy (~12/2014) History of left knee surgery Social History Household Members: Friend(s) Housing: Apartment Do you presently have visiting nurse or other home services: No Alcohol intake: current Alcohol intake frequency: holidays/special occasions only Alcohol type: beer Patient Tobacco Use Status: Former Tobacco user Cigarette Packs Per Day: 1 Years Smoked: 34 Smoked in Last 30 Days: No Use of substances other than those prescribed or required for medical reasons: No Advance Directives: No Advance Directives Information Provided: Yes Do you have a plan to hurt others: No Plan service: No Meds Allergies Allergy/AdvReac Type Severity Reaction Status Date / Time No Known Allergies Allergy Verified 10/18/24 14:30 Active Medications: Current Medications Acetaminophen (Acetaminophen 325 Mg Tablet) 650 mg PO Q6H PRN PRN Reason: Pain, Mild 1-3,fever,headache Apixaban (Apixaban 5 Mg Tablet) 5 mg PO BID ERMA Benzonatate (Benzonatate 100 Mg Capsule) 100 mg PO TID PRN PRN Reason: Cough Calcium Carbonate (Calcium Carbonate 750 Mg Tab.Chew) 750 mg PO Q4H PRN PRN Reason: Heartburn Piperacillin Sod/Tazobactam (Sod 4.5 gm/ Sodium Chloride) 100 mls @ 200 mls/hr IV Q6H ERMA Magnesium Hydroxide (Milk Of Magnesia 30 Ml Oral.Susp) 30 ml PO DAILY PRN PRN Reason: Constipation Melatonin (Melatonin 3 Mg Tablet) 6 mg PO BEDTIME PRN PRN Reason: Insomnia Pharmacy Consult (Consult Rx Vancomycin Dosing) 1 each MISCELLANE DAILY PRN PRN Reason: Consult order Sodium Chloride (0.9 % Sodium Chloride Flush 3 Ml Syringe) 3 ml IVFLUSH QSHIFT [facility] Home Medications ?Medication ?Instructions ?Recorded ?Confirmed ?Last Taken ?Type amlodipine 10 mg tablet 10 mg PO DAILY 06/07/20 10/18/24 10/18/24 History atorvastatin 10 mg tablet 10 mg PO DAILY 06/07/20 10/18/24 10/18/24 History fluticasone propionate 50 50 mcg intranasal DAILY PRN 06/07/20 10/18/24 10/18/24 History mcg/actuation nasal Congestion spray,suspension losartan 100 mg tablet 100 mg PO DAILY 06/07/20 10/18/24 10/18/24 History metoprolol succinate 50 mg 50 mg PO DAILY 06/07/20 10/18/24 10/18/24 History tablet,extended release 24 hr cholecalciferol (vitamin D3) 50 50 mcg PO QAM 12/06/23 10/18/24 10/18/24 History mcg (2,000 unit) capsule (Vitamin D3) albuterol sulfate 2.5 mg/3 mL 2.5 mg inhalation Q4H PRN 10/18/24 10/18/24 Unknown History (0.083 %) solution for nebulization Shortness Of Breath albuterol sulfate 90 mcg/actuation 2 puff inhalation Q4H shortness of 10/18/24 10/18/24 10/18/24 History aerosol inhaler breath or wheezing apixaban 5 mg tablet (Eliquis) 10 mg PO BID 10/18/24 10/18/24 10/18/24 History cetirizine 10 mg tablet 10 mg PO DAILY 10/18/24 10/18/24 10/18/24 History levothyroxine 75 mcg tablet 75 mcg PO DAILY@0600 10/18/24 10/18/24 10/18/24 History olopatadine 0.2 % eye drops 1 drp ophthalmic (eye) DAILY 10/18/24 10/18/24 10/18/24 History Physical Exam Vital Signs and Narrative: Vital Signs: Last Vital Signs Temp 98.7 F 10/18/24 18:13 Pulse 63 10/18/24 18:00 Resp 18 10/18/24 18:00 BP 121/44 L 10/18/24 18:00 Pulse Ox 98 10/18/24 18:00 O2 Del Method Room Air 10/18/24 18:00 BMI result Body Mass Index 24.2 Constitutional - Awake and Alert, No apparent distress Eyes - PERRLA, EOMI Cardiovascular - S1S2, RRR, No edema Respiratory - Normal lung expansion, Normal respiratory effort, No respiratory distress, bilateral rhonchi Gastrointestinal - NT / ND; +BS; No rebound or guarding Extremities - no calf tenderness bilaterally, no swelling Skin - Warm/Dry. Swelling and mild erythema overlying the port/line with ttp. No drainage Neurological - Alert & oriented x3 Psychological - Appropriate affect Results Labs 10/18/24 14:47 10/18/24 14:47 Labs: Laboratory Results - last 24 hr 10/18/24 10/18/24 10/18/24 14:47 16:49 17:03 MCV 83.0 MCH 24.3 L MCHC 29.2 L RDW 17.0 H Plt Count 189 MPV 10.6 Immature Gran % (Auto) 1.5 H Neut % (Auto) 83.5 H Lymph % (Auto) 7.6 L [place] % (Auto) 7.1 Eos % (Auto) 0.1 Baso % (Auto) 0.2 Lymph # (Auto) 1.1 L [place] # (Auto) 1.1 Eos # (Auto) 0.0 Baso # (Auto) 0.0 Abs Immat Gran (auto) 0.22 H Absolute Neuts (auto) 12.4 H Absolute Nucleated RBC 0.000 Nucleated RBC % (auto) 0.0 PT 12.5 H INR 1.1 APTT 27.9 Anion Gap 11 L Estim Creat Clear Calc 74.8 Estimated GFR > 60 Random Glucose 125 H Lactic Acid 2.3 H* Lactic Acid F/U @ 2Hr 1.2 Calcium 8.8 Magnesium 2.1 Total Bilirubin 0.2 Direct Bilirubin < 0.2 AST 20 ALT 19 Alkaline Phosphatase 93 Total Protein 6.5 Albumin 3.5 Imaging Radiologist's Impressions: Impressions Chest CTA 10/18/24 14:16 IMPRESSION: 1. 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 This appears chronic and there is extensive collateralization of venous structures in the right thorax. The SVC is patent. 2. There is no evidence of pulmonary embolus. No evidence of acute aortic syndrome. 3. Moderate centrilobular emphysema. Status post left lower lobe resection. Compensatory hyperaeration of the left upper lobe. 4. Chronic left lung parenchymal findings consistent with scarring. Tiny left effusion, chronic. 5. Mild subpleural reticular and consolidative opacity present in the most inferior right middle lobe, and posterior lateral right costophrenic sulcus. This may represent residua of prior pneumonia (? Radiation related) or chronic parenchymal scarring. 6. Subcentimeter lymph nodes in the subcarinal and pretracheal region, similar to 09/06/2024. 7. No suspicious pulmonary nodules. See the body of the report for further detail. Electronically signed by: Evert Sharma MD 10/18/2024 03:47 PM EDT RP Neck CTA 10/18/24 14:57 IMPRESSION: 1. 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 There is collateralization of venous structures in the right superior hemithorax. Of note, this had a similar appearance 09/06/2024 CT chest. 2. No evidence of intracranial venous sinus thrombosis. 3. No significant arterial stenosis or occlusion. No dissection. 4. Refer to the dedicated CT angiogram chest for chest findings. Electronically signed by: Evert Sharma MD 10/18/2024 03:58 PM EDT RP Assessment and Plan (1) Thrombosis: Status: Acute (2) Cellulitis: Status: Acute (3) Central line infection: Status: Acute Plan 74-year-old male with history of COPD not on home oxygen, hypertension, and lung cancer with Port-A-Cath in place currently undergoing chemotherapy and under the care of Dr. Stratton admitted for further management of possible line infection. 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 Per Dr. Stratton, initiate Eliquis 10 mg twice daily x7 days, then reduced to 5 mg daily -leukocytosis 14.4. No other SIRS criteria. No sepsis/severe sepsis -IV vancomycin and Zosyn (initiated 10/18) -oncology consult-per oncology, do not remove line until blood cultures are resulted as positive -infectious disease consult -follow CBC, cultures # hypertension -continue losartan, metoprolol, amlodipine # COPD -no acute exacerbation -continue maintenance inhalers, albuterol p.r.n. # hypothyroidism -continue levothyroxine # chronic normocytic anemia -continue ferrous sulfate # HLD -continue statin # lung cancer -Port-A-Cath in place with concern for line infection as above. Last chemotherapy with port access to/28 -oncology consult DVT prophylaxis-Eliquis Full code Patient requires inpatient stay at least 2 midnights for management of a possible Port-A-Cath line infection requiring IV antibiotics and close following of blood cultures as well as expert consultation Quality Stroke Does the patient have a stroke diagnosis?: No VTE Prior VTE?: No VTE Risk Level:: Medical - moderate - high VTE Device Contraindication: Treatment Not Indicated VTE Drug Contraindication: N/A - Med Ordered
[2024-10-18] MEDS: Cholecalciferol (Vitamin D3) 25 MCG TABLET 50 MCG PO (19:59)
[2024-10-18] MEDS: Ferrous Sulfate 324 MG TABLET.DR PO (20:00)
--- NOTE | 2024-10-18 20:30 | PHA.PROG ---
Admission Date/Time: October 18, 2024 18:33 Indication: OTHER Weight in k.039 kg Adjusted body weight in Kg: [place] body weight in Kg: Obesity Dosing Indication % IBW: Serum Creatinine - Last 168 Hours 10/18/24 14:47 Creatinine 0.77 Estimated CrCl and GFR - Last 168 Hours 10/18/24 14:47 Estim Creat Clear Calc 74.8 Estimated GFR > 60 Vancomycin Loading Dose: 1000 MG Current Vancomycin Dosing Regimen: 750 MG Q12H Vancomycin Monitoring using AUC goal of 400 - 600 range with trough as surrogate marker: GKY=875 TROUGH=14.5 Date and Time for next Vancomycin Level to be drawn: 10/19/24 @1500 Pharmacist Comments on Vancomycin Plan: Vancomycin dosing will take advantage of [employer] as a clinical decision support tool that uses Bayesian modeling to calculate individual patient's pharmacokinetic parameters and forecast the patient's drug concentration time course with the target goal AUC 24 range of 400 - 600 mg/L/hr.
[2024-10-18] MEDS: Piperacillin Sodium/Tazobactam 4.5 GM in 0.9 % Sodium Chloride 100 ML IV (22:26)
[2024-10-18] MEDS: 0.9 % Sodium Chloride Flush 3 ML SYRINGE IVFLUSH (22:29)
[2024-10-19 04:00] VITALS: BP 126/58; PULSE 71; RESP 16; TEMP 37.1; O2SAT 95
[2024-10-19] MEDS: Piperacillin Sodium/Tazobactam 4.5 GM in 0.9 % Sodium Chloride 100 ML IV ×4 (04:21→22:54)
[2024-10-19] MEDS: vancomycin HCL 750 MG in 0.9 % Sodium Chloride 250 ML 265 MG IV (05:12)
[2024-10-19 07:52] VITALS: BP 122/57; PULSE 71; RESP 18; TEMP 37.1; O2SAT 96
[2024-10-19 08:04] LABS: MANUAL DIFF FLAG NO
[2024-10-19 08:07] LABS: Basophils Percent Auto 0.3 % (0-2); Eosinophils Percent Auto 0.1 % (0-4); Hematocrit 33.4 % (42.0-52.0); Imm Gran Abs Auto 0.11 X10*3/uL (0.00-0.03); Lymphocytes Absolute Auto 0.7 X10*3/uL (1.2-4.9); Lymphocytes Percent Auto 6.3 % (20-40); Mean Corpuscular HGB Conc 29.9 g/dl (31.0-36.0); Mean Corpuscular Hemoglobin 24.4 pg (27.0-33.0); Mean Corpuscular Volume 81.7 fL (80.0-98.0); Mean Platelet Volume 9.9 fL (9.4-12.4); Monocytes Absolute Auto 0.7 X10*3/uL (0.1-1.2); Monocytes Percent Auto 6.6 % (2-11); Neutrophils Absolute Auto 9.3 x10*3/uL (2.0-8.3); Neutrophils Percent Auto 85.7 % (45-73); Platelet Count 155 X10*3/uL (160-400); Red Blood Count 4.09 X10*6/uL (4.60-5.80); White Blood Count 10.8 X10*3/uL (4.8-10.8)
[2024-10-19 08:30] LABS: Anion Gap 8 (12-20); Blood Urea Nitrogen 9 mg/dL (9-16); Calcium 7.9 mg/dL (8.4-10.2); Carbon Dioxide 29 mmol/L (22-29); Chloride 106 mmol/L (96-108); Creatinine Clr Calc Pharmacy 77.8; Estimated Glomerular Filt Rate > 60; Glucose Random 97 mg/dL (60-115); Potassium 4.4 mmol/L (3.3-5.1); Sodium 139 mmol/L (135-145)
[2024-10-19] MEDS: Cholecalciferol (Vitamin D3) 25 MCG TABLET 50 MCG PO (08:40)
[2024-10-19] MEDS: Apixaban 5 MG TABLET 10 MG PO ×2 (08:40→19:49)
[2024-10-19] MEDS: Atorvastatin Calcium 10 MG TABLET PO (08:41)
[2024-10-19] MEDS: Ferrous Sulfate 324 MG TABLET.DR PO ×2 (08:41→19:49)
[2024-10-19] MEDS: 0.9 % Sodium Chloride Flush 3 ML SYRINGE IVFLUSH ×3 (08:41→19:55)
[2024-10-19] MEDS: amLODIPine Besylate 10 MG TABLET PO (08:41)
[2024-10-19] MEDS: Loratadine 10 MG TABLET PO (08:41)
[2024-10-19] MEDS: Metoprolol Succinate ER 50 MG TAB.ER.24H PO (08:41)
[2024-10-19] MEDS: Losartan Potassium 50 MG TABLET 100 MG PO (08:41)
--- NOTE | 2024-10-19 10:31 | P.PNIM_ITS ---
Subjective Subjective Date of Service: 10/19/24 Interval History: no copmlaints Physical Exam 2 Vital Signs: Vital Signs: Last Vital Signs Temp 98.8 F 10/19/24 07:52 Pulse 71 10/19/24 07:52 Resp 18 10/19/24 07:52 BP 122/57 L 10/19/24 07:52 Pulse Ox 96 10/19/24 07:52 O2 Del Method Room Air 10/19/24 07:52 BMI result Body Mass Index 24.2 erythema over port site improved Objective Data Active Medications Acetaminophen (Acetaminophen 325 Mg Tablet) 650 mg PO Q6H PRN PRN Reason: Pain, Mild 1-3,fever,headache Albuterol Sulfate (Albuterol Sulfate 90 Mcg 8 Gm Inhaler) 2 puff INHALE Q4H PRN PRN Reason: Shortness of Breath/Wheezing Amlodipine Besylate (Amlodipine Besylate 10 Mg Tablet) 10 mg PO DAILY [facility]; Protocol Last Admin: 10/19/24 08:41 Dose: 10 mg Documented By: ELLIOTT Apixaban (Apixaban 5 Mg Tablet) 10 mg PO BID [facility] Stop: 10/25/24 09:01 Last Admin: 10/19/24 08:40 Dose: 10 mg Documented By: ELLIOTT Apixaban (Apixaban 5 Mg Tablet) 5 mg PO BID [facility] Atorvastatin Calcium (Atorvastatin Calcium 10 Mg Tablet) 10 mg PO DAILY [facility] Last Admin: 10/19/24 08:41 Dose: 10 mg Documented By: ELLIOTT Benzonatate (Benzonatate 100 Mg Capsule) 100 mg PO TID PRN PRN Reason: Cough Calcium Carbonate (Calcium Carbonate 750 Mg Tab.Chew) 750 mg PO Q4H PRN PRN Reason: Heartburn Ferrous Sulfate (Ferrous Sulfate 324 Mg Tablet.Dr) 324 mg PO BID [facility] Last Admin: 10/19/24 08:41 Dose: 324 mg Documented By: ELLIOTT Fluticasone Propionate (Fluticasone Propionate Nasal 16 Gm [place]) 1 spray NOSTRIL-B DAILY PRN PRN Reason: Congestion Fluticasone/Umeclidinium/Vilanterol (Fluticasone/Umeclidinium/Vilanterol 200/62.5/25 Blst.W.Dev) 1 puff INHALE RDAILY [facility] Last Admin: 10/19/24 08:00 Dose: Not Given Documented By: CONCEPCION Non-Admin Reason: pharmacy called for med Piperacillin Sod/Tazobactam (Sod 4.5 gm/ Sodium Chloride) 100 mls @ 200 mls/hr IV Q6H [facility] Last Infusion: 10/19/24 05:14 Dose: Infused Documented By: IKE Vancomycin HCl 750 mg/ Sodium (Chloride) 265 mls @ 265 mls/hr IV Q12H [facility] Last Infusion: 10/19/24 06:16 Dose: Infused Documented By: IKE Loratadine (Loratadine 10 Mg Tablet) 10 mg PO DAILY [facility] Last Admin: 10/19/24 08:41 Dose: 10 mg Documented By: ELLIOTT Losartan Potassium (Losartan Potassium 50 Mg Tablet) 100 mg PO DAILY [facility]; Protocol Last Admin: 10/19/24 08:41 Dose: 100 mg Documented By: ELLIOTT Magnesium Hydroxide (Milk Of Magnesia 30 Ml Oral.Susp) 30 ml PO DAILY PRN PRN Reason: Constipation Melatonin (Melatonin 3 Mg Tablet) 6 mg PO BEDTIME PRN PRN Reason: Insomnia Metoprolol Succinate (Metoprolol Succinate Er 50 Mg Tab.Er.24h) 50 mg PO DAILY [facility]; Protocol Last Admin: 10/19/24 08:41 Dose: 50 mg Documented By: ELLIOTT Ondansetron HCl (Ondansetron Odt 8 Mg Tab.Rapdis) 8 mg TRANSLINGU Q8H PRN PRN Reason: Nausea And Vomiting Pharmacy Consult (Consult Rx Vancomycin Dosing) 1 each MISCELLANE DAILY PRN PRN Reason: Consult order Sodium Chloride (0.9 % Sodium Chloride Flush 3 Ml Syringe) 3 ml IVFLUSH QSHIFT [facility] Last Admin: 10/19/24 08:41 Dose: 3 ml Documented By: ELLIOTT Vitamin D (Cholecalciferol (Vitamin D3) 25 Mcg Tablet) 50 mcg PO DAILY [facility] Last Admin: 10/19/24 08:40 Dose: 50 mcg Documented By: ELLIOTT Labs 10/19/24 07:40 10/19/24 07:40 Labs: Laboratory Results - last 24 hr 10/18/24 10/18/24 10/18/24 14:47 16:49 17:03 MCV 83.0 MCH 24.3 L MCHC 29.2 L RDW 17.0 H Plt Count 189 MPV 10.6 Immature Gran % (Auto) 1.5 H Neut % (Auto) 83.5 H Lymph % (Auto) 7.6 L [place] % (Auto) 7.1 Eos % (Auto) 0.1 Baso % (Auto) 0.2 Lymph # (Auto) 1.1 L [place] # (Auto) 1.1 Eos # (Auto) 0.0 Baso # (Auto) 0.0 Abs Immat Gran (auto) 0.22 H Absolute Neuts (auto) 12.4 H Absolute Nucleated RBC 0.000 Nucleated RBC % (auto) 0.0 PT 12.5 H INR 1.1 APTT 27.9 Anion Gap 11 L Estim Creat Clear Calc 74.8 Estimated GFR > 60 Random Glucose 125 H Lactic Acid 2.3 H* Lactic Acid F/U @ 2Hr 1.2 Calcium 8.8 Magnesium 2.1 Total Bilirubin 0.2 Direct Bilirubin < 0.2 AST 20 ALT 19 Alkaline Phosphatase 93 Total Protein 6.5 Albumin 3.5 10/19/24 07:40 MCV 81.7 MCH 24.4 L MCHC 29.9 L RDW 17.0 H Plt Count 155 L MPV 9.9 Immature Gran % (Auto) 1.0 H Neut % (Auto) 85.7 H Lymph % (Auto) 6.3 L [place] % (Auto) 6.6 Eos % (Auto) 0.1 Baso % (Auto) 0.3 Lymph # (Auto) 0.7 L [place] # (Auto) 0.7 Eos # (Auto) 0.0 Baso # (Auto) 0.0 Abs Immat Gran (auto) 0.11 H Absolute Neuts (auto) 9.3 H Absolute Nucleated RBC 0.000 Nucleated RBC % (auto) 0.0 PT INR APTT Anion Gap 8 L Estim Creat Clear Calc 77.8 Estimated GFR > 60 Random Glucose 97 Lactic Acid Lactic Acid F/U @ 2Hr Calcium 7.9 L D Magnesium Total Bilirubin Direct Bilirubin AST ALT Alkaline Phosphatase Total Protein Albumin Assessment and Plan (1) Port-A-Cath in place: Status: Acute Plan 74M PMH COPD, hypertension, lung cancer with Port-A-Cath undergoing chemotherapy with Dr. 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 on 10/25/24 Continue vanc and Zosyn, follow up Infectious Disease, follow-up cultures Hypertension Continue losartan, metoprolol, amlodipine COPD stable Continue inhalers Hypothyroid Continue levothyroxine Hyperlipidemia Continue statin Lung cancer Oncology DVT prophylaxis on Eliquis Full Code reason for continued hospitalization: Awaiting cultures Quality Stroke Does the patient have a stroke diagnosis?: No VTE Prior VTE?: No VTE Risk Level:: Medical - moderate - high VTE Device Contraindication: Treatment Not Indicated VTE Drug Contraindication: N/A - Med Ordered
--- NOTE | 2024-10-19 10:36 | MHC.CM.PN ---
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 PCP is confirmed: Halley Powers. HCP is on file and confirmed: [place] Arreaga. Pt can arrange a ride home at [place]. DCP: home, self care. CM to follow for [place] needs.
[2024-10-19 11:17] VITALS: BP 107/53; PULSE 63; RESP 18; TEMP 36.9; O2SAT 97
[2024-10-19] MEDS: Albuterol Sulfate 90 MCG 8 GM INHALER 2 PUFF INHALE (11:40)
[2024-10-19 15:33] VITALS: BP 119/55; PULSE 66; RESP 18; TEMP 36.9; O2SAT 96
[2024-10-19 15:34] LABS: Vancomycin Random 9.9 mcg/mL (15-20)
--- NOTE | 2024-10-19 15:40 | HE.PHANOTE ---
RE: VANCO DOSING Trough came back as 9.9 mg/L and renal function is stable. Dose is increased to 1000 mg q12h, next trough is scheduled for 10/20/24 @1500.
[2024-10-19] MEDS: vancomycin HCL 1,000 MG in 0.9 % Sodium Chloride 250 ML 270 MG IV (16:26)
[2024-10-19 19:27] VITALS: BP 128/63; PULSE 64; RESP 16; TEMP 37.1; O2SAT 97
[2024-10-19 23:41] VITALS: BP 124/58; PULSE 68; RESP 16; TEMP 36.9; O2SAT 96
[2024-10-20] VITALS (7 sets, daily range): BP systolic 124–135; BP diastolic 56–63; PULSE 68–87; RESP 16–18; TEMP 36.7–37.4; O2SAT 91–96
[2024-10-20] MEDS: vancomycin HCL 1,000 MG in 0.9 % Sodium Chloride 250 ML 270 MG IV (04:39)
[2024-10-20] MEDS: Piperacillin Sodium/Tazobactam 4.5 GM in 0.9 % Sodium Chloride 100 ML IV ×2 (04:39→12:03)
[2024-10-20] MEDS: Fluticasone/Umeclidinium/Vilanterol 200/62.5/25 BLST.W.DEV 1 PUFF INHALE (07:55)
[2024-10-20 08:41] LABS: Hematocrit 34.1 % (42.0-52.0); Hemoglobin 9.9 g/dl (14.0-18.0); Mean Corpuscular Hemoglobin 24.2 pg (27.0-33.0); Mean Corpuscular Volume 83.4 fL (80.0-98.0); Platelet Count 151 X10*3/uL (160-400); Red Blood Count 4.09 X10*6/uL (4.60-5.80); Red Cell Distribution Width 16.7 % (11.0-16.0); White Blood Count 9.1 X10*3/uL (4.8-10.8)
[2024-10-20 08:43] LABS: Anion Gap 9 (12-20); Blood Urea Nitrogen 10 mg/dL (9-16); Calcium 7.7 mg/dL (8.4-10.2); Carbon Dioxide 28 mmol/L (22-29); Chloride 107 mmol/L (96-108); Creatinine Clr Calc Pharmacy 79.9; Estimated Glomerular Filt Rate > 60; Glucose Random 94 mg/dL (60-115); Potassium 4.1 mmol/L (3.3-5.1); Sodium 140 mmol/L (135-145)
--- NOTE | 2024-10-20 09:51 | P.PNIM_ITS ---
Subjective Subjective Date of Service: 10/20/24 Interval History: no copmlaints Physical Exam 2 Vital Signs: Vital Signs: Last Vital Signs Temp 99.3 F 10/20/24 07:08 Pulse 78 10/20/24 07:57 Resp 18 10/20/24 07:57 BP 130/63 10/20/24 07:08 Pulse Ox 94 10/20/24 07:08 O2 Del Method Room Air 10/20/24 07:08 BMI result Body Mass Index 24.2 erythema over port site improved Objective Data Active Medications Acetaminophen (Acetaminophen 325 Mg Tablet) 650 mg PO Q6H PRN PRN Reason: Pain, Mild 1-3,fever,headache Albuterol Sulfate (Albuterol Sulfate 90 Mcg 8 Gm Inhaler) 2 puff INHALE Q4H PRN PRN Reason: Shortness of Breath/Wheezing Last Admin: 10/19/24 11:40 Dose: 2 puff Documented By: ELLIOTT Amlodipine Besylate (Amlodipine Besylate 10 Mg Tablet) 10 mg PO DAILY [facility]; Protocol Last Admin: 10/19/24 08:41 Dose: 10 mg Documented By: ELLIOTT Apixaban (Apixaban 5 Mg Tablet) 10 mg PO BID [facility] Stop: 10/25/24 09:01 Last Admin: 10/19/24 19:49 Dose: 10 mg Documented By: BECKI Apixaban (Apixaban 5 Mg Tablet) 5 mg PO BID [facility] Atorvastatin Calcium (Atorvastatin Calcium 10 Mg Tablet) 10 mg PO DAILY [facility] Last Admin: 10/19/24 08:41 Dose: 10 mg Documented By: ELLIOTT Benzonatate (Benzonatate 100 Mg Capsule) 100 mg PO TID PRN PRN Reason: Cough Calcium Carbonate (Calcium Carbonate 750 Mg Tab.Chew) 750 mg PO Q4H PRN PRN Reason: Heartburn Ferrous Sulfate (Ferrous Sulfate 324 Mg Tablet.Dr) 324 mg PO BID [facility] Last Admin: 10/19/24 19:49 Dose: 324 mg Documented By: BECKI Fluticasone Propionate (Fluticasone Propionate Nasal 16 Gm [place]) 1 spray NOSTRIL-B DAILY PRN PRN Reason: Congestion Fluticasone/Umeclidinium/Vilanterol (Fluticasone/Umeclidinium/Vilanterol 200/62.5/25 Blst.W.Dev) 1 puff INHALE RDAILY [facility] Last Admin: 10/20/24 07:55 Dose: 1 puff Documented By: RANDY Piperacillin Sod/Tazobactam (Sod 4.5 gm/ Sodium Chloride) 100 mls @ 200 mls/hr IV Q6H [facility] Last Infusion: 10/20/24 05:20 Dose: Infused Documented By: BECKI Vancomycin HCl 1,000 mg/ (Sodium Chloride) 270 mls @ 270 mls/hr IV Q12H [facility] Last Infusion: 10/20/24 05:50 Dose: Infused Documented By: BECKI Loratadine (Loratadine 10 Mg Tablet) 10 mg PO DAILY [facility] Last Admin: 10/19/24 08:41 Dose: 10 mg Documented By: ELLIOTT Losartan Potassium (Losartan Potassium 50 Mg Tablet) 100 mg PO DAILY [facility]; Protocol Last Admin: 10/19/24 08:41 Dose: 100 mg Documented By: ELLIOTT Magnesium Hydroxide (Milk Of Magnesia 30 Ml Oral.Susp) 30 ml PO DAILY PRN PRN Reason: Constipation Melatonin (Melatonin 3 Mg Tablet) 6 mg PO BEDTIME PRN PRN Reason: Insomnia Metoprolol Succinate (Metoprolol Succinate Er 50 Mg Tab.Er.24h) 50 mg PO DAILY [facility]; Protocol Last Admin: 10/19/24 08:41 Dose: 50 mg Documented By: ELLIOTT Ondansetron HCl (Ondansetron Odt 8 Mg Tab.Rapdis) 8 mg TRANSLINGU Q8H PRN PRN Reason: Nausea And Vomiting Pharmacy Consult (Consult Rx Vancomycin Dosing) 1 each MISCELLANE DAILY PRN PRN Reason: Consult order Sodium Chloride (0.9 % Sodium Chloride Flush 3 Ml Syringe) 3 ml IVFLUSH QSHIFT [facility] Last Admin: 10/19/24 19:55 Dose: 3 ml Documented By: BECKI Vitamin D (Cholecalciferol (Vitamin D3) 25 Mcg Tablet) 50 mcg PO DAILY [facility] Last Admin: 10/19/24 08:40 Dose: 50 mcg Documented By: ELLIOTT Labs 10/20/24 08:11 10/20/24 08:11 Labs: Laboratory Results - last 24 hr 10/19/24 10/20/24 15:04 08:11 MCV 83.4 MCH 24.2 L MCHC 29.0 L RDW 16.7 H Plt Count 151 L MPV 10.0 Absolute Nucleated RBC 0.000 Nucleated RBC % (auto) 0.0 Anion Gap 9 L Estim Creat Clear Calc 79.9 Estimated GFR > 60 Random Glucose 94 Calcium 7.7 L Random Vancomycin 9.9 L Microbiology Microbiology Results: Microbiology 10/18/24 16:27 Blood Culture - Preliminary Blood - Central Line No growth after 24 hours. 10/18/24 14:47 Blood Culture - Preliminary Blood - Venous No growth after 24 hours. 10/18/24 14:47 Blood Culture - Preliminary Blood - Venous No growth after 24 hours. Assessment and Plan (1) Port-A-Cath in place: Status: Acute Plan 74M PMH COPD, hypertension, lung cancer with Port-A-Cath undergoing chemotherapy with Dr. 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 on 10/25/24 Continue vanc and Zosyn, follow up Infectious Disease, follow-up cultures - negative so far Hypertension Continue losartan, metoprolol, amlodipine COPD stable Continue inhalers Hypothyroid Continue levothyroxine Hyperlipidemia Continue statin Lung cancer Oncology DVT prophylaxis on Eliquis Full Code reason for continued hospitalization: Awaiting cultures Quality Stroke Does the patient have a stroke diagnosis?: No VTE Prior VTE?: No VTE Risk Level:: Medical - moderate - high VTE Device Contraindication: Treatment Not Indicated VTE Drug Contraindication: N/A - Med Ordered
[2024-10-20] MEDS: amLODIPine Besylate 10 MG TABLET PO (10:05)
[2024-10-20] MEDS: Ferrous Sulfate 324 MG TABLET.DR PO (10:09)
[2024-10-20] MEDS: Losartan Potassium 50 MG TABLET 100 MG PO (10:10)
[2024-10-20] MEDS: Metoprolol Succinate ER 50 MG TAB.ER.24H PO (10:11)
[2024-10-20] MEDS: Cholecalciferol (Vitamin D3) 25 MCG TABLET 50 MCG PO (10:12)
[2024-10-20] MEDS: Atorvastatin Calcium 10 MG TABLET PO (10:13)
[2024-10-20] MEDS: Loratadine 10 MG TABLET PO (10:13)
[2024-10-20] MEDS: Apixaban 5 MG TABLET 10 MG PO (10:14)
[2024-10-20] MEDS: 0.9 % Sodium Chloride Flush 3 ML SYRINGE IVFLUSH (10:15)
--- NOTE | 2024-10-20 12:12 | PM.HEMONCCN ---
Subjective - Subjective Chief complaint: Right neck swelling Patient: known to practice within the last 3 years Consult date: 10/20/24 Primary Care Provider: Halley Powers, DO [employer] Utilized?: No - Patient Refused [employer] Pipe [employer]der:: Family Member HPI - Consult Narrative Reason for consult: Catheter associated thrombosis, lung cancer Narrative: Nasir Bo is a 74 year old male with history of metastatic lung cancer, receiving chemotherapy who is admitted for cellulitis around the site of MediPort as well as chronic thrombosis associated with MediPort. He presented to Oncology Clinic 2 days back with swelling and pain in right supraclavicular region. He did not have any fever or chills, the swelling had started about 2 days prior to his presentation. He would not have any pleuritic chest pain, shortness of breath or cough. 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 Onset Date: ~2019 On beta [place] at home Personal history of nicotine dependence Port-A-Cath in place Onset Date: ~09/2020 Tracheomalacia Family History: Family History (Last Reviewed 10/18/24 @ 18:49 by PATRICK Gonzalez) Mother Diabetes Brother Diabetes High blood pressure Daughter Breast cancer Daughter Hx of thyroid disease Surgical History: Surgical History (Last Reviewed 10/18/24 @ 18:49 by PATRICK Gonzalez) Admission for fitting of Port-A-Cath Onset Date: ~09/2020 History of colonoscopy Onset Date: ~12/2014 History of laryngoscopy Onset Date: ~10/2018 History of left knee surgery History of lobectomy of lung Onset Date: ~08/2020 Social History: Social History (Last Reviewed 10/18/24 @ 18:49 by PATRICK Gonzalez) Living Situation History: Household Members: Spouse Housing: Apartment Do you presently have visiting nurse or other home services: No Alcohol History Details: 1. How often do you have a drink containing alcohol?: a. Never 3. How often do you have six or more drinks on one occasion?: a. Never AUDIT-C Alcohol total score: 0 Currently Displaying Signs/Symptoms of Alcohol Withdrawal: No Tobacco History: Patient Tobacco Use Status: Former Tobacco user Cigarette Packs Per Day: 1 Years Smoked: 34 Smoked in Last 30 Days: No Substance Use History: Use of substances other than those prescribed or required for medical reasons: No Currently Displaying Signs/Symptoms of Drug Intoxication Withdrawal: No Advance Directives: Advance Directives: No Advance Directives Information Provided: Yes Homicidal Assessment: Do you have a plan to hurt others: No Plan Nutrition Assessment: Recently lost weight without trying: No Occupation Assessmet: service: No Home Medications and Allergies Current Medications: Current Medications Acetaminophen (Acetaminophen 325 Mg Tablet) 650 mg PO Q6H PRN PRN Reason: Pain, Mild 1-3,fever,headache Albuterol Sulfate (Albuterol Sulfate 90 Mcg 8 Gm Inhaler) 2 puff INHALE Q4H PRN PRN Reason: Shortness of Breath/Wheezing Last Admin: 10/19/24 11:40 Dose: 2 puff Amlodipine Besylate (Amlodipine Besylate 10 Mg Tablet) 10 mg PO DAILY [facility]; Protocol Last Admin: 10/20/24 10:05 Dose: 10 mg Apixaban (Apixaban 5 Mg Tablet) 10 mg PO BID [facility] Stop: 10/25/24 09:01 Last Admin: 10/20/24 10:14 Dose: 10 mg Apixaban (Apixaban 5 Mg Tablet) 5 mg PO BID [facility] Atorvastatin Calcium (Atorvastatin Calcium 10 Mg Tablet) 10 mg PO DAILY [facility] Last Admin: 10/20/24 10:13 Dose: 10 mg Benzonatate (Benzonatate 100 Mg Capsule) 100 mg PO TID PRN PRN Reason: Cough Calcium Carbonate (Calcium Carbonate 750 Mg Tab.Chew) 750 mg PO Q4H PRN PRN Reason: Heartburn Ferrous Sulfate (Ferrous Sulfate 324 Mg Tablet.Dr) 324 mg PO BID [facility] Last Admin: 10/20/24 10:09 Dose: 324 mg Fluticasone Propionate (Fluticasone Propionate Nasal 16 Gm [place]) 1 spray NOSTRIL-B DAILY PRN PRN Reason: Congestion Fluticasone/Umeclidinium/Vilanterol (Fluticasone/Umeclidinium/Vilanterol 200/62.5/25 Blst.W.Dev) 1 puff INHALE RDAILY [facility] Last Admin: 10/20/24 07:55 Dose: 1 puff Piperacillin Sod/Tazobactam (Sod 4.5 gm/ Sodium Chloride) 100 mls @ 200 mls/hr IV Q6H [facility] Last Infusion: 10/20/24 05:20 Dose: Infused Vancomycin HCl 1,000 mg/ (Sodium Chloride) 270 mls @ 270 mls/hr IV Q12H [facility] Last Infusion: 10/20/24 05:50 Dose: Infused Loratadine (Loratadine 10 Mg Tablet) 10 mg PO DAILY [facility] Last Admin: 10/20/24 10:13 Dose: 10 mg Losartan Potassium (Losartan Potassium 50 Mg Tablet) 100 mg PO DAILY [facility]; Protocol Last Admin: 10/20/24 10:10 Dose: 100 mg Magnesium Hydroxide (Milk Of Magnesia 30 Ml Oral.Susp) 30 ml PO DAILY PRN PRN Reason: Constipation Melatonin (Melatonin 3 Mg Tablet) 6 mg PO BEDTIME PRN PRN Reason: Insomnia Metoprolol Succinate (Metoprolol Succinate Er 50 Mg Tab.Er.24h) 50 mg PO DAILY [facility]; Protocol Last Admin: 10/20/24 10:11 Dose: 50 mg Ondansetron HCl (Ondansetron Odt 8 Mg Tab.Rapdis) 8 mg TRANSLINGU Q8H PRN PRN Reason: Nausea And Vomiting Pharmacy Consult (Consult Rx Vancomycin Dosing) 1 each MISCELLANE DAILY PRN PRN Reason: Consult order Sodium Chloride (0.9 % Sodium Chloride Flush 3 Ml Syringe) 3 ml IVFLUSH QSHIFT [facility] Last Admin: 10/20/24 10:15 Dose: 3 ml Vitamin D (Cholecalciferol (Vitamin D3) 25 Mcg Tablet) 50 mcg PO DAILY [facility] Last Admin: 10/20/24 10:12 Dose: 50 mcg Home Medications ?Medication ?Instructions ?Recorded ?Confirmed ?Type amlodipine 10 mg tablet 10 mg PO DAILY 06/07/20 10/18/24 History atorvastatin 10 mg tablet 10 mg PO DAILY 06/07/20 10/18/24 History fluticasone propionate 50 50 mcg intranasal DAILY PRN 06/07/20 10/18/24 History mcg/actuation nasal Congestion spray,suspension losartan 100 mg tablet 100 mg PO DAILY 06/07/20 10/18/24 History metoprolol succinate 50 mg 50 mg PO DAILY 06/07/20 10/18/24 History tablet,extended release 24 hr cholecalciferol (vitamin D3) 50 50 mcg PO QAM 12/06/23 10/18/24 History mcg (2,000 unit) capsule (Vitamin D3) albuterol sulfate 2.5 mg/3 mL 2.5 mg inhalation Q4H PRN 10/18/24 10/18/24 History (0.083 %) solution for nebulization Shortness Of Breath albuterol sulfate 90 mcg/actuation 2 puff inhalation Q4H PRN 10/18/24 10/18/24 History aerosol inhaler shortness of breath or wheezing apixaban 5 mg tablet (Eliquis) 10 mg PO BID 10/18/24 10/18/24 History cetirizine 10 mg tablet 10 mg PO DAILY 10/18/24 10/18/24 History levothyroxine 75 mcg tablet 75 mcg PO DAILY@0600 10/18/24 10/18/24 History olopatadine 0.2 % eye drops 1 drp ophthalmic (eye) DAILY 10/18/24 10/18/24 History Allergies Allergy/AdvReac Type Severity Reaction Status Date / Time No Known Allergies Allergy Verified 10/18/24 14:30 Physical Exam Vital signs: Vital Signs Temp 98.4 F 10/20/24 11:26 Pulse 87 10/20/24 11:26 Resp 18 10/20/24 11:26 BP 135/62 10/20/24 11:26 Pulse Ox 95 10/20/24 11:26 O2 Del Method Room Air 10/20/24 11:26 Intake & Output 10/19/24 10/20/24 10/20/24 18:59 06:59 18:59 Intake Total 830 / 1300 470 / 1300 Balance 830 / 1300 470 / 1300 Intake: Intake, Oral Amount 360 / 360 Intake, IV Amount 470 / 940 470 / 940 Piperacillin Sodium/Tazobactam 200 / 400 200 / 400 4.5 gm In 0.9 % Sodium Chloride 100 ml @ 200 mls/hr IV Q6H [facility] Rx#:[id number] vancomycin HCL 1,000 mg In 0.9 270 / 540 270 / 540 % Sodium Chloride 250 ml @ 270 mls/hr IV Q12H [facility] Rx#: [id number] Other: Number of Unmeasured Voids 2 1 Urine Bathroom Bathroom Last Bowel Movement 10/19/24 10/19/24 Weight 68.039 kg Hem/Onc Consult Result - Labs CBC & Chem 7: 10/20/24 08:11 10/20/24 08:11 Labs: Short CBC 10/20/24 Range/Units 08:11 WBC 9.1 (4.8-10.8) X10*3/uL Hgb 9.9 L (14.0-18.0) g/dl Hct 34.1 L (42.0-52.0) % Plt Count 151 L (160-400) X10*3/uL BMP 10/20/24 08:11 Sodium 140 Potassium 4.1 Chloride 107 Carbon Dioxide 28 BUN 10 Creatinine 0.72 Calcium 7.7 L Assessment and Plan Patient Active problem list reviewed?: Yes (1) Thrombosis Status: Acute Assessment and plan: 1. This is a 74-year-old male with left lower lobe adenosquamous carcinoma, Pathological stage pT2a, pN1, Stage IIb in 2020. Recurrent, stage IV lung cancer diagnosed in September 2021. He is now second-line treatment with docetaxel every 3 weeks. He is tolerating it well. He had scans, CT chest/abdomen and pelvis in 08/28/2024 which shows stable disease and improvement with no evidence of disease progression. He presented with redness and swelling of right side of his neck. CT of neck showed chronic appearing thrombus in the right internal jugular vein and right brachiocephalic vein, likely port related. Because of leukocytosis in concern for cellulitis, he was also started on IV antibiotics. He was started Eliquis for anticoagulation. Blood cultures from the port and peripheral blood are negative. The swelling and redness has come down. Clinically he is doing better. He can be discharged home on oral antibiotics and Eliquis. I thank you for the consultation. - Time Spent With Patient Time Spent with Patient (in minutes): 20 Additional Coding: - Additional E/M codes Complex E/M visit Add On: CPT G2211
[2024-10-20 15:26] LABS: Vancomycin Random 14.4 mcg/mL (15-20)
--- NOTE | 2024-10-20 15:27 | P.DS_ITS ---
DS: Providers Provider Date of Service: 10/20/24 Date of admission: 10/18/24 18:33 Date of discharge: 10/20/24 Primary care physician: Halley Powers DO Consults: 10/18/24 18:32 Consult to Hematology / Oncology Routine Consulting Provider: [facility] Oncology/Hematology Reason for consultation: line infection Consult to Infectious Diseases Routine Consulting Provider: [facility] Infectious Disease Center Reason for consultation: port a cath infection DS: Diagnosis Discharge Diagnosis (1) Thrombosis: Status: Acute DS: Summary Hospital Course Hospital Course: from initial hpi: 74-year-old male with history of COPD not on home oxygen, hypertension, and lung cancer with Port-A-Cath in place currently undergoing chemotherapy and under the care of Dr. Stratton presented to the emergency department earlier today from Oncology office due to concerns of line infection. Per the patient, he began noticing swelling with warmth overlying the port and catheter with tenderness especially when lying on the right side which he noticed 2 days ago. He denies any skin breaks or drainage. He denies any fevers or chills. His last chemotherapy session with port access was on 10/06. Since arrival to the ER, he has been afebrile and vital signs within normal limits except for an isolated instance blood pressure of 90/48 which is possibly an error. He has leukocytosis of 14.9 and a stable normocytic anemia. His renal function is baseline and electrolyte levels are within normal limits except for CO2 of 31 which is consistent with baseline as well. Initial lactic acid 2.3, repeat 1.2. CTA of the chest showed a thrombus of the right internal jugular vein and right brachiocephalic vein likely part related which does appear chronic and there is extensive collateralization of venous structures in the right thorax though SVC is patent. No evidence of PE or acute aortic syndrome. Chronic lung disease also noted as well as a subpleural reticular and consolidative opacity in the right middle lobe and posterior lateral right costophrenic sulcus possibly representing residua of prior pneumonia or chronic scarring. CTA of the neck with similar findings. Per Dr. Stratton patient should be started on Eliquis 10 mg twice daily which was prescribed earlier in her office. Blood cultures have been taken and he will be admitted to the hospital for IV antibiotics for possib le line infection. 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 He was treated with Eliquis 10 mg b.i.d. which will decrease to 5 mg b.i.d. on 10/1924. Was also treated with vancomycin and Zosyn and cultures were negative for 48 hours was seen by infectious disease who recommended 2 weeks of Augmentin doxycycline and will attempt to salvage report for hypertension was continued on losartan and metoprolol and amlodipine. For COPD remained stable on inhalers. For hypothyroidism was continued on levothyroxine. For hyperlipidemia continued on statin. For lung cancer was seen by Oncology and we will follow up outpatient. Time Attestation Discharge Coordination Time (in mins): 34 Quality: Safe Use of Opioids Does Pt have an Active Cancer Diagnosis on the Problem List?: No Quality: Stroke Does the patient have a stroke diagnosis?: No Physical Exam Vital Signs: Vital Signs: Last Vital Signs Temp 98.4 F 10/20/24 11:26 Pulse 87 10/20/24 11:26 Resp 18 10/20/24 11:26 BP 135/62 10/20/24 11:26 Pulse Ox 95 10/20/24 11:26 O2 Del Method Room Air 10/20/24 11:26 BMI result Body Mass Index 24.2 erythema over port site improved DS: Data Data Completed and Pending Labs on day of discharge: Laboratory Results - last 24 hr 10/19/24 10/20/24 15:04 08:11 WBC 9.1 RBC 4.09 L Hgb 9.9 L Hct 34.1 L MCV 83.4 MCH 24.2 L MCHC 29.0 L RDW 16.7 H Plt Count 151 L MPV 10.0 Absolute Nucleated RBC 0.000 Nucleated RBC % (auto) 0.0 Sodium 140 Potassium 4.1 Chloride 107 Carbon Dioxide 28 Anion Gap 9 L BUN 10 Creatinine 0.72 Estim Creat Clear Calc 79.9 Estimated GFR > 60 Random Glucose 94 Calcium 7.7 L Random Vancomycin 9.9 L Preliminary micro results at discharge 10/18/24 16:27 Blood Culture - Preliminary Blood - Central Line No growth after 24 hours. 10/18/24 14:47 Blood Culture - Preliminary Blood - Venous No growth after 24 hours. 10/18/24 14:47 Blood Culture - Preliminary Blood - Venous No growth after 24 hours. Discharge Plan Discharge Anticipated Discharge Date/Time: 10/20/24 15:23 Patient Disposition: Home, Self-Care Discharge Diagnosis: dvt, cellulitis Referrals: Halley Powers DO [Primary Care Provider] - 1 Week Discharge Medications: New amoxicillin-pot clavulanate 875-125 mg tablet 1 tab PO BID Qty: 28 0RF doxycycline hyclate 100 mg capsule 100 mg PO BID Qty: 28 0RF Continued (DME) Aerochamber MV Spacer See Rx Instructions .Route Qty: 1 0RF Rx Instructions: As directed Trelegy Ellipta 200-62.5-25 mcg blister with device 1 inh inhalation DAILY 30 Days Qty: 1 6RF ondansetron 8 mg Tablet,Disintegrating 8 mg PO Q8H PRN (Reason: Nausea And Vomiting) Qty: 60 3RF ferrous sulfate 325 mg (65 mg iron) Tablet 325 mg PO BID Qty: 60 3RF cholecalciferol (vitamin D3) [Vitamin D3] 50 mcg (2,000 unit) capsule 50 mcg PO QAM cetirizine 10 mg tablet 10 mg PO DAILY olopatadine 0.2 % drops 1 drp ophthalmic (eye) DAILY levothyroxine 75 mcg tablet 75 mcg PO DAILY@0600 albuterol sulfate 90 mcg/actuation HFA aerosol inhaler 2 puff inhalation Q4H PRN (Reason: shortness of breath or wheezing) Eliquis 5 mg tablet 10 mg PO BID Rx Instructions: Take 2 tablets twice a day for 1 week followed by 1 tablet b.i.d. albuterol sulfate 2.5 mg /3 mL (0.083 %) Solution For Nebulization 2.5 mg INHALATION Q4H PRN (Reason: Shortness Of Breath) amlodipine 10 mg tablet 10 mg PO DAILY metoprolol succinate 50 mg tablet extended release 24 hr 50 mg PO DAILY atorvastatin 10 mg tablet 10 mg PO DAILY losartan 100 mg tablet 100 mg PO DAILY fluticasone propionate 50 mcg/actuation spray,suspension 50 mcg intranasal DAILY PRN (Reason: Congestion) Discharge Orders: Discharge Order (Routine); Ordered 10/20/24 Ordered By: Thien Gonzalez Diet: Advance to usual diet Activity on Discharge: As tolerated Stand Alone Forms: Patient Portal Discharge page Print Language: Ugandan Care Plan Goals: recovery Health Concerns: dvt, cellulitis Plan of Treatment: continue eliquis 10mg bid, then decrease to 5mg bid on 10/25/24 2 weeks of augmentin and doxy Assessment: see above
== END 2024-10-20 17:42 | disposition home or self-care (01) | DRG 315 ==
LOC: HO.ED 17:33 → HO.EDOVER 18:43 → HO.IMC 19:14
PROVIDERS: Physician Assistant Medical; Admitting Provider Physician Assistant; Emergency Provider Emergency Medicine Emergency Medical Services; PCP Family Medicine; Visit Provider Internal Medicine
DX: T82.868A Thrombosis due to vascular prosthetic devices, implants and grafts, initial encounter (principal); C34.32 Malignant neoplasm of lower lobe, left bronchus or lung; T80.212A Local infection due to central venous catheter, initial encounter; I82.C21 Chronic embolism and thrombosis of right internal jugular vein; I82.291 Chronic embolism and thrombosis of other thoracic veins; L03.313 Cellulitis of chest wall; I10 Essential (primary) hypertension; J44.9 Chronic obstructive pulmonary disease, unspecified; D63.0 Anemia in neoplastic disease; E78.5 Hyperlipidemia, unspecified; Y82.8 Other medical devices associated with adverse incidents; Z87.891 Personal history of nicotine dependence; Z79.01 Long term (current) use of anticoagulants; Z79.51 Long term (current) use of inhaled steroids; Z79.890 Hormone replacement therapy; Z79.899 Other long term (current) drug therapy
CPT/HCPCS: 36415; 70498; 71275; 80048; 80053; 80202; 82248; 83605; 83735; 85025; 85027; 85610; 85730; 87040; 93971; 94640; 99285; J2543; J3370; Q9967

== ENCOUNTER → 2024-10-18 18:33 | Outpatient (BNV) | payer MEDICARE, MEDICAID, SELFPAY | PROVIDERS: Admitting Provider Physician Assistant; Emergency Provider Emergency Medicine Emergency Medical Services; PCP Family Medicine; Visit Provider Internal Medicine | DX: C34.32 Malignant neoplasm of lower lobe, left bronchus or lung (principal) | CPT/HCPCS: 99222 ==

== ENCOUNTER → 2024-10-18 18:33 | Outpatient (BNV) | payer MEDICARE, MEDICAID, SELFPAY | PROVIDERS: Admitting Provider Physician Assistant; Emergency Provider Emergency Medicine Emergency Medical Services; PCP Family Medicine; Visit Provider Physician Assistant | DX: I82.90 Acute embolism and thrombosis of unspecified vein (principal); L03.90 Cellulitis, unspecified; T80.219A Unspecified infection due to central venous catheter, initial encounter; Z95.828 Presence of other vascular implants and grafts | CPT/HCPCS: 99223; 99232 ==

== ENCOUNTER 2024-12-01 10:03 | Outpatient (REF) | payer MEDICARE, MEDICAID, SELFPAY ==
--- OUTSIDE RECORDS SUMMARY | 2024-12-01 10:30 | XMS_ITS | Clinical Summary ---
Author Organization [facility] it Address [address] [place] [address] Care Team Providers Care Field Contractor Name Role Phone Halley Powers DO Primary Care Provider [phone] Surgical History Surgery Date Site/Laterality Comments COLONOSCOPY 12/2014 PROCEDURE: HISTORICAL COLONOSCOPY OTHER SURGICAL HISTORY 10/2018 PROCEDURE: AL LARYNGOSCOPY INDIRECT DIAGNOSTIC SPX KNEE SURGERY PROCEDURE: HISTORICAL KNEE SURGERY; COMMENT: LEFT KNEE OTHER SURGICAL HISTORY 08/2020 Left PROCEDURE: AL RESCJ&BRONCHOPLASTY PFRMD TM LOBEC/SGMECTOMY Medical History Medical History Date Comments Cancer of lower lobe of left lung (CMS/HCC V24, CMS/HCC V28) DX:Cancer of lower lobe of l eft [...] Influencers of Health Screening 07/12/2022 RSV Immunization Adult Patie nts (1 - 1-dose 75+ series) 02/13/2024 COVID-19 Vaccine ( - 2023-2 5 season) 2024 Influenza Vaccine (Season Ended) 2025 HIB Vaccines Aged Out No longer eligi [...] age to complete this topic Meningococcal B Vaccine Aged Out No l onger eligible based on patient's age to complete this topic RSV Immunization Patients Un danica 20 months Aged Out No longer eligible b ased on patient's age to complete this topic Varicella Vaccines Aged Out No longer eligible based on patient's age to complete this topic Advance Directives Documents on File Type Date Recorded Patient Cloth Colors Examiner Expl anation Health Care Decision (hx) 08/20/2020 AD ROBLEDO DIRECTIVE Health Care Decision (hx) 08/20/2020 AD ROBLEDO DIRECTIVE Health Care Decision (hx) 08/20/2020 AD ROBLEDO DIRECTIVE Health Care Decision (hx) 08/20/2020 AD ROBLEDO DIRECTIVE Health Care Decision (hx) 08/20/2020 AD ROBLEDO DIRECTIVE Health Care Decision (hx) 08/20/2020 AD ROBLEDO DIRECTIVE Care Teams Field Contractor Relationship Specialty Start Date End Date Halley Powers DO [address] [place] [address] PCP - General Internal Medicine 11/11/20
--- OUTSIDE RECORDS SUMMARY | 2024-12-01 10:30 | XMS_ITS | Clinical Summary ---
Author Organization [facility] Address [address] [place] [address] Phone Care Team Providers Care Tractor Engine Assembler Name Role Phone Halley Powers DO Primary [...] each day 04/21/2021 Active ergocalciferol 1.25 MG (24464 UT) capsule TAKE 1 CAPSULE BY MOUTH [...] 03/11/2023 Elevated fasting glucose 07/23/2015 023 Immunizations Immunization Administration Dates Next Due Influenza, Quadrivalent, Preservative [...] Colorectal Cancer Screening: Sigmoidoscopy 1998 Influenza Vaccine (Season Ended) 2025 06/09/2022, 06/23/2021, 05/30/2020, Additional history exists Pneumococcal Vaccine: 50+ Years Completed 12/02/2015, 09/20/2014 Pneumococcal Vaccine: Peds (0 to 5 Years) and At-Risk Patients (6 to 49 Years) Discontinued 12/02/2015, 09/20/2014 Hepatitis B Vaccine Aged Out No longe r eligible based on patient's age to complete this topic Insurance Medicare Medicaid [place] Medicare Medicaid [place] Care Teams Tractor Engine Assembler Relationship Specialty Start Date End Date Halley Powers DO PCP - General 08/19/20
[2024-12-01 10:58] LABS: Anion Gap 12 (12-20); Blood Urea Nitrogen 9 mg/dL (9-16); Calcium 9.1 mg/dL (8.4-10.2); Carbon Dioxide 34 mmol/L (22-29); Chloride 98 mmol/L (96-108); Estimated Glomerular Filt Rate > 60; Glucose Random 123 mg/dL (60-115); Potassium 3.7 mmol/L (3.3-5.1); Sodium 140 mmol/L (135-145)
== END 2024-12-01 10:04 | disposition home or self-care (01) ==
LOC: HO.LAB 10:03
PROVIDERS: PCP Family Medicine; Visit Provider Internal Medicine Hypertension Specialist
DX: E87.1 Hypo-osmolality and hyponatremia (principal)
CPT/HCPCS: 36415; 80048

== ENCOUNTER 2024-12-05 15:19 | Outpatient (AMB) | payer MEDICARE, MEDICAID, SELFPAY ==
[2024-12-05 15:19] VITALS: BP 114/60; PULSE 62; O2SAT 96; BMI 23.9
--- NOTE | 2024-12-05 15:19 | HO.NEPHOV ---
Vital Signs 12/05/24 15:19 Height 5 ft 6 in Weight 148 lb BMI 23.9 BP 114/60 Blood Pressure Location Lt brachial Position Sitting Pulse 62 Pulse Source Pulse Oximeter Pulse Oximetry (%) 96 Oxygen Delivery Method Room Air Intake Visit Reasons: 6mon follow up w/labs Skiing Instructor Required: Yes Skiing Instructor Language: Hydrator Operator Name: Yue([id number]) Accompanied by: Significant Other Allergies No Known Allergies Allergy (Verified 12/05/24 15:23) Medication List - Last Reconciled 12/05/24 by Rico Chung MD albuterol sulfate 90 mcg/actuation 2 puffs inhalation Q4H PRN albuterol sulfate 2.5 mg inhalation Q4H PRN amlodipine 10 mg PO DAILY apixaban (Eliquis) 10 mg PO BID atorvastatin 10 mg PO DAILY cetirizine 10 mg PO DAILY cholecalciferol (vitamin D3) (Vitamin D3) 50 mcg PO QAM ferrous sulfate 325 mg PO BID fluticasone propionate 50 mcg/actuation 50 mcg intranasal DAILY PRN cnopdbtcbdq-ymocuyznv-cbhbnpzc 200-62.5-25 mcg (Trelegy Ellipta) 1 inh inhalation DAILY 30 days inhalational spacing device (Aerochamber MV spacer) As directed levothyroxine 75 mcg PO DAILY@0600 losartan 100 mg PO DAILY metoprolol succinate ER 50 mg PO DAILY HPI Comments Details: Middle aged man refered for Hyponatremia Left lower lobe lung cancer, adenosquamous carcinoma. Pathological stage pT2a, pN1, Stage II, 2019. Recurrent, metastatic disease diagnosed in September 2021. Molecular studies revealed negativity for BRAF, K-edyta Exon 2, Exon 3, Exon 4 mutations, negative for ROS1, alk rearrangements and EGFR mutation. PDL1 was positive with TPS 50%. 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 He underwent definitive radiation therapy for T2 N0 lesion, he did not have surgery. He finished radiation therapy in January 2019. H/o Drinking beer 6 cans a day Also on HCTZ 50 mg a day h/o Hypothyroidism - on Synthroid c/o Cough/ Sputum No hemoptysis NaHCO3 was prescribed on 09/01/23- But he has not started taking it yet Recent serum bicarb was elevted at 32 10/18/23 ;Doing better ;Says he stopped beer and HCTZ. No new complaints today 12/14/23; REcently discharged;Not drinking beer now; Na up to 132 06/26/24; Doing better; Accompanied by ; Says he has not had beer in almost 12 months; 12/05/24. No new issues. Not drinking beer. Going [place] vacation [facility] Medical History Tracheomalacia Mucus plugging of bronchi On beta [place] at home Personal history of nicotine dependence Port-A-Cath in place (~09/2020) 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) Hyperlipemia HTN (hypertension) Cancer of lower lobe of left lung (~2019) Surgical History History of laryngoscopy (~10/2018) Admission for fitting of Port-A-Cath (~09/2020) History of lobectomy of lung (~08/2020) History of colonoscopy (~12/2014) History of left knee surgery Family History Mother Diabetes Brother Diabetes High blood pressure Daughter Breast cancer Daughter Hx of thyroid disease Social History Household Members: Spouse Housing: Apartment Do you presently have visiting nurse or other home services: No Alcohol intake: current Alcohol intake frequency: holidays/special occasions only Alcohol type: beer Patient Tobacco Use Status: Former Tobacco user Cigarette Packs Per Day: 1 Years Smoked: 34 service: No Physical Exam Vital Signs: Last Vital Signs Pulse 62 12/05/24 15:19 BP 114/60 12/05/24 15:19 Pulse Ox 96 12/05/24 15:19 Oxygen Delivery Method Room Air 12/05/24 15:19 BMI result Body Mass Index 23.9 Const General: comfortable; No acute distress Orientation/consciousness: patient oriented x3 Eyes General: appearance normal, both eyes and all related structures Visual Pelaez: normal visual pelaez by confrontation Neck Neck: Yes supple and Yes no JVD Resp Effort & Inspection: normal respiratory effort and respiratory effort not decreased Cardio Palpation: no palpable S3 and no palpable S4 Heart sounds: no rubs GI Inspection: Yes normal to inspection Palpation (GI): Soft to palpation Percussion: Yes normal to percussion Auscultation: normal bowel sounds General: Yes no CVA tenderness Back/Spine/Pelvis Back: no CVA tenderness Skin General skin exam: no petechiae and no purpura Neuro General: patient oriented x3 and no focal motor deficits Extrem General: No clubbing and No edema Results Reviewed Nephrology Results: Hgb 11.0 g/dl (14.0-18.0) L 11/23/24 WBC 5.3 X10*3/uL (4.8-10.8) 11/23/24 Plt Count 208 X10*3/uL (160-400) 11/23/24 Sodium 140 mmol/L (135-145) 12/01/24 Potassium 3.7 mmol/L (3.3-5.1) 12/01/24 Chloride 98 mmol/L (96-108) 12/01/24 Carbon Dioxide 34 mmol/L (22-29) H 12/01/24 BUN 9 mg/dL (9-16) 12/01/24 Creatinine 0.69 mg/dL (0.5-1.4) 12/01/24 Calcium 9.1 mg/dL (8.4-10.2) 12/01/24 Assessment & Plan Assessment & Plan (1) Hyponatremia: Code(s): E87.1 - Hypo-osmolality and hyponatremia Category: Medical (2) Non-small cell cancer of left lung: Onset Date: ~2019 Comment: (LLL Adenosquamous Carcinoma. pT2a, pN1 - s/p LLL lobectomy, undergoing adjuvant chemotherapy) Code(s): C34.92 - Malignant neoplasm of unspecified part of left bronchus or lung Category: Medical (3) HTN (hypertension): Code(s): I10 - Essential (primary) hypertension Category: Medical (4) Lung cancer: Code(s): C34.90 - Malignant neoplasm of unspecified part of unspecified bronchus or lung Category: Medical (5) Hyponatremia: Code(s): E87.1 - Hypo-osmolality and hyponatremia Category: Medical Plan Middle aged man with Chronic Asymptomatic Hyponatremia He had hypotonic hyponatremia This is multifactorial: Consuming Excess beer lead to hyponatremia ( Beer Potomania) USe of HCTZ decreased free water clearance and caused hyponatremia Hypothyroidism can also lead to hyponatremia Lastly, Underlying Lung CA could be causing SIADH Suggest After discontinuing beer and hydrochlorothiazide sodium has improved Continue to Optimize thyroid function Restrict PO water intake No need for urea powder at this time. Renal function is at baseline. Blood pressure is acceptable - No changes made s/p Mild hyperkalemia Discussed low-potassium diet Monitor potassium periodically Orders: Orders Basic Metabolic Panel 6 Months C34.92 - Malignant neoplasm of unspecified part of left bronchus or lung, E87.1 - Hypo-osmolality and hyponatremia Coding Level of Care Code Est Pt Level 4 (64258) Diagnoses Hyponatremia E87.1 Non-small cell cancer of left lung C34.92 HTN (hypertension) I10 Lung cancer C34.90
--- OUTSIDE RECORDS SUMMARY | 2024-12-05 18:11 | XMS_ITS | Clinical Summary ---
Author Organization [facility] Address [address] [place] [address] Phone Care Team Providers Care Beef Breaker Name Role Phone Halley Powers DO Primary [...] each day 04/21/2021 Active ergocalciferol 1.25 MG (46341 UT) capsule TAKE 1 CAPSULE BY MOUTH [...] Medicaid [place] Medicare Medicaid [place] Care Teams Beef Breaker Relationship Specialty Start Date End Date Halley Powers DO PCP - General 08/19/20
--- OUTSIDE RECORDS SUMMARY | 2024-12-05 18:11 | XMS_ITS | Clinical Summary ---
Author Organization [facility] it Address [address] [place] [address] Care Team Providers Care Printing Press Operator Name Role Phone Halley Powers DO Primary Care Provider [phone]- [phone] Surgical History Surgery Date Site/Laterality Comments COLONOSCOPY 12/2014 PROCEDURE: HISTORICAL COLONOSCOPY OTHER SURGICAL HISTORY 10/2018 PROCEDURE: DE LARYNGOSCOPY INDIRECT DIAGNOSTIC SPX KNEE SURGERY PROCEDURE: HISTORICAL KNEE SURGERY; COMMENT: LEFT KNEE OTHER SURGICAL HISTORY 08/2020 Left PROCEDURE: DE RESCJ&BRONCHOPLASTY PFRMD TM LOBEC/SGMECTOMY Medical History Medical [...] Documents on File Type Date Recorded Patient Neck Band Operator Expl anation Health Care Decision (hx) 08/20/2020 AD ROBLEDO DIRECTIVE Health Care Decision (hx) 08/20/2020 AD ROBLEDO DIRECTIVE Health Care Decision (hx) 08/20/2020 AD ROBLEDO DIRECTIVE Health Care Decision (hx) 08/20/2020 AD ROBLEDO DIRECTIVE Health Care Decision (hx) 08/20/2020 AD ROBLEDO DIRECTIVE Health Care Decision (hx) 08/20/2020 AD ROBLEDO DIRECTIVE Care Teams Printing Press Operator Relationship Specialty Start Date End Date Halley Powers DO [address] [place] [address] PCP - General Internal Medicine 11/11/20
== END 2024-12-05 15:31 | disposition home or self-care (01) ==
LOC: HO.HKA 15:20
PROVIDERS: PCP Internal Medicine; Visit Provider Internal Medicine Hypertension Specialist
DX: E87.1 Hypo-osmolality and hyponatremia (principal); C34.92 Malignant neoplasm of unspecified part of left bronchus or lung; I10 Essential (primary) hypertension; C34.90 Malignant neoplasm of unspecified part of unspecified bronchus or lung
CPT/HCPCS: 99214

== ENCOUNTER → 2024-12-05 15:19 | Outpatient (BNVA) | payer MEDICARE, OTHER, SELFPAY | PROVIDERS: PCP Internal Medicine; Visit Provider Internal Medicine Hypertension Specialist | DX: E87.1 Hypo-osmolality and hyponatremia (principal); I10 Essential (primary) hypertension; C34.92 Malignant neoplasm of unspecified part of left bronchus or lung; Z92.3 Personal history of irradiation | CPT/HCPCS: 99212 ==

== ENCOUNTER 2025-05-16 18:15 | Inpatient (IN) | payer MEDICARE, MEDICAID, SELFPAY ==
[2025-05-16] VITALS (9 sets, daily range): BP systolic 120–154; BP diastolic 50–69; PULSE 78–93; RESP 14–30; TEMP 36.9–38.3; O2SAT 90–95; BMI 25.2
--- NOTE | ~2025-05-16 | CT_ITS ---
CLINICAL HISTORY: severe PNA ?PCP CT chest without contrast Comparison: CR/SR - XR CHEST 1 VIEW - 05/18/25 13:43 EDT CR - XR CHEST 1V - 05/16/25 18:[address]/REG/MI/SR - CT CHEST ANGIOGRAPHY WITH IV CONTRAST - 10/18/24 14:57 EDT Findings: Mild cardiomegaly.Trace pericardial effusion. Calcific coronary artery disease: Moderate. Probable reactive mediastinal lymph nodes follow-up until resolution. Moderate new airspace disease lung bases [id number]-right. Moderate pleural effusions bilaterally pseyq-[id number]-dbmr-left. There is probable pleural thickening on the left. Contrast-enhanced CT would be helpful to exclude any empyema. Centrilobular emphysema. Bronchial wall thickening. No bronchiectasis. No thyroid nodules. Mild anasarca. Mild axillary lymphadenopathy.Port-A-Cath tip atriocaval junction. Trace ascites. No hepatosplenomegaly. Contracted gallbladder. Mesenteric edema. No acute fractures or pathologic bone lesions. Impression: 1. New fairly extensive pleural-parenchymal disease lung bases bivu-[id number]-swqv-right. Bilateral pleural effusions [id number]-rqkyprz-gsrf-left. Pleural thickening on the left can not exclude any loculations. Contrast-enhanced CT may help exclude any empyema on the left. 2. Probable reactive mediastinal lymph nodes follow-up until resolution. Cardiomegaly. Trace pericardial effusion. Calcified coronary artery disease. 3. Trace ascites. Axillary adenopathy. Anasarca. No hepatosplenomegaly. Port-A-Cath tip atriocaval junction. This document has been electronically signed by: Raffy Falcon MD on 05/19/2025 10:13:14
--- NOTE | ~2025-05-16 | NM_ITS ---
EXAMINATION: NM LUNG PERFUSION HISTORY: hypoxia. TECHNIQUE: A pulmonary perfusion scan was performed following the intravenous administration of 4.0 mCi technetium 99m-MAA. The patient was imaged in multiple projections. COMPARISON: Correlation is made with an AP portable view of the chest dated 05/16/2025. FINDINGS: There is global decreased perfusion to the left lung when compared to the right. There is near normal perfusion of the right lung. Findings are consistent with an intermediate probability for pulmonary emboli. NM/NM pul perfusion IMPRESSION: Intermediate probability for pulmonary emboli. Electronically signed by: Kvng Fry MD 05/17/2025 09:54 AM EDT
--- NOTE | ~2025-05-16 | US_ITS ---
EXAMINATION: US RETROPERITONEAL LIMITED (RENAL ONLY) CLINICAL INFORMATION: Acute kidney injury. COMPARISON: 11/21/2018. Correlation made with CT abdomen and pelvis 09/06/2024. TECHNIQUE: Real-time imaging of the kidneys. FINDINGS: RIGHT KIDNEY: 10.8 x 5.1 x 5.7 cm (SAG x AP x TRV). The kidney is normal in size and contour. There is diffusely increased renal cortical echogenicity. Renal cortical thickness is normal. No calculi or focal parenchymal lesions. No hydronephrosis. LEFT KIDNEY: 10.2 x 5.8 x 5.9 cm (SAG x AP x TRV). The kidney is normal in size and contour. There is diffusely increased renal cortical echogenicity. Renal cortical thickness is normal. No calculi or focal parenchymal lesions. No hydronephrosis. US/US renal BI IMPRESSION: 1. Diffusely increased bilateral renal cortical echogenicity without cortical thinning. Findings are suggestive of intrinsic renal disease. 2. No hydronephrosis, mass, or calculus. Electronically signed by: Evert Sharma MD 05/17/2025 03:56 PM EDT
--- NOTE | ~2025-05-16 | XR_ITS ---
EXAMINATION: XR CHEST 1 VIEW HISTORY: pneumonia COMPARISON: Comparison is made with the prior examination dated 05/16/2025. FINDINGS: A single AP portable view of the chest performed at 1:43 PM is submitted. A right-sided central venous catheter is unchanged in position. There has been progression of previously seen left basilar pneumonia which is more extensive and now involves the upper portion of the lung. There is an associated small pleural effusion. The right lung is clear. There is no pneumothorax or pulmonary vascular congestion. The heart is normal in size. The aorta is calcified. There is degenerative disc disease of the spine. XR/XR chest 1V IMPRESSION: Progression of left-sided pneumonia as described. Small left pleural effusion. Electronically signed by: Kvng Fry MD 05/18/2025 02:14 PM EDT
--- NOTE | ~2025-05-16 | US_ITS ---
CLINICAL HISTORY: swelling since admission Right upper extremity venous duplex ultrasound Comparison: 10/18/24 Findings: The visualized deep veins are fully compressible with normal flow. Impression: No deep vein thrombosis. This document has been electronically signed by: Monique Retana MD on 05/22/2025 17:35:52
--- NOTE | ~2025-05-16 | XR_ITS ---
CLINICAL HISTORY: SOB 1 view chest x-ray Comparison: CT/REG/VA/SR - CT CHEST ANGIOGRAPHY WITH IV CONTRAST - 10/18/24 14:57 EDT Findings: Left basilar and retrocardiac airspace opacities. Cardiac silhouette appears within limits. No acute osseous abnormality. IMPRESSION: 1. Left basilar/retrocardiac airspace opacities, may represent pneumonia or atelectasis. This document has been electronically signed by: Alma Rosa Oconnell MD on 05/16/2025 19:08:44
--- NOTE | ~2025-05-16 | US_ITS ---
EXAMINATION: US TRIPLEX LOWER EXTREMITY, BILATERAL CLINICAL INFORMATION: Intermediate probability V/Q scan. COMPARISON: Lung perfusion nuclear medicine exam earlier same day. TECHNIQUE: Color-flow triplex imaging with spectral analysis and compression Doppler were performed on the bilateral lower extremities. FINDINGS: Respiratory variation, normal compression and augmented flow are noted throughout the bilateral lower extremities. The visualized common femoral vein, superficial femoral vein, profunda femoral vein, popliteal vein and midcalf peroneal and posterior tibial venous segments show no evidence of deep venous thrombosis bilaterally. There is no Vera's cyst. US/US venous duplex LE BI IMPRESSION: No evidence of deep venous thrombosis involving the bilateral lower extremities. Electronically signed by: Evert Sharma MD 05/17/2025 03:58 PM EDT
--- NOTE | ~2025-05-16 | XR_ITS ---
CLINICAL HISTORY: pulm edema 1 view chest x-ray Comparison: 05/18/2025 Findings: Portions of the exam are obscured by overlying material. There is increase in consolidation more pronounced in the left lung. The exam is otherwise unchanged. IMPRESSION: 1. Increased pulmonary consolidation. This document has been electronically signed by: Jorje Brizuela MD on 05/20/2025 08:53:22
--- NOTE | 2025-05-16 18:28 | ED_ITS ---
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 Jaramillo HPI Narrative: 74-year-old male history of COPD no supplemental oxygen at home, HTN, lung cancer with port the a cath to receive chemotherapy, patient is been cared for by Dr. Stratton, called EMS for evaluation of decreased p.o. intake for the past 2 days patient found at home satting 77% patient was placed on 15 L non- rebreather improved his O2 sat to 92% daughter also reported fever of 105 at home patient was given Tylenol patient is afebrile in the emergency department, complaining of no CP, no SOB. Related Data Home Medications ?Medication ?Instructions ?Recorded ?Confirmed amlodipine 10 mg tablet 10 mg PO DAILY 06/07/2011/08 atorvastatin 10 mg tablet 10 mg PO DAILY 06/07/2011/08 fluticasone propionate 50 50 mcg intranasal DAILY PRN 06/07/20 12/05/24 mcg/actuation nasal Congestion spray,suspension losartan 100 mg tablet 100 mg PO DAILY 06/07/20 metoprolol succinate 50 mg 50 mg PO DAILY 06/07/20 tablet,extended release 24 hr cholecalciferol (vitamin D3) 50 50 mcg PO QAM 12/06/23 12/05/24 mcg (2,000 unit) capsule (Vitamin D3) albuterol sulfate 2.5 mg/3 mL 2.5 mg inhalation Q4H KS N 10/18/24 12/05/24 (0.083 %) solution for nebulization Shortness Of Breat h albuterol sulfate 90 mcg/actuation 2 puff inhalation Q 4H PRN 10/18/24 12/05/24 aerosol inhaler shortness of breath or wheez ing apixaban 5 mg tablet (Eliquis) 10 mg PO BID 10/18/24 0 12/05/24 cetirizine 10 mg tablet 10 mg PO DAILY 10/18/2411/08 Previous Rx's ?Medication ?Instructions ?Recorded inhalational spacing device #1 ea 12/30/23 (Aerochamber MV spacer) levothyroxine 75 mcg tablet 75 mcg PO DAILY@0600 #60 t abs 12/04/24 ferrous sulfate 325 mg (65 mg 325 mg PO BID #60 tabs 0 02/13/25 iron) tablet fluticasone fur. 200 mcg-umeclid 1 inh inhalation SANDRA Y 30 days #1 04/30/25 62.5 mcg-vilant 25 mcg ea inhalat.powder (Trelegy Ellipta) Allergies Allergy/AdvReac Type Severity Reaction Status Date / Time No Known Allergies Allergy Verified 05/16/25 18:35 Review of Systems 2 Review of Systems: all other systems are reviewed and are negative Constitutional: Reports as per HPI and Reports no additional constitutional complaints Eyes: Reports as per HPI and Reports no additional eye complaints Reports system reviewed and no additional complaints, except as documented Cardiovascular: Reports as per HPI and Reports no additional cardiovascular complaints Respiratory: Reports as per HPI and Reports no additional respiratory complaints Gastrointestinal: Reports as per HPI and Reports no additional gastrointestinal complaints Genitourinary: Reports no additional female genitourinary complaints Musculoskeletal: Reports no additional musculoskeletal complaints Skin/Breast: Reports system reviewed and no additional complaints, except as docu Psychiatric: Reports no additional psychiatric complaints Endocrine: Reports no additional endocrine complaints Hematologic/Lymphatic: Reports no additional hematologic/lymphatic complaints Allergic/Immunologic: Reports no additional allergic/immunologic complaints Reports system reviewed and no additional complaints, except as documented and Reports Abnormal speech present [facility] Past Medical History Medical History Tracheomalacia Mucus plugging of bronchi On beta [place] at home Personal history of nicotine dependence Port-A-Cath in place (~09/2020) 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) Hyperlipemia HTN (hypertension) Cancer of lower lobe of left lung (~2019) Surgical History History of laryngoscopy (~10/2018) Admission for fitting of Port-A-Cath (~09/2020) History of lobectomy of lung (~08/2020) History of colonoscopy (~12/2014) History of left knee surgery Family History Family History Mother Diabetes Brother Diabetes High blood pressure Daughter Breast cancer Daughter Hx of thyroid disease Social History Social History Household Members: Spouse Housing: Apartment Do you presently have visiting nurse or other home services: No Alcohol intake: current Alcohol intake frequency: holidays/special occasions only Alcohol type: beer Patient Tobacco Use Status: Former Tobacco user Cigarette Packs Per Day: 1 Years Smoked: 34 Smoked in Last 30 Days: No Use of substances other than those prescribed or required for medical reasons: No Advance Directives: No Advance Directives Information Provided: No service: No Physical Exam 2 Vital Signs: Vital Signs: Last Vital Signs Temp 98.5 F 05/16/25 18:31 Pulse 78 05/16/25 19:37 Resp 14 05/16/25 19:37 BP 142/50 H 05/16/25 19:37 Pulse Ox 95 05/16/25 19:37 O2 Del Method High Flow Nasal C annula 05/16/25 19:37 BMI result Body Mass Index 25.2 Vital signs have been reviewed and appear to be correct. Blood pressure elevated. Heart rate normal. Respiratory rate normal. Temperature normal. Oxygen saturation normal. Appearance: Alert. Oriented X3. No acute distress. Head: Normal external exam. Normocephalic. Atraumatic. No Trevino signs noted. No raccoon eyes noted Eyes: PERRLA. EOMI. Conjunctiva and sclera normal. Eyelids normal. ENT: TM's Normal. Pharynx normal. Uvula midline. Moist mucous membranes. No trismus noted. No drooling noted. No muffled voice noted. Neck: Normal inspection. Neck supple. FROM. No adenopathy. Thyroid Normal. No meningeal signs. No neck mass noted. CVS: Normal heart rate and rhythm. Heart sound normal. No murmurs noted. Pulses normal throughout. Respiratory: No respiratory distress. Painless inspiration. Breath sounds normal. No wheezes/rales/rhonchi noted. Chest nontender. No accessory muscle usage noted or decreased air movement noted. Abdomen: Soft and nontender. Bowel sounds normal in all 4 quadrants. No distention noted. No organomegaly noted. No visible injury noted. Back: No CVA tenderness. Full range of motion noted. Skin: Skin warm and dry. Normal skin color. Normal skin turgor. No rashes/lesions/lacerations noted. Extremities: No lower extremity edema. Extremities exhibit normal range of motion. Extremities nontender. Neuro: Oriented X 3. Cranial nerve exam: II-XII are grossly intact No motor deficit. No sensory deficit. Reflexes normal. Course Reevaluation(s) Reevaluation #1: 75-year-old male history of lung cancer currently under chemotherapy presented with hypoxia 77% on room air improved with high-flow oxygen in the emergency department, patient otherwise has no complaint no shortness of breath, no difficulty breathing the only family concern was that the patient decreased p.o. intake for the last 2 days. Because patient is at high risk for pulmonary embolism patient is already under Eliquis anticoagulation that we will continue patient can not get CT angio because the elevated BUN creatinine, will consider V/Q scan as an inpatient tomorrow. Continue with high flow oxygen for now. Patient met criteria for sepsis and pneumonia patient is receiving Zosyn and IV fluids. Chronic AST elevation Case discussed with Dr. Royal patient to be admitted. Time: 20:24 Medications Administered Generic Name Dose Route Start Last Admin Trade Name Freq PRN Reason Stop Dose Admin Lactated Ringer's 1,000 mls @ 999 mls/hr 05/16/25 19:30 05/16/25 19:35 Lr IV 05/16/25 20:30 999 mls/hr .Q1H1M ERMA Administration Discontinued Medications Generic Name Dose Route Start Last Admin Trade Name Freq PRN Reason Stop Dose Admin Piperacillin Sod/Tazobactam 100 mls @ 200 mls/hr 05/16/25 19:24 05/16/25 19:35 Sod 4.5 gm/ Sodium Chloride IV 05/16/25 19:53 200 mls/hr ONCE ONE Administration Medical Decision Making Differential Diagnosis Differential Diagnoses: The differential diagnosis associated with the presentation includes ( pneumonia, pneumothorax, pleural effusion, pulmonary embolism, ACS, CHF, electrolyte derangement, severe anemia, failure to thrive.) Admission/Observation Consideration of admission/observation: Escalation of care including admission/observation considered Consult Healthcare Provider Management of the patient was discussed with: Hospitalist ( Dr. Royal) Lab Data MDM Lab Attestation statement: I reviewed the patient's lab results. 05/16/25 18:47 05/16/25 18:47 Labs: Lab Results 05/16/25 05/16/25 Range/Units 18:47 18:53 WBC 34.8 H* (4.8-10.8) X10*3/uL RBC 3.71 L (4.60-5.80) X10*6/uL Hgb 9.1 L (14.0-18.0) g/dl Hct 30.4 L (42.0-52.0) % MCV 81.9 (80.0-98.0) fL MCH 24.5 L (27.0-33.0) pg MCHC 29.9 L (31.0-36.0) g/dl RDW 18.7 H (11.0-16.0) % Plt Count 178 (160-400) X10*3/uL MPV 10.3 (9.4-12.4) fL Immature Gran % (Auto) Cancelled Neut % (Auto) Cancelled Lymph % (Auto) Cancelled [place] % (Auto) Cancelled Eos % (Auto) Cancelled Baso % (Auto) Cancelled Lymph # (Auto) Cancelled [place] # (Auto) Cancelled Eos # (Auto) Cancelled Baso # (Auto) Cancelled Abs Immat Gran (auto) Cancelled Absolute Neuts (auto) Cancelled Absolute Nucleated RBC 0.000 (0.0-0.012) X10*3/uL Nucleated RBC % (auto) 0.0 (0.0-0.2) /100WBC Neutrophils % (Manual) 81 H (45-73) % Band Neutrophils % 8 H (3-5) % Lymphocytes % (Manual) 3 L (20-40) % Monocytes % (Manual) 7 (2-11) % Basophils % (Manual) 1 (0-2) % Abs Neuts (Manual) 31.0 H (2.0-8.3) X10*3/uL Lymphocytes # (Manual) 1.0 L (1.2-4.9) X10*3/uL Monocytes # (Manual) 2.4 H (0.1-1.2) X10*3/uL Basophils # (Manual) 0.3 H (0.0-0.2) X10*3/uL Platelet Estimate NORMAL (NORMAL) Plt Morphology Comment NORMAL RBC Morphology NORMAL Smear Tech's Comments MANUAL DIFF VBG pH 7.32 (7.32-7.43) VBG pCO2 61 mmHg VBG pO2 44 mmHg VBG HCO3 32 H (22-26) mmol/L VBG O2 Saturation 62.0 % VBG Base Excess 4.6 mmol/L Sodium 141 (135-145) mmol/L Potassium 4.4 (3.3-5.1) mmol/L Chloride 104 (96-108) mmol/L Carbon Dioxide 28 (22-29) mmol/L Anion Gap 13 (12-20) BUN 22 H (9-16) mg/dL Creatinine 1.86 H (0.5-1.4) mg/dL Estim Creat Clear Calc 29.3 Estimated GFR 35 Random Glucose 140 H (60-115) mg/dL Lactic Acid 3.0 H* (0.5-2.0) mmol/L Calcium 8.6 D (8.4-10.2) mg/dL Total Bilirubin 0.3 (0.0-1.0) mg/dL Direct Bilirubin 0.1 (0.0-0.5) mg/dL AST 40 H (5-37) U/L ALT 21 (0-40) U/L Alkaline Phosphatase 160 H (39-117) U/L Troponin I High Sens 20.1 (<3.5-35.0) ng/L Total Protein 6.3 L (6.5-8.0) g/dL Albumin 3.3 L (3.5-5.0) g/dL Lipase 39 (8-78) U/L Influenza Type A (PCR) NEGATIVE (Negative) Influenza Type B (PCR) NEGATIVE (Negative) RSV RNA Qual (PCR) NEGATIVE (Negative) SARS-CoV-2 RNA (RT-PCR) NEGATIVE (Negative) Independent Interpretation I performed an independent interpretation of an: Plain X-Ray ( chest:1. Left basilar/retrocardiac airspace opacities, may represent pneumonia or atelectasis.) Radiology Impression Discussion of test interpretation with radiology: I have reviewed the radiologist's reading. Chronic Conditions Patient?s care impacted by: Cancer ( Lung cancer) Critical Care Time Critical Care Time Critical Care Time: Yes Total Critical Care Time: 60 Attestation: The patient was critically ill with a high probability of imminent or life- threatening deterioration. I spent greater than 30 minutes of discontinuous time evaluating the patient, delivering critical care at the bedside, discussing evaluating data with consultants. Critical care time does not include time spent performing separately billable procedures or teaching. Time spent performing critical care was 60 minutes. Discharge Plan Discharge Clinical Impression: Pneumonia, Hypoxia Patient Disposition: Admitted As Inpatient Print Language: Lao
--- NOTE | 2025-05-16 18:31 | ECG_ITS ---
Test Reason : SOB Blood Pressure : */* mmHG Vent. Rate : 86 BPM Atrial Rate : 86 BPM P-R Int : 176 ms QRS Dur : 98 ms QT Int : 370 ms P-R-T Axes : 71 23 63 degrees QTcB Int : 442 ms Normal sinus rhythm Septal infarct , age undetermined Abnormal ECG No previous ECGs available Referred By: Alma Jaramillo Electronically Signed By: DENITA RAMIREZ MD
[2025-05-16 18:54] LABS: Hematocrit 30.4 % (42.0-52.0); Hemoglobin 9.1 g/dl (14.0-18.0); Mean Corpuscular HGB Conc 29.9 g/dl (31.0-36.0); Mean Corpuscular Hemoglobin 24.5 pg (27.0-33.0); Mean Corpuscular Volume 81.9 fL (80.0-98.0); NRBC Abs Auto 0.000 X10*3/uL (0.0-0.012); NRBC Pct Auto 0.0 /100WBC (0.0-0.2); Platelet Count 178 X10*3/uL (160-400); Red Blood Count 3.71 X10*6/uL (4.60-5.80)
[2025-05-16 18:55] LABS: Venous Blood Gas Refer to POC result
[2025-05-16 18:57] LABS: VBG HCO3 32 mmol/L (22-26); VBG O2 % Saturation 62.0 %
[2025-05-16 18:59] LABS: White Blood Count 34.8 X10*3/uL (4.8-10.8)
[2025-05-16 19:17] LABS: Troponin-I High Sensitivity 20.1 ng/L (<3.5-35.0)
[2025-05-16 19:30] LABS: Alanine Aminotransferase 21 U/L (0-40); Albumin Level 3.3 g/dL (3.5-5.0); Alkaline Phosphatase 160 U/L (39-117); Anion Gap 13 (12-20); Aspartate Amino Transferase 40 U/L (5-37); Blood Urea Nitrogen 22 mg/dL (9-16); Calcium 8.6 mg/dL (8.4-10.2); Carbon Dioxide 28 mmol/L (22-29); Chloride 104 mmol/L (96-108); Creatinine Clr Calc Pharmacy 29.3; Estimated Glomerular Filt Rate 35; Lipase 39 U/L (8-78); Potassium 4.4 mmol/L (3.3-5.1); Sodium 141 mmol/L (135-145); Total Protein 6.3 g/dL (6.5-8.0)
[2025-05-16 19:34] LABS: Resp Syncy Virus RNA Qual PCR NEGATIVE (Negative); SARS COV2 PCR INHOUSE NEGATIVE (Negative)
[2025-05-16] MEDS: Lactated Ringers 1,000 ML 999 ML IV (19:35)
[2025-05-16 20:17] LABS: Band Neutrophils Percent 8 % (3-5); Basophils Abs Manual 0.3 X10*3/uL (0.0-0.2); Basophils Percent Manual 1 % (0-2); Lymphocytes Absolute Manual 1.0 X10*3/uL (1.2-4.9); Lymphocytes Percent Manual 3 % (20-40); Monocytes Absolute Manual 2.4 X10*3/uL (0.1-1.2); Monocytes Percent Manual 7 % (2-11); Neutrophils Absolute Manual 31.0 X10*3/uL (2.0-8.3); Neutrophils Percent Manual 81 % (45-73)
[2025-05-16 20:18] LABS: RBC Morphology NORMAL
--- NOTE | 2025-05-16 20:35 | PM.IMHP ---
History of Present Illness Date of Service: 05/16/25 Chief Complaint: Cough and shortness of breath 75-year-old male with a past medical history of HTN, HLD, COPD, lung cancer with metastasis, Port-A-Cath in place, on chemotherapy, VTE-on Eliquis; presented to the hospital today with a chief complaint of cough and shortness of breath. Most of the history obtained from the patient's family Patient's family reports that for the past 3 days he has been having cough with whitish sputum production. Has been having subjective fevers. Denies any chest pain or palpitations. Denies any nausea or vomiting. Denies any urinary symptoms. Patient has known diagnosis of lung cancer on chemotherapy. Patient denies any headaches or blurry visions. Review of all other systems is negative except mentioned above ER course: Per ER team, patient on presentation noted to be short of breath and hypoxic; placed on supplemental oxygen but still hypoxic-transitioned to high-flow oxygen. Respiratory status is stable. Oxygenation improved. X-ray showed bilateral pneumonia. Less concern for PE given patient on Eliquis. Given antibiotics. Noted to have lactic acidosis, severe leukocytosis, OLGA on labs. 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) Hyperlipemia HTN (hypertension) Cancer of lower lobe of left lung (~2019) Family History Mother Diabetes Brother Diabetes High blood pressure Daughter Breast cancer Daughter Hx of thyroid disease Surgical History History of laryngoscopy (~10/2018) Admission for fitting of Port-A-Cath (~09/2020) History of lobectomy of lung (~08/2020) History of colonoscopy (~12/2014) History of left knee surgery Social History Household Members: Spouse Housing: Apartment Do you presently have visiting nurse or other home services: No Alcohol intake: current Alcohol intake frequency: holidays/special occasions only Alcohol type: beer Patient Tobacco Use Status: Former Tobacco user Cigarette Packs Per Day: 1 Years Smoked: 34 Smoked in Last 30 Days: No Use of substances other than those prescribed or required for medical reasons: No Advance Directives: No Advance Directives Information Provided: No service: No Meds Allergies Allergy/AdvReac Type Severity Reaction Status Date / Time No Known Allergies Allergy Verified 05/16/25 18:35 Active Medications: Current Medications Acetaminophen (Acetaminophen 325 Mg Tablet) 650 mg PO Q6H PRN PRN Reason: Pain, Mild 1-3,fever,headache Albuterol/Ipratropium (Albuterol/Iprat 2.5/0.5mg 3 Ml Ampul.Neb) 3 ml INHALE Q4H PRN PRN Reason: Shortness of Breath/Wheezing Benzonatate (Benzonatate 100 Mg Capsule) 100 mg PO TID PRN PRN Reason: Cough Calcium Carbonate (Calcium Carbonate 750 Mg Tab.Chew) 750 mg PO Q4H PRN PRN Reason: Heartburn Piperacillin Sod/Tazobactam (Sod 2.25 gm/ Sodium Chloride) 50 mls @ 100 mls/hr IV Q6H ERMA Vancomycin HCl 1,500 mg/ (Sodium Chloride) 500 mls @ 333.333 mls/hr IV ONCE ONE Stop: 05/16/25 21:59 Lactated Ringer's (Lr) 1,000 mls @ 100 mls/hr IVCONT .Q10H ERMA Magnesium Hydroxide (Milk Of Magnesia 30 Ml Oral.Susp) 30 ml PO DAILY PRN PRN Reason: Constipation Melatonin (Melatonin 3 Mg Tablet) 6 mg PO BEDTIME PRN PRN Reason: Insomnia Pharmacy Consult (Consult Rx Vancomycin Dosing) 1 each MISCELLANE DAILY PRN PRN Reason: Consult order Sodium Chloride (0.9 % Sodium Chloride Flush 3 Ml Syringe) 3 ml IVFLUSH QSHIFT [facility] Home Medications ?Medication ?Instructions ?Recorded ?Confirmed ?Last Taken ?Type amlodipine 10 mg tablet 10 mg PO DAILY 06/07/20 05/16/25 05/16/25 History atorvastatin 10 mg tablet 10 mg PO DAILY 06/07/20 05/16/25 05/16/25 History fluticasone propionate 50 50 mcg intranasal DAILY PRN 10/05/16/25 10/18/24 History mcg/actuation nasal Congestion spray,suspension losartan 100 mg tablet 100 mg PO DAILY 06/07/20 05/16/25 05/16/25 History metoprolol succinate 50 mg 50 mg PO DAILY 06/07/20 05/16/25 05/16/25 History tablet,extended release 24 hr cholecalciferol (vitamin D3) 50 50 mcg PO DAILY 12/06/23 05/16/25 05/16/25 History mcg (2,000 unit) capsule (Vitamin D3) albuterol sulfate 2.5 mg/3 mL 2.5 mg inhalation Q4H PRN 10/18/24 05/16/25 Unknown History (0.083 %) solution for nebulization Shortness Of Breath albuterol sulfate 90 mcg/actuation 2 puff inhalation Q4H PRN 10/18/24 05/16/25 10/18/24 History aerosol inhaler shortness of breath or wheezing apixaban 5 mg tablet (Eliquis) 5 mg PO BID 05/16/25 05/16/25 05/16/25 History fluticasone fur. 200 mcg-umeclid 1 ea inhalation DAILY 05/16/25 05/16/25 05/16/25 History 62.5 mcg-vilant 25 mcg inhalat.powder (Trelegy Ellipta) Physical Exam Vital Signs and Narrative: Vital Signs: Last Vital Signs Temp 100.3 F 05/16/25 20:35 Pulse 78 05/16/25 19:37 Resp 14 05/16/25 19:37 BP 142/50 H 05/16/25 19:37 Pulse Ox 95 05/16/25 19:37 O2 Del Method High Flow Nasal C annula 05/16/25 19:37 BMI result Body Mass Index 25.2 Gen: Appears be in no acute distress HEENT: NCAT, Moist mucosa. Pulmonary: Coarse breath sounds CVS: Normal S1-S2 Abdomen: BS+, Soft, Nontender Extremities: Warm well perfused Neuro: Alert and awake. Results Labs 05/16/25 18:47 05/16/25 18:47 Labs: Laboratory Results - last 24 hr 05/16/25 05/16/25 18:47 18:53 MCV 81.9 MCH 24.5 L MCHC 29.9 L RDW 18.7 H Plt Count 178 MPV 10.3 Immature Gran % (Auto) Cancelled Neut % (Auto) Cancelled Lymph % (Auto) Cancelled [place] % (Auto) Cancelled Eos % (Auto) Cancelled Baso % (Auto) Cancelled Lymph # (Auto) Cancelled [place] # (Auto) Cancelled Eos # (Auto) Cancelled Baso # (Auto) Cancelled Abs Immat Gran (auto) Cancelled Absolute Neuts (auto) Cancelled Absolute Nucleated RBC 0.000 Nucleated RBC % (auto) 0.0 Neutrophils % (Manual) 81 H Band Neutrophils % 8 H Lymphocytes % (Manual) 3 L Monocytes % (Manual) 7 Basophils % (Manual) 1 Abs Neuts (Manual) 31.0 H Lymphocytes # (Manual) 1.0 L Monocytes # (Manual) 2.4 H Basophils # (Manual) 0.3 H Platelet Estimate NORMAL Plt Morphology Comment NORMAL RBC Morphology NORMAL Smear Tech's Comments MANUAL DIFF VBG pH 7.32 VBG pCO2 61 VBG pO2 44 VBG HCO3 32 H VBG O2 Saturation 62.0 VBG Base Excess 4.6 Anion Gap 13 Estim Creat Clear Calc 29.3 Estimated GFR 35 Random Glucose 140 H Lactic Acid 3.0 H* Calcium 8.6 D Total Bilirubin 0.3 Direct Bilirubin 0.1 AST 40 H ALT 21 Alkaline Phosphatase 160 H Troponin I High Sens 20.1 Total Protein 6.3 L Albumin 3.3 L Lipase 39 Influenza Type A (PCR) NEGATIVE Influenza Type B (PCR) NEGATIVE RSV RNA Qual (PCR) NEGATIVE SARS-CoV-2 RNA (RT-PCR) NEGATIVE Assessment and Plan (1) RLL pneumonia: Qualifiers: Pneumonia type: due to unspecified organism Qualified Code(s): J18.9 - Pneumonia, unspecified organism Status: Acute Plan 75-year-old male with a past medical history of HTN, HLD, COPD, lung cancer with metastasis, Port-A-Cath in place, on chemotherapy, VTE-on Eliquis; presented to the hospital today with a chief complaint of cough and shortness of breath. Noted to be in acute hypoxic respiratory failure in the setting of pneumonia. Acute hypoxic respiratory failure: Bilateral pneumonia: Sepsis: Patient blood pressure is stable. Currently on high-flow oxygen. Not in respiratory distress. Speaks in full sentences. Continue vancomycin and Zosyn Nebulizations p.r.n. Follow-up cultures V/Q scan Lactic acidosis: Patient on IV fluids. OLGA: Avoid nephrotoxins. Gentle IV fluids. HX lung cancer with metastasis: Patient on chemotherapy. HX VTE: Patient on Eliquis. Hypertension: Hold home antihypertensives for now Hypothyroidism: Continue home levothyroxine DVT prophylaxis: Patient on Eliquis Code status: Full code Quality Stroke Does the patient have a stroke diagnosis?: No VTE Prior VTE?: No VTE Risk Level:: Medical - moderate - high VTE Device Contraindication: Treatment Not Indicated VTE Drug Contraindication: N/A - Med Ordered
--- NOTE | 2025-05-16 20:46 | PHA.MEDREC ---
Addendum entered by Joshua De Guzman RPh 05/16/25 20:53: Med rec reviewed Original Note: Pharmacy Consult ? Medication Reconciliation Pharmacy has completed the medication reconciliation. Spoke to patient family at bedside to confirm med list. Family had a medbox list with some of patient medications. Family was able to confirm all of patents medications. Grey had all his morning medications today.
[2025-05-16 20:51] LABS: Reflex Lactate? Lactic Acid Added
[2025-05-16] MEDS: Lactated Ringers 1,000 ML 100 ML IVCONT (21:08)
--- NOTE | 2025-05-16 21:16 | PC.NURSE ---
assumed care of patient at 1899. RT at bedside to assess high flow, sats ranging 82-86% nasal cannula part appears to big for nares. with adjustments sats 95%. at 1919 critical lactic at 3.0 reported to MD Jaramillo, at that time sepsis alert called and ivf/abx ordered. pt medicated per oct. girlfriend and son at bedside educated on plan of care. vitals stable as documented resp even and unlabored. patient denies pain/discomfort. at 2034 rectal temp 100.3F MD Jaramillo aware and states can give tylenol. pt medicated per oct with tylenol, ivf and abx. phlebotomy at bedside now to obtain repeat lactic. family remains at bedside. call villalta within reach.
[2025-05-16 21:36] LABS: ~Lactic Acid-LAB USE ONLY 2.0 mmol/L (0.5-2.0)
--- NOTE | 2025-05-16 23:23 | PC.NURSE ---
MD Royal made aware of patients rectal temp. ice packs placed on pt. pt attempted to have BM with bedpan and unable to, states urge went away. resp even and unlabored, nad.
[2025-05-17] VITALS (15 sets, daily range): BP systolic 108–128; BP diastolic 42–61; PULSE 52–80; RESP 13–25; TEMP 36.4–37.9; O2SAT 90–98
[2025-05-17 00:42] LABS: Appearance Urine Cloudy; Glucose Urine UA Negative (Negative); PH 5.5 (5.0-9.0); Specific Gravity - Urine 1.020 (1.005-1.025); UMIC TRIGGER UACC YES
[2025-05-17 00:45] LABS: UACC Culture Trigger YES
--- NOTE | 2025-05-17 05:05 | PC.NURSE ---
downtime overnight. pt has been sleeping through the night able to reposition himself. arousable to name. approx 0400 patient asked if he was going home. re educated on plan of care and pt verbalized understanding and resting comfortably. remains on highflow. call villalta within reach.
[2025-05-17 05:21] LABS: Hematocrit 30.2 % (42.0-52.0); Hemoglobin 8.6 g/dl (14.0-18.0); Mean Corpuscular HGB Conc 28.5 g/dl (31.0-36.0); Mean Corpuscular Hemoglobin 24.0 pg (27.0-33.0); Mean Corpuscular Volume 84.4 fL (80.0-98.0); NRBC Abs Auto 0.000 X10*3/uL (0.0-0.012); NRBC Pct Auto 0.0 /100WBC (0.0-0.2); Platelet Count 136 X10*3/uL (160-400); Red Blood Count 3.58 X10*6/uL (4.60-5.80); WBC ABN SCTR FOR CBC 1
[2025-05-17 05:26] LABS: White Blood Count 43.8 X10*3/uL (4.8-10.8)
[2025-05-17 06:18] LABS: Band Neutrophils Percent 13 % (3-5); Lymphocytes Absolute Manual 0.9 X10*3/uL (1.2-4.9); Lymphocytes Percent Manual 2 % (20-40); Monocytes Absolute Manual 0.4 X10*3/uL (0.1-1.2); Monocytes Percent Manual 1 % (2-11); Neutrophils Absolute Manual 42.5 X10*3/uL (2.0-8.3); Neutrophils Percent Manual 84 % (45-73)
[2025-05-17 06:19] LABS: Ovalocytes 1+ (5-14) /OIF; RBC Morphology NOTED
[2025-05-17 06:20] LABS: Basophilic Stippling 1+ (0-2) /OIF; Polychromasia 1+ (0-2) /OIF; Schistocytes 1+ (0-2) /OIF; Tear Drop Cells 1+ (0-2) /OIF; Toxic Granulation PRESENT
[2025-05-17 06:25] LABS: Alanine Aminotransferase 14 U/L (0-40); Albumin Level 2.6 g/dL (3.5-5.0); Alkaline Phosphatase 135 U/L (39-117); Anion Gap 13 (12-20); Aspartate Amino Transferase 25 U/L (5-37); Blood Urea Nitrogen 22 mg/dL (9-16); Calcium 7.9 mg/dL (8.4-10.2); Carbon Dioxide 28 mmol/L (22-29); Chloride 105 mmol/L (96-108); Creatinine Clr Calc Pharmacy 26.9; Estimated Glomerular Filt Rate 32; Potassium 4.1 mmol/L (3.3-5.1); Sodium 142 mmol/L (135-145); Total Protein 4.7 g/dL (6.5-8.0)
[2025-05-17] MEDS: Lactated Ringers 1,000 ML 100 ML IVCONT (07:26)
[2025-05-17] MEDS: Metoprolol Succinate ER 50 MG TAB.ER.24H PO (08:27)
[2025-05-17 08:37] LABS: NT Pro B Type Natriuretic Pept 5027.2 pg/mL (<300)
[2025-05-17 08:49] LABS: Procalcitonin 4.61 ng/mL
--- NOTE | 2025-05-17 09:03 | PC.NURSE ---
Addendum entered by Phoebe Hunt RN 05/17/25 11:32: Pt returns to unit at approx. 1000. Original Note: Pt sceduled for lung imaging off ED unit. Spoke with RT who advised this RN to remove Pt from Hi-flow and place on 15L O2 via Oxymask. Mode of oxygen changed per RT recommendations and Pt remained in ED for observation for 10 minutes showing stable O2 sat levels of 94-95%. Pt will transport to imaging with on 15L O2 via oxymask. Pt leaves the unit at this time (908.)
--- NOTE | 2025-05-17 10:52 | MHC.CM.PN ---
IMM 05/17/25, Pt. lives with his S.O., he does not have home health services or DME. HCP is [place], she takes care of pt. PCP is: Halley Powers MD at [facility]. Family will transport home at DC, DCP: home, self care or with services. CM to follow for DC needs.
[2025-05-17 11:00] LABS: Chlamydia pneumoniae PCR Not Detected (Not Detect.); Coronavirus 229E PCR Not Detected (Not Detect.); Coronavirus HKU1 PCR Not Detected (Not Detect.); Coronavirus NL63 PCR Not Detected (Not Detect.); Coronavirus OC43 PCR Not Detected (Not Detect.); RSV PCR Not Detected (Not Detect.); Rhino/Enterovirus PCR Not Detected (Not Detect.); SARS-CoV-2 PCR Not Detected (Not Detect.)
[2025-05-17 11:12] LABS: Influenza A H1 PCR Not Detected (Not Detect.); Influenza A H1-2009 PCR Not Detected (Not Detect.); Influenza A H3 PCR Not Detected (Not Detect.)
--- NOTE | 2025-05-17 12:10 | P.PNIM_ITS ---
Subjective Subjective Date of Service: 05/17/25 Interval History: This history was taken in [place] from the patient. Short of breath, coughing white sputum on high flow, 70-80% fiO2 45 Lpm Review of Systems Review of Systems: Yes all other systems are reviewed and are negative Physical Exam 2 Vital Signs: Vital Signs: Last Vital Signs Temp 97.5 F 05/17/25 10:04 Pulse 65 05/17/25 10:04 Resp 19 05/17/25 11:27 BP 118/44 L 05/17/25 10:04 Pulse Ox 93 05/17/25 10:04 O2 Del Method Oxymask 05/17/25 10:04 O2 Flow Rate 15 05/17/25 10:04 BMI result Body Mass Index 25.2 Gen: in respiratory distreiss HEENT: sclera anicteric, moist mucus membranes Neck: supple, right subclavian port in place Lungs: L>R inspiratory crackles, tachypneic, increased work of breathing Heart: regular rate and rhythm, no murmurs Abd: soft, non-tender, non-distended Ext: no edema Skin: warm/well-perfused Neuro: alert and oriented x3, no focal findings Psych: appropriate affect Objective Data Active Medications Acetaminophen (Acetaminophen 325 Mg Tablet) 650 mg PO Q6H PRN PRN Reason: Pain, Mild 1-3,fever,headache Last Admin: 05/16/25 21:04 Dose: 650 mg Documented By: CLAUDIO Albuterol/Ipratropium (Albuterol/Iprat 2.5/0.5mg 3 Ml Ampul.Neb) 3 ml INHALE Q4H PRN PRN Reason: Shortness of Breath/Wheezing Apixaban (Apixaban 5 Mg Tablet) 5 mg PO BID [facility] Last Admin: 05/17/25 08:27 Dose: 5 mg Documented By: LUCIA Atorvastatin Calcium (Atorvastatin Calcium 10 Mg Tablet) 10 mg PO DAILY [facility] Last Admin: 05/17/25 08:27 Dose: 10 mg Documented By: LUCIA Benzonatate (Benzonatate 100 Mg Capsule) 100 mg PO TID PRN PRN Reason: Cough Calcium Carbonate (Calcium Carbonate 750 Mg Tab.Chew) 750 mg PO Q4H PRN PRN Reason: Heartburn Piperacillin Sod/Tazobactam (Sod 2.25 gm/ Sodium Chloride) 50 mls @ 100 mls/hr IV Q6H [facility] Last Infusion: 05/17/25 08:19 Dose: Infused Documented By: LUCIA Lactated Ringer's (Lr) 1,000 mls @ 100 mls/hr IVCONT .Q10H [facility] Last Admin: 05/17/25 07:26 Dose: 100 mls/hr Documented By: LUCIA Vancomycin HCl 750 mg/ Sodium (Chloride) 265 mls @ 265 mls/hr IV Q24H [facility] Levothyroxine Sodium (Levothyroxine Sodium 75 Mcg Tablet) 75 mcg PO DAILY@0600 [facility] Last Admin: 05/17/25 05:56 Dose: 75 mcg Documented By: CLAUDIO Magnesium Hydroxide (Milk Of Magnesia 30 Ml Oral.Susp) 30 ml PO DAILY PRN PRN Reason: Constipation Melatonin (Melatonin 3 Mg Tablet) 6 mg PO BEDTIME PRN PRN Reason: Insomnia Metoprolol Succinate (Metoprolol Succinate Er 50 Mg Tab.Er.24h) 50 mg PO DAILY [facility]; Protocol Last Admin: 05/17/25 08:27 Dose: 50 mg Documented By: LUCIA Pharmacy Consult (Consult Rx Vancomycin Dosing) 1 each MISCELLANE DAILY PRN PRN Reason: Consult order Sodium Chloride (0.9 % Sodium Chloride Flush 3 Ml Syringe) 3 ml IVFLUSH QSHIFT [facility] Last Admin: 05/17/25 07:30 Dose: Not Given Documented By: LUCIA Non-Admin Reason: IV Running Labs 05/17/25 04:31 05/17/25 04:31 Labs: Laboratory Results - last 24 hr 05/16/25 05/16/25 05/16/25 18:47 18:53 21:17 MCV 81.9 MCH 24.5 L MCHC 29.9 L RDW 18.7 H Plt Count 178 MPV 10.3 Immature Gran % (Auto) Cancelled Neut % (Auto) Cancelled Lymph % (Auto) Cancelled [place] % (Auto) Cancelled Eos % (Auto) Cancelled Baso % (Auto) Cancelled Lymph # (Auto) Cancelled [place] # (Auto) Cancelled Eos # (Auto) Cancelled Baso # (Auto) Cancelled Abs Immat Gran (auto) Cancelled Absolute Neuts (auto) Cancelled Absolute Nucleated RBC 0.000 Nucleated RBC % (auto) 0.0 Neutrophils % (Manual) 81 H Band Neutrophils % 8 H Lymphocytes % (Manual) 3 L Monocytes % (Manual) 7 Basophils % (Manual) 1 Abs Neuts (Manual) 31.0 H Lymphocytes # (Manual) 1.0 L Monocytes # (Manual) 2.4 H Basophils # (Manual) 0.3 H Toxic Granulation Platelet Estimate NORMAL Plt Morphology Comment NORMAL RBC Morphology NORMAL Polychromasia Basophilic Stippling Tear Drop Cells Ovalocytes Schistocytes Smear Tech's Comments MANUAL DIFF Smear Path Review VBG pH 7.32 VBG pCO2 61 VBG pO2 44 VBG HCO3 32 H VBG O2 Saturation 62.0 VBG Base Excess 4.6 Anion Gap 13 Estim Creat Clear Calc 29.3 Estimated GFR 35 Random Glucose 140 H Lactic Acid 3.0 H* Lactic Acid F/U @ 2Hr 2.0 Calcium 8.6 D Total Bilirubin 0.3 Direct Bilirubin 0.1 AST 40 H ALT 21 Alkaline Phosphatase 160 H Troponin I High Sens 20.1 NT-Pro-B Natriuret Pep Total Protein 6.3 L Albumin 3.3 L Lipase 39 Procalcitonin Urine Color Urine Appearance Urine pH Ur Specific [place] Urine Protein Urine Glucose (UA) Urine Ketones Urine Blood Urine Nitrite Ur Leukocyte Esterase Urine RBC Urine WBC Ur Squamous Epith Cells Urine Bacteria Hyaline Casts Respiratory Panel Kelly Adenovirus (Rapid PCR) B.pert (TEM-PCR) B.parapertussis DNA PCR C. pneumoniae DNA (PCR) Coronavirus OC43 (PCR) Coronavirus HKU1 (PCR) Coronavirus 229E (PCR) Coronavirus NL63 (PCR) Human Metapneumovir PCR Influenza A (RT-PCR) Influenza A (H1) PCR Influ A () PCR Influenza A (H3) PCR Influenza Type A (PCR) NEGATIVE Influenza B (RT-PCR) Influenza Type B (PCR) NEGATIVE M. pneumoniae (PCR) Parainfluenza 1 (PCR) Parainfluenza 2 (PCR) Parainfluenza 3 (PCR) Parainfluenza 4 (PCR) RSV (PCR) RSV RNA Qual (PCR) NEGATIVE Entero/Rhino (PCR) SARS-CoV-2 RNA (RT-PCR) NEGATIVE 05/17/25 05/17/25 05/17/25 00:33 04:31 09:57 MCV 84.4 MCH 24.0 L MCHC 28.5 L RDW 18.8 H Plt Count 136 L MPV 10.7 Immature Gran % (Auto) Cancelled Neut % (Auto) Cancelled Lymph % (Auto) Cancelled [place] % (Auto) Cancelled Eos % (Auto) Cancelled Baso % (Auto) Cancelled Lymph # (Auto) Cancelled [place] # (Auto) Cancelled Eos # (Auto) Cancelled Baso # (Auto) Cancelled Abs Immat Gran (auto) Cancelled Absolute Neuts (auto) Cancelled Absolute Nucleated RBC 0.000 Nucleated RBC % (auto) 0.0 Neutrophils % (Manual) 84 H Band Neutrophils % 13 H Lymphocytes % (Manual) 2 L Monocytes % (Manual) 1 L Basophils % (Manual) Abs Neuts (Manual) 42.5 H Lymphocytes # (Manual) 0.9 L Monocytes # (Manual) 0.4 Basophils # (Manual) Toxic Granulation PRESENT Platelet Estimate SLIGHTLY DECREASED Plt Morphology Comment NORMAL RBC Morphology NOTED Polychromasia 1+ (0-2) Basophilic Stippling 1+ (0-2) Tear Drop Cells 1+ (0-2) Ovalocytes 1+ (5-14) Schistocytes 1+ (0-2) Smear Tech's Comments Smear Path Review SEE NOTE VBG pH VBG pCO2 VBG pO2 VBG HCO3 VBG O2 Saturation VBG Base Excess Anion Gap 13 Estim Creat Clear Calc 26.9 Estimated GFR 32 Random Glucose 80 Lactic Acid Lactic Acid F/U @ 2Hr Calcium 7.9 L D Total Bilirubin 0.4 Direct Bilirubin AST 25 ALT 14 Alkaline Phosphatase 135 H Troponin I High Sens NT-Pro-B Natriuret Pep 5027.2 H Total Protein 4.7 L Albumin 2.6 L Lipase Procalcitonin 4.61 Urine Color Yellow Urine Appearance Cloudy Urine pH 5.5 Ur Specific [place] 1.020 Urine Protein >=1000 (4+) H Urine Glucose (UA) Negative Urine Ketones Negative Urine Blood Large (3+) H Urine Nitrite Negative Ur Leukocyte Esterase Small (1+) H Urine RBC >20 H Urine WBC 21-50 H Ur Squamous Epith Cells 3-5 Urine Bacteria None Seen Hyaline Casts 3-5 Respiratory Panel Kelly See Note Adenovirus (Rapid PCR) Not Detected B.pert (TEM-PCR) Not Detected B.parapertussis DNA PCR Not Detected C. pneumoniae DNA (PCR) Not Detected Coronavirus OC43 (PCR) Not Detected Coronavirus HKU1 (PCR) Not Detected Coronavirus 229E (PCR) Not Detected Coronavirus NL63 (PCR) Not Detected Human Metapneumovir PCR Not Detected Influenza A (RT-PCR) Not Detected Influenza A (H1) PCR Not Detected Influ A (H1/09) PCR Not Detected Influenza A (H3) PCR Not Detected Influenza Type A (PCR) Influenza B (RT-PCR) Not Detected Influenza Type B (PCR) M. pneumoniae (PCR) Not Detected Parainfluenza 1 (PCR) Not Detected Parainfluenza 2 (PCR) Not Detected Parainfluenza 3 (PCR) Not Detected Parainfluenza 4 (PCR) Not Detected RSV (PCR) Not Detected RSV RNA Qual (PCR) Entero/Rhino (PCR) Not Detected SARS-CoV-2 RNA (RT-PCR) Not Detected Assessment and Plan (1) Pneumonia: Status: Acute (2) Hypoxia: Status: Acute Assessment and Plan: d2, 75yo M with metastatic lung CA on palliative chemotherapy, hx VTE on Eliquis, COPD, HTN, HLD presenting with cough and dyspnea, admitted for hypoxia due to pneumonia sepsis and acute hypoxic respiratory failure due to pneumonia and COPD exacerbation: 05/16- vancomycin + piperacillin-tazobactam; MRSA swab; urinary antigens for Legionella and pneumococcus; follow BCx; trend PCT; RPP; start methlyprednisolone, nebs; supplemental O2, wean as tolerated; currently on HFNC OLGA: likely septic ATN; continue IV fluids; hold losartan; recheck BMP tomorrow intermediate-probability V/Q: on Eliquis; unlikely to have PE but will check bilateral LE Duplex lactic acidosis: resolved after IV fluids hx DVT: apixaban HLD: statin HTN: continue metoprolol succinate; hold amlodipine + losartan hypothyroidism: continue LT4 VTE ppx: apixaban dispo: TBD In my clinical judgment, the patient requires continued inpatient hospitalization for the following reasons: respiratory failure Total time managing care of this patient today: 55 minutes. Quality Stroke Does the patient have a stroke diagnosis?: No VTE Prior VTE?: No VTE Risk Level:: Medical - moderate - high VTE Device Contraindication: Treatment Not Indicated VTE Drug Contraindication: N/A - Med Ordered
--- NOTE | 2025-05-17 12:23 | HO.NURTONUR ---
75 yr male admitted for acute respiratory failure d/t RLL pneumonia. Pt comes to ED for complaints of cough and SOB. Noted desats at time of EMS arrival at Pts home: 70%, 89% Pt is A&Ox3 Mostly singaporean speaking. PMH: Lung CA, currently on chemo. VSS Pt initally on Hi flow O2 but has transitioned to 15L Oxymask--Pt reports he prefers the oxymask. Bilat AC IV access. LR running @ 100ml/hr. Bedside commode with 1 assist. Pt able to feed independently with help setting tray up. RT for PRN nebs/evals Pulmonary Perfusion imaging completed today.
--- NOTE | 2025-05-17 18:06 | PC.NURSE ---
IV pump requires frequent restarts throughout the afternoon d/t Pt bending arm. Pt encouraged to keep arm straight to allow for proper infusion flow. IVF behind schedule.
--- NOTE | 2025-05-17 19:48 | HE.PHANOTE ---
RE: VANCO DOSING Trough came back 14.9 mg/L after loading dose of 1500 mg. Renal function is worsening. Start dose of 750 mg q24h @2100 05/17/25. Next trough is scheduled for 05/18/25 @1900.
[2025-05-17] MEDS: Lactated Ringers 1,000 ML 125 ML IVCONT (22:05)
[2025-05-18] VITALS (12 sets, daily range): BP systolic 107–130; BP diastolic 53–68; PULSE 54–73; RESP 16–22; TEMP 36.1–36.7; O2SAT 93–100
[2025-05-18] MEDS: Lactated Ringers 1,000 ML 125 ML IVCONT ×3 (06:04→21:15)
[2025-05-18 06:16] LABS: Venous Blood Gas Refer to POC result
[2025-05-18 06:21] LABS: VBG HCO3 30 mmol/L (22-26); VBG O2 % Saturation 55.0 %
[2025-05-18 06:39] LABS: Anion Gap 10 (12-20); Blood Urea Nitrogen 37 mg/dL (9-16); Calcium 7.8 mg/dL (8.4-10.2); Carbon Dioxide 30 mmol/L (22-29); Chloride 104 mmol/L (96-108); Creatinine Clr Calc Pharmacy 18.1; Estimated Glomerular Filt Rate 20; Potassium 4.7 mmol/L (3.3-5.1); Sodium 139 mmol/L (135-145)
[2025-05-18 06:44] LABS: Hematocrit 29.6 % (42.0-52.0); Hemoglobin 8.4 g/dl (14.0-18.0); Mean Corpuscular HGB Conc 28.4 g/dl (31.0-36.0); Mean Corpuscular Hemoglobin 24.2 pg (27.0-33.0); Mean Corpuscular Volume 85.3 fL (80.0-98.0); NRBC Abs Auto 0.000 X10*3/uL (0.0-0.012); NRBC Pct Auto 0.0 /100WBC (0.0-0.2); Platelet Count 130 X10*3/uL (160-400); Red Blood Count 3.47 X10*6/uL (4.60-5.80)
[2025-05-18 07:50] LABS: White Blood Count 40.8 X10*3/uL (4.8-10.8)
[2025-05-18] MEDS: Metoprolol Succinate ER 50 MG TAB.ER.24H PO (08:45)
[2025-05-18] MEDS: 0.9 % Sodium Chloride Flush 3 ML SYRINGE IVFLUSH ×2 (08:45→15:19)
[2025-05-18] MEDS: Fluticasone/Umeclidinium/Vilanterol 200/62.5/25 BLST.W.DEV 1 PUFF INHALE (09:53)
[2025-05-18 10:08] LABS: VBG HCO3 29 mmol/L (22-26); VBG O2 % Saturation 33.0 %
[2025-05-18 10:20] LABS: Venous Blood Gas Refer to POC result
[2025-05-18 11:04] LABS: MRSA Nasal PCR NEGATIVE (Negative); SA Nasal PCR NEGATIVE (Negative)
--- NOTE | 2025-05-18 11:16 | MHC.CM.PN ---
Per rounds, pt. is requiring high flow O2, still acute, MD to discuss goals of care with family. CM to follow.
--- NOTE | 2025-05-18 11:38 | PM.PNNEP ---
Subjective Subjective Date of Service: 05/18/25 Interval history: This history was taken in [place] from the patient. Short of breath, coughing white sputum on high flow, 70-80% fiO2 45 Lpm Physical Exam Vital Signs: Vital Signs: Last Vital Signs Temp 97.3 F 05/18/25 11:13 Pulse 60 05/18/25 11:13 Resp 20 05/18/25 11:13 BP 109/56 L 05/18/25 11:13 Pulse Ox 100 05/18/25 11:13 O2 Del Method High Flow Nasal C annula 05/18/25 11:13 O2 Flow Rate 50 05/18/25 11:13 FiO2 50 05/18/25 11:13 BMI result Body Mass Index 25.2 Objective Data Labs 05/18/25 06:09 05/18/25 06:09 Labs: Laboratory Results - last 24 hr 05/17/25 05/18/25 05/18/25 19:05 06:09 06:15 WBC 40.8 H* RBC 3.47 L Hgb 8.4 L Hct 29.6 L MCV 85.3 MCH 24.2 L MCHC 28.4 L RDW 19.0 H Plt Count 130 L MPV 11.1 Absolute Nucleated RBC 0.000 Nucleated RBC % (auto) 0.0 VBG pH 7.21 L VBG pCO2 74 VBG pO2 40 VBG HCO3 30 H VBG O2 Saturation 55.0 VBG Base Excess 1.3 Sodium 139 Potassium 4.7 Chloride 104 Carbon Dioxide 30 H Anion Gap 10 L BUN 37 H Creatinine 3.01 H Estim Creat Clear Calc 18.1 Estimated GFR 20 Random Glucose 134 H Calcium 7.8 L Nasal Screen MRSA (PCR) Nasal S. aureus Screen Nasal MRSA/S.aureus Interp Random Vancomycin 14.9 L 05/18/25 05/18/25 09:43 10:04 WBC RBC Hgb Hct MCV MCH MCHC RDW Plt Count MPV Absolute Nucleated RBC Nucleated RBC % (auto) VBG pH 7.29 L VBG pCO2 59 VBG pO2 29 VBG HCO3 29 H VBG O2 Saturation 33.0 VBG Base Excess 2.0 Sodium Potassium Chloride Carbon Dioxide Anion Gap BUN Creatinine Estim Creat Clear Calc Estimated GFR Random Glucose Calcium Nasal Screen MRSA (PCR) NEGATIVE Nasal S. aureus Screen NEGATIVE Nasal MRSA/S.aureus Interp SEE NOTE Random Vancomycin Microbiology Microbiology Results: Microbiology 05/16/25 18:47 Blood - Venous Blood Culture - Preliminary No growth after 24 hours. 05/16/25 18:47 Blood - Venous Blood Culture - Preliminary No growth after 24 hours. Procedures Date of Service Date of Service: 05/18/25 Assessment & Plan Time Spent With Patient Time: Total time managing care of this patient today ____ minutes. Progress Note: Quality Stroke Does the patient have a stroke diagnosis?: No
--- NOTE | 2025-05-18 11:39 | PM.CNNEP ---
History of Present Illness Reason for Consult Consult date: 05/18/25 Reason for consult: acute kidney injury Chief Complaint Chief complaint: Hypoxia History of Present Illness Narrative: 75 years old gentleman with PMH of metastatic Non Small Cell lung cancer on chemotherapy, h/o squmous cell cancer of glottis, COPD, PE, Hypertension is admitted to the hospital due to shortness of breath from bilateral pneumonia needing high flow oxygen. Since admission there is some improvement in oxygenation and is currently on high flow oxygen 50L at 50% His baseline creatinine is normal and has a raise in creatinine from baseline of 0.75 to 1.86 on admission and 3.06 this morning, unsure about urine output as he is incontinent in the pads. Review of Systems Constitutional: Denies anorexia, Denies body ache(s) and Denies chills Denies change in voice and Denies dental pain Respiratory: Reports change in phlegm color, Reports chest congestion and Reports cough Gastrointestinal: Denies hematochezia and Denies change in bowel habits Genitourinary: Denies change in libido and Denies oliguria Denies Neuro-related abnormal movements and Denies Abnormal speech present Psychiatric: Denies change in libido Endocrine: Denies change in libido and Denies cold intolerance PMFSH Past Medical History Medical History Tracheomalacia Mucus plugging of bronchi On beta [place] at home Personal history of nicotine dependence Port-A-Cath in place (~09/2020) 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) Hyperlipemia HTN (hypertension) Cancer of lower lobe of left lung (~2019) Family History Family History Mother Diabetes Brother Diabetes High blood pressure Daughter Breast cancer Daughter Hx of thyroid disease Surgical History Surgical History History of laryngoscopy (~10/2018) Admission for fitting of Port-A-Cath (~09/2020) History of lobectomy of lung (~08/2020) History of colonoscopy (~12/2014) History of left knee surgery Social History Social History Household Members: Family Housing: Apartment Do you presently have visiting nurse or other home services: No Alcohol intake: current Alcohol intake frequency: holidays/special occasions only Alcohol type: beer Patient Tobacco Use Status: Former Tobacco user Cigarette Packs Per Day: 1 Years Smoked: 34 service: No Meds Allergies Allergy/AdvReac Type Severity Reaction Status Date / Time No Known Allergies Allergy Verified 05/16/25 18:35 Active Medications: Current Medications Acetaminophen (Acetaminophen 325 Mg Tablet) 650 mg PO Q6H PRN PRN Reason: Pain, Mild 1-3,fever,headache Last Admin: 05/16/25 21:04 Dose: 650 mg Albuterol/Ipratropium (Albuterol/Iprat 2.5/0.5mg 3 Ml Ampul.Neb) 3 ml INHALE Q4H PRN PRN Reason: Shortness of Breath/Wheezing Apixaban (Apixaban 5 Mg Tablet) 5 mg PO BID [facility] Last Admin: 05/18/25 08:43 Dose: Not Given Atorvastatin Calcium (Atorvastatin Calcium 10 Mg Tablet) 10 mg PO DAILY [facility] Last Admin: 05/18/25 08:45 Dose: 10 mg Benzonatate (Benzonatate 100 Mg Capsule) 100 mg PO TID PRN PRN Reason: Cough Calcium Carbonate (Calcium Carbonate 750 Mg Tab.Chew) 750 mg PO Q4H PRN PRN Reason: Heartburn Fluticasone/Umeclidinium/Vilanterol (Fluticasone/Umeclidinium/Vilanterol 200/62.5/25 Blst.W.Dev) 1 puff INHALE RDAILY [facility] Last Admin: 05/18/25 09:53 Dose: 1 puff Piperacillin Sod/Tazobactam (Sod 2.25 gm/ Sodium Chloride) 50 mls @ 100 mls/hr IV Q6H [facility] Last Infusion: 05/18/25 07:26 Dose: Infused Lactated Ringer's (Lr) 1,000 mls @ 125 mls/hr IVCONT .Q8H [facility] Last Admin: 05/18/25 06:04 Dose: 125 mls/hr Vancomycin HCl 750 mg/ Sodium (Chloride) 265 mls @ 265 mls/hr IV Q24H [facility] Last Infusion: 05/17/25 23:22 Dose: Infused Levothyroxine Sodium (Levothyroxine Sodium 75 Mcg Tablet) 75 mcg PO DAILY@0600 [facility] Last Admin: 05/18/25 06:04 Dose: 75 mcg Magnesium Hydroxide (Milk Of Magnesia 30 Ml Oral.Susp) 30 ml PO DAILY PRN PRN Reason: Constipation Melatonin (Melatonin 3 Mg Tablet) 6 mg PO BEDTIME PRN PRN Reason: Insomnia Methylprednisolone Sodium Succinate (Methylprednisolone Sod Succ 40 Mg/Ml Vial) 60 mg IVPUSH Q8H [facility] Last Admin: 05/18/25 08:45 Dose: 60 mg Metoprolol Succinate (Metoprolol Succinate Er 50 Mg Tab.Er.24h) 50 mg PO DAILY [facility]; Protocol Last Admin: 05/18/25 08:45 Dose: 50 mg Pharmacy Consult (Consult Rx Vancomycin Dosing) 1 each MISCELLANE DAILY PRN PRN Reason: Consult order Sodium Chloride (0.9 % Sodium Chloride Flush 3 Ml Syringe) 3 ml IVFLUSH QSHIFT [facility] Last Admin: 05/18/25 08:45 Dose: 3 ml Vitamin D (Cholecalciferol (Vitamin D3) 25 Mcg Tablet) 50 mcg PO DAILY [facility] Last Admin: 05/18/25 08:45 Dose: 50 mcg Home Medications ?Medication ?Instructions ?Recorded ?Confirmed ?Last Taken ?Type amlodipine 10 mg tablet 10 mg PO DAILY 06/07/20 05/16/25 05/16/25 History atorvastatin 10 mg tablet 10 mg PO DAILY 06/07/20 05/16/25 05/16/25 History fluticasone propionate 50 50 mcg intranasal DAILY PRN 06/07/20 05/16/25 10/18/24 History mcg/actuation nasal Congestion spray,suspension losartan 100 mg tablet 100 mg PO DAILY 06/07/20 05/16/25 05/16/25 History metoprolol succinate 50 mg 50 mg PO DAILY 06/07/20 05/16/25 05/16/25 History tablet,extended release 24 hr cholecalciferol (vitamin D3) 50 50 mcg PO DAILY 12/06/23 05/16/25 05/16/25 History mcg (2,000 unit) capsule (Vitamin D3) albuterol sulfate 2.5 mg/3 mL 2.5 mg inhalation Q4H PRN 10/18/24 05/16/25 Unknown History (0.083 %) solution for nebulization Shortness Of Breath albuterol sulfate 90 mcg/actuation 2 puff inhalation Q4H PRN 10/18/24 05/16/25 10/18/24 History aerosol inhaler shortness of breath or wheezing apixaban 5 mg tablet (Eliquis) 5 mg PO BID 05/16/25 05/16/25 05/16/25 History fluticasone fur. 200 mcg-umeclid 1 ea inhalation DAILY 05/16/25 05/16/25 05/16/25 History 62.5 mcg-vilant 25 mcg inhalat.powder (Trelegy Ellipta) Physical Exam Vital Signs: Last Vital Signs Temp 97.3 F 05/18/25 11:13 Pulse 60 05/18/25 11:13 Resp 20 05/18/25 11:13 BP 109/56 L 05/18/25 11:13 Pulse Ox 100 05/18/25 11:13 O2 Del Method High Flow Nasal Cannula 05/18/25 11:13 O2 Flow Rate 50 05/18/25 11:13 FiO2 50 05/18/25 11:13 BMI result Body Mass Index 25.2 General: not in any acute distress, ill appearing Nutritional Appearance: well nourished and overweight Eyes: appearance normal, both eyes and all related structures; Alignment and Position: alignment normal and position normal Neck: No lymphadenopathy, no thyromegaly Resp: bilateral crackles heard, no added sounds present Cardio: Regular rate, regular rhythm; Heart sounds: S1 normal heart sound present and S2 normal heart sound present GI: soft, nontender, no guarding, no hepatosplenomegaly : bladder normal to inspection, bladder normal to palpation, no renal angle tenderness Skin: no rashes or lesions noted and elasticity normal Neuro: alert, oriented x 3, moves all extremities Neuro Speech: No Abnormal speech present Results Lab Results 05/18/25 06:09 05/18/25 06:09 Lab results: Chemistry 05/16/25 05/17/25 05/18/25 18:47 04:31 06:09 Sodium 141 142 139 Potassium 4.4 4.1 4.7 Carbon Dioxide 28 28 30 H BUN 22 H 22 H 37 H Creatinine 1.86 H 2.03 H 3.01 H Calcium 8.6 D 7.9 L D 7.8 L Hematology 05/16/25 05/17/25 05/18/25 18:47 04:31 06:09 WBC 34.8 H* 43.8 H* 40.8 H* Hgb 9.1 L 8.6 L 8.4 L Plt Count 178 136 L 130 L Urinalysis 05/17/25 00:33 Urine Color Yellow Urine Appearance Cloudy Urine pH 5.5 Ur Specific [place] 1.020 Urine Protein >=1000 (4+) H Urine Glucose (UA) Negative Urine Ketones Negative Urine Blood Large (3+) H Urine Nitrite Negative Ur Leukocyte Esterase Small (1+) H Urine RBC >20 H Urine WBC 21-50 H Ur Squamous Epith Cells 3-5 Hyaline Casts 3-5 Assessment and Plan (1) HTN (hypertension): Status: Acute (2) Hyponatremia: Status: Acute (3) Acute kidney injury: Status: Acute Plan Acute kidney injury: Possibly secondary to SIRS from severe pneumonia. Urinalysis showing >20RBCs and 20-25WBC. Although less likely in the setting of lung disease and hematuria will send antiGBM, ANCA levels. No emergent indication for renal replacement therapy, will closely monitor his renal functions.Renal US not showing any evidence of obstruction. Currently incontinent, need to closely monitor Is and Os. Recommend placing in a urinary catheter to closely monitor Is and Os. Nephrology will closely follow this patient. Procedures Date of Service Date of Service: 05/18/25
--- NOTE | 2025-05-18 12:00 | CA_ITS ---
Transthoracic Echocardiogram Patient (Last, First, Middle): Nasir Ahn M Gender: Male Date of : 1950 Age: 75 Procedure Date: 05/18/2025 Procedure Type: Transthoracic [place] [facility] [place]: 165.1 cm Weight: 68.49 kg BSA: 1.76 m2 Heart Rate: bpm BP: 109 / 53 mmHg [employer] Agent: JOSE Robb MD: Cal Hearn MD [employer] Teacher: Brown Hillman MD Symptoms: resp fialure Study Quality: Adequate ECG Rhythm: Sinus Conclusions: - 1. Normal LV ejection fraction of 60 65% with impaired relaxation filling pattern 2. Calcific aortic and mitral valve changes noted with normal cardiac valvular Dopplers 3. No gross pericardial effusion Findings Left Ventricle Normal left ventricular size, thickness, and systolic function. The visually estimated ejection fraction is between 60-65%. Spectral Doppler is indicative of an impaired relaxation filling pattern. There is mild septal asymmetric hypertrophy. Right Ventricle Normal right ventricular cavity size and systolic function. Atria The left atrium is normal in size. Interatrial shunt cannot be excluded. The right atrium is normal in size. Aortic Valve Normal aortic valve structure and function. There is mild calcification of the aortic valve. There is no aortic valve stenosis. There is trace (trivial) aortic valve regurgitation. Mitral Valve There is mild anterior and posterior mitral leaflet thickening. There is mild mitral annular calcification. There is trace mitral valve regurgitation. There is no mitral valve stenosis. Pulmonic Valve The pulmonic valve is likely normal. Great Vessels All visible segments of the aorta are normal in size. The pulmonary artery was not well visualized. There is no dilatation of the ascending aorta measuring 3.40 cm. Venous The inferior vena cava is normal in size. Pericardium/Pleural There is no evidence of pericardial effusion. Prior Study Comparison No prior study available for comparison. Measurements 2D Linear Measurements IVSd: 1.27 0.6-0.9/0.6-1.0 cm LVIDd: 4.45 3.9-5.3/4.2-5.9 cm LVIDd Index: 2.53 2.4-3.2/2.2-3.1 cm/m2 LVIDs: 2.24 2.0-3.6 cm LVPWd: 1.00 0.7-1.1 cm LA Diam: 4.30 2.7-3.8/3.0-4.0 cm LAIDs Index: 2.44 1.5-2.3 cm/m2 LV Mass: 223.39 67-162/88-224 g LV Mass Index: 126.93 43-95/49-115 g/m2 LVOT Diam: 2.00 3.0+(-)1.3 cm 2D Systolic Function EF 4C: 60.30 >55% EF 2C: 69.60 >55% EF BiP: 65.60 >55% Mitral Valve MV Pk E: 0.99 MV PK A: 1.30 MV Decel Time: 303.00 E/A: 0.80 E'Lateral: 6.42 E'Medial: 5.66 E/E' Med: 17.40 E/E' Lat: 15.30 PHT: 89.00 MVA PHT: 2.47 Decel Clare: 3.25 Aortic Valve AoV Pk Billy: 1.42 AoV Mn Billy: 1.01 AoV VTI: 0.35 AoV Pk Grad: 8.00 Aov Mn Grad: 5.00 CB Cont.VTI: 2.49 LVOT LVOT Pk Billy: 1.09 LVOT Mn Billy: 0.79 LVOT VTI: 0.27 LVOT Pk Grad: 5.00 LVOT Mn Grad: 3.00 LVOT Diam: 2.00 LVOT Area: 3.14 Diastolic Function MV Pk E: 0.99 MV Pk A: 1.30 E/A: 0.80 E'Medial: 5.66 E/E' Med: 17.40 E' Laterial: 6.42 E/E' Lat: 15.30 Right Ventricle TAPSE (mm): 21.80 TVS' Billy: 10.90 Tricuspid Valve RA Press: 3.00 Great Vessels Aorta Sinus of Valsalva: 3.90 2.0-3.5 cm Ao Asc: 3.40 2.1-3.4 cm Pulmonary Valve PV Pk Billy: 0.81 Peak PV Grad: 3.00 Updated in Other Vendor System with Status of Final Brown Hillman MD electronically signed on 05/18/2025 2:38:09 PM with status of Final
--- NOTE | 2025-05-18 12:52 | W.MHC.ACPN ---
Advanced Care Planning Note Advanced Care Planning Note Discussed with: patient and family member(s) Time spent (in minutes): 30 Narrative: Discussed goals of care with pt, , and son at bedside in his [place] language, [place]. Pt recognizes recovery in case of decompensation is limited by his metastatic lung cancer. He recognizes that intubation/ventilation and dialysis are unlikely to meaningfully increase his quality of life. Reviewed MOLST form and answered family questions. Patient changed his code status to DNR/DNI, NIPPV OK, no dialysis, no artifical nutrition. IV hydration OK. Problems Discussed (1) Acute kidney injury: (2) Cancer of lower lobe of left lung: (3) Acute hypoxemic respiratory failure: (4) Pneumonia:
--- NOTE | 2025-05-18 13:04 | HO.PM.IMPN ---
Subjective Subjective Date of Service: 05/18/25 Interval History: pt on HFNC, 50 Lpm 50% fiO2. Surprisingly not short of breath. But coughed up bloody sputum x2. SCr worsening. Review of Systems Review of Systems: Yes all other systems are reviewed and are negative Physical Exam Vital Signs: Vital Signs: Last Vital Signs Temp 97.3 F 05/18/25 11:13 Pulse 60 05/18/25 11:13 Resp 17 05/18/25 11:44 BP 109/56 L 05/18/25 11:13 Pulse Ox 100 05/18/25 11:13 O2 Del Method High Flow Nasal C annula 05/18/25 11:13 O2 Flow Rate 50 05/18/25 11:13 FiO2 50 05/18/25 11:13 BMI result Body Mass Index 25.2 Gen: NAD but on HFNC HEENT: sclera anicteric, moist mucus membranes Neck: supple, right subclavian port in place Lungs: L>R inspiratory crackles Heart: regular rate and rhythm, no murmurs Abd: soft, non-tender, non-distended Ext: no edema Skin: warm/well-perfused Neuro: alert and oriented x3, no focal findings Psych: appropriate affect Objective Data Active Medications Acetaminophen (Acetaminophen 325 Mg Tablet) 650 mg PO Q6H PRN PRN Reason: Pain, Mild 1-3,fever,headache Last Admin: 05/16/25 21:04 Dose: 650 mg Documented By: CLAUDIO Albuterol/Ipratropium (Albuterol/Iprat 2.5/0.5mg 3 Ml Ampul.Neb) 3 ml INHALE Q4H PRN PRN Reason: Shortness of Breath/Wheezing Apixaban (Apixaban 5 Mg Tablet) 5 mg PO BID [facility] Last Admin: 05/18/25 08:43 Dose: Not Given Documented By: SHI Non-Admin Reason: Physician Held Med Atorvastatin Calcium (Atorvastatin Calcium 10 Mg Tablet) 10 mg PO DAILY [facility] Last Admin: 05/18/25 08:45 Dose: 10 mg Documented By: SHI Benzonatate (Benzonatate 100 Mg Capsule) 100 mg PO TID PRN PRN Reason: Cough Calcium Carbonate (Calcium Carbonate 750 Mg Tab.Chew) 750 mg PO Q4H PRN PRN Reason: Heartburn Fluticasone/Umeclidinium/Vilanterol (Fluticasone/Umeclidinium/Vilanterol 200/62.5/25 Blst.W.Dev) 1 puff INHALE RDAILY [facility] Last Admin: 05/18/25 09:53 Dose: 1 puff Documented By: DENY Piperacillin Sod/Tazobactam (Sod 2.25 gm/ Sodium Chloride) 50 mls @ 100 mls/hr IV Q6H [facility] Last Infusion: 05/18/25 07:26 Dose: Infused Documented By: ASHLY Lactated Ringer's (Lr) 1,000 mls @ 125 mls/hr IVCONT .Q8H [facility] Last Admin: 05/18/25 06:04 Dose: 125 mls/hr Documented By: ASHLY Vancomycin HCl 750 mg/ Sodium (Chloride) 265 mls @ 265 mls/hr IV Q24H [facility] Last Infusion: 05/17/25 23:22 Dose: Infused Documented By: ASHLY Levothyroxine Sodium (Levothyroxine Sodium 75 Mcg Tablet) 75 mcg PO DAILY@0600 [facility] Last Admin: 05/18/25 06:04 Dose: 75 mcg Documented By: ASHLY Magnesium Hydroxide (Milk Of Magnesia 30 Ml Oral.Susp) 30 ml PO DAILY PRN PRN Reason: Constipation Melatonin (Melatonin 3 Mg Tablet) 6 mg PO BEDTIME PRN PRN Reason: Insomnia Methylprednisolone Sodium Succinate (Methylprednisolone Sod Succ 40 Mg/Ml Vial) 60 mg IVPUSH Q8H [facility] Last Admin: 05/18/25 08:45 Dose: 60 mg Documented By: SHI Metoprolol Succinate (Metoprolol Succinate Er 50 Mg Tab.Er.24h) 50 mg PO DAILY [facility]; Protocol Last Admin: 05/18/25 08:45 Dose: 50 mg Documented By: SHI Pharmacy Consult (Consult Rx Vancomycin Dosing) 1 each MISCELLANE DAILY PRN PRN Reason: Consult order Sodium Chloride (0.9 % Sodium Chloride Flush 3 Ml Syringe) 3 ml IVFLUSH QSHIFT [facility] Last Admin: 05/18/25 08:45 Dose: 3 ml Documented By: SHI Vitamin D (Cholecalciferol (Vitamin D3) 25 Mcg Tablet) 50 mcg PO DAILY [facility] Last Admin: 05/18/25 08:45 Dose: 50 mcg Documented By: SHI Labs 05/18/25 06:09 05/18/25 06:09 Labs: Laboratory Results - last 24 hr 05/17/25 05/18/25 05/18/25 19:05 06:09 06:15 MCV 85.3 MCH 24.2 L MCHC 28.4 L RDW 19.0 H Plt Count 130 L MPV 11.1 Absolute Nucleated RBC 0.000 Nucleated RBC % (auto) 0.0 VBG pH 7.21 L VBG pCO2 74 VBG pO2 40 VBG HCO3 30 H VBG O2 Saturation 55.0 VBG Base Excess 1.3 Anion Gap 10 L Estim Creat Clear Calc 18.1 Estimated GFR 20 Random Glucose 134 H Calcium 7.8 L Nasal Screen MRSA (PCR) Nasal S. aureus Screen Nasal MRSA/S.aureus Interp Random Vancomycin 14.9 L 05/18/25 05/18/25 09:43 10:04 MCV MCH MCHC RDW Plt Count MPV Absolute Nucleated RBC Nucleated RBC % (auto) VBG pH 7.29 L VBG pCO2 59 VBG pO2 29 VBG HCO3 29 H VBG O2 Saturation 33.0 VBG Base Excess 2.0 Anion Gap Estim Creat Clear Calc Estimated GFR Random Glucose Calcium Nasal Screen MRSA (PCR) NEGATIVE Nasal S. aureus Screen NEGATIVE Nasal MRSA/S.aureus Interp SEE NOTE Random Vancomycin Microbiology Microbiology Results: Microbiology 05/17/25 Unknown Urine Culture - Final Urine clean catch - Clean Catch Midstream No growth. 05/16/25 18:47 Blood Culture - Preliminary Blood - Venous No growth after 24 hours. 05/16/25 18:47 Blood Culture - Preliminary Blood - Venous No growth after 24 hours. Assessment and Plan (1) Pneumonia: Status: Acute (2) Hypoxia: Status: Acute Assessment and Plan: d3, 75yo M with metastatic lung CA on palliative chemotherapy, hx VTE on Eliquis, COPD, HTN, HLD presenting with cough and dyspnea, admitted for hypoxia due to pneumonia sepsis and acute hypoxic and hypercapneic respiratory failure due to pneumonia and COPD exacerbation: 05/16- vancomycin + piperacillin-tazobactam; MRSA swab negative so if BCx negative will d/c vancomycin; urinary antigens for Legionella and pneumococcus pending; follow BCx; trend PCT; RPP negative; 05/17- methlyprednisolone [increase dose from 40 mg q12h to 60 mg q8h today], nebs; supplemental O2, wean as tolerated; currently on HFNC 50% fiO2 50Lpm; repeat VBG; check TTE hemoptysis: hold Eliquis but resume IVAN OLAG: likely septic ATN; continue IV fluids; hold losartan; consulted Nephrology; renal US without obstruction; check urine lytes; place [place]; recheck BMP tomorrow intermediate-probability V/Q: on Eliquis; unlikely to have PE, BLE Duplex negative lactic acidosis: resolved after IV fluids hx DVT (October 2024): apixaban on hold due to hemoptysis HLD: statin HTN: continue metoprolol succinate; hold amlodipine + losartan hypothyroidism: continue LT4 code: see ACP note, changed to DNR/DNI, no dialysis, no feeding tube; all other interventions OK VTE ppx: apixaban on hold due to hemoptysis dispo: TBD In my clinical judgment, the patient requires continued inpatient hospitalization for the following reasons: respiratory failure, renal failure Total time managing care of this patient today: 50 minutes. Quality Stroke Does the patient have a stroke diagnosis?: No VTE Prior VTE?: No VTE Risk Level:: Medical - moderate - high VTE Device Contraindication: Treatment Not Indicated VTE Drug Contraindication: N/A - Med Ordered
[2025-05-18 15:21] LABS: VBG HCO3 28 mmol/L (22-26); VBG O2 % Saturation 99.0 %
[2025-05-18 15:25] LABS: Venous Blood Gas Refer to POC result
--- NOTE | 2025-05-18 15:27 | PM.CNPUL ---
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 Patient was treated for empiric pneumonia with hospital course significant for progressive hypoxia and acute kidney injury. Of note patient is approximately 6.5 L positive since admission. Blood gas demonstrates mixed respiratory and metabolic acidosis. Currently requires high-flow nasal cannula 50% 50 L, but on exam is very comfortable and not dyspneic. His chest x-ray shows worsening pulmonary congestion. Review of Systems Constitutional: Constitutional: Denies daytime sleepiness, Denies excessive sweating, Denies fatigue, Denies fever(s), Denies lethargy, Denies malaise, Denies night sweats, Denies snoring and Denies weight loss Eyes: Eyes: Denies blurry vision and Denies itchy eyes ENT: Denies nasal congestion, Denies post nasal drip, Denies sinus pain, Denies sinus pressure and Denies other ( Thrush) Cardiovascular: Cardiovascular: Denies chest pain, Denies pedal edema, Reports dyspnea, Reports dyspnea on exertion, Denies orthopnea and Denies paroxysmal nocturnal dyspnea Respiratory: Respiratory: Denies cough, Denies hemoptysis, Denies excessive phlegm production, Reports dyspnea, Reports dyspnea on exertion, Denies snoring and Denies wheezing Gastrointestinal: Gastrointestinal: Denies abdominal pain and Denies heartburn Musculoskeletal: Musculoskeletal: Denies myalgias, Denies arthralgias and Denies joint swelling Integumentary/Breasts: Skin/Breast: Denies rash Neurologic: Denies memory loss and Denies seizure-like activity Psychiatric: Psychiatric: Denies abnormal sleep pattern, Denies anxiety and Denies memory loss Endocrine: Endocrine: Denies excessive sweating, Denies fatigue and Denies heat intolerance Hematologic/Lymphatic: Hematologic/Lymphatic: Denies easy bruising Allergic/Immunologic: Allergic/Immunologic: Denies itchy eyes, Denies seasonal rhinorrhea and Denies wheezing PMFSH Past Medical History Medical History Tracheomalacia Mucus plugging of bronchi On beta [place] at home Personal history of nicotine dependence Port-A-Cath in place (~09/2020) 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) Hyperlipemia HTN (hypertension) Cancer of lower lobe of left lung (~2019) Family History Family History Mother Diabetes Brother Diabetes High blood pressure Daughter Breast cancer Daughter Hx of thyroid disease Surgical History Surgical History History of laryngoscopy (~10/2018) Admission for fitting of Port-A-Cath (~09/2020) History of lobectomy of lung (~08/2020) History of colonoscopy (~12/2014) History of left knee surgery Social History Social History Household Members: Family Housing: Apartment Do you presently have visiting nurse or other home services: No Alcohol intake: current Alcohol intake frequency: holidays/special occasions only Alcohol type: beer Patient Tobacco Use Status: Former Tobacco user Cigarette Packs Per Day: 1 Years Smoked: 34 service: No Meds Allergies Allergy/AdvReac Type Severity Reaction Status Date / Time No Known Allergies Allergy Verified 05/16/25 18:35 Active Medications: Current Medications Acetaminophen (Acetaminophen 325 Mg Tablet) 650 mg PO Q6H PRN PRN Reason: Pain, Mild 1-3,fever,headache Last Admin: 05/16/25 21:04 Dose: 650 mg Albuterol/Ipratropium (Albuterol/Iprat 2.5/0.5mg 3 Ml Ampul.Neb) 3 ml INHALE Q4H PRN PRN Reason: Shortness of Breath/Wheezing Apixaban (Apixaban 5 Mg Tablet) 5 mg PO BID ERMA On Hold: 05/18/25 13:10 Last Admin: 05/18/25 08:43 Dose: Not Given Atorvastatin Calcium (Atorvastatin Calcium 10 Mg Tablet) 10 mg PO DAILY ERMA Last Admin: 05/18/25 08:45 Dose: 10 mg Benzonatate (Benzonatate 100 Mg Capsule) 100 mg PO TID PRN PRN Reason: Cough Calcium Carbonate (Calcium Carbonate 750 Mg Tab.Chew) 750 mg PO Q4H PRN PRN Reason: Heartburn Fluticasone/Umeclidinium/Vilanterol (Fluticasone/Umeclidinium/Vilanterol 200/62.5/25 Blst.W.Dev) 1 puff INHALE RDAILY [facility] Last Admin: 05/18/25 09:53 Dose: 1 puff Piperacillin Sod/Tazobactam (Sod 2.25 gm/ Sodium Chloride) 50 mls @ 100 mls/hr IV Q6H [facility] Last Infusion: 05/18/25 13:53 Dose: Infused Lactated Ringer's (Lr) 1,000 mls @ 125 mls/hr IVCONT .Q8H [facility] Last Admin: 05/18/25 13:24 Dose: 125 mls/hr Vancomycin HCl 750 mg/ Sodium (Chloride) 265 mls @ 265 mls/hr IV Q24H [facility] Last Infusion: 05/17/25 23:22 Dose: Infused Levothyroxine Sodium (Levothyroxine Sodium 75 Mcg Tablet) 75 mcg PO DAILY@0600 [facility] Last Admin: 05/18/25 06:04 Dose: 75 mcg Magnesium Hydroxide (Milk Of Magnesia 30 Ml Oral.Susp) 30 ml PO DAILY PRN PRN Reason: Constipation Melatonin (Melatonin 3 Mg Tablet) 6 mg PO BEDTIME PRN PRN Reason: Insomnia Methylprednisolone Sodium Succinate (Methylprednisolone Sod Succ 40 Mg/Ml Vial) 60 mg IVPUSH Q8H [facility] Last Admin: 05/18/25 08:45 Dose: 60 mg Metoprolol Succinate (Metoprolol Succinate Er 50 Mg Tab.Er.24h) 50 mg PO DAILY [facility]; Protocol Last Admin: 05/18/25 08:45 Dose: 50 mg Pharmacy Consult (Consult Rx Vancomycin Dosing) 1 each MISCELLANE DAILY PRN PRN Reason: Consult order Sodium Chloride (0.9 % Sodium Chloride Flush 3 Ml Syringe) 3 ml IVFLUSH QSHIFT [facility] Last Admin: 05/18/25 15:19 Dose: 3 ml Vitamin D (Cholecalciferol (Vitamin D3) 25 Mcg Tablet) 50 mcg PO DAILY [facility] Last Admin: 05/18/25 08:45 Dose: 50 mcg Home Medications ?Medication ?Instructions ?Recorded ?Confirmed ?Last Taken ?Type amlodipine 10 mg tablet 10 mg PO DAILY 06/07/20 05/16/25 05/16/25 History atorvastatin 10 mg tablet 10 mg PO DAILY 06/07/20 05/16/25 05/16/25 History fluticasone propionate 50 50 mcg intranasal DAILY PRN 06/07/20 05/16/25 10/18/24 History mcg/actuation nasal Congestion spray,suspension losartan 100 mg tablet 100 mg PO DAILY 06/07/20 05/16/25 05/16/25 History metoprolol succinate 50 mg 50 mg PO DAILY 06/07/20 05/16/25 05/16/25 History tablet,extended release 24 hr cholecalciferol (vitamin D3) 50 50 mcg PO DAILY 12/06/23 05/16/25 05/16/25 History mcg (2,000 unit) capsule (Vitamin D3) albuterol sulfate 2.5 mg/3 mL 2.5 mg inhalation Q4H PRN 10/18/24 05/16/25 Unknown History (0.083 %) solution for nebulization Shortness Of Breath albuterol sulfate 90 mcg/actuation 2 puff inhalation Q4H PRN 10/18/24 05/16/25 10/18/24 History aerosol inhaler shortness of breath or wheezing apixaban 5 mg tablet (Eliquis) 5 mg PO BID 05/16/25 05/16/25 05/16/25 History fluticasone fur. 200 mcg-umeclid 1 ea inhalation DAILY 05/16/25 05/16/25 05/16/25 History 62.5 mcg-vilant 25 mcg inhalat.powder (Trelegy Ellipta) Physical Exam Vital Signs: Vital Signs: Last Vital Signs Temp 97.3 F 05/18/25 11:13 Pulse 60 05/18/25 11:13 Resp 17 05/18/25 11:44 BP 109/56 L 05/18/25 11:13 Pulse Ox 100 05/18/25 11:13 O2 Del Method High Flow Nasal C annula 05/18/25 11:13 O2 Flow Rate 50 05/18/25 11:13 FiO2 50 05/18/25 11:13 BMI result Body Mass Index 25.2 Const: General: no acute distress, alert and awake Eyes: Sclerae: sclerae normal EOM: EOMs intact bilaterally Neck: Neck: Yes no lymphadenopathy, Yes trachea midline and Yes supple Resp: Effort & Inspection: normal respiratory effort and no respiratory distress Auscultation: crackles (Mild bilateral) Cardio: Rate: regular rate Rhythm: regular rhythm Heart sounds: no gallops, no murmurs and no rubs GI: Palpation (GI): Soft to palpation and Other GI palpation findings present ( Nontender) Auscultation: normal bowel sounds Extrem: General: Yes no pedal edema, No clubbing and No cyanosis Results Laboratory Findings 05/18/25 06:09 05/18/25 06:09 Abnormal lab findings: Abnormal Labs 05/16/25 05/16/25 05/17/25 18:47 18:53 00:33 WBC 34.8 H* RBC 3.71 L Hgb 9.1 L Hct 30.4 L MCH 24.5 L MCHC 29.9 L RDW 18.7 H Plt Count Neutrophils % (Manual) 81 H Band Neutrophils % 8 H Lymphocytes % (Manual) 3 L Monocytes % (Manual) Abs Neuts (Manual) 31.0 H Lymphocytes # (Manual) 1.0 L Monocytes # (Manual) 2.4 H Basophils # (Manual) 0.3 H VBG pH VBG HCO3 32 H Carbon Dioxide Anion Gap BUN 22 H Creatinine 1.86 H Random Glucose 140 H Lactic Acid 3.0 H* Calcium AST 40 H Alkaline Phosphatase 160 H NT-Pro-B Natriuret Pep Total Protein 6.3 L Albumin 3.3 L Urine Protein >=1000 (4+) H Urine Blood Large (3+) H Ur Leukocyte Esterase Small (1+) H Urine RBC >20 H Urine WBC 21-50 H Random Vancomycin 05/17/25 05/17/25 05/18/25 04:31 19:05 06:09 WBC 43.8 H* 40.8 H* RBC 3.58 L 3.47 L Hgb 8.6 L 8.4 L Hct 30.2 L 29.6 L MCH 24.0 L 24.2 L MCHC 28.5 L 28.4 L RDW 18.8 H 19.0 H Plt Count 136 L 130 L Neutrophils % (Manual) 84 H Band Neutrophils % 13 H Lymphocytes % (Manual) 2 L Monocytes % (Manual) 1 L Abs Neuts (Manual) 42.5 H Lymphocytes # (Manual) 0.9 L Monocytes # (Manual) Basophils # (Manual) VBG pH VBG HCO3 Carbon Dioxide 30 H Anion Gap 10 L BUN 22 H 37 H Creatinine 2.03 H 3.01 H Random Glucose 134 H Lactic Acid Calcium 7.9 L D 7.8 L AST Alkaline Phosphatase 135 H NT-Pro-B Natriuret Pep 5027.2 H Total Protein 4.7 L Albumin 2.6 L Urine Protein Urine Blood Ur Leukocyte Esterase Urine RBC Urine WBC Random Vancomycin 14.9 L 05/18/25 05/18/25 05/18/25 06:15 10:04 15:18 WBC RBC Hgb Hct MCH MCHC RDW Plt Count Neutrophils % (Manual) Band Neutrophils % Lymphocytes % (Manual) Monocytes % (Manual) Abs Neuts (Manual) Lymphocytes # (Manual) Monocytes # (Manual) Basophils # (Manual) VBG pH 7.21 L 7.29 L 7.30 L VBG HCO3 30 H 29 H 28 H Carbon Dioxide Anion Gap BUN Creatinine Random Glucose Lactic Acid Calcium AST Alkaline Phosphatase NT-Pro-B Natriuret Pep Total Protein Albumin Urine Protein Urine Blood Ur Leukocyte Esterase Urine RBC Urine WBC Random Vancomycin Microbiology: Microbiology 05/17/25 Unknown Urine clean catch - Clean Catch Midstream Urine Culture - Final No growth. 05/16/25 18:47 Blood - Venous Blood Culture - Preliminary No growth after 24 hours. 05/16/25 18:47 Blood - Venous Blood Culture - Preliminary No growth after 24 hours. Assessment and Plan (1) Acute hypoxemic respiratory failure: Status: Acute (2) COPD (chronic obstructive pulmonary disease): Status: Acute (3) Pulmonary edema: Status: Acute (4) Lung cancer: Status: Acute Plan Impression: 75-year-old gentleman with underlying adenosquamous carcinoma with lung lady chemotherapy admitted with dyspnea and hypoxia and treated empirically from pneumonia, now further complicated by progressive hypoxemia, acute kidney injury, and pulmonary edema. Chest imaging demonstrating worsening pulmonary congestion. Recommendation: Consider 1st tapering off systemic glucocorticoids. Consider additional diuresis. Agree with empiric antibiotics. Procedures Date of Service Date of Service: 05/18/25
--- NOTE | 2025-05-18 19:48 | HE.PHANOTE ---
RE: VANCO DOSING Trough came back as 18.6 mg/L and renal function continues to worsen. Hold dose for 12 hours, trough and creatinine scheduled for 05/19/25 @0600 to determine dose.
[2025-05-19] VITALS (9 sets, daily range): BP systolic 111–137; BP diastolic 53–62; PULSE 57–75; RESP 15–18; TEMP 36.1–36.7; O2SAT 94–100
[2025-05-19] MEDS: 0.9 % Sodium Chloride Flush 3 ML SYRINGE IVFLUSH ×3 (02:02→16:47)
[2025-05-19 06:17] LABS: Hematocrit 27.0 % (42.0-52.0); Hemoglobin 7.8 g/dl (14.0-18.0); Mean Corpuscular HGB Conc 28.9 g/dl (31.0-36.0); Mean Corpuscular Hemoglobin 23.9 pg (27.0-33.0); Mean Corpuscular Volume 82.8 fL (80.0-98.0); NRBC Abs Auto 0.000 X10*3/uL (0.0-0.012); NRBC Pct Auto 0.0 /100WBC (0.0-0.2); Platelet Count 126 X10*3/uL (160-400); Red Blood Count 3.26 X10*6/uL (4.60-5.80); White Blood Count 24.2 X10*3/uL (4.8-10.8)
[2025-05-19] MEDS: Lactated Ringers 1,000 ML 125 ML IVCONT ×2 (06:18→16:47)
[2025-05-19 06:23] LABS: VBG HCO3 28 mmol/L (22-26)
[2025-05-19 06:26] LABS: Venous Blood Gas Refer to POC result
[2025-05-19 06:37] LABS: Anion Gap 15 (12-20); Blood Urea Nitrogen 55 mg/dL (9-16); Calcium 7.8 mg/dL (8.4-10.2); Carbon Dioxide 25 mmol/L (22-29); Chloride 104 mmol/L (96-108); Creatinine Clr Calc Pharmacy 13.7; Estimated Glomerular Filt Rate 15; Potassium 5.1 mmol/L (3.3-5.1); Sodium 139 mmol/L (135-145)
[2025-05-19 06:52] LABS: Procalcitonin 7.96 ng/mL
[2025-05-19] MEDS: Fluticasone/Umeclidinium/Vilanterol 200/62.5/25 BLST.W.DEV 1 PUFF INHALE (08:09)
[2025-05-19] MEDS: Metoprolol Succinate ER 50 MG TAB.ER.24H PO (08:50)
--- NOTE | 2025-05-19 10:37 | HO.PM.IMPN ---
Subjective Subjective Date of Service: 05/19/25 Interval History: This history was taken in [place] from the patient. Feels well, coughing up sputum in the morning but not short of breath, and fiO2 on HFNC decreased from 50 to 40%. However, SCr is worsening. Review of Systems Review of Systems: Yes all other systems are reviewed and are negative Physical Exam Vital Signs: Vital Signs: Last Vital Signs Temp 97.0 F 05/19/25 08:00 Pulse 65 05/19/25 08:11 Resp 16 05/19/25 08:11 BP 128/59 L 05/19/25 08:00 Pulse Ox 94 05/19/25 08:00 O2 Del Method High Flow Nasal C annula 05/19/25 08:00 O2 Flow Rate 50 05/19/25 08:00 FiO2 50 05/19/25 08:00 Oxygen Flow Rate 15 05/18/25 07:00 BMI result Body Mass Index 25.2 Gen: NAD but on HFNC HEENT: sclera anicteric, moist mucus membranes Neck: supple, right subclavian port in place Lungs: L>R inspiratory crackles Heart: regular rate and rhythm, no murmurs Abd: soft, non-tender, non-distended Ext: no edema Skin: warm/well-perfused Neuro: alert and oriented x3, no focal findings Psych: appropriate affect Objective Data Active Medications Acetaminophen (Acetaminophen 325 Mg Tablet) 650 mg PO Q6H PRN PRN Reason: Pain, Mild 1-3,fever,headache Last Admin: 05/16/25 21:04 Dose: 650 mg Documented By: CLAUDIO Albuterol/Ipratropium (Albuterol/Iprat 2.5/0.5mg 3 Ml Ampul.Neb) 3 ml INHALE Q4H PRN PRN Reason: Shortness of Breath/Wheezing Apixaban (Apixaban 5 Mg Tablet) 5 mg PO BID ERMA On Hold: 05/18/25 13:10 Last Admin: 05/18/25 08:43 Dose: Not Given Documented By: SHI Non-Admin Reason: Physician Held Med Atorvastatin Calcium (Atorvastatin Calcium 10 Mg Tablet) 10 mg PO DAILY [facility] Last Admin: 05/19/25 08:43 Dose: 10 mg Documented By: SHAJI Benzonatate (Benzonatate 100 Mg Capsule) 100 mg PO TID PRN PRN Reason: Cough Last Admin: 05/19/25 08:43 Dose: 100 mg Documented By: SHAJI Calcium Carbonate (Calcium Carbonate 750 Mg Tab.Chew) 750 mg PO Q4H PRN PRN Reason: Heartburn Fluticasone/Umeclidinium/Vilanterol (Fluticasone/Umeclidinium/Vilanterol 200/62.5/25 Blst.W.Dev) 1 puff INHALE RDAILY [facility] Last Admin: 05/19/25 08:09 Dose: 1 puff Documented By: MAX Piperacillin Sod/Tazobactam (Sod 2.25 gm/ Sodium Chloride) 50 mls @ 100 mls/hr IV Q6H [facility] Last Infusion: 05/19/25 08:17 Dose: Infused Documented By: SHAJI Lactated Ringer's (Lr) 1,000 mls @ 125 mls/hr IVCONT .Q8H [facility] Last Admin: 05/19/25 06:18 Dose: 125 mls/hr Documented By: NATHALIE Levothyroxine Sodium (Levothyroxine Sodium 75 Mcg Tablet) 75 mcg PO DAILY@0600 [facility] Last Admin: 05/19/25 06:19 Dose: 75 mcg Documented By: NATHALIE Magnesium Hydroxide (Milk Of Magnesia 30 Ml Oral.Susp) 30 ml PO DAILY PRN PRN Reason: Constipation Melatonin (Melatonin 3 Mg Tablet) 6 mg PO BEDTIME PRN PRN Reason: Insomnia Methylprednisolone Sodium Succinate (Methylprednisolone Sod Succ 40 Mg/Ml Vial) 60 mg IVPUSH Q8H [facility] Last Admin: 05/19/25 08:43 Dose: 60 mg Documented By: SHAJI Metoprolol Succinate (Metoprolol Succinate Er 50 Mg Tab.Er.24h) 50 mg PO DAILY [facility]; Protocol Last Admin: 05/19/25 08:50 Dose: 50 mg Documented By: SHAJI Sodium Chloride (0.9 % Sodium Chloride Flush 3 Ml Syringe) 3 ml IVFLUSH QSHIFT [facility] Last Admin: 05/19/25 08:44 Dose: 3 ml Documented By: SHAJI Vitamin D (Cholecalciferol (Vitamin D3) 25 Mcg Tablet) 50 mcg PO DAILY [facility] Last Admin: 05/19/25 08:43 Dose: 50 mcg Documented By: SHAJI Labs 05/19/25 06:10 05/19/25 06:11 Labs: Laboratory Results - last 24 hr 05/18/25 05/18/25 05/18/25 09:43 10:10 10:10 MCV MCH MCHC RDW Plt Count MPV Absolute Nucleated RBC Nucleated RBC % (auto) VBG pH VBG pCO2 VBG pO2 VBG HCO3 VBG O2 Saturation VBG Base Excess Anion Gap Estim Creat Clear Calc Estimated GFR Random Glucose Calcium Lactate Dehydrogenase Procalcitonin Ur Random Sodium < 20.0 Cancelled Urine Creatinine 154.87 Nasal Screen MRSA (PCR) NEGATIVE Nasal S. aureus Screen NEGATIVE Nasal MRSA/S.aureus Interp SEE NOTE Random Vancomycin 05/18/25 05/18/25 05/19/25 15:18 18:52 06:10 MCV 82.8 MCH 23.9 L MCHC 28.9 L RDW 19.2 H Plt Count 126 L MPV 10.8 Absolute Nucleated RBC 0.000 Nucleated RBC % (auto) 0.0 VBG pH 7.30 L VBG pCO2 57 VBG pO2 161 VBG HCO3 28 H VBG O2 Saturation 99.0 VBG Base Excess 1.9 Anion Gap Estim Creat Clear Calc Estimated GFR Random Glucose Calcium Lactate Dehydrogenase Procalcitonin Ur Random Sodium Urine Creatinine Nasal Screen MRSA (PCR) Nasal S. aureus Screen Nasal MRSA/S.aureus Interp Random Vancomycin 18.6 16.8 05/19/25 05/19/25 06:11 06:19 MCV MCH MCHC RDW Plt Count MPV Absolute Nucleated RBC Nucleated RBC % (auto) VBG pH 7.27 L VBG pCO2 60 VBG pO2 44 VBG HCO3 28 H VBG O2 Saturation TNP VBG Base Excess 0.5 Anion Gap 15 Estim Creat Clear Calc 13.7 Estimated GFR 15 Random Glucose 148 H Calcium 7.8 L Lactate Dehydrogenase 194 Procalcitonin 7.96 Ur Random Sodium Urine Creatinine Nasal Screen MRSA (PCR) Nasal S. aureus Screen Nasal MRSA/S.aureus Interp Random Vancomycin Impressions Chest X-Ray 05/18/25 13:43 IMPRESSION: Progression of left-sided pneumonia as described. Small left pleural effusion. Electronically signed by: Kvng Fry MD 05/18/2025 02:[address] chest 05/19/25 1. New fairly extensive pleural-parenchymal disease lung bases [id number]-right. Bilateral pleural effusions [id number]-left. Pleural thickening on the left can not exclude any loculations. Contrast-enhanced CT may help exclude any empyema on the left. 2. Probable reactive mediastinal lymph nodes follow-up until resolution. Cardiomegaly. Trace pericardial effusion. Calcified coronary artery disease. 3. Trace ascites. Axillary adenopathy. Anasarca. No hepatosplenomegaly. Port-A-Cath tip atriocaval junction. Microbiology Microbiology Results: Microbiology 05/16/25 18:47 Blood Culture - Preliminary Blood - Venous No growth after 48 hours. 05/16/25 18:47 Blood Culture - Preliminary Blood - Venous No growth after 48 hours. 05/17/25 Unknown Urine Culture - Final Urine clean catch - Clean Catch Midstream No growth. Assessment and Plan (1) Pneumonia: Status: Acute (2) Hypoxia: Status: Acute Assessment and Plan: d4, 75yo M with metastatic lung CA on palliative chemotherapy, hx VTE on Eliquis, COPD, HTN, HLD presenting with cough and dyspnea, admitted for hypoxia due to pneumonia sepsis and acute hypoxic and hypercapneic respiratory failure due to pneumonia and COPD exacerbation - vancomycin 05/16-05/18; MRSA swab negative and BCx negative so will d/c vanco - continue piperacillin-tazobactam 05/16- - RPP negative - PCT increasing though WBCs improved - 05/17- methylprednisolone, currently 60mg q8h - wean off O2 as tolerated - TTE 05/18/25: 1. Normal LV ejection fraction of 60 65% with impaired relaxation filling pattern 2. Calcific aortic and mitral valve changes noted with normal cardiac valvular Dopplers 3. No gross pericardial effusion - will consult ID; send Fungitell and sputum for PCP though doubt OLGA with metabolic [and respiratory] acidosis - likely septic ATN - continue IV fluids; held losartan; consulted Nephrology; renal US without obstruction; check urine lytes; [place] in place - monitor BMP daily hemoptysis: held Eliquis but will resume in the absence of further episodes intermediate-probability V/Q: on Eliquis; unlikely to have PE, BLE Duplex negative lactic acidosis: resolved after IV fluids hx DVT (October 2024): apixaban HLD: statin HTN: continue metoprolol succinate; hold amlodipine + losartan hypothyroidism: continue LT4 code: see ACP note 05/18, changed to DNR/DNI, no dialysis, no feeding tube; all other interventions OK VTE ppx: apixaban dispo: TBD In my clinical judgment, the patient requires continued inpatient hospitalization for the following reasons: respiratory failure, renal failure Total time managing care of this patient today: 50 minutes. Quality Stroke Does the patient have a stroke diagnosis?: No VTE Prior VTE?: No VTE Risk Level:: Medical - moderate - high VTE Device Contraindication: Treatment Not Indicated VTE Drug Contraindication: N/A - Med Ordered
[2025-05-19 11:09] LABS: Glucose, Whole Blood 138 mg/dL (60-115)
--- NOTE | 2025-05-19 12:29 | P.CDIM_ITS ---
PROVIDER RESPONSE TEXT: To clarify, the appropriate diagnosis supported by the clinical indicators: Acute QUERY TEXT: PHYSICIAN'S DOCUMENTATION REQUEST Date of Query: 05/18/2025 08:05 AM EDT Patient Name: Nasir Ahn Admit Date: 05/17/2025 Dear Cal Hearn MD, A review of the medical record indicates additional documentation may be needed. Please review below and update the documentation accordingly. Clinical Indicators: H&P 05/16/2025 - Noted to have lactic acidosis. LA 3.0 Progress note dated 05/17/25 - Lactic acidosis, resolved after IV fluids. Clarify which of the following accurately represents the acuity of the Lactic acidosis: Possible options might include: Acute Chronic Other specified Other (explain) Clinically unable to determine (explain) Thank you, Marianne Silverio, CCS, CDIS Use of terms such as suspected, likely, concern for, or probable (associated with a specific diagnosis that is being evaluated, monitored, or treated as if it exists) are acceptable and can be coded in the inpatient setting, when documented at the time of discharge. Please use your independent medical judgment in providing your response. THIS QUERY IS PART OF THE PERMANENT MEDICAL RECORD
[2025-05-20] VITALS (16 sets, daily range): BP systolic 130–162; BP diastolic 52–74; PULSE 64–80; RESP 16–22; TEMP 36.1–36.4; O2SAT 87–100
[2025-05-20] MEDS: Lactated Ringers 1,000 ML 125 ML IVCONT ×2 (01:34→10:09)
[2025-05-20] MEDS: Albuterol/Iprat 2.5/0.5MG 3 ML AMPUL.NEB INHALE ×3 (02:10→19:30)
[2025-05-20] MEDS: Fluticasone/Umeclidinium/Vilanterol 200/62.5/25 BLST.W.DEV 1 PUFF INHALE (07:18)
--- NOTE | 2025-05-20 07:19 | P.PNIM_ITS ---
Subjective Subjective Date of Service: 05/20/25 Interval History: translator/interpreter was used-[place] Patient's hemoglobin downtrending and his hemoglobin repeated the afternoon of 05/20/2025 was less than 7 hence with the help of superintendent compressor stations again we had to give him transfusion Patient also now having diarrhea-checking C diff and GI panel Hemodynamically appears stable Patient given IV Lasix given worsening pulmonary edema Creatinine worsening, Renal consulted , patient not at hemodialysis threshold however agreed that diuresis may might make OLGA on CKD worse We will need to consult with Dr. Stratton regarding prognosis as patient reports he is not ready for hospice and would like to have a talk with his oncologist who has been seeing him for the past 6 years prior to making any decisions. Met again with the in the afternoon prior to consenting for blood transfusion Review of Systems Review of Systems: Yes all other systems are reviewed and are negative Physical Exam 2 Exam: Exam: Gen: Patient on 3 L nasal cannula at this time, but does have minimal accessory respiratory muscle use , morbid obesity, pale and frail appearing Lungs: L>R bilateral worsening inspiratory crackles-started him on Lasix 60 IV b.i.d. Heart: regular rate and rhythm, no murmurs Abd: soft, non-tender, non-distended Ext: no edema Skin: warm/well-perfused Neuro: alert and oriented x3, no focal findings Psych: appropriate affect Vital Signs: Vital Signs: Last Vital Signs Temp 97.0 F 05/20/25 04:00 Pulse 71 05/20/25 04:00 Resp 16 05/20/25 04:00 BP 133/60 05/20/25 04:00 Pulse Ox 96 05/20/25 04:00 O2 Del Method Oxymask 05/20/25 04:00 O2 Flow Rate 4 05/20/25 04:00 FiO2 50 05/19/25 11:41 Oxygen Flow Rate 15 05/18/25 07:00 BMI result Body Mass Index 25.2 Objective Data Active Medications Acetaminophen (Acetaminophen 325 Mg Tablet) 650 mg PO Q6H PRN PRN Reason: Pain, Mild 1-3,fever,headache Last Admin: 05/16/25 21:04 Dose: 650 mg Documented By: CLAUDIO Albuterol/Ipratropium (Albuterol/Iprat 2.5/0.5mg 3 Ml Ampul.Neb) 3 ml INHALE Q4H PRN PRN Reason: Shortness of Breath/Wheezing Last Admin: 05/20/25 02:10 Dose: 3 ml Documented By: KEVIN Apixaban (Apixaban 5 Mg Tablet) 5 mg PO BID [facility] Last Admin: 05/19/25 21:32 Dose: 5 mg Documented By: LIMA Atorvastatin Calcium (Atorvastatin Calcium 10 Mg Tablet) 10 mg PO DAILY [facility] Last Admin: 05/19/25 08:43 Dose: 10 mg Documented By: SHAJI Benzonatate (Benzonatate 100 Mg Capsule) 100 mg PO TID PRN PRN Reason: Cough Last Admin: 05/19/25 08:43 Dose: 100 mg Documented By: SHAJI Calcium Carbonate (Calcium Carbonate 750 Mg Tab.Chew) 750 mg PO Q4H PRN PRN Reason: Heartburn Fluticasone/Umeclidinium/Vilanterol (Fluticasone/Umeclidinium/Vilanterol 200/62.5/25 Blst.W.Dev) 1 puff INHALE RDAILY [facility] Last Admin: 05/20/25 07:18 Dose: 1 puff Documented By: BREE Piperacillin Sod/Tazobactam (Sod 2.25 gm/ Sodium Chloride) 50 mls @ 100 mls/hr IV Q6H [facility] Last Admin: 05/20/25 06:32 Dose: 100 mls/hr Documented By: LIMA Lactated Ringer's (Lr) 1,000 mls @ 125 mls/hr IVCONT .Q8H [facility] Last Admin: 05/20/25 01:34 Dose: 125 mls/hr Documented By: LIMA Levothyroxine Sodium (Levothyroxine Sodium 75 Mcg Tablet) 75 mcg PO DAILY@0600 [facility] Last Admin: 05/20/25 06:32 Dose: 75 mcg Documented By: LIMA Magnesium Hydroxide (Milk Of Magnesia 30 Ml Oral.Susp) 30 ml PO DAILY PRN PRN Reason: Constipation Melatonin (Melatonin 3 Mg Tablet) 6 mg PO BEDTIME PRN PRN Reason: Insomnia Methylprednisolone Sodium Succinate (Methylprednisolone Sod Succ 40 Mg/Ml Vial) 60 mg IVPUSH Q8H [facility] Last Admin: 05/20/25 01:43 Dose: 60 mg Documented By: LIMA Metoprolol Succinate (Metoprolol Succinate Er 50 Mg Tab.Er.24h) 50 mg PO DAILY [facility]; Protocol Last Admin: 05/19/25 08:50 Dose: 50 mg Documented By: SHAJI Sodium Chloride (0.9 % Sodium Chloride Flush 3 Ml Syringe) 3 ml IVFLUSH QSHIFT [facility] Last Admin: 05/19/25 21:33 Dose: Not Given Documented By: LIMA Non-Admin Reason: IV Running Vitamin D (Cholecalciferol (Vitamin D3) 25 Mcg Tablet) 50 mcg PO DAILY [facility] Last Admin: 05/19/25 08:43 Dose: 50 mcg Documented By: SHAJI Labs 05/20/25 14:30 05/20/25 07:29 Labs: Laboratory Results - last 24 hr 05/19/25 05/19/25 06:11 10:45 POC Glucose 138 H Lactate Dehydrogenase 194 Microbiology Microbiology Results: Microbiology 05/19/25 12:55 Gram Stain - Final Sputum - Expectorated Sputum Culture - Final Assessment and Plan (1) Pneumonia: Status: Acute (2) Hypoxia: Status: Acute Assessment and Plan: 05/20/2025:translator/interpreter was used-[place] Patient's hemoglobin downtrending and his hemoglobin repeated the afternoon of 05/20/2025 was less than 7 hence with the help of superintendent compressor stations again we had to give him transfusion Patient also now having diarrhea-checking C diff and GI panel ,non melanotic Hemodynamically appears stable Patient given IV Lasix given worsening pulmonary edema Creatinine worsening, Renal consulted , patient not at hemodialysis threshold however agreed that diuresis may might make OLGA on CKD worse We will need to consult with Dr. Stratton regarding prognosis as patient reports he is not ready for hospice and would like to have a talk with his oncologist who has been seeing him for the past 6 years prior to making any decisions. Met again with the in the afternoon prior to consenting for blood transfusion d5, 75yo M with metastatic lung CA on palliative chemotherapy, hx VTE on Eliquis, COPD, HTN, HLD presenting with cough and dyspnea, admitted for hypoxia due to pneumonia, course complicated by significant pulmonary edema, OLGA on CKD now nearing dialysis, acute on chronic anemia, diarrhea, Acute on chronic hypoxic hypercapnic respiratory failure multifactorial secondary to pneumonia, HFpEF, COPD, metastatic lung cancer on palliative chemo Today he appears to be requiring 3 L (appeared to be on high-flow as of yesterday) Course complicated by pulmonary edema(treatment indicated for sepsis) Given tenuous clinical course-we will continue Zosyn We will deescalate steroids to 60 mg IVP daily and downtrend treat pending clinical status P.r.n. and scheduled nebulizers Goal O2 88-92 Pulm consulted-checking Fungitell and sputum for PCP although less likely Regarding his prognosis for metastatic lung cancer on palliative chemo-we will likely reach out to Dr. Stratton tomorrow to check with prognostication Patient deferring hospice as of today HFpEF LVEF (60-65%) Heart failure secondary to fluid overload in the setting of above-mentioned multiple pulmonary comorbidities We will start him on Lasix 60 IVp b.i.d. Electrolytes being checked repleted to goal OLGA on CKD-prerenal renal and postrenal Metabolic and respiratory acidosis Prerenal septic Renal HTN Postrenal BPH plus obstruction -has a Talamantes draining clear yellow urine Renal consulted, not at the point of requiring hemodialysis as of today With suboptimal but slight improvement in output Acute blood loss anemia-likely in the setting of anticoagulation Patient is on Eliquis for DVT which was diagnosed in October 2024 Risk versus benefit-we will continue to treat with Eliquis for 1 more day and if he continues to have downtrending hemoglobin-we will need to hold Eliquis PE deemed less likely on admission, however given that we briefly held Eliquis (secondary to hemoptysis), can not completely be ruled out Might need IVC filter, risks versus benefits to be discussed -ongoing We are transfusing 1 unit PRBC as of 05/20/2025 We will daily check CBC and transfuse if less than 7 OLGA with metabolic [and respiratory] acidosis - likely septic ATN - continue IV fluids; held losartan; consulted Nephrology; renal US without obstruction; check urine lytes; Talamantes in place - monitor BMP daily New onset diarrhea-checking C diff and GI panel prior to giving Imodium-this is likely in the setting of broad-spectrum antibiotics versus C diff intermediate-probability V/Q: on Eliquis; unlikely to have PE, BLE Duplex negative lactic acidosis: resolved after IV fluids hx DVT (October 2024): apixaban HLD: statin HTN: continue metoprolol succinate; hold amlodipine + losartan hypothyroidism: continue LT4 code: see ACP note 05/18, changed to DNR/DNI, no dialysis, no feeding tube; all other interventions OK VTE ppx: apixaban dispo: TBD Overall clinical condition guarded, goals of care ongoing, hospice appropriate, present at the bedside In my clinical judgment, the patient requires continued inpatient hospitalization for the following reasons: respiratory failure, renal failure, acute blood loss, acute diarrhea, overall worsening clinical condition requiring multiple interventions. Total time managing care of this patient today: 50 minutes. Quality Stroke Does the patient have a stroke diagnosis?: No VTE Prior VTE?: No VTE Risk Level:: Medical - moderate - high VTE Device Contraindication: Treatment Not Indicated VTE Drug Contraindication: N/A - Med Ordered
[2025-05-20 07:43] LABS: Venous Blood Gas Refer to POC result
[2025-05-20 07:44] LABS: VBG HCO3 26 mmol/L (22-26)
[2025-05-20 07:45] LABS: Hematocrit 24.5 % (42.0-52.0); Mean Corpuscular HGB Conc 28.6 g/dl (31.0-36.0); Mean Corpuscular Hemoglobin 24.1 pg (27.0-33.0); Mean Corpuscular Volume 84.2 fL (80.0-98.0); NRBC Abs Auto 0.020 X10*3/uL (0.0-0.012); NRBC Pct Auto 0.1 /100WBC (0.0-0.2); Platelet Count 121 X10*3/uL (160-400); Red Blood Count 2.91 X10*6/uL (4.60-5.80); White Blood Count 24.2 X10*3/uL (4.8-10.8)
[2025-05-20 07:46] LABS: Hemoglobin 7.0 g/dl (14.0-18.0)
[2025-05-20 08:04] LABS: Anion Gap 14 (12-20); Blood Urea Nitrogen 70 mg/dL (9-16); Calcium 7.6 mg/dL (8.4-10.2); Carbon Dioxide 24 mmol/L (22-29); Chloride 105 mmol/L (96-108); Potassium 4.1 mmol/L (3.3-5.1); Sodium 139 mmol/L (135-145)
[2025-05-20 08:07] LABS: Creatinine Clr Calc Pharmacy 11.1; Estimated Glomerular Filt Rate 12
[2025-05-20 08:08] LABS: NT Pro B Type Natriuretic Pept 15372.2 pg/mL (<300)
[2025-05-20] MEDS: Furosemide 100 MG/10 ML VIAL 60 MG IVPUSH ×3 (08:20→20:29)
[2025-05-20] MEDS: 0.9 % Sodium Chloride Flush 3 ML SYRINGE IVFLUSH (08:21)
[2025-05-20] MEDS: Metoprolol Succinate ER 50 MG TAB.ER.24H PO (08:25)
--- NOTE | 2025-05-20 14:07 | HO.SKINPHOTO ---
Location: Category: Stage: Length: Width: Depth: cm Location: Category: Stage: Length: Width: Depth: cm Location: Category: Stage: Length: Width: Depth: cm Location: Category: Stage: Length: Width: Depth: cm Location: Category: Stage: Length: Width: Depth: cm Location: Category: Stage: Length: Width: Depth: cm patient's right arm
[2025-05-20 14:40] LABS: Hematocrit 23.0 % (42.0-52.0); Imm Gran Abs Auto 0.46 X10*3/uL (0.00-0.03); Imm Gran Pct Auto 2.2 % (0.0-0.4); Lymphocytes Absolute Auto 0.2 X10*3/uL (1.2-4.9); MANUAL DIFF FLAG SCAN; Mean Corpuscular HGB Conc 28.7 g/dl (31.0-36.0); Mean Corpuscular Hemoglobin 23.8 pg (27.0-33.0); Mean Corpuscular Volume 83.0 fL (80.0-98.0); NRBC Abs Auto 0.000 X10*3/uL (0.0-0.012); NRBC Pct Auto 0.0 /100WBC (0.0-0.2); Platelet Count 122 X10*3/uL (160-400); Red Blood Count 2.77 X10*6/uL (4.60-5.80); SCAN SMEAR FLAG 1; White Blood Count 21.3 X10*3/uL (4.8-10.8)
[2025-05-20 14:47] LABS: Hemoglobin 6.6 g/dl (14.0-18.0)
[2025-05-20 17:39] LABS: CDiff Gene PCR NEGATIVE (Negative)
--- NOTE | 2025-05-20 19:33 | PC.NURSE ---
Report given to overnight RN Mary. End of assumption of care 05/20/25 at 19:00. Pack RBC still running at this time.
[2025-05-21] VITALS (10 sets, daily range): BP systolic 122–189; BP diastolic 58–82; PULSE 66–80; RESP 16–20; TEMP 36.1–36.4; O2SAT 93–98
[2025-05-21] MEDS: 0.9 % Sodium Chloride Flush 3 ML SYRINGE IVFLUSH ×3 (02:58→20:31)
[2025-05-21 06:30] LABS: MANUAL DIFF FLAG NO
[2025-05-21 06:32] LABS: Hematocrit 30.7 % (42.0-52.0); Hemoglobin 9.3 g/dl (14.0-18.0); Imm Gran Abs Auto 0.48 X10*3/uL (0.00-0.03); Imm Gran Pct Auto 2.2 % (0.0-0.4); Lymphocytes Absolute Auto 0.6 X10*3/uL (1.2-4.9); Mean Corpuscular HGB Conc 30.3 g/dl (31.0-36.0); Mean Corpuscular Hemoglobin 25.5 pg (27.0-33.0); Mean Corpuscular Volume 84.3 fL (80.0-98.0); NRBC Abs Auto 0.000 X10*3/uL (0.0-0.012); NRBC Pct Auto 0.0 /100WBC (0.0-0.2); Platelet Count 106 X10*3/uL (160-400); Red Blood Count 3.64 X10*6/uL (4.60-5.80); White Blood Count 21.6 X10*3/uL (4.8-10.8)
[2025-05-21 06:50] LABS: Alanine Aminotransferase 7 U/L (0-40); Albumin Level 2.7 g/dL (3.5-5.0); Alkaline Phosphatase 60 U/L (39-117); Anion Gap 16 (12-20); Aspartate Amino Transferase 21 U/L (5-37); Blood Urea Nitrogen 81 mg/dL (9-16); Calcium 7.5 mg/dL (8.4-10.2); Carbon Dioxide 23 mmol/L (22-29); Chloride 107 mmol/L (96-108); Creatinine Clr Calc Pharmacy 10.2; Estimated Glomerular Filt Rate 10; Magnesium 2.1 mg/dL (1.6-2.6); Potassium 4.0 mmol/L (3.3-5.1); Sodium 142 mmol/L (135-145); Total Protein 5.0 g/dL (6.5-8.0)
[2025-05-21 06:58] LABS: INTERNATIONAL NORM RATIO 1.2 (0.9-1.1); Prothrombin Time 13.4 SEC (10.9-12.4)
--- NOTE | 2025-05-21 07:19 | P.PNIM_ITS ---
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 Heart: regular rate and rhythm, no murmurs Abd: soft, non-tender, non-distended Ext: Significant bilateral pitting pedal edema, escalating doses of Lasix being given Neuro: alert and oriented x3, no focal findings Psych: appropriate affect Vital Signs: Vital Signs: Last Vital Signs Temp 97.3 F 05/21/25 02:27 Pulse 66 05/21/25 02:27 Resp 20 05/21/25 02:27 BP 139/58 L 05/21/25 02:27 Pulse Ox 94 05/21/25 02:27 O2 Del Method Nasal Cannula 05/21/25 02:27 O2 Flow Rate 5 05/21/25 02:27 FiO2 50 05/19/25 11:41 Oxygen Flow Rate 15 05/18/25 07:00 BMI result Body Mass Index 25.2 Objective Data Active Medications Acetaminophen (Acetaminophen 325 Mg Tablet) 650 mg PO Q6H PRN PRN Reason: Pain, Mild 1-3,fever,headache Last Admin: 05/16/25 21:04 Dose: 650 mg Documented By: CLAUDIO Albuterol/Ipratropium (Albuterol/Iprat 2.5/0.5mg 3 Ml Ampul.Neb) 3 ml INHALE Q4H PRN PRN Reason: Shortness of Breath/Wheezing Last Admin: 05/20/25 02:10 Dose: 3 ml Documented By: KEVIN Albuterol/Ipratropium (Albuterol/Iprat 2.5/0.5mg 3 Ml Ampul.Neb) 3 ml INHALE RQ6H WHILE AWAKE [facility] Last Admin: 05/20/25 19:30 Dose: 3 ml Documented By: KELLEE Apixaban (Apixaban 5 Mg Tablet) 5 mg PO BID [facility] Last Admin: 05/20/25 20:28 Dose: 5 mg Documented By: PEDRO Atorvastatin Calcium (Atorvastatin Calcium 10 Mg Tablet) 10 mg PO DAILY [facility] Last Admin: 05/20/25 08:22 Dose: 10 mg Documented By: SHAJI Benzonatate (Benzonatate 100 Mg Capsule) 100 mg PO TID PRN PRN Reason: Cough Last Admin: 05/19/25 08:43 Dose: 100 mg Documented By: SHAJI Calcium Carbonate (Calcium Carbonate 750 Mg Tab.Chew) 750 mg PO Q4H PRN PRN Reason: Heartburn Fluticasone/Umeclidinium/Vilanterol (Fluticasone/Umeclidinium/Vilanterol 200/62.5/25 Blst.W.Dev) 1 puff INHALE RDAILY [facility] Last Admin: 05/20/25 07:18 Dose: 1 puff Documented By: BREE Furosemide (Furosemide 100 Mg/10 Ml Vial) 60 mg IVPUSH BID@0800,1500 [facility]; Protocol Last Admin: 05/20/25 16:45 Dose: 60 mg Documented By: SHAJI Piperacillin Sod/Tazobactam (Sod 2.25 gm/ Sodium Chloride) 50 mls @ 100 mls/hr IV Q6H [facility] Last Infusion: 05/21/25 02:50 Dose: Infused Documented By: PEDRO Levothyroxine Sodium (Levothyroxine Sodium 75 Mcg Tablet) 75 mcg PO DAILY@0600 [facility] Last Admin: 05/21/25 07:00 Dose: 75 mcg Documented By: PEDRO Magnesium Hydroxide (Milk Of Magnesia 30 Ml Oral.Susp) 30 ml PO DAILY PRN PRN Reason: Constipation Melatonin (Melatonin 3 Mg Tablet) 6 mg PO BEDTIME PRN PRN Reason: Insomnia Methylprednisolone Sodium Succinate (Methylprednisolone Sod Succ 40 Mg/Ml Vial) 60 mg IVPUSH DAILY [facility] Last Admin: 05/20/25 08:20 Dose: 60 mg Documented By: SHAJI Metoprolol Succinate (Metoprolol Succinate Er 50 Mg Tab.Er.24h) 50 mg PO DAILY [facility]; Protocol Last Admin: 05/20/25 08:25 Dose: 50 mg Documented By: SHAJI Sodium Chloride (0.9 % Sodium Chloride Flush 3 Ml Syringe) 3 ml IVFLUSH QSHIFT [facility] Last Admin: 05/21/25 02:58 Dose: 3 ml Documented By: PEDRO Vitamin D (Cholecalciferol (Vitamin D3) 25 Mcg Tablet) 50 mcg PO DAILY [facility] Last Admin: 05/20/25 08:23 Dose: 50 mcg Documented By: SHAJI Labs 05/21/25 05:47 05/21/25 05:47 Labs: Laboratory Results - last 24 hr 05/20/25 05/20/25 05/20/25 07:29 07:40 14:30 MCV 84.2 83.0 MCH 24.1 L 23.8 L MCHC 28.6 L 28.7 L RDW 19.1 H 19.0 H Plt Count 121 L 122 L MPV 11.0 10.8 Immature Gran % (Auto) 2.2 H Neut % (Auto) 94.5 H Lymph % (Auto) 1.1 L Isabella % (Auto) 2.1 Eos % (Auto) 0.0 Baso % (Auto) 0.1 Lymph # (Auto) 0.2 L Isabella # (Auto) 0.5 Eos # (Auto) 0.0 Baso # (Auto) 0.0 Abs Immat Gran (auto) 0.46 H Absolute Neuts (auto) 20.1 H Absolute Nucleated RBC 0.020 H 0.000 Nucleated RBC % (auto) 0.1 0.0 Smear Tech's Comments VERIFIED ESR PT INR VBG pH 7.23 L VBG pCO2 61 VBG pO2 62 VBG HCO3 26 VBG O2 Saturation TNP VBG Base Excess -1.1 Anion Gap 14 Estim Creat Clear Calc 11.1 Estimated GFR 12 Random Glucose 154 H Calcium 7.6 L Magnesium Total Bilirubin AST ALT Alkaline Phosphatase C-Reactive Protein NT-Pro-B Natriuret Pep 46590.2 H Total Protein Albumin C. difficile Tox B Gene Blood Type Antibody Screen Crossmatch 05/20/25 05/20/25 05/20/25 15:04 16:22 16:45 MCV MCH MCHC RDW Plt Count MPV Immature Gran % (Auto) Neut % (Auto) Lymph % (Auto) Isabella % (Auto) Eos % (Auto) Baso % (Auto) Lymph # (Auto) Isabella # (Auto) Eos # (Auto) Baso # (Auto) Abs Immat Gran (auto) Absolute Neuts (auto) Absolute Nucleated RBC Nucleated RBC % (auto) Smear Tech's Comments ESR 48 H PT INR VBG pH VBG pCO2 VBG pO2 VBG HCO3 VBG O2 Saturation VBG Base Excess Anion Gap Estim Creat Clear Calc Estimated GFR Random Glucose Calcium Magnesium Total Bilirubin AST ALT Alkaline Phosphatase C-Reactive Protein 5.77 H NT-Pro-B Natriuret Pep Total Protein Albumin C. difficile Tox B Gene NEGATIVE Blood Type B Positive Antibody Screen NEGATIVE Crossmatch See Detail 05/21/25 05:47 MCV 84.3 MCH 25.5 L MCHC 30.3 L RDW 17.1 H Plt Count 106 L MPV 11.4 Immature Gran % (Auto) 2.2 H Neut % (Auto) 89.5 H Lymph % (Auto) 2.8 L Isabella % (Auto) 5.4 Eos % (Auto) 0.0 Baso % (Auto) 0.1 Lymph # (Auto) 0.6 L Isabella # (Auto) 1.2 Eos # (Auto) 0.0 Baso # (Auto) 0.0 Abs Immat Gran (auto) 0.48 H Absolute Neuts (auto) 19.4 H Absolute Nucleated RBC 0.000 Nucleated RBC % (auto) 0.0 Smear Tech's Comments ESR PT 13.4 H INR 1.2 H VBG pH VBG pCO2 VBG pO2 VBG HCO3 VBG O2 Saturation VBG Base Excess Anion Gap 16 Estim Creat Clear Calc 10.2 Estimated GFR 10 Random Glucose 97 Calcium 7.5 L Magnesium 2.1 Total Bilirubin 0.3 AST 21 ALT 7 Alkaline Phosphatase 60 C-Reactive Protein NT-Pro-B Natriuret Pep Total Protein 5.0 L Albumin 2.7 L C. difficile Tox B Gene Blood Type Antibody Screen Crossmatch Assessment and Plan (1) Pneumonia: Status: Acute (2) Hypoxia: Status: Acute Assessment and Plan: 05/21/2025:social media intern was used Patient's hemoglobin downtrending and his hemoglobin repeated the afternoon of 05/20/2025 was less than 7 hence with the help of dray driver again we had to give him transfusion Patient also now having diarrhea-checking C diff and GI panel ,non melanotic Hemodynamically appears stable Patient given IV Lasix given worsening pulmonary edema Creatinine worsening, Renal consulted , patient not at hemodialysis threshold however agreed that diuresis may might make OLGA on CKD worse We will need to consult with Dr. Stratton regarding prognosis as patient reports he is not ready for hospice and would like to have a talk with his oncologist who has been seeing him for the past 6 years prior to making any decisions. Met again with the in the afternoon prior to consenting for blood transfusion d6, 75yo M with metastatic lung CA on palliative chemotherapy, hx VTE on Eliquis, COPD, HTN, HLD presenting with cough and dyspnea, admitted for hypoxia due to pneumonia, course complicated by significant pulmonary edema, OLGA on CKD now nearing dialysis, acute on chronic anemia, diarrhea, palliative care hospice appropriate Acute on chronic hypoxic hypercapnic respiratory failure multifactorial secondary to pneumonia, HFpEF, COPD, metastatic lung cancer on palliative chemo Today he appears to be requiring 5 L (was on 3 L yesterday) Course complicated by pulmonary edema(treatment indicated for sepsis) and now we are trying to aggressively diurese which is also limited in the setting of worsening CKD to the point of requiring dialysis Given tenuous clinical course-we will continue Zosyn We will deescalate steroids to 60 mg IVP daily and downtrend treat pending clinical status P.r.n. and scheduled nebulizers Goal O2 88-92 Pulm consulted-checking Fungitell and sputum for PCP although less likely Regarding his prognosis for metastatic lung cancer on palliative chemo-we will likely reach out to Dr. Stratton tomorrow to check with prognostication Patient accepting hospice as of today HFpEF LVEF (60-65%) Heart failure secondary to fluid overload in the setting of above-mentioned multiple pulmonary comorbidities We will start him on Lasix 60 IVp b.i.d. Electrolytes being checked repleted to goal Acute blood loss anemia-likely in the setting of anticoagulation response to 2 units blood transfusion Patient is on Eliquis for DVT which was diagnosed in October 2024 Risk versus benefit-we will continue to treat with Eliquis Another episode of minimal hemoptysis noted as of 05/21/2025-we will continue Eliquis given risks versus benefits PE deemed less likely on admission, however given that we briefly held Eliquis (secondary to hemoptysis), can not completely be ruled out Might need IVC filter, risks versus benefits to be discussed -ongoing We are transfusing 2 unit PRBC as of 05/20/2025, with optimal response We will daily check CBC and transfuse if less than 7 OLGA with metabolic [and respiratory] acidosis OLGA on CKD-prerenal renal and postrenal Metabolic and respiratory acidosis Prerenal septic Renal HTN Postrenal BPH plus obstruction -has a Talamantes draining clear yellow urine Renal consulted, not at the point of requiring hemodialysis as of today With suboptimal but slight improvement in output - likely septic ATN - continue IV fluids; held losartan; consulted Nephrology; renal US without obstruction; check urine lytes; Talamantes in place - monitor BMP daily New onset diarrhea-GI panel and C diff negative, hence can give Imodium p.r.n., likely in the setting of broad-spectrum antibiotics intermediate-probability V/Q: on Eliquis; unlikely to have PE, BLE Duplex negative lactic acidosis: resolved after IV fluids hx DVT (October 2024): apixaban HLD: statin HTN: continue metoprolol succinate; hold amlodipine + losartan hypothyroidism: continue LT4 code: see ACP note 05/18, changed to DNR/DNI, no dialysis, no feeding tube; all other interventions OK VTE ppx: apixaban dispo: TBD Overall clinical condition guarded, goals of care ongoing, hospice appropriate, present at the bedside patient accepting of hospice, credit collections manager consulted for hospice placement and 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 Total time managing care of this patient today: 50 minutes. Quality Stroke Does the patient have a stroke diagnosis?: No VTE Prior VTE?: No VTE Risk Level:: Medical - moderate - high VTE Device Contraindication: Treatment Not Indicated VTE Drug Contraindication: N/A - Med Ordered
[2025-05-21] MEDS: Fluticasone/Umeclidinium/Vilanterol 200/62.5/25 BLST.W.DEV 1 PUFF INHALE (07:44)
[2025-05-21] MEDS: Albuterol/Iprat 2.5/0.5MG 3 ML AMPUL.NEB INHALE ×3 (07:44→19:15)
[2025-05-21] MEDS: Metoprolol Succinate ER 50 MG TAB.ER.24H PO (08:07)
[2025-05-21] MEDS: Furosemide 100 MG/10 ML VIAL 60 MG IVPUSH ×2 (08:10→15:02)
[2025-05-21 09:15] LABS: E. coli EAEC Not Detected (Not Detect.); E. coli EPEC Not Detected (Not Detect.); E. coli ETEC Not Detected (Not Detect.); E. coli STEC Not Detected (Not Detect.); Shigella sp./EIEC Not Detected (Not Detect.)
[2025-05-22] VITALS (12 sets, daily range): BP systolic 140–169; BP diastolic 54–75; PULSE 65–79; RESP 15–18; TEMP 36.1–36.8; O2SAT 93–96
[2025-05-22 06:31] LABS: MANUAL DIFF FLAG NO
[2025-05-22 06:43] LABS: Hematocrit 30.7 % (42.0-52.0); Hemoglobin 9.3 g/dl (14.0-18.0); Imm Gran Abs Auto 0.40 X10*3/uL (0.00-0.03); Imm Gran Pct Auto 2.1 % (0.0-0.4); Lymphocytes Absolute Auto 0.5 X10*3/uL (1.2-4.9); Mean Corpuscular HGB Conc 30.3 g/dl (31.0-36.0); Mean Corpuscular Hemoglobin 25.3 pg (27.0-33.0); Mean Corpuscular Volume 83.4 fL (80.0-98.0); NRBC Abs Auto 0.000 X10*3/uL (0.0-0.012); NRBC Pct Auto 0.0 /100WBC (0.0-0.2); Red Blood Count 3.68 X10*6/uL (4.60-5.80); White Blood Count 18.9 X10*3/uL (4.8-10.8)
[2025-05-22 06:46] LABS: Platelet Count 94 X10*3/uL (160-400)
[2025-05-22 06:51] LABS: INTERNATIONAL NORM RATIO 1.2 (0.9-1.1); Prothrombin Time 13.7 SEC (10.9-12.4)
[2025-05-22 06:53] LABS: Alanine Aminotransferase 9 U/L (0-40); Albumin Level 2.7 g/dL (3.5-5.0); Alkaline Phosphatase 61 U/L (39-117); Anion Gap 16 (12-20); Aspartate Amino Transferase 21 U/L (5-37); Blood Urea Nitrogen 86 mg/dL (9-16); Calcium 7.5 mg/dL (8.4-10.2); Carbon Dioxide 25 mmol/L (22-29); Chloride 107 mmol/L (96-108); Creatinine Clr Calc Pharmacy 9.5; Estimated Glomerular Filt Rate 10; Magnesium 2.0 mg/dL (1.6-2.6); Potassium 3.9 mmol/L (3.3-5.1); Sodium 144 mmol/L (135-145); Total Protein 5.0 g/dL (6.5-8.0)
--- NOTE | 2025-05-22 07:24 | P.PNIM_ITS ---
Subjective Subjective Date of Service: 05/22/25 Interval History: Director Of Materials used Patient agreeable for verification manager consulted for social needs Review of Systems Review of Systems: Yes all other systems are reviewed and are negative Physical Exam 2 Exam: Exam: Gen: Patient on 5 L nasal cannula at this time, but does have minimal accessory respiratory muscle use , morbid obesity, pale and frail appearing Lungs: L>R bilateral worsening inspiratory crackles-started him on Lasix 60 IV b.i.d. Heart: regular rate and rhythm, no murmurs Abd: soft, non-tender, mildly distended Ext: Significant bilateral pitting pedal edema, escalating doses of Lasix being given Neuro: alert and oriented x3, no focal findings Psych: appropriate affect Vital Signs: Vital Signs: Last Vital Signs Temp 97.4 F 05/22/25 03:18 Pulse 70 05/22/25 03:18 Resp 18 05/22/25 03:18 BP 159/62 H 05/22/25 03:18 Pulse Ox 95 05/22/25 03:18 O2 Del Method Nasal Cannula 05/22/25 03:18 O2 Flow Rate 5 05/22/25 03:18 FiO2 50 05/19/25 11:41 Oxygen Flow Rate 15 05/18/25 07:00 BMI result Body Mass Index 25.2 Objective Data Active Medications Acetaminophen (Acetaminophen 325 Mg Tablet) 650 mg PO Q6H PRN PRN Reason: Pain, Mild 1-3,fever,headache Last Admin: 05/16/25 21:04 Dose: 650 mg Documented By: CLAUDIO Albuterol/Ipratropium (Albuterol/Iprat 2.5/0.5mg 3 Ml Ampul.Neb) 3 ml INHALE Q4H PRN PRN Reason: Shortness of Breath/Wheezing Last Admin: 05/20/25 02:10 Dose: 3 ml Documented By: KEVIN Albuterol/Ipratropium (Albuterol/Iprat 2.5/0.5mg 3 Ml Ampul.Neb) 3 ml INHALE RQ6H WHILE AWAKE [facility] Last Admin: 05/21/25 19:15 Dose: 3 ml Documented By: KEVIN Apixaban (Apixaban 5 Mg Tablet) 5 mg PO BID [facility] Last Admin: 05/21/25 20:23 Dose: 5 mg Documented By: PEDRO Atorvastatin Calcium (Atorvastatin Calcium 10 Mg Tablet) 10 mg PO DAILY [facility] Last Admin: 05/21/25 07:52 Dose: 10 mg Documented By: AUTUMN Benzonatate (Benzonatate 100 Mg Capsule) 100 mg PO TID PRN PRN Reason: Cough Last Admin: 05/19/25 08:43 Dose: 100 mg Documented By: SHAJI Calcium Carbonate (Calcium Carbonate 750 Mg Tab.Chew) 750 mg PO Q4H PRN PRN Reason: Heartburn Fluticasone/Umeclidinium/Vilanterol (Fluticasone/Umeclidinium/Vilanterol 200/62.5/25 Blst.W.Dev) 1 puff INHALE RDAILY [facility] Last Admin: 05/21/25 07:44 Dose: 1 puff Documented By: HELEN Furosemide (Furosemide 100 Mg/10 Ml Vial) 60 mg IVPUSH BID@0800,1500 [facility]; Protocol Last Admin: 05/21/25 15:02 Dose: 60 mg Documented By: AUTUMN Piperacillin Sod/Tazobactam (Sod 2.25 gm/ Sodium Chloride) 50 mls @ 100 mls/hr IV Q6H [facility] Last Infusion: 05/22/25 02:14 Dose: Infused Documented By: PEDRO Levothyroxine Sodium (Levothyroxine Sodium 75 Mcg Tablet) 75 mcg PO DAILY@0600 [facility] Last Admin: 05/22/25 06:00 Dose: 75 mcg Documented By: PEDRO Loperamide HCl (Loperamide Hcl 2 Mg Capsule) 2 mg PO Q4H PRN PRN Reason: Diarrhea Magnesium Hydroxide (Milk Of Magnesia 30 Ml Oral.Susp) 30 ml PO DAILY PRN PRN Reason: Constipation Melatonin (Melatonin 3 Mg Tablet) 6 mg PO BEDTIME PRN PRN Reason: Insomnia Metoprolol Succinate (Metoprolol Succinate Er 50 Mg Tab.Er.24h) 50 mg PO DAILY [facility]; Protocol Last Admin: 05/21/25 08:07 Dose: 50 mg Documented By: AUTUMN Sodium Chloride (0.9 % Sodium Chloride Flush 3 Ml Syringe) 3 ml IVFLUSH QSHIFT [facility] Last Admin: 05/21/25 20:31 Dose: 3 ml Documented By: PEDRO Vitamin D (Cholecalciferol (Vitamin D3) 25 Mcg Tablet) 50 mcg PO DAILY [facility] Last Admin: 05/21/25 07:52 Dose: 50 mcg Documented By: AUTUMN Labs 05/22/25 06:03 05/22/25 06:03 Labs: Laboratory Results - last 24 hr 05/20/25 05/22/25 16:22 06:03 MCV 83.4 MCH 25.3 L MCHC 30.3 L RDW 17.6 H Plt Count 94 L MPV 10.5 Immature Gran % (Auto) 2.1 H Neut % (Auto) 87.5 H Lymph % (Auto) 2.6 L [place] % (Auto) 7.6 Eos % (Auto) 0.0 Baso % (Auto) 0.2 Lymph # (Auto) 0.5 L [place] # (Auto) 1.4 H Eos # (Auto) 0.0 Baso # (Auto) 0.0 Abs Immat Gran (auto) 0.40 H Absolute Neuts (auto) 16.6 H Absolute Nucleated RBC 0.000 Nucleated RBC % (auto) 0.0 PT 13.7 H INR 1.2 H Anion Gap 16 Estim Creat Clear Calc 9.5 Estimated GFR 10 Random Glucose 88 Calcium 7.5 L Magnesium 2.0 Total Bilirubin 0.4 AST 21 ALT 9 Alkaline Phosphatase 61 Total Protein 5.0 L Albumin 2.7 L Stl C. cayetanensis PCR Not Detected Stool Rotavirus A PCR Not Detected Stl Adenov F 40/41 PCR Not Detected Stool Astrovirus (PCR) Not Detected Stool Campylobacter PCR Not Detected Stool Cryptosporidium PCR Not Detected Stl Sh Tox Pr E STEC PCR Not Detected Stool E coli O157 PCR Not applicable Stl Enterotoxigenic E PCR Not Detected Stool EPEC (PCR) Not Detected Stool EAEC (PCR) Not Detected Stl E. histolytica PCR Not Detected Stool Giardia Lamblia PCR Not Detected Stl P. shigelloides PCR Not Detected Stool Salmonella PCR Not Detected Stool Sapovirus (PCR) Not Detected Stl Shigella/EIEC PCR Not Detected St Y.enterocolitica PCR Not Detected Stool Vibrio (PCR) Not Detected Stl Vibrio cholerae PCR Not Detected Stl Norovirus GI/GII PCR Not Detected Microbiology Microbiology Results: Microbiology 05/16/25 18:47 Blood Culture - Final Blood - Venous No growth after 5 days. 05/16/25 18:47 Blood Culture - Final Blood - Venous No growth after 5 days. Assessment and Plan (1) Pneumonia: Status: Acute (2) Hypoxia: Status: Acute Assessment and Plan: 05/22/2025:supervisor post wave was used d7, 75yo M with metastatic lung CA on palliative chemotherapy, hx VTE on Eliquis, COPD, HTN, HLD presenting with cough and dyspnea, admitted for hypoxia due to pneumonia, course complicated by poor response to aggressive IV abx and steroids, significant pulmonary edema, OLGA on CKD now nearing dialysis 2/2 baseline and diuretics (neccesitated by pulm edema), acute on chronic anemia - multifactorial req multiple blood transfusions in a pt with DVT req continuatin of Eliquis weighing risks vs benefits, hemoptysis (occasional intermitted), diarrhea 2/2 chronic BSA, palliative care hospice appropriate. Given pt's poor prognositcatin, pt with at bedside elected to DNR/DNI, no HD , no aggressive measure. Hospice and Hospice consulted per pt's wishes- awaiting auth. 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 Total time managing care of this patient today: 50 minutes. Quality Stroke Does the patient have a stroke diagnosis?: No VTE Prior VTE?: No VTE Risk Level:: Medical - moderate - high VTE Device Contraindication: Treatment Not Indicated VTE Drug Contraindication: N/A - Med Ordered
[2025-05-22] MEDS: Fluticasone/Umeclidinium/Vilanterol 200/62.5/25 BLST.W.DEV 1 PUFF INHALE (07:33)
[2025-05-22] MEDS: Albuterol/Iprat 2.5/0.5MG 3 ML AMPUL.NEB INHALE ×3 (07:33→20:16)
--- NOTE | 2025-05-22 10:50 | MHC.CM.PN ---
CM met with pt. and his S.O. along with sifting operator to discuss DCP, they said that DCP is for pt. to go home with Hospice services from [facility], and family care. He will DC to: [address] [place] [address], his sister's home, because it is on a first floor, and his S.O. will be there with him to take care of him. [facility]erral [facility].
--- NOTE | 2025-05-22 10:53 | P.CDIM_ITS ---
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 Please review below and update the documentation accordingly. Clinical Indicators: Progress note 05/21/25 - OLGA on CKD-prerenal and postrenal Now nearing dialysis. 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 Please use your independent medical judgment in providing your response. THIS QUERY IS PART OF THE PERMANENT MEDICAL RECORD
[2025-05-22] MEDS: Metoprolol Succinate ER 50 MG TAB.ER.24H PO (11:38)
[2025-05-22] MEDS: Furosemide 100 MG/10 ML VIAL 60 MG IVPUSH ×2 (11:41→15:53)
[2025-05-22] MEDS: 0.9 % Sodium Chloride Flush 3 ML SYRINGE IVFLUSH ×3 (11:43→22:18)
[2025-05-22 17:28] LABS: Anti Glomerular Basement Memb <1.0 AI; Proteinase 3 PR3 Antibodies <1.0 AI
--- NOTE | 2025-05-22 18:51 | PM.EVENT ---
Event Note Date of Service: 05/22/25 Event Note: LUE edematous since admission , bothering the pt, we did DVT usg r/o DVT , however pt already on therapeutic Eliquis renally dosed and no further change in mx would be indicated. Will cont conservative mx - Rest, elevation and ice. Time Spent With Patient Time: Total time managing care of this patient today ____ minutes.
--- NOTE | 2025-05-23 00:17 | W.PM.IDCN ---
History of Present Illness Data of Consult Service Date: 05/22/25 Requesting physician: Geneva Carpenter Primary Care Provider: DO JOSE Jiménez Reason for consult: pneumonia He presents with cough and shortness of breath for 3-4 days, He has h/o adenosquamous carcinoma lung. He has been on Keytruda. 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) Hyperlipemia HTN (hypertension) Cancer of lower lobe of left lung (~2019) Family History Family History Mother Diabetes Brother Diabetes High blood pressure Daughter Breast cancer Daughter Hx of thyroid disease Family history: reviewed and not pertinent Surgical History Surgical History History of laryngoscopy (~10/2018) Admission for fitting of Port-A-Cath (~09/2020) History of lobectomy of lung (~08/2020) History of colonoscopy (~12/2014) History of left knee surgery Social History Social History Household Members: Family Housing: Apartment Do you presently have visiting nurse or other home services: No Alcohol intake: current Alcohol intake frequency: holidays/special occasions only Alcohol type: beer Patient Tobacco Use Status: Former Tobacco user Cigarette Packs Per Day: 1 Years Smoked: 34 service: No Meds Allergies Allergy/AdvReac Type Severity Reaction Status Date / Time No Known Allergies Allergy Verified 05/16/25 18:35 Active Medications: Current Medications Acetaminophen (Acetaminophen 325 Mg Tablet) 650 mg PO Q6H PRN PRN Reason: Pain, Mild 1-3,fever,headache Last Admin: 05/16/25 21:04 Dose: 650 mg Albuterol/Ipratropium (Albuterol/Iprat 2.5/0.5mg 3 Ml Ampul.Neb) 3 ml INHALE Q4H PRN PRN Reason: Shortness of Breath/Wheezing Last Admin: 05/20/25 02:10 Dose: 3 ml Albuterol/Ipratropium (Albuterol/Iprat 2.5/0.5mg 3 Ml Ampul.Neb) 3 ml INHALE RQ6H WHILE AWAKE [facility] Last Admin: 05/22/25 20:16 Dose: 3 ml Apixaban (Apixaban 5 Mg Tablet) 5 mg PO BID [facility] Last Admin: 05/22/25 22:18 Dose: 5 mg Atorvastatin Calcium (Atorvastatin Calcium 10 Mg Tablet) 10 mg PO DAILY [facility] Last Admin: 05/22/25 11:39 Dose: 10 mg Benzonatate (Benzonatate 100 Mg Capsule) 100 mg PO TID PRN PRN Reason: Cough Last Admin: 05/19/25 08:43 Dose: 100 mg Calcium Carbonate (Calcium Carbonate 750 Mg Tab.Chew) 750 mg PO Q4H PRN PRN Reason: Heartburn Fluticasone/Umeclidinium/Vilanterol (Fluticasone/Umeclidinium/Vilanterol 200/62.5/25 Blst.W.Dev) 1 puff INHALE RDAILY [facility] Last Admin: 05/22/25 07:33 Dose: 1 puff Furosemide (Furosemide 100 Mg/10 Ml Vial) 60 mg IVPUSH BID@0800,1500 [facility]; Protocol Last Admin: 05/22/25 15:53 Dose: 60 mg Piperacillin Sod/Tazobactam (Sod 2.25 gm/ Sodium Chloride) 50 mls @ 100 mls/hr IV Q6H [facility] Last Infusion: 05/22/25 19:02 Dose: Infused Azithromycin 500 mg/ Sodium (Chloride) 250 mls @ 125 mls/hr IV Q24H [facility] Levothyroxine Sodium (Levothyroxine Sodium 75 Mcg Tablet) 75 mcg PO DAILY@0600 [facility] Last Admin: 05/22/25 06:00 Dose: 75 mcg Loperamide HCl (Loperamide Hcl 2 Mg Capsule) 2 mg PO Q4H PRN PRN Reason: Diarrhea Magnesium Hydroxide (Milk Of Magnesia 30 Ml Oral.Susp) 30 ml PO DAILY PRN PRN Reason: Constipation Melatonin (Melatonin 3 Mg Tablet) 6 mg PO BEDTIME PRN PRN Reason: Insomnia Metoprolol Succinate (Metoprolol Succinate Er 50 Mg Tab.Er.24h) 50 mg PO DAILY [facility]; Protocol Last Admin: 05/22/25 11:38 Dose: 50 mg Sodium Chloride (0.9 % Sodium Chloride Flush 3 Ml Syringe) 3 ml IVFLUSH QSHIFT [facility] Last Admin: 05/22/25 22:18 Dose: 3 ml Vitamin D (Cholecalciferol (Vitamin D3) 25 Mcg Tablet) 50 mcg PO DAILY [facility] Last Admin: 05/22/25 11:38 Dose: 50 mcg Home Medications ?Medication ?Instructions ?Recorded ?Confirmed ?Last Taken ?Type amlodipine 10 mg tablet 10 mg PO DAILY 06/07/20 05/16/25 05/16/25 History atorvastatin 10 mg tablet 10 mg PO DAILY 06/07/20 05/16/25 05/16/25 History fluticasone propionate 50 50 mcg intranasal DAILY PRN 06/07/20 05/16/25 10/18/24 History mcg/actuation nasal Congestion spray,suspension losartan 100 mg tablet 100 mg PO DAILY 06/07/20 05/16/25 05/16/25 History metoprolol succinate 50 mg 50 mg PO DAILY 06/07/20 05/16/25 05/16/25 History tablet,extended release 24 hr cholecalciferol (vitamin D3) 50 50 mcg PO DAILY 12/06/23 05/16/25 05/16/25 History mcg (2,000 unit) capsule (Vitamin D3) albuterol sulfate 2.5 mg/3 mL 2.5 mg inhalation Q4H PRN 10/18/24 05/16/25 Unknown History (0.083 %) solution for nebulization Shortness Of Breath albuterol sulfate 90 mcg/actuation 2 puff inhalation Q4H PRN 10/18/24 05/16/25 10/18/24 History aerosol inhaler shortness of breath or wheezing apixaban 5 mg tablet (Eliquis) 5 mg PO BID 05/16/25 05/16/25 05/16/25 History fluticasone fur. 200 mcg-umeclid 1 ea inhalation DAILY 05/16/25 05/16/25 05/16/25 History 62.5 mcg-vilant 25 mcg inhalat.powder (Trelegy Ellipta) Physical Exam Vital Signs: Vital Signs: Last Vital Signs Temp 98.2 F 05/22/25 23:28 Pulse 65 05/22/25 23:28 Resp 18 05/22/25 23:28 BP 140/70 H 05/22/25 23:28 Pulse Ox 95 05/22/25 23:28 O2 Del Method Oxymask 05/22/25 23:28 O2 Flow Rate 5 05/22/25 23:28 FiO2 50 05/19/25 11:41 Oxygen Flow Rate 15 05/18/25 07:00 BMI result Body Mass Index 25.2 Resp: Other: decreased breath sounds bases Results Labs 05/22/25 06:03 05/22/25 06:03 Labs: Short CBC 05/22/25 Range/Units 06:03 WBC 18.9 H (4.8-10.8) X10*3/uL Hgb 9.3 L (14.0-18.0) g/dl Hct 30.7 L (42.0-52.0) % Plt Count 94 L (160-400) X10*3/uL BMP 05/22/25 06:03 Sodium 144 Potassium 3.9 Chloride 107 Carbon Dioxide 25 BUN 86 H Creatinine 5.71 H* Calcium 7.5 L Liver Function 05/22/25 Range/Units 06:03 Total Bilirubin 0.4 (0.0-1.0) mg/dL AST 21 (5-37) U/L ALT 9 (0-40) U/L Alkaline Phosphatase 61 (39-117) U/L Albumin 2.7 L (3.5-5.0) g/dL Microbiology Microbiology Results: Microbiology 05/16/25 18:47 Blood - Venous Blood Culture - Final No growth after 5 days. 05/16/25 18:47 Blood - Venous Blood Culture - Final No growth after 5 days. 05/19/25 12:55 Sputum - Expectorated Gram Stain - Final 05/19/25 12:55 Sputum - Expectorated Sputum Culture - Final 05/17/25 Unknown Urine clean catch - Clean Catch Midstream Urine Culture - Final No growth. Assessment and Plan (1) Hyponatremia: Status: Acute (2) Cancer of lower lobe of left lung: Status: Chronic (3) Acute hypoxemic respiratory failure: Status: Acute Plan Add atypical coverage to Zosyn with azithromycin. Check legionella antigen and MRSA nares. Follow Pulmonary Duration antibiotics to be determined.
[2025-05-23 02:41] VITALS: BP 150/68; PULSE 86; RESP 16; TEMP 36.6; O2SAT 96
[2025-05-23 05:04] LABS: Strep Pneumo Ag urine Not Detected (Not Detected)
--- NOTE | 2025-05-23 07:18 | HO.PM.IMPN ---
Subjective Subjective Date of Service: 05/23/25 Physical Exam Vital Signs: Vital Signs: Last Vital Signs Temp 97.9 F 05/23/25 02:41 Pulse 86 05/23/25 02:41 Resp 16 05/23/25 02:41 BP 150/68 H 05/23/25 02:41 Pulse Ox 96 05/23/25 02:41 O2 Del Method Oxymask 05/23/25 02:41 O2 Flow Rate 5 05/23/25 02:41 FiO2 50 05/19/25 11:41 Oxygen Flow Rate 15 05/18/25 07:00 BMI result Body Mass Index 25.2 Objective Data Active Medications Acetaminophen (Acetaminophen 325 Mg Tablet) 650 mg PO Q6H PRN PRN Reason: Pain, Mild 1-3,fever,headache Last Admin: 05/16/25 21:04 Dose: 650 mg Documented By: CLAUDIO Albuterol/Ipratropium (Albuterol/Iprat 2.5/0.5mg 3 Ml Ampul.Neb) 3 ml INHALE Q4H PRN PRN Reason: Shortness of Breath/Wheezing Last Admin: 05/20/25 02:10 Dose: 3 ml Documented By: KEVIN Albuterol/Ipratropium (Albuterol/Iprat 2.5/0.5mg 3 Ml Ampul.Neb) 3 ml INHALE RQ6H WHILE AWAKE [facility] Last Admin: 05/22/25 20:16 Dose: 3 ml Documented By: KEVIN Apixaban (Apixaban 5 Mg Tablet) 5 mg PO BID [facility] Last Admin: 05/22/25 22:18 Dose: 5 mg Documented By: NADER Atorvastatin Calcium (Atorvastatin Calcium 10 Mg Tablet) 10 mg PO DAILY [facility] Last Admin: 05/22/25 11:39 Dose: 10 mg Documented By: ALCON Benzonatate (Benzonatate 100 Mg Capsule) 100 mg PO TID PRN PRN Reason: Cough Last Admin: 05/19/25 08:43 Dose: 100 mg Documented By: SHAJI Calcium Carbonate (Calcium Carbonate 750 Mg Tab.Chew) 750 mg PO Q4H PRN PRN Reason: Heartburn Fluticasone/Umeclidinium/Vilanterol (Fluticasone/Umeclidinium/Vilanterol 200/62.5/25 Blst.W.Dev) 1 puff INHALE RDAILY [facility] Last Admin: 05/22/25 07:33 Dose: 1 puff Documented By: BREE Furosemide (Furosemide 100 Mg/10 Ml Vial) 60 mg IVPUSH BID@0800,1500 [facility]; Protocol Last Admin: 05/22/25 15:53 Dose: 60 mg Documented By: ALCON Piperacillin Sod/Tazobactam (Sod 2.25 gm/ Sodium Chloride) 50 mls @ 100 mls/hr IV Q6H [facility] Last Admin: 05/23/25 06:19 Dose: 100 mls/hr Documented By: NADER Azithromycin 500 mg/ Sodium (Chloride) 250 mls @ 125 mls/hr IV Q24H [facility] Last Infusion: 05/23/25 04:13 Dose: Infused Documented By: NADER Levothyroxine Sodium (Levothyroxine Sodium 75 Mcg Tablet) 75 mcg PO DAILY@0600 [facility] Last Admin: 05/23/25 06:19 Dose: 75 mcg Documented By: NADER Loperamide HCl (Loperamide Hcl 2 Mg Capsule) 2 mg PO Q4H PRN PRN Reason: Diarrhea Magnesium Hydroxide (Milk Of Magnesia 30 Ml Oral.Susp) 30 ml PO DAILY PRN PRN Reason: Constipation Melatonin (Melatonin 3 Mg Tablet) 6 mg PO BEDTIME PRN PRN Reason: Insomnia Metoprolol Succinate (Metoprolol Succinate Er 50 Mg Tab.Er.24h) 50 mg PO DAILY [facility]; Protocol Last Admin: 05/22/25 11:38 Dose: 50 mg Documented By: ALCON Sodium Chloride (0.9 % Sodium Chloride Flush 3 Ml Syringe) 3 ml IVFLUSH QSHIFT [facility] Last Admin: 05/22/25 22:18 Dose: 3 ml Documented By: NADER Vitamin D (Cholecalciferol (Vitamin D3) 25 Mcg Tablet) 50 mcg PO DAILY [facility] Last Admin: 05/22/25 11:38 Dose: 50 mcg Documented By: ALCON Labs 05/22/25 06:03 05/22/25 06:03 Labs: Laboratory Results - last 24 hr 05/18/25 05/19/25 10:10 10:18 Proteinase 3 (PR3) Ab <1.0 Myeloperoxidase Ab <1.0 Glomerular Base Memb Ab <1.0 Complement C3 121 Complement C4 23 Ur L.pneumophila Ag Not Detected Ur Strep pneumoniae Ag Not Detected Quality Stroke Does the patient have a stroke diagnosis?: No VTE Prior VTE?: No VTE Risk Level:: Medical - moderate - high VTE Device Contraindication: Treatment Not Indicated VTE Drug Contraindication: N/A - Med Ordered
[2025-05-23] MEDS: Albuterol/Iprat 2.5/0.5MG 3 ML AMPUL.NEB INHALE (07:35)
[2025-05-23] MEDS: Fluticasone/Umeclidinium/Vilanterol 200/62.5/25 BLST.W.DEV 1 PUFF INHALE (07:36)
[2025-05-23 07:39] VITALS: PULSE 81; RESP 18; O2SAT 96
[2025-05-23 08:00] VITALS: BP 134/62; PULSE 84; RESP 20; TEMP 36.2; O2SAT 98
[2025-05-23 08:40] LABS: Hematocrit 30.0 % (42.0-52.0); Hemoglobin 8.9 g/dl (14.0-18.0); Mean Corpuscular HGB Conc 29.7 g/dl (31.0-36.0); Mean Corpuscular Hemoglobin 25.4 pg (27.0-33.0); Mean Corpuscular Volume 85.7 fL (80.0-98.0); NRBC Abs Auto 0.000 X10*3/uL (0.0-0.012); NRBC Pct Auto 0.0 /100WBC (0.0-0.2); Red Blood Count 3.50 X10*6/uL (4.60-5.80); White Blood Count 18.0 X10*3/uL (4.8-10.8)
--- NOTE | 2025-05-23 08:40 | PM.DS ---
DS: Providers Provider Date of Service: 05/23/25 Date of admission: 05/16/25 20:27 Date of discharge: 05/23/25 Primary care physician: Halley Powers DO Consults: 05/18/25 08:15 Consult to Nephrology Routine Consulting Provider: [facility] Reason for consultation: OLGA Consult to Pulmonology Routine Consulting Provider: [facility] Reason for consultation: PNA, resp acidosis 05/19/25 07:40 Consult to Infectious Diseases Routine Consulting Provider: [facility] Reason for consultation: severe PNA 05/20/25 08:08 Consult to Nephrology Routine Consulting Provider: [facility] Reason for consultation: OLGA worsening 2/2 pre-renal +renal, appreciate recs DS: Diagnosis Discharge Diagnosis (1) Hyponatremia: Status: Acute (2) Cancer of lower lobe of left lung: Status: Chronic (3) Acute hypoxemic respiratory failure: Status: Acute DS: Summary Hospital Course Hospital Course: Pt is a 75yo M with metastatic lung CA on palliative chemotherapy, hx VTE on Eliquis, COPD, HTN, HLD presenting with cough and dyspnea, admitted for hypoxia due to pneumonia, course complicated by poor response to aggressive IV abx and steroids, significant pulmonary edema, OLGA on CKD now nearing dialysis 2/2 baseline and diuretics (neccesitated by pulm edema), acute on chronic anemia -multifactorial req multiple blood transfusions in a pt with DVT req continuatin of Eliquis weighing risks vs benefits, hemoptysis (occasional intermitted), diarrhea 2/2 chronic BSA, palliative care hospice appropriate. Given pt's poor prognositcatin, pt with at bedside elected to DNR/DNI, no HD , no aggressive measure as of 05/18/25. Home Anti-HTN meds stopped 2/2 AHRF 2/2 MF etiology of lungs. Lasix 80 po bid for pulm edema at the time of DC for symptomatic relief. Patient elected hospice and is going to SNF on Hospice. Goal is comfort and palliative care. Total time managing care of this patient today: 35 minutes. This note is constructed using voice recognition software. While every effort has been made to ensure accuracy, support dba errors may have been included. Please reach out for any clarification. Time spent discussing smoking cessation with patient: more than 10 minutes Status at Discharge Functional status at discharge: bed bound Overall status at discharge: other (hospice) Time Attestation Discharge Coordination Time (in mins): 35 mins Quality: Safe Use of Opioids Does Pt have an Active Cancer Diagnosis on the Problem List?: Yes Opioid Measure Date for [facility] Report: 04/23/25 Opioid Measure Time for [facility] Report: 08:50 Quality: Stroke Does the patient have a stroke diagnosis?: No Physical Exam Vital Signs: Vital Signs: Last Vital Signs Temp 97.2 F 05/23/25 08:00 Pulse 84 05/23/25 08:00 Resp 20 05/23/25 08:00 BP 134/62 05/23/25 08:00 Pulse Ox 98 05/23/25 08:00 O2 Del Method Oxymask 05/23/25 08:00 O2 Flow Rate 6 05/23/25 08:00 FiO2 50 05/19/25 11:41 Oxygen Flow Rate 15 05/18/25 07:00 BMI result Body Mass Index 25.2 DS: Data Data Completed and Pending Pending studies at discharge: Pending at discharge 05/19/25 07:46 Surgical Path [Surgical] [PTH] Stat Labs on day of discharge: Laboratory Results - last 24 hr 05/18/25 05/19/25 10:10 10:18 Proteinase 3 (PR3) Ab <1.0 Myeloperoxidase Ab <1.0 Glomerular Base Memb Ab <1.0 Complement C3 121 Complement C4 23 Ur L.pneumophila Ag Not Detected Ur Strep pneumoniae Ag Not Detected Discharge Plan Discharge Anticipated Discharge Date/Time: 05/23/25 08:37 Patient Disposition: Hospice - Medical Facility Discharge Diagnosis: 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, Metastatic Lung Ca, End stage COPD, ESRD , Referrals: Halley Powers DO [Primary Care Provider, Internal Medicine] - 1 Week Discharge Medications: New loperamide 2 mg Capsule 2 mg PO Q4H PRN (Reason: Diarrhea) 30 Days Qty: 60 3RF furosemide [Lasix] 80 mg tablet 80 mg PO BID Qty: 60 3RF Continued (DME) Aerochamber MV Spacer See Rx Instructions .Route Qty: 1 0RF Rx Instructions: As directed ferrous sulfate 325 mg (65 mg iron) Tablet 325 mg PO BID Qty: 60 3RF cholecalciferol (vitamin D3) [Vitamin D3] 50 mcg (2,000 unit) capsule 50 mcg PO DAILY albuterol sulfate 90 mcg/actuation HFA aerosol inhaler 2 puff inhalation Q4H PRN (Reason: shortness of breath or wheezing) albuterol sulfate 2.5 mg /3 mL (0.083 %) Solution For Nebulization 2.5 mg INHALATION Q4H PRN (Reason: Shortness Of Breath) levothyroxine 75 mcg tablet 75 mcg PO DAILY@0600 Qty: 60 3RF Trelegy Ellipta 200-62.5-25 mcg blister with device 1 ea INHALATION DAILY Eliquis 5 mg tablet 5 mg PO BID fluticasone propionate 50 mcg/actuation spray,suspension 50 mcg intranasal DAILY PRN (Reason: Congestion) Discontinued amlodipine 10 mg tablet 10 mg PO DAILY metoprolol succinate 50 mg tablet extended release 24 hr 50 mg PO DAILY atorvastatin 10 mg tablet 10 mg PO DAILY losartan 100 mg tablet 100 mg PO DAILY Discharge Orders: Discharge Order (Routine); Ordered 05/23/25 Ordered By: Geneva Carpenter Stand Alone Forms: Patient Portal Discharge page Print Language: Luxembourgish Care Plan Goals: Hospice care Stop all anti-HTN meds Start taking lasix 80 orally twice daily at 8am and 2pm. Health Concerns: End of life care Plan of Treatment: see above Assessment: see above Patient Instructions: Hospice Care (GEN)
[2025-05-23 08:41] LABS: Platelet Count 84 X10*3/uL (160-400)
[2025-05-23 08:48] LABS: INTERNATIONAL NORM RATIO 1.2 (0.9-1.1); Prothrombin Time 13.5 SEC (10.9-12.4)
[2025-05-23] MEDS: 0.9 % Sodium Chloride Flush 3 ML SYRINGE IVFLUSH (08:48)
[2025-05-23] MEDS: Furosemide 100 MG/10 ML VIAL 60 MG IVPUSH (08:48)
[2025-05-23] MEDS: Metoprolol Succinate ER 50 MG TAB.ER.24H PO (08:49)
--- NOTE | 2025-05-23 08:50 | MHC.CM.PN ---
Second IMM, pt. has been medically cleared to [place], he will go home (to his sister's home on [address] today via BLS and will have care from family and [facility].
[2025-05-23 09:07] LABS: Alanine Aminotransferase 10 U/L (0-40); Albumin Level 2.7 g/dL (3.5-5.0); Alkaline Phosphatase 57 U/L (39-117); Anion Gap 16 (12-20); Aspartate Amino Transferase 23 U/L (5-37); Blood Urea Nitrogen 87 mg/dL (9-16); Calcium 7.5 mg/dL (8.4-10.2); Carbon Dioxide 26 mmol/L (22-29); Chloride 108 mmol/L (96-108); Creatinine Clr Calc Pharmacy 9.1; Estimated Glomerular Filt Rate 9; Magnesium 2.0 mg/dL (1.6-2.6); Potassium 4.0 mmol/L (3.3-5.1); Sodium 146 mmol/L (135-145); Total Protein 4.9 g/dL (6.5-8.0)
[2025-05-23 09:17] LABS: Lymphocytes Absolute Manual 1.1 X10*3/uL (1.2-4.9); Lymphocytes Percent Manual 6 % (20-40); Monocytes Absolute Manual 0.4 X10*3/uL (0.1-1.2); Monocytes Percent Manual 2 % (2-11); Neutrophils Percent Manual 92 % (45-73)
[2025-05-23 09:20] LABS: RBC Morphology NOTED
[2025-05-23 09:23] LABS: Burr Cells 2+ (3-5) /OIF; Schistocytes 1+ (0-2) /OIF
[2025-05-23 10:06] LABS: MRSA Nasal PCR NEGATIVE (Negative); SA Nasal PCR NEGATIVE (Negative)
[2025-05-23 11:19] LABS: Band Neutrophils Percent 0 % (3-5); Neutrophils Absolute Manual 16.6 X10*3/uL (2.0-8.3)
[2025-05-23 11:51] VITALS: BP 150/67; PULSE 60; RESP 20; TEMP 36.4; O2SAT 99
[2025-05-23] MEDS: Heparin Sodium,Porcine Flush 50 UNITS/5 ML SYRINGE IVFLUSH (12:14)
[2025-05-25 09:44] LABS: Anti Nuclear Antibody Screen NEGATIVE (NEGATIVE)
[2025-05-25 12:04] LABS: Fungitell 1,3 beta glucan Negative
[2025-05-25 12:28] LABS: Pneumocystis jir Ql PCR NOT DETECTED; Pneumocystis jir source SPUTUM
[2025-05-29 19:53] LABS: Calprotectin, Fecal 185 mcg/g
--- NOTE | 2025-06-13 17:35 | P.CDIM_ITS ---
PROVIDER RESPONSE TEXT: To clarify, the appropriate diagnosis supported by the clinical indicators: Sepsis is/was present QUERY TEXT: PHYSICIAN'S DOCUMENTATION REQUEST Date of Query: 06/13/2025 12:05 PM EST Patient Name: Nasir Ahn Admit Date: 05/17/2025 Dear Geneva Carpenter MD, RETROSPECTIVE QUERY A review of the medical record indicates additional documentation may be needed. Please review below and update the documentation accordingly. Clinical indicators: Ed and Progress notes 05/16-05/19/25 - Sepsis and acute hypoxic and hypercapneic respiratory failure due to pneumonia and COPD exacerbation. Vancomycin 05/16-05/18 - Piperacillin - Tazobactam 05/16 - Shortness of breath, hypoxic, note to have Lactic acidosis, placed on supplemental oxygen. Temp 100.9 WBC 34.8 RR 30 Sepsis Systemic manifestations of infection, with 2 or more SIRS criteria which include: Fever > 100.4?F or hypothermia < 96.8?F Leukocytosis - WBC > 12,000 or leukopenia, WBC < 4,000, or > 10% bands Tachycardia- > 90 beats/minute Tachypnea- RR > 20 breaths/minute or PaCO2 < 32mmHg Severe Sepsis Sepsis with associated acute organ dysfunction, such as renal or respiratory failure Consistency and clarity of a diagnosis: Sepsis is/was present After study Sepsis has been ruled out Other (explain) Clinically unable to determine (explain) Thank you, Marianne Silverio, CCS, CDIS Use of terms such as suspected, likely, concern for, or probable (associated with a specific diagnosis that is being evaluated, monitored, or treated as if it exists) are acceptable and can be coded in the inpatient setting, when documented at the time of discharge. Please use your independent medical judgment in providing your response. THIS QUERY IS PART OF THE PERMANENT MEDICAL RECORD
== END 2025-05-23 12:50 | disposition hospice, home (50) | DRG 871 ==
LOC: HO.ED 20:30 → HO.EDOVER 20:34 → HO.IMC 05-17 19:39
PROVIDERS: Family Medicine; Internal Medicine; Internal Medicine Critical Care Medicine; Admitting Provider Hospitalist; Emergency Provider Emergency Medicine; PCP Family Medicine; Visit Provider Student in an Organized Health Care Education/Training Program
DX: A41.9 Sepsis, unspecified organism (principal); I50.31 Acute diastolic (congestive) heart failure; J18.9 Pneumonia, unspecified organism; J96.21 Acute and chronic respiratory failure with hypoxia; N17.0 Acute kidney failure with tubular necrosis; J96.22 Acute and chronic respiratory failure with hypercapnia; C34.32 Malignant neoplasm of lower lobe, left bronchus or lung; J44.0 Chronic obstructive pulmonary disease with (acute) lower respiratory infection; J44.1 Chronic obstructive pulmonary disease with (acute) exacerbation; R04.2 Hemoptysis; E87.21 Acute metabolic acidosis; D62 Acute posthemorrhagic anemia; K52.1 Toxic gastroenteritis and colitis; I13.2 Hypertensive heart and chronic kidney disease with heart failure and with stage 5 chronic kidney disease, or end stage renal disease; N18.5 Chronic kidney disease, stage 5; C79.9 Secondary malignant neoplasm of unspecified site; T36.95XA Adverse effect of unspecified systemic antibiotic, initial encounter; Z66 Do not resuscitate; E03.9 Hypothyroidism, unspecified; D63.0 Anemia in neoplastic disease; D63.1 Anemia in chronic kidney disease; E78.5 Hyperlipidemia, unspecified; Z20.822 Contact with and (suspected) exposure to COVID-19; Z87.891 Personal history of nicotine dependence; Z86.718 Personal history of other venous thrombosis and embolism; Z90.2 Acquired absence of lung [part of]; Z79.01 Long term (current) use of anticoagulants; Z79.890 Hormone replacement therapy; Z79.899 Other long term (current) drug therapy
CPT/HCPCS: 36415; 71045; 71250; 76775; 78580; 80048; 80053; 80076; 80202; 81001; 82570; 82803; 82947; 83520; 83605; 83615; 83690; 83735; 83880; 83993; 84145; 84300; 84484; 85007; 85025; 85027; 85610; 85652; 86021; 86038; 86140; 86160; 86850; 86900; 86901; 86923; 87040; 87070; 87086; 87205; 87449; 87493; 87507; 87633; 87637; 87640; 87641; 87798; 87899; 93005; 93306; 93970; 93971; 99285; A9540; J0456; J1642; J1938; J2543; J2919; J3374; J7120; P9016; Q9957

== ENCOUNTER → 2025-05-16 18:31 | Outpatient (BNV) | payer MEDICARE, MEDICAID, SELFPAY | PROVIDERS: Emergency Provider Emergency Medicine; Visit Provider Student in an Organized Health Care Education/Training Program | DX: R06.02 Shortness of breath (principal) | CPT/HCPCS: 71045 ==

== ENCOUNTER → 2025-05-16 18:31 | Outpatient (BNV) | payer MEDICARE, MEDICAID, SELFPAY | PROVIDERS: Admitting Provider Hospitalist; Emergency Provider Emergency Medicine; Visit Provider Internal Medicine Cardiovascular Disease | DX: R94.31 Abnormal electrocardiogram [ECG] [EKG] (principal); R06.02 Shortness of breath | CPT/HCPCS: 93010 ==

== ENCOUNTER 2025-05-16 20:27 | Outpatient (BNV) | payer MEDICARE, MEDICAID, SELFPAY | END 2025-05-18 12:00 | PROVIDERS: Admitting Provider Hospitalist; Emergency Provider Emergency Medicine; PCP Family Medicine; Visit Provider Internal Medicine Cardiovascular Disease | DX: I42.2 Other hypertrophic cardiomyopathy (principal); I35.8 Other nonrheumatic aortic valve disorders; I34.81 Nonrheumatic mitral (valve) annulus calcification | CPT/HCPCS: 93306 ==

== ENCOUNTER 2025-05-16 20:27 | Outpatient (BNV) | payer MEDICARE, MEDICAID, SELFPAY | END 2025-05-17 08:34 | PROVIDERS: Admitting Provider Hospitalist; Emergency Provider Emergency Medicine; Visit Provider Radiology Diagnostic Radiology | DX: N17.9 Acute kidney failure, unspecified (principal); R09.02 Hypoxemia; Z86.711 Personal history of pulmonary embolism | CPT/HCPCS: 76775; 78580; 93970 ==

== ENCOUNTER 2025-05-16 20:27 | Outpatient (BNV) | payer MEDICARE, MEDICAID, SELFPAY | END 2025-05-22 17:15 | PROVIDERS: Admitting Provider Hospitalist; Emergency Provider Emergency Medicine; PCP Family Medicine; Visit Provider Radiology Diagnostic Radiology | DX: R22.31 Localized swelling, mass and lump, right upper limb (principal) | CPT/HCPCS: 93971 ==

== ENCOUNTER 2025-05-16 20:27 | Outpatient (BNV) | payer MEDICARE, MEDICAID, SELFPAY | END 2025-05-20 08:29 | PROVIDERS: Admitting Provider Hospitalist; Emergency Provider Emergency Medicine; PCP Family Medicine; Visit Provider Specialist | DX: J81.0 Acute pulmonary edema (principal) | CPT/HCPCS: 71045 ==

== ENCOUNTER 2025-05-16 20:27 | Outpatient (BNV) | payer MEDICARE, MEDICAID, SELFPAY | END 2025-05-18 13:43 | PROVIDERS: Admitting Provider Hospitalist; Emergency Provider Emergency Medicine; PCP Family Medicine; Visit Provider Radiology Diagnostic Radiology | DX: J18.9 Pneumonia, unspecified organism (principal) | CPT/HCPCS: 71045 ==

== ENCOUNTER → 2025-05-16 20:27 | Outpatient (BNV) | payer MEDICARE, MEDICAID, SELFPAY | PROVIDERS: Admitting Provider Hospitalist; Emergency Provider Emergency Medicine; PCP Family Medicine; Visit Provider Internal Medicine Critical Care Medicine | DX: N17.9 Acute kidney failure, unspecified (principal); I10 Essential (primary) hypertension; E87.1 Hypo-osmolality and hyponatremia | CPT/HCPCS: 99232 ==

== ENCOUNTER → 2025-05-16 20:27 | Outpatient (BNV) | payer MEDICARE, MEDICAID, SELFPAY | PROVIDERS: Admitting Provider Hospitalist; Emergency Provider Emergency Medicine; PCP Family Medicine; Visit Provider Internal Medicine Pulmonary Disease | DX: J44.9 Chronic obstructive pulmonary disease, unspecified (principal); J96.01 Acute respiratory failure with hypoxia; C34.90 Malignant neoplasm of unspecified part of unspecified bronchus or lung; J81.1 Chronic pulmonary edema | CPT/HCPCS: 99222 ==

== ENCOUNTER → 2025-05-16 20:27 | Outpatient (BNV) | payer MEDICARE, MEDICAID, SELFPAY | PROVIDERS: Admitting Provider Hospitalist; Emergency Provider Emergency Medicine; PCP Family Medicine; Visit Provider Internal Medicine | DX: E87.1 Hypo-osmolality and hyponatremia (principal); C34.32 Malignant neoplasm of lower lobe, left bronchus or lung; J96.01 Acute respiratory failure with hypoxia | CPT/HCPCS: 99222 ==

== ENCOUNTER → 2025-05-16 20:27 | Outpatient (BNV) | payer MEDICARE, MEDICAID, SELFPAY | PROVIDERS: Admitting Provider Hospitalist; Emergency Provider Emergency Medicine; Visit Provider Family Medicine | DX: J18.9 Pneumonia, unspecified organism (principal); R09.02 Hypoxemia | CPT/HCPCS: 99232; 99233 ==